=== PATIENT | male | born 1960 | race Caucasian/White ===

== ENCOUNTER 2021-08-06 15:50 | Emergency (ER) | payer OTHER, SELFPAY ==
[2021-08-06 16:00] VITALS: BP 192/90; PULSE 62; RESP 18; TEMP 36.6; O2SAT 98; BMI 32.4
[2021-08-06 16:11] LABS: MANUAL DIFF FLAG NO
[2021-08-06 16:13] LABS: Basophils Absolute Auto 0.1 X10*3/uL (0.0-0.2); Basophils Percent Auto 0.7 % (0-2); Eosinophils Absolute Auto 0.6 X10*3/uL (0.0-0.4); Eosinophils Percent Auto 5.5 % (0-4); Hematocrit 38.7 % (42.0-52.0); Hemoglobin 12.7 g/dl (14.0-18.0); Imm Gran Abs Auto 0.03 X10*3/uL (0.00-0.03); Imm Gran Pct Auto 0.3 % (0.0-0.4); Lymphocytes Absolute Auto 2.1 X10*3/uL (1.2-4.9); Lymphocytes Percent Auto 20.9 % (20-40); Mean Corpuscular HGB Conc 32.8 g/dl (31.0-36.0); Mean Corpuscular Hemoglobin 27.4 pg (27.0-33.0); Mean Corpuscular Volume 83.4 fL (80.0-98.0); Mean Platelet Volume 10.5 fL (9.4-12.4); Monocytes Absolute Auto 1.1 X10*3/uL (0.1-1.2); Monocytes Percent Auto 10.8 % (2-11); Neutrophils Absolute Auto 6.4 x10*3/uL (2.0-8.3); Neutrophils Percent Auto 61.8 % (45-73); Platelet Count 236 X10*3/uL (160-400); Red Blood Count 4.64 X10*6/uL (4.60-5.80); Red Cell Distribution Width 14.9 % (11.0-16.0); White Blood Count 10.3 X10*3/uL (4.8-10.8)
[2021-08-06 16:29] LABS: Anion Gap 16 (12-20); Blood Urea Nitrogen 22 mg/dL (9-16); Calcium 9.4 mg/dL (8.4-10.2); Carbon Dioxide 26 mmol/L (22-29); Chloride 99 mmol/L (96-108); Creatinine Clr Calc Pharmacy 50.5; Estimated Glomerular Filt Rate 48; Glucose Random 206 mg/dL (60-115); Potassium 3.9 mmol/L (3.3-5.1); Sodium 137 mmol/L (135-145)
== END 2021-08-06 21:18 | disposition left against medical advice (07) ==
PROVIDERS: Emergency Provider Emergency Medicine
DX: R51.9 Headache, unspecified (principal); R42 Dizziness and giddiness
CPT/HCPCS: 36415; 80048; 85025; 99281; 99283

== ENCOUNTER 2023-08-17 11:05 | Outpatient (AMB) | payer OTHER, SELFPAY ==
--- NOTE | 2023-08-17 11:14 | MHC.PC.OV ---
Vital Signs 08/17/23 11:22 08/17/23 11:26 Height 5 ft 2.99 in Weight 175 lb BMI 31.0 BP 144/82 H 134/56 L Blood Pressure Location Lt brachial Lt brachial Position Sitting Sitting Respiration 16 Pulse 59 Pulse Source Pulse Oximeter Temp 98.4 F Temp Source Oral Pulse Oximetry (%) 95 Oxygen Delivery Method Room Air Intake Visit Reasons: Establish Care Intake Note: New patient visit. Feeling dizzy, hasnt checked sugars in 2 weeks. Has had a cough for a month and a half since coming home from [place]. 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: Yes Precinct Police Sergeant Name: Daughter Aristides Accompanied by: Daughter Allergies clindamycin [CLINDAMYCIN] Allergy (Unknown, Verified 08/17/23 11:14) SWELLING, RASH Clindamycin HCl Allergy (Unknown, Verified 08/17/23 11:14) vomiting pravastatin Allergy (Unknown, Verified 08/17/23 11:14) increase liver enzymes Medication List - Last Reconciled 08/17/23 by Catalina Hamilton PA-C amlodipine 10 mg PO DAILY carvedilol 25 mg PO BID gabapentin 800 mg PO BEDTIME glipizide 10 mg PO BID hydralazine 25 mg PO QID hydrochlorothiazide 25 mg PO DAILY levothyroxine (Synthroid) 112 mcg PO DAILY losartan 100 mg PO DAILY metformin 1,000 mg PO BID simvastatin 10 mg PO DAILY spironolactone 25 mg PO DAILY Tobacco use date assessed: 08/17/23 Dental Screening Dental Screen Date: 08/17/23 Did you have a dental visit in the last 12 months?: No Did you have a dental problem in the last 6 months where you did not have access to dental care?: Yes Was dental information given to patient?: Yes HPI Establish Care HPI Details Pt is a 62 y/o male who presents today to [facility]. He recently moved here from [place] 2 weeks ago and is out of some medications and is running out of most of them. He states that at most he has a few days left of some pills. His daughter is here today with him and helps with translation although he does speak and understand some Georgian. He has a significant past medical history of CAD, previous MS, hypertension, hyperlipidemia, type 2 diabetes, uncontrolled, CKD, microalbuminuria, depression. The move to [place] was rather quick/not completely planned because he started to have worsening depression, ongoing chest pain, some abnormal stress test, persistent dizziness and just falling a lot at home. He was in [place] being taken care of by his [id number] who his daughter who is here today with him states did not do a good job. She says that he was following with a horse racing analyst and a coordinate measuring machine operator as of recently. CV: He had MS 8 years ago. Does not know if he had a stent or cabg. he states that it was a big one . He states he was stopped on aspirin about 6 months ago due to an acute kidney change. He saw a coordinate measuring machine operator who told him to stop the aspirin and avoid NSAIDs. He states that he was following routinely with his horse racing analyst because over the last year so he started to have chest pains again. -He does get chest pain on and off that started about a year ago. About a month ago the chest pain became more persistent and he went to his doctor in [place] he had an ekg and a stress test. He states the stress test came out not good . He left before this was followed up with. He does get chest pain with sob, dizziness and nausea. It seems to be triggered by stress. Sometimes it can be triggered by nothing. He does also have GERD and states that he gets some similar symptoms with this as well. He states that the dizziness is sometimes feeling like he is going to faint but then other times it feels like a spinning sensation. Neuro: He does not always have dizziness associated with chest pain but states that sometimes he will wake up and turn his head from [id number] and feel like he is spinning and off-balance. This has been going on for years and he states that this is 1 of his biggest concerns. It happens while doing nothing. It has gotten worse over the last couple years. He is falling because at times he is off balance with this. He does not believe that this has ever been worked up or that he has ever had a stroke. He denies any ear pain or decreased hearing. He is concerned because over the last year so he is also become increasingly forgetful. States that people will have to repeat things to him. No headaches or vision changes but also is overdue for an eye exam. Can not recall the last time he has had an eye exam. Nephro: reports his kidney function over the last year has rapidly declined. He states he also has a lot of protein in his urine. Endo: His blood sugar today in the office today 245. His A1c is 8.4 today in the office. He does not check his blood sugars. He does not have any testing supplies and states that he was never actually good about taking this. He was diagnosed with diabetes about 30 years ago. He never went to any diabetic Education. He does not fully understand diabetes and states that he is usually compliant with his medications. He is currently on glipizide 10 mg twice a day, metformin 1000 mg twice a day and insulin. He has not been on insulin in the last 2 weeks because he did not take it with him from [place]. He does not know the name of it but he states that he took it once a day and he thinks he took somewhere around 30 units. He does not know any previous A1cs. The coordinate measuring machine operator told him that the worsened kidney function was possibly related to his and his medications. GI: Was following with Gastroenterology in [place] as well for his acid reflux and because he was overdue for a colonoscopy. He states that he has never had 1. No family history of colon cancer but has experienced constipation on and off over the last few months. He states that they wanted to do a double endoscopy. No blood in the stool or weight loss. Psych: He does have a longstanding history of depression that seems to wax and wane in intensity and states that he is never seen anyone for this before and would be open to this. At times he does have suicidal ideation but no plan. Patient's daughter states that that is why she moved him so quickly to [place] so he could live with her and her . He has never been on medication or hospitalized for this. Denies any auditory or visual hallucinations. He has a family type 2 diabetes with his mother and sister. [facility] Medical History (Updated 08/17/23 @ 14:25 by Catalina Hamilton PA-C) Hypothyroid Forgetfulness Major depression, recurrent, chronic Dizziness Hypertension Hyperlipidemia Previous myocardial infarction older than 8 weeks Chest pain Microalbuminuria Chronic kidney disease Diabetic nephropathy Uncontrolled type 2 diabetes mellitus with hyperglycemia, with long-term current use of insulin Social History Housing: House (Lives with daughter) Patient Tobacco Use Status: Never used Tobacco e-Cigarette/Vaping Use: Never Used Second Hand Smoke Exposure: No service: No Current occupational status: unemployed Cognitive needs: No Hearing needs: No Vision needs: No Questionnaire PHQ-9 Over the last 2 weeks, how often have you been bothered by any of the following problems? 1. Little interest or pleasure in doing things: nearly every day 2. Feeling down, depressed, or hopeless: nearly every day 3. Trouble falling or staying asleep, or sleeping too much: nearly every day 4. Feeling tired or having little energy: nearly every day 5. Poor appetite or overeating: nearly every day 6. Feeling bad about yourself - or that you are a failure or have let yourself or your family down: several days 7. Trouble concentrating on things, such as reading the newspaper or watching television: nearly every day 8. Moving or speaking so slowly that other people could have noticed. Or the opposite - being so fidgety or restless that you have been moving around a lot more than usual: more than half the days 9. Thoughts that you would be better off or of hurting yourself in some way: several days Total score: 22 Depression Screening Interpretation: Positive Depression Screening Done: Yes [id number] - PHQ-9 Billing: Yes Source: Developed by Drs. Dick Burgess, Anna Hoang, Tal Celis and colleagues, with an educational quin from [employer]. Thrive Questionnaire Date Thrive assessed: 08/17/23 I am a: Patient What is your living situation today?: I have a steady place to live Within the past 12 months, did the food you bought not last and you didn't have the money to get more?: Never true Within the past 12 months, did you worry whether your food would run out before you got money to buy more?: Never true Do you have trouble paying for medicines?: No Do you have trouble getting transportation to medical appointments?: No Do you have trouble paying your heating and electricity bill?: No Do you have trouble taking care of your child, family member or friend?: No Do you have trouble with day-to-day activities such as bathing, preparing meals, shopping, managing finances, etc.?: No Are you currently unemployed and looking for a job?: No Are you interested in more education?: No Please select the resources that you would like help with: None THRIVE Score: 0 AUDIT C Alcohol Use Questionnaire (AUDIT-C) 1. How often do you have a drink containing alcohol?: Monthly or less 2. How many drinks containing alcohol do you have on a typical day when you are drinking?: 1 or 2 3. How often do you have six or more drinks on one occasion?: Never Total Score: 1 JOEY-7 AMB Questionnaire JOEY-7 Date JOEY - 7 assessed: 08/17/23 Feeling nervous, anxious, or on edge: 3 = Nearly every day Not being able to stop or control worryin = Nearly every day Worrying too much about different things: 3 = Nearly every day Trouble relaxin = Nearly every day Being so restless that it is hard to sit still: 2 = More than half the days Becoming easily annoyed or irritable: 3 = Nearly every day Feeling afraid as if something awful might happen: 0 = Not at all Total JOEY-7 score (0-4 normal; 5-9 mild; 10-14 moderate; 15-21 severe): 17 Source: Developed by Drs. Dick Burgess, nAna Hoang, Tal Celis and colleagues, with an educational quin from [employer]. JOEY-7 Assessment Billing JOEY-7 Assessment Tool: JOEY-7 Assessment [id number] Physical exam (Primary Care) Vital Signs: Last Vital Signs Temp 98.4 F 08/17/23 11:22 Pulse 59 08/17/23 11:22 Resp 16 08/17/23 11:22 BP 134/56 L 08/17/23 11:26 Pulse Ox 95 08/17/23 11:22 Oxygen Delivery Method Room Air 08/17/23 11:22 BMI result Body Mass Index 31.0 Tobacco/Smoking Status: Tobacco use Status Tobacco use date assessed 08/17/23 08/17/23 11:25 Patient Tobacco Use Status Never used Tobacco 08/17/23 11:25 e-Cigarette/Vaping Use Never Used 08/17/23 11:25 Depression Screening Interpretation: Positive Const Orientation/consciousness: patient oriented x3 HENMT Ears: hearing grossly normal bilaterally and TM's normal bilaterally General nose exam: Normal nasal mucous membranes and turbinates present Face and sinus: Yes sinuses nontender Mouth: Normal oral and palatal mucosa present Throat: Yes posterior oropharynx normal Eyes Pupils: Equal, round and reactive pupils present Neck Thyroid: Thyroid normal Lymphatic: no lymphadenopathy noted Resp Auscultation: clear to auscultation bilaterally Cardio Rate: regular rate Rhythm: regular rhythm Heart sounds: S1 normal heart sound present and S2 normal heart sound present GI Inspection: Yes normal to inspection Palpation (GI): Soft to palpation and Other GI palpation findings present (nontender, no cva tenderness) Auscultation: normoactive bowel sounds Skin General skin exam: no rashes or lesions noted Neuro General: patient oriented x3, gait normal, moves all extremities, no focal motor deficits, CN's II-XI intact bilaterally and deep tendon reflexes 2+ bilaterally Cranial nerves: Yes Equal, round and reactive pupils present Coordination: xdgcej-pa-[id number] test normal, osvu-wv-qlua test normal, Romberg test negative and rapid alternating movements of the distal upper extremity normal Office Procedures EKG Details: EKG today in office is sinus bradycardia at a rate of 57 beats per minute with first-degree AV block and nonspecific STT wave abnormalities noted. No prior study to compare. EKG interpreted by myself. 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 We will start Lantus 10 units. A1c today in the office is 8.4. We did discuss that his goal would be at least less than 7. Diabetic labs ordered. Referral to Ophthalmology. CGM ordered. testing supplies ordered. signs and sx of hyper and hypoglycemia were discussed. (2) Diabetic nephropathy: Code(s): E11.21 - Type 2 diabetes mellitus with diabetic nephropathy Qualifiers: Diabetes mellitus type: type 2 Qualified Code(s): E11.21 - Type 2 diabetes mellitus with diabetic nephropathy Plan: We will check kidney function and urine. (3) Chronic kidney disease: Code(s): N18.9 - Chronic kidney disease, unspecified Qualifiers: Chronic kidney disease stage: unspecified stage Qualified Code(s): N18.9 - Chronic kidney disease, unspecified Plan: Referral to Nephrology. (4) Microalbuminuria: Code(s): R80.9 - Proteinuria, unspecified Plan: As above (5) Chest pain: Code(s): R07.9 - Chest pain, unspecified Qualifiers: Chest pain type: unspecified Qualified Code(s): R07.9 - Chest pain, unspecified Plan: EKG listed above. Reports recent abnormal stress test. Does not believe he would be able to participate in his stress test due to his dizziness. I have referred him to Cardiology for consultation. I have advised them to get his records from [place] regarding his previous MS and his recent cardiac testing. Chest x-ray also ordered today. (6) Hyperlipidemia: Code(s): E78.5 - Hyperlipidemia, unspecified Qualifiers: Hyperlipidemia type: mixed hyperlipidemia Qualified Code(s): E78.2 - Mixed hyperlipidemia (7) Hypertension: Code(s): I10 - Essential (primary) hypertension Qualifiers: Hypertension type: primary hypertension Qualified Code(s): I10 - Essential (primary) hypertension Plan: Believes he took all of his blood pressure medications today. I will continue his current regimen and make adjustment if needed for next appointment. He will bring in his pill bottles as well as he has not sure what he was out of. (8) Dizziness: Code(s): R42 - Dizziness and giddiness Plan: He does appear grossly neurologically intact today. He states that his current dizziness feels more of a spinning sensation. We will treat with meclizine. We discussed risks and benefits and adverse effects of this medication. MRI ordered. Labs ordered. Carotid ultrasound ordered. (9) Major depression, recurrent, chronic: Code(s): F33.9 - Major depressive disorder, recurrent, unspecified Plan: Referral to [facility]. Does not want medication right now. Does not have any SI/HI. Feels safe. Has a good support system. (10) Forgetfulness: Code(s): R68.89 - Other general symptoms and signs Plan: As above. (11) Hypothyroid: Code(s): E03.9 - Hypothyroidism, unspecified Plan: tsh ordered.refilled levothyroxine. Plan More than an hour and a half was spent today with patient and daughter. Orders: Orders AMB Hemoglobin A1c Today E11.9 - Type 2 diabetes mellitus without complications AMB Glucose monitoring Today E11.21 - Type 2 diabetes mellitus with diabetic nephropathy, E11.65 - Type 2 diabetes mellitus with hyperglycemia, E11.9 - Type 2 diabetes mellitus without complications, E78.5 - Hyperlipidemia, unspecified, F33.9 - Major depressive disorder, recurrent, unspecified, I10 - Essential (primary) hypertension, I25.2 - Old myocardial infarction, N18.9 - Chronic kidney disease, unspecified, R07.9 - Chest pain, unspecified, R42 - Dizziness and giddiness, R80.9 - Proteinuria, unspecified, Z79.4 - 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 of insulin Complete Blood Count Auto Diff Today E11.21 - Type 2 diabetes mellitus with diabetic nephropathy, E11.65 - Type 2 diabetes mellitus with hyperglycemia, E78.5 - Hyperlipidemia, unspecified, F33.9 - Major depressive disorder, recurrent, unspecified, I10 - Essential (primary) hypertension, I25.2 - Old myocardial infarction, N18.9 - Chronic kidney disease, unspecified, R07.9 - Chest pain, unspecified, R42 - Dizziness and giddiness, R80.9 - Proteinuria, unspecified, Z79.4 - 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 of insulin PSA, Ultra Sensitive Today E11.21 - Type 2 diabetes mellitus with diabetic nephropathy, E11.65 - Type 2 diabetes mellitus with hyperglycemia, E78.5 - Hyperlipidemia, unspecified, F33.9 - Major depressive disorder, recurrent, unspecified, I10 - Essential (primary) hypertension, I25.2 - Old myocardial infarction, N18.9 - Chronic kidney disease, unspecified, R06.09 - Other forms of dyspnea, R07.9 - Chest pain, unspecified, R42 - Dizziness and giddiness, R80.9 - Proteinuria, unspecified, Z79.4 - halfway (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 of insulin Ferritin Today E11.21 - Type 2 diabetes mellitus with diabetic nephropathy, E11.65 - Type 2 diabetes mellitus with hyperglycemia, E78.5 - Hyperlipidemia, unspecified, F33.9 - Major depressive disorder, recurrent, unspecified, I10 - Essential (primary) hypertension, I25.2 - Old myocardial infarction, N18.9 - Chronic kidney disease, unspecified, R07.9 - Chest pain, unspecified, R42 - Dizziness and giddiness, R80.9 - Proteinuria, unspecified, Z79.4 - halfway (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 of insulin Vitamin B12 and Folate Today E11.21 - Type 2 diabetes mellitus with diabetic nephropathy, .65 - Type 2 diabetes mellitus with hyperglycemia, E78.5 - Hyperlipidemia, unspecified, F33.9 - Major depressive disorder, recurrent, unspecified, I10 - Essential (primary) hypertension, I25.2 - Old myocardial infarction, N18.9 - Chronic kidney disease, unspecified, R07.9 - Chest pain, unspecified, R42 - Dizziness and giddiness, R80.9 - Proteinuria, unspecified, Z79.4 - halfway (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 of insulin Urine Culture Today E78.5 - Hyperlipidemia, unspecified, F33.9 - Major depressive disorder, recurrent, unspecified, I10 - Essential (primary) hypertension, I25.2 - Old myocardial infarction, N18.9 - Chronic kidney disease, unspecified, R07.9 - Chest pain, unspecified, R42 - Dizziness and giddiness, R80.9 - Proteinuria, unspecified IRON PROFILE Today E11.21 - Type 2 diabetes mellitus with diabetic nephropathy, E11.65 - Type 2 diabetes mellitus with hyperglycemia, E78.5 - Hyperlipidemia, unspecified, F33.9 - Major depressive disorder, recurrent, unspecified, I10 - Essential (primary) hypertension, I25.2 - Old myocardial infarction, N18.9 - Chronic kidney disease, unspecified, R07.9 - Chest pain, unspecified, R42 - Dizziness and giddiness, R80.9 - Proteinuria, unspecified, Z79.4 - halfway (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 of insulin Lipid Panel Today E11.21 - Type 2 diabetes mellitus with diabetic nephropathy, E11.65 - Type 2 diabetes mellitus with hyperglycemia, E78.5 - Hyperlipidemia, unspecified, F33.9 - Major depressive disorder, recurrent, unspecified, I10 - Essential (primary) hypertension, I25.2 - Old myocardial infarction, N18.9 - Chronic kidney disease, unspecified, R07.9 - Chest pain, unspecified, R42 - Dizziness and giddiness, R80.9 - Proteinuria, unspecified, Z79.4 - halfway (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 of insulin AMB EKG-In Office Today E11.21 - Type 2 diabetes mellitus with diabetic nephropathy, E11.65 - Type 2 diabetes mellitus with hyperglycemia, E78.5 - Hyperlipidemia, unspecified, F33.9 - Major depressive disorder, recurrent, unspecified, I10 - Essential (primary) hypertension, I25.2 - Old myocardial infarction, N18.9 - Chronic kidney disease, unspecified, R07.9 - Chest pain, unspecified, R42 - Dizziness and giddiness, R80.9 - Proteinuria, unspecified, Z79.4 - halfway (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 of insulin XR chest 2V Today E11.21 - Type 2 diabetes mellitus with diabetic nephropathy, E11.65 - Type 2 diabetes mellitus with hyperglycemia, E78.5 - Hyperlipidemia, unspecified, F33.9 - Major depressive disorder, recurrent, unspecified, I10 - Essential (primary) hypertension, I25.2 - Old myocardial infarction, N18.9 - Chronic kidney disease, unspecified, R07.9 - Chest pain, unspecified, R42 - Dizziness and giddiness, R80.9 - Proteinuria, unspecified, 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 - 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 of insulin Hepatitis C Antibody Today R68.89 - Other general symptoms and signs, Z11.3 - Encounter for screening for infections with a predominantly sexual mode of transmission HIV Ab/Ag Today R68.89 - Other general symptoms and signs, Z11.3 - Encounter for screening for infections with a predominantly sexual mode of transmission Syphilis Screen Today R68.89 - Other general symptoms and signs, Z11.3 - Encounter for screening for infections with a predominantly sexual mode of transmission AMB Random Glucose (hemocue) Today E11.21 - Type 2 diabetes mellitus with diabetic nephropathy, E11.65 - Type 2 diabetes mellitus with hyperglycemia, E78.5 - Hyperlipidemia, unspecified, F33.9 - Major depressive disorder, recurrent, unspecified, I10 - Essential (primary) hypertension, I25.2 - Old myocardial infarction, N18.9 - Chronic kidney disease, unspecified, R07.9 - Chest pain, unspecified, R42 - Dizziness and giddiness, R80.9 - Proteinuria, unspecified, Z13.9 - Encounter for screening, unspecified, Z79.4 - 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 of insulin TSH reflex Free T4 Today E11.21 - Type 2 diabetes mellitus with diabetic nephropathy, E11.65 - Type 2 diabetes mellitus with hyperglycemia, E78.5 - Hyperlipidemia, unspecified, F33.9 - Major depressive disorder, recurrent, unspecified, I10 - Essential (primary) hypertension, I25.2 - Old myocardial infarction, N18.9 - Chronic kidney disease, unspecified, R07.9 - Chest pain, unspecified, R42 - Dizziness and giddiness, R80.9 - Proteinuria, unspecified, Z79.4 - halfway (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 of insulin AMB Urinalysis Dipstick Today E11.21 - Type 2 diabetes mellitus with diabetic nephropathy, E11.65 - Type 2 diabetes mellitus with hyperglycemia, E78.5 - Hyperlipidemia, unspecified, F33.9 - Major depressive disorder, recurrent, unspecified, I10 - Essential (primary) hypertension, I25.2 - Old myocardial infarction, N18.9 - Chronic kidney disease, unspecified, R07.9 - Chest pain, unspecified, R42 - Dizziness and giddiness, R80.9 - Proteinuria, unspecified, Z79.4 - halfway (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 of insulin Lyme IgG/IgM w/reflex to WB Today E11.21 - Type 2 diabetes mellitus with diabetic nephropathy, E11.65 - Type 2 diabetes mellitus with hyperglycemia, E78.5 - Hyperlipidemia, unspecified, F33.9 - Major depressive disorder, recurrent, unspecified, I10 - Essential (primary) hypertension, I25.2 - Old myocardial infarction, N18.9 - Chronic kidney disease, unspecified, R07.9 - Chest pain, unspecified, R42 - Dizziness and giddiness, R80.9 - Proteinuria, unspecified, Z79.4 - 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 of insulin MR head/brain wo con Today R42 - Dizziness and giddiness, R68.89 - Other general symptoms and signs Referrals Diabetes Education Referral E11.65 - Type 2 diabetes mellitus with hyperglycemia, Z79.4 - halfway (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 of insulin Nephrology Referral E11.21 - Type 2 diabetes mellitus with diabetic nephropathy, N18.9 - Chronic kidney disease, unspecified, R80.9 - Proteinuria, unspecified Gastroenterology Referral Z12.11 - Encounter for screening for malignant neoplasm of colon Cardiology Referral I10 - Essential (primary) hypertension, R07.9 - Chest pain, unspecified Behavioral Health Referral F33.9 - Major depressive disorder, recurrent, unspecified Medications: New blood sugar diagnostic (FreeStyle Lite Strips) use daily As directed to check blood sugars for diabetes 100 ea 3RF E11.65 - Type 2 diabetes mellitus with hyperglycemia 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 meter (FreeStyle Lite Meter kit) Use daily As directed to check blood glucose 1 ea 0RF E11.65 - Type 2 diabetes mellitus with hyperglycemia 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 meter,continuous (FreeStyle Matt 3 [place]) Use daily As directed to monitor type 2 diabetes 1 ea 0RF E11.21 - Type 2 diabetes mellitus with diabetic nephropathy, E11.65 - Type 2 diabetes mellitus with hyperglycemia, R80.9 - Proteinuria, unspecified, Z79.4 - halfway (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 of insulin insulin glargine (Lantus Solostar U-100 Insulin) 10 units (0.1 mL) subcut QPM 15 mL 3RF amlodipine 10 mg PO DAILY 90 tabs 0RF carvedilol must administer with a meal/food 25 mg PO BID 90 days 180 tabs 0RF glipizide 10 mg PO BID 180 tabs 0RF metformin 1,000 mg PO BID 90 days 180 tabs 0RF lancets (FreeStyle Lancets) Use daily As directed to check blood sugar 100 ea 3RF E11.65 - Type 2 diabetes mellitus with hyperglycemia, Z79.4 - halfway (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 of insulin 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 sensor (FreeStyle Matt 3 Sensor device) use daily As directed to monitor type 2 diabetes. changed q 14 days 2 ea 11RF E11.21 - Type 2 diabetes mellitus with diabetic nephropathy, E11.65 - Type 2 diabetes mellitus with hyperglycemia, Z79.4 - halfway (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 of insulin gabapentin 800 mg PO BEDTIME 90 tabs 0RF losartan 100 mg PO DAILY 90 tabs 0RF simvastatin 10 mg PO DAILY 90 tabs 0RF levothyroxine (Synthroid) 112 mcg PO DAILY 90 tabs 0RF Coding Level of Care Code New Pt Level 5 (22492) Complex EM visit Add On G2211 Diagnoses Uncontrolled type 2 diabetes mellitus with hyperglycemia, with long-term current use of insulin E11.65; Z79.4 Diabetic nephropathy associated with type 2 diabetes mellitus E11.21 Diabetes mellitus type: type 2 Chronic kidney disease, unspecified CKD stage N18.9 Chronic kidney disease stage: unspecified stage Microalbuminuria R80.9 Chest pain, unspecified type R07.9 Chest pain type: unspecified Mixed hyperlipidemia E78.2 Hyperlipidemia type: mixed hyperlipidemia Primary hypertension I10 Hypertension type: primary hypertension Dizziness R42 Major depression, recurrent, chronic F33.9 Forgetfulness R68.89 Hypothyroid E03.9 CPT Codes EKG - CPT: 01256-[id number], Complete ([id number]) Additional Codes JOEY-7 Assessment Billing - JOEY-7 Assessment Tool: JOEY-7 Assessment [id number] ([id number])
[2023-08-17 11:22] VITALS: BP 144/82; PULSE 59; RESP 16; TEMP 36.9; O2SAT 95; BMI 31.0
[2023-08-17 11:26] VITALS: BP 134/56
== END 2023-08-17 13:20 | disposition home or self-care (01) ==
PROVIDERS: Visit Provider Physician Assistant
DX: I12.9 Hypertensive chronic kidney disease with stage 1 through stage 4 chronic kidney disease, or unspecified chronic kidney disease (principal); N18.9 Chronic kidney disease, unspecified; E11.65 Type 2 diabetes mellitus with hyperglycemia; Z79.4 Long term (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 of insulin; E11.21 Type 2 diabetes mellitus with diabetic nephropathy; F33.9 Major depressive disorder, recurrent, unspecified; R07.9 Chest pain, unspecified; R80.9 Proteinuria, unspecified; E78.2 Mixed hyperlipidemia; R42 Dizziness and giddiness; E03.9 Hypothyroidism, unspecified
CPT/HCPCS: 83036; 93000; 99205; G2211

== ENCOUNTER 2023-08-17 13:58 | Outpatient (REF) | payer OTHER, SELFPAY | END 2023-08-17 13:59 | disposition home or self-care (01) | LOC: HO.LNP 13:58 | PROVIDERS: Visit Provider Physician Assistant | DX: Z13.89 Encounter for screening for other disorder (principal) ==

== ENCOUNTER 2023-08-18 09:10 | Outpatient (REF) | payer OTHER, SELFPAY ==
--- NOTE | ~2023-08-18 | XR_ITS ---
EXAMINATION: XR CHEST CLINICAL INFORMATION: Type 2 diabetes mellitus with hyperglycemia. COMPARISON: None available. TECHNIQUE: 2 views of the chest were obtained. FINDINGS: Lung volumes are low. Heart size within normal limits. Dextroscoliosis of the thoracolumbar spine with multilevel degenerative changes. There is no gross pneumothorax. No pleural effusion. Mild loss of height of adjacent mid to lower thoracic vertebral bodies of indeterminate age. Mild left basilar opacities likely represent subsegmental atelectasis/scar, though infectious/inflammatory processes could also be considered in the appropriate clinical setting. XR/XR chest 2V IMPRESSION: 1. Mild left basilar opacities likely represent subsegmental atelectasis/scar, though infectious/inflammatory processes could also be considered in the appropriate clinical setting. 2. Mild loss of height of the adjacent mid to lower thoracic vertebral bodies of indeterminate age.
[2023-08-18 09:33] LABS: MANUAL DIFF FLAG NO
[2023-08-18 09:54] LABS: Basophils Absolute Auto 0.1 X10*3/uL (0.0-0.2); Basophils Percent Auto 0.4 % (0-2); Eosinophils Absolute Auto 0.8 X10*3/uL (0.0-0.4); Eosinophils Percent Auto 6.7 % (0-4); Hematocrit 37.5 % (42.0-52.0); Hemoglobin 12.3 g/dl (14.0-18.0); Imm Gran Abs Auto 0.04 X10*3/uL (0.00-0.03); Imm Gran Pct Auto 0.4 % (0.0-0.4); Lymphocytes Absolute Auto 1.2 X10*3/uL (1.2-4.9); Lymphocytes Percent Auto 10.5 % (20-40); Mean Corpuscular HGB Conc 32.8 g/dl (31.0-36.0); Mean Corpuscular Volume 85.2 fL (80.0-98.0); Mean Platelet Volume 10.7 fL (9.4-12.4); Monocytes Percent Auto 8.4 % (2-11); Neutrophils Absolute Auto 8.4 x10*3/uL (2.0-8.3); Neutrophils Percent Auto 73.6 % (45-73); Platelet Count 215 X10*3/uL (160-400); Red Cell Distribution Width 14.7 % (11.0-16.0); White Blood Count 11.4 X10*3/uL (4.8-10.8)
[2023-08-18 10:32] LABS: Alanine Aminotransferase 24 U/L (0-40); Albumin Level 3.6 g/dL (3.5-5.0); Alkaline Phosphatase 81 U/L (39-117); Anion Gap 13 (12-20); Aspartate Amino Transferase 22 U/L (5-37); Bilirubin Total 0.2 mg/dL (0.0-1.0); Blood Urea Nitrogen 28 mg/dL (9-16); Calcium 8.8 mg/dL (8.4-10.2); Carbon Dioxide 25 mmol/L (22-29); Chloride 107 mmol/L (96-108); Cholesterol 85 mg/dL (<200); Estimated Glomerular Filt Rate 43; Glucose Random 90 mg/dL (60-115); HDL Cholesterol 23 mg/dL (>40); Iron 34 mcg/dL (45-160); LDL Cholesterol Calculated 29 mg/dL (<100); Percent Iron Saturation 16 % (15-50); Potassium 4.6 mmol/L (3.3-5.1); Sodium 140 mmol/L (135-145); Total Iron Binding Capacity 219 mcg/dL (228-428); Total Protein 6.6 g/dL (6.5-8.0); Triglycerides 167 mg/dL (<150); Unsaturated Iron Binding 185 ug/dL
[2023-08-18 10:37] LABS: HIV AB/AG Nonreactive (Nonreactive); HIV Num 1 0.07 S/CO (0.00-0.99); ~HepC Num1 0.08 S/CO (0.00-0.79); ~Hepatitis C Antibody Nonreactive (Nonreactive)
[2023-08-18 10:38] LABS: Syphilis Screen Nonreactive (Nonreactive)
[2023-08-18 10:49] LABS: Ferritin 165 ng/mL (20-250)
[2023-08-18 11:49] LABS: Free T4 (Free Thyroxine) 0.72 ng/dL (0.71-1.85)
[2023-08-18 12:13] LABS: Folate 8.3 ng/mL (> or = 4.0); Vitamin B12 250 pg/mL (200-900)
[2023-08-19 13:09] LABS: Lyme Abs Screen <0.90 index
[2023-08-23 21:23] LABS: PSA, Ultra Sensitive 1.12 ng/mL
== END 2023-08-18 09:11 | disposition home or self-care (01) ==
LOC: HO.LAB 09:10
PROVIDERS: PCP Physician Assistant; Visit Provider Physician Assistant
DX: E11.65 Type 2 diabetes mellitus with hyperglycemia (principal); E11.21 Type 2 diabetes mellitus with diabetic nephropathy; E11.22 Type 2 diabetes mellitus with diabetic chronic kidney disease; I12.9 Hypertensive chronic kidney disease with stage 1 through stage 4 chronic kidney disease, or unspecified chronic kidney disease; N18.9 Chronic kidney disease, unspecified; R80.9 Proteinuria, unspecified; R07.9 Chest pain, unspecified; I25.2 Old myocardial infarction; E78.5 Hyperlipidemia, unspecified; R42 Dizziness and giddiness; F33.9 Major depressive disorder, recurrent, unspecified; R68.89 Other general symptoms and signs; Z11.3 Encounter for screening for infections with a predominantly sexual mode of transmission; Z79.4 Long term (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 of insulin
CPT/HCPCS: 36415; 71046; 80053; 80061; 82607; 82728; 82746; 83540; 84153; 84439; 84443; 85025; 86617; 86618; 86780; 86803; 87086; 87389

== ENCOUNTER 2023-08-22 09:49 | Outpatient (AMB) | payer OTHER, SELFPAY ==
--- NOTE | 2023-08-22 11:23 | A.OFFVIS_ITS ---
Intake Intake Visit Reasons: Type 2 diabetes Industrial Electrical Technician Required: Yes Industrial Electrical Technician Language: Foot Orthopedist Services: Industrial Electrical Technician Present Industrial Electrical Technician Name: [facility] Industrial Electrical Technician Information Interpreted: non-clinical & clinical Accompanied by: Self / Same As Patient Allergies clindamycin [CLINDAMYCIN] Allergy (Unknown, Verified 08/17/23 11:14) SWELLING, RASH Clindamycin HCl Allergy (Unknown, Verified 08/17/23 11:14) vomiting pravastatin Allergy (Unknown, Verified 08/17/23 11:14) increase liver enzymes HPI Comprehensive Diabetes Asmnt Most Recent Diabetes Results: Cholesterol 85 mg/dL (<200) 08/18/23 HDL Cholesterol 23 mg/dL (>40) L 08/18/23 Triglycerides 167 mg/dL (<150) H 08/18/23 Creatinine 1.63 mg/dL (0.5-1.4) H 08/18/23 Blood Urea Nitrogen 28 mg/dL (9-16) H 08/18/23 Sodium 140 mmol/L (135-145) 08/18/23 Potassium 4.6 mmol/L (3.3-5.1) 08/18/23 Chloride 107 mmol/L (96-108) 08/18/23 Carbon Dioxide 25 mmol/L (22-29) 08/18/23 Calcium 8.8 mg/dL (8.4-10.2) 08/18/23 AST 22 U/L (5-37) 08/18/23 ALT 24 U/L (0-40) 08/18/23 Total Protein 6.6 g/dL (6.5-8.0) 08/18/23 Albumin 3.6 g/dL (3.5-5.0) 08/18/23 [facility] Medical History (Updated 08/17/23 @ 14:25 by Catalina Hamilton PA-C) Hypothyroid Forgetfulness Major depression, recurrent, chronic Dizziness Hypertension Hyperlipidemia Previous myocardial infarction older than 8 weeks Chest pain Microalbuminuria Chronic kidney disease Diabetic nephropathy Uncontrolled type 2 diabetes mellitus with hyperglycemia, with long-term current use of insulin Social History Housing: House Patient Tobacco Use Status: Never used Tobacco e-Cigarette/Vaping Use: Never Used Second Hand Smoke Exposure: No service: No Current occupational status: unemployed Cognitive needs: No Hearing needs: No Vision needs: No Assessment & Plan Assessment & Plan (1) Uncontrolled type 2 diabetes mellitus with hyperglycemia, with long-term current use of insulin: Code(s): E11.65 - Type 2 diabetes mellitus with hyperglycemia; Z79.4 - intermediate (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 of insulin Plan: Insulin/Incretin?Mimetic Education visit Patient Education: Patient was instructed and provided with demonstration of the following: Insulin action and Incretin Mimetics medication storage how to set up medication pen/or syringe and vial Handwashing insulin injection site rotation Site rotation recognizing hypertrophy Testing blood glucose Removing and disposing needle from insulin pen Safe disposal of sharps Target blood sugar Signs/ symptoms/treatment of hypoglycemia/hyperglycemia expiration of open insulin pen Patient verbalized understanding of education provided and was able to demonstrate proper use of inject into injection pillow Reviewed rule of 15s to treat glucose under 70 mg/dL Patient will start Lantus 10 units 1 time a day Learning objectives: The patient was provided with verbal and written education on the following topics as outlined below. The patient met all learning objectives and was able to verbalize understanding and provide teach back of education topics discussed . The patient was provided with the opportunity to ask questions and all questions were answered. Patient Assessment Assess patient education level/literacy/barriers patient able to identify foods on carbohydrate list that he is currently eating Patient questions/concerns patient has recently moved from [place], last A1c on 08/17/2023 8.4%. Patient has not picked up Lantus 10 units. Called pharmacy, pharmacy will have prescription ready on 08/23/2023 Patient has not had Diabetes Education before, reports he has had diabetes for approximately 30 years What is Diabetes? Pathophysiology How the body produces and uses insulin Identify type of DM Risk factors Signs of Diabetes Brief overview of Diabetes Management Monitoring blood sugar Following a meal plan Regular exercise Maintaining a healthy weight Taking medication as needed Members of the care team (PCP, RN, MA, RD, CDE, steam fitter supervisor maintenance) Blood glucose monitoring When/how often to test Target blood sugar ranges Patient is not currently testing his his glucose Prescriptions for Matt 3 and glucometer sent to patient's pharmacy on 08/17/2023 Patient reports he is going to waste picker Matt 3, after Diabetes Education visit today at pharmacy Introduction to Nutrition Importance of healthy diet in managing DM Diet is personalized to individual preference Review patient?s regular diet/food preferences Who prepares meals/does food shopping/ Dining out?/ Barriers? How diet effects glucose Eating 3 balanced meals a day with small, healthy snacks between meals Review food groups Carbohydrates: What is a carbohydrate/Which food/food groups are considered carbohydrates Effect of carbohydrates on blood glucose Portion sizes Reading food labels Basic carb counting (if applicable per nursing assessment) Plate method Meal planning Recommendations: Follow plate method, consistent carbs and read nutritional labels. Smart Goal: Patient will identify foods with carbohydrates that he is currently eating Educational Materials: The patient was provided with the following written educational materials: Planning Healthy Meals Handout Patient Response to instructions: Comprehension of Instructions: Fair Readiness to make changes: Contemplation How confident they feel about making changes: Positive Portions of this note were created using voice recognition software, please excuse any words or phrases that may have been misinterpreted. Medications: Discontinued levothyroxine (Synthroid) Discontinued Reason: Doctor's Order 112 mcg PO DAILY 90 tabs 0RF Patient Instructions: Incluir actividad diaria regular. ADA recomienda 30 minutos de ejercicio 5 d?as a la semana. P?rdida de peso, hable con el PCP o el cardi?logo antes de comenzar un nuevo plan. Mida el nivel de az?car en la jag seg?n las indicaciones; Ayuno y comida m?s lyndon de 2hpp. Observe las tendencias en los resultados. Utilice los resultados y eval?e c?mo los alimentos, la actividad f?merlin y los medicamentos afectan los resultados de az?car en la jag. Lleve el gluc?metro o CGM a la pr?xima visita. Conocer los medicamentos para la diabetes, sánchez acci?n, los efectos secundarios, la eficacia, la toxicidad, la dosis prescrita, el momento y la frecuencia de administraci?n apropiados, el efecto de las dosis olvidadas y retrasadas y las instrucciones de almacenamiento, viaje y seguridad. T?cnicas de resoluci?n de problemas para el seguimiento de episodios de hipo/hiperglucemia y tratamientos. Reducir los comportamientos de reducci?n de riesgos, dejar de fumar, ex?menes regulares de ojos, pies y dentales. Coding Level of Care Code Est Pt Level 1 (01529) Diagnoses Uncontrolled type 2 diabetes mellitus with hyperglycemia, with long-term current use of insulin E11.65; Z79.4
== END 2023-08-22 11:29 | disposition home or self-care (01) ==
LOC: HO.ENCR 09:50
PROVIDERS: PCP Physician Assistant; Visit Provider Registered Nurse Diabetes Educator
DX: E11.65 Type 2 diabetes mellitus with hyperglycemia (principal); Z79.4 Long term (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 of insulin

== ENCOUNTER → 2023-08-22 09:49 | Outpatient (BNVA) | payer OTHER, SELFPAY | PROVIDERS: PCP Physician Assistant; Visit Provider Registered Nurse Diabetes Educator | DX: E11.65 Type 2 diabetes mellitus with hyperglycemia (principal); Z79.4 Long term (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 of insulin | CPT/HCPCS: 99211 ==

== ENCOUNTER 2023-08-25 09:33 | Outpatient (AMB) | payer OTHER, SELFPAY ==
--- NOTE | 2023-08-25 09:38 | A.OFFPC_ITS ---
Vital Signs 08/25/23 09:53 08/25/23 09:58 Height 5 ft 2.99 in Weight 179 lb BMI 31.7 BP 178/70 H 168/68 H Blood Pressure Location Rt brachial Rt brachial Position Sitting Sitting Respiration 14 Pulse 78 Pulse Source Pulse Oximeter Pulse Oximetry (%) 94 Oxygen Delivery Method Room Air Intake Visit Reasons: follow up diabetes Intake Note: Follow up. Has two different strengths of levothyroxine. 112 mcg and 125 mcg. Did not get prescription for hydralizine 25 or hydrochlorothiazide, not in his bag of medications. Software Business Analyst Required: Yes Software Business Analyst Name: Susan (maurisio) Accompanied by: Child Allergies clindamycin [CLINDAMYCIN] Allergy (Unknown, Verified 08/25/23 09:42) SWELLING, RASH Clindamycin HCl Allergy (Unknown, Verified 08/25/23 09:42) vomiting pravastatin Allergy (Unknown, Verified 08/25/23 09:42) increase liver enzymes Medication List - Last Reconciled 08/25/23 by Catalina Hamilton PA-C amlodipine 10 mg PO DAILY blood sugar diagnostic (FreeStyle Lite Strips) use daily As directed to check blood sugars for diabetes 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 meter (FreeStyle Lite Meter kit) Use daily As directed to check blood glucose 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 meter,continuous (FreeStyle Matt 3 [place]) Use daily As directed to monitor type 2 diabetes 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 sensor (FreeStyle Matt 3 Sensor device) use daily As directed to monitor type 2 diabetes. changed q 14 days carvedilol 25 mg PO BID 90 days gabapentin 800 mg PO BEDTIME glipizide 10 mg PO BID hydralazine 25 mg PO QID hydrochlorothiazide 25 mg PO DAILY insulin glargine (Lantus Solostar U-100 Insulin) 10 units (0.1 mL) subcut QPM lancets (FreeStyle Lancets) Use daily As directed to check blood sugar levothyroxine 125 mcg PO DAILY losartan 100 mg PO DAILY meclizine 25 mg PO TID PRN metformin 1,000 mg PO BID 90 days pen needle, diabetic Use once daily As directed to inject insulin simvastatin 10 mg PO DAILY spironolactone 25 mg PO DAILY Tobacco use date assessed: 08/17/23 Dental Screening Dental Screen Date: 08/17/23 HPI follow up diabetes HPI Details Pt is a 62 y/o male who presents today for a follow up. Please see previous note for further detail. He recently moved here from [place] 3-4 weeks ago. His granddaughter is here today with him and helps with translation although he does speak and understand some [place]. Paperwork signed. He has a significant past medical history of CAD, previous [place], hypertension, hyperlipidemia, type 2 diabetes, uncontrolled, CKD, microalbuminuria, depression. Unchanged from last week: The move to [place] was rather quick/not completely planned because he started to have worsening depression, ongoing chest pain, some abnormal stress test, persistent dizziness and just falling a lot at home. He was in [place] being taken care of by his ecxxvesm-ga-nbs who his daughter who is here today with him states did not do a good job. She says that he was following with a international student counselor and a career development coordinator as of recently. CV: He had [place] 8 years ago. Does not know if he had a stent or cabg. he states that it was a big one . He states he was stopped on aspirin about 6 months ago due to an acute kidney change. He saw a career development coordinator who told him to stop the aspirin and avoid NSAIDs. He states that he was following routinely with his international student counselor because over the last year so he started to have chest pains again. Nephro: reports his kidney function over the last year has rapidly declined. He states he also has a lot of protein in his urine. -He has an appointment today with alan gong at 11:15. -BP today in office is elevated. He did bring in his medication today and he has not been taking hydralazine, hydrochlorothiazide or spironolactone. He is noticed that his ankles are swollen by the end of the day. -He does get chest pain on and off that started about a year ago. He has been referred to Cardiology and has an appointment in a couple of months. Endo: DM- At our last visit I did refill his metformin and glipizide. I also started him on 10 units of Lantus. He had a CGM ordered and has not yet picked it up. He states that it is at the pharmacy. He is not great about checking his blood sugars every morning. He states that they range between 120 and 200 in the mornings. Denies any hypoglycemic events. Hypothyroid-last TSH elevated. I increased levothyroxine. He has not yet been taking the increased dosage as he was confused. Today I paul an X on the old bottle and wrote it down for him on a paper. We circled the right dosage. GI: Was following with Gastroenterology in [place] as well for his acid reflux and because he was overdue for a colonoscopy. He states that he has never had 1. No family history of colon cancer but has experienced constipation on and off over the last few months. He states that they wanted to do a double endoscopy. No blood in the stool or weight loss. His last labs did show an iron deficiency anemia. He does have an appointment with GI but not until October. No abdominal pain but we did discuss possibly doing a CT. Musculoskeletal: Complains today of ongoing low back pain with radiation down the right leg. Sciatica has been an issue for him for years. It has been getting worse. No bowel or bladder dysfunction. He is on gabapentin for this. He has a family type 2 diabetes with his mother and sister. [facility] Medical History (Updated 08/25/23 @ 10:44 by Catalina Hamilton PA-C) Hypothyroid Forgetfulness Major depression, recurrent, chronic Dizziness Hypertension Hyperlipidemia Previous myocardial infarction older than 8 weeks Chest pain Microalbuminuria Chronic kidney disease Diabetic nephropathy Uncontrolled type 2 diabetes mellitus with hyperglycemia, with long-term current use of insulin Social History Housing: House Patient Tobacco Use Status: Never used Tobacco e-Cigarette/Vaping Use: Never Used Second Hand Smoke Exposure: No service: No Current occupational status: unemployed Cognitive needs: No Hearing needs: No Vision needs: No Questionnaire Thrive Questionnaire Date Thrive assessed: 08/17/23 JOEY-7 AMB Questionnaire JOEY-7 Date JOEY - 7 assessed: 08/17/23 Source: Developed by Drs. Dick Burgess, Anna Hoang, Tal Celis and colleagues, with an educational quin from [employer]. Physical exam (Primary Care) Vital Signs: Last Vital Signs Pulse 78 08/25/23 09:53 Resp 14 08/25/23 09:53 BP 168/68 H 08/25/23 09:58 Pulse Ox 94 08/25/23 09:53 Oxygen Delivery Method Room Air 08/25/23 09:53 BMI result Body Mass Index 31.7 Tobacco/Smoking Status: Tobacco use Status Tobacco use date assessed 08/17/23 08/25/23 09:39 Patient Tobacco Use Status Never used Tobacco 08/25/23 09:39 e-Cigarette/Vaping Use Never Used 08/25/23 09:39 Thrive Assessment: Date of Thrive Assessment Date Thrive assessed 08/17/23 08/25/23 09:39 Const Orientation/consciousness: patient oriented x3 HENMT Ears: hearing grossly normal bilaterally Neck Thyroid: Thyroid normal Lymphatic: no lymphadenopathy noted Resp Auscultation: clear to auscultation bilaterally Cardio Rate: regular rate Rhythm: regular rhythm Heart sounds: S1 normal heart sound present and S2 normal heart sound present GI Inspection: Yes normal to inspection Palpation (GI): Soft to palpation and Other GI palpation findings present (nontender, no cva tenderness) Auscultation: normoactive bowel sounds Rectal Exam - Male: Yes deferred Skin General skin exam: no rashes or lesions noted Neuro General: patient oriented x3, gait normal and no focal motor deficits Results Reviewed Results Reviewed: Laboratory Tests 08/18/23 09:30 WBC 11.4 H RBC 4.40 L Hgb 12.3 L Hct 37.5 L Plt Count 215 BUN 28 H Creatinine 1.63 H Calcium 8.8 D Iron 34 L Ferritin 165 AST 22 ALT 24 Triglycerides 167 H Cholesterol 85 LDL Cholesterol, Calc 29 HDL Cholesterol 23 L PSA Ultra-Sensitive 1.12 Vitamin B12 250 TSH 5.50 H Assessment and Plan Assessment & Plan (1) Uncontrolled type 2 diabetes mellitus with hyperglycemia, with long-term current use of insulin: Code(s): E11.65 - Type 2 diabetes mellitus with hyperglycemia; Z79.4 - manager intermediate (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 of insulin Plan: Increase Lantus to 15 units. Continue regimen otherwise. Advised to use the CGM. He does have an upcoming appointment with diabetic Education and states that she is going to help him with the CGM. (2) Diabetic nephropathy: Code(s): E11.21 - Type 2 diabetes mellitus with diabetic nephropathy Qualifiers: Diabetes mellitus type: type 2 Qualified Code(s): E11.21 - Type 2 diabetes mellitus with diabetic nephropathy Plan: Has an appointment today with Nephrology (3) Hypertension: Code(s): I10 - Essential (primary) hypertension Qualifiers: Hypertension type: primary hypertension Qualified Code(s): I10 - Essential (primary) hypertension Plan: Advised to start his hydrochlorothiazide and spironolactone. Return in 4 weeks for blood pressure rechecked. (4) Hypothyroid: Code(s): E03.9 - Hypothyroidism, unspecified Plan: I have increased the levothyroxine. We will recheck labs. (5) BOUBACAR (iron deficiency anemia): Code(s): D50.9 - Iron deficiency anemia, unspecified Plan: We will saw iron supplement. Stool test ordered. We will recheck labs in 1 month. (6) B12 deficiency: Code(s): E53.8 - Deficiency of other specified B group vitamins Plan: Borderline low. We will start on vitamin B12. (7) Lumbar pain with radiation down right leg: Code(s): M54.50 - Low back pain, unspecified; M79.604 - Pain in right leg Plan: X-ray ordered. We will follow up pending test results. Orders: Orders Complete Blood Count Auto Diff Today D50.9 - Iron deficiency anemia, unspe cified, E03.9 - Hypothyroidism, unspecified, E11.21 - Type 2 diabetes mellitus with diabetic nephropathy, E11.65 - Type 2 diabetes mellitus with hyperglycemia, E53.8 - Deficiency of other specified B group vitamins, I10 - Essential (primary) hypertension, Z79.4 - manager intermediate (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 of insulin Comprehensive [place]. Panel Fast Today D50.9 - Iron deficiency anemia, unspe cified, E03.9 - Hypothyroidism, unspecified, E11.21 - Type 2 diabetes mellitus with diabetic nephropathy, E11.65 - Type 2 diabetes mellitus with hyperglycemia, E53.8 - Deficiency of other specified B group vitamins, I10 - Essential (primary) hypertension, Z79.4 - manager intermediate (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 of insulin AMB Stool Occult Bld Single Today D50.9 - Iron deficiency anemia, unspecified TSH reflex Free T4 Today E03.9 - Hypothyroidism, unspecified XR lumbar spine 2-3V Today M54.50 - Low back pain, unspecified, M79.604 - Pain in right leg Medications: New hydrochlorothiazide 25 mg PO DAILY 90 tabs 3RF spironolactone 25 mg PO DAILY 90 tabs 3RF ferrous fumarate 325 mg PO DAILY 90 tabs 0RF Changed From insulin glargine (Lantus Solostar U-100 Insulin) 10 units (0.1 mL) subcut QPM 15 mL 3RF To insulin glargine (Lantus Solostar U-100 Insulin) 15 units (0.15 mL) subcut QPM 15 mL 3RF Coding Level of Care Code Est Pt Level 4 (83455) Complex EM visit Add On G2211 Diagnoses Uncontrolled type 2 diabetes mellitus with hyperglycemia, with long-term current use of insulin E11.65; Z79.4 Diabetic nephropathy associated with type 2 diabetes mellitus E11.21 Diabetes mellitus type: type 2 Primary hypertension I10 Hypertension type: primary hypertension Hypothyroid E03.9 BOUBACAR (iron deficiency anemia) D50.9 B12 deficiency E53.8 Lumbar pain with radiation down right leg M54.50; M79.604
[2023-08-25 09:53] VITALS: BP 178/70; PULSE 78; RESP 14; O2SAT 94; BMI 31.7
[2023-08-25 09:58] VITALS: BP 168/68
== END 2023-08-25 10:32 | disposition home or self-care (01) ==
PROVIDERS: Visit Provider Physician Assistant
DX: E11.65 Type 2 diabetes mellitus with hyperglycemia (principal); Z79.4 Long term (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 of insulin; E11.21 Type 2 diabetes mellitus with diabetic nephropathy; I10 Essential (primary) hypertension; E03.9 Hypothyroidism, unspecified; D50.9 Iron deficiency anemia, unspecified; E53.8 Deficiency of other specified B group vitamins; M54.50 Low back pain, unspecified; M79.604 Pain in right leg
CPT/HCPCS: 99214; G2211

== ENCOUNTER 2023-08-25 10:59 | Outpatient (AMB) | payer OTHER, SELFPAY ==
[2023-08-25 11:00] VITALS: BP 158/62; PULSE 78; O2SAT 98; BMI 31.5
--- NOTE | 2023-08-25 11:00 | HO.NEPHOV ---
Vital Signs 08/25/23 11:00 08/25/23 11:40 Height 5 ft 2.99 in Weight 178 lb BMI 31.5 BP 158/62 H 138/70 Blood Pressure Location Rt brachial Rt brachial Position Sitting Sitting Pulse 78 Pulse Source Pulse Oximeter Pulse Oximetry (%) 98 Oxygen Delivery Method Room Air Intake Visit Reasons: CKD/Proteinuria/ Conf Obstetrician Required: Yes Obstetrician Name: Reji [id number] Accompanied by: Self / Same As Patient Allergies clindamycin [CLINDAMYCIN] Allergy (Unknown, Verified 08/25/23 11:09) SWELLING, RASH Clindamycin HCl Allergy (Unknown, Verified 08/25/23 11:09) vomiting pravastatin Allergy (Unknown, Verified 08/25/23 11:09) increase liver enzymes Medication List - Last Reconciled 08/25/23 by Jaime Gomez MD amlodipine 10 mg PO DAILY blood sugar diagnostic (FreeStyle Lite Strips) use daily As directed to check blood sugars for diabetes 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 meter (FreeStyle Lite Meter kit) Use daily As directed to check blood glucose 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 meter,continuous (FreeStyle Matt 3 [place]) Use daily As directed to monitor type 2 diabetes 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 sensor (FreeStyle Matt 3 Sensor device) use daily As directed to monitor type 2 diabetes. changed q 14 days carvedilol 25 mg PO BID 90 days ferrous fumarate 325 mg PO DAILY gabapentin 800 mg PO BEDTIME glipizide 10 mg PO BID hydralazine 25 mg PO QID hydrochlorothiazide 25 mg PO DAILY insulin glargine (Lantus Solostar U-100 Insulin) 15 units (0.15 mL) subcut QPM lancets (FreeStyle Lancets) Use daily As directed to check blood sugar levothyroxine 125 mcg PO DAILY losartan 100 mg PO DAILY meclizine 25 mg PO TID PRN metformin 1,000 mg PO BID 90 days pen needle, diabetic Use once daily As directed to inject insulin simvastatin 10 mg PO DAILY spironolactone 25 mg PO DAILY HPI Comments Details: . Cirilo is a pleasant 62-year-old man with history of longstanding diabetes mellitus and hypertension who has recently moved from [place]. He has been referred for evaluation of renal insufficiency. Apparently he saw a test lead application testing in [place]. He was told that he has CKD and he has proteinuria. Baseline creatinine is unknown at this time. However on August 07 2023, creatinine was 1.5 and on August 17 creatinine was 1.63 No urine studies are available. History of significant hypertension requiring multiple medications. Upon talking to him it appears that he is compliant with his medications. He admits to eating high salt in his diet. History of coronary artery disease. He had NC about 8 years ago. He is not aware of the details. He complains of pain in his lower back. He has not take any NSAIDs. No urinary symptoms like dysuria urgency or increased frequency no hematuria. No history of kidney stones. He has had leg edema. No shortness of breath. No chest pain. No nausea or vomiting. No diarrhea constipation. No rash no swelling or pain of small joints. No significant weight loss. [facility] Medical History (Updated 08/25/23 @ 11:38 by Jaime Gomez MD) Hypothyroid Forgetfulness Major depression, recurrent, chronic Dizziness Hypertension Hyperlipidemia Previous myocardial infarction older than 8 weeks Chest pain Microalbuminuria Chronic kidney disease Diabetic nephropathy Uncontrolled type 2 diabetes mellitus with hyperglycemia, with long-term current use of insulin Social History Housing: House Patient Tobacco Use Status: Never used Tobacco e-Cigarette/Vaping Use: Never Used Second Hand Smoke Exposure: No service: No Current occupational status: unemployed Cognitive needs: No Hearing needs: No Vision needs: No Review of Systems Const Denies fever(s) and Denies weight loss Card Denies chest pain Resp Denies cough and Denies hemoptysis GI Denies abdominal pain, Denies diarrhea and Denies nausea Musc Denies back pain Neuro Denies focal weakness Physical Exam Vital Signs: Last Vital Signs Pulse 78 08/25/23 11:00 BP 158/62 H 08/25/23 11:00 Pulse Ox 98 08/25/23 11:00 Oxygen Delivery Method Room Air 08/25/23 11:00 BMI result Body Mass Index 31.5 Const General: comfortable; No acute distress Orientation/consciousness: patient oriented x3 Eyes General: appearance normal, both eyes and all related structures Visual Sierra: normal visual sierra by confrontation Neck Neck: Yes supple and Yes no JVD Resp Effort & Inspection: normal respiratory effort and respiratory effort not decreased Auscultation: rhonchi Cardio Palpation: no palpable S3 and no palpable S4 Heart sounds: no rubs GI Inspection: Yes normal to inspection Palpation (GI): Soft to palpation Percussion: Yes normal to percussion Auscultation: normal bowel sounds General: Yes no CVA tenderness Back/Spine/Pelvis Back: no CVA tenderness Skin General skin exam: no petechiae and no purpura Neuro General: patient oriented x3 and no focal motor deficits Extrem General: No clubbing and Yes edema (1+) Results Reviewed Nephrology Results: Hgb 12.3 g/dl (14.0-18.0) L 08/18/23 WBC 11.4 X10*3/uL (4.8-10.8) H 08/18/23 Plt Count 215 X10*3/uL (160-400) 08/18/23 Sodium 140 mmol/L (135-145) 08/18/23 Potassium 4.6 mmol/L (3.3-5.1) 08/18/23 Chloride 107 mmol/L (96-108) 08/18/23 Carbon Dioxide 25 mmol/L (22-29) 08/18/23 BUN 28 mg/dL (9-16) H 08/18/23 Creatinine 1.63 mg/dL (0.5-1.4) H 08/18/23 Calcium 8.8 mg/dL (8.4-10.2) 08/18/23 Assessment & Plan Assessment & Plan (1) Chronic kidney disease: Code(s): N18.9 - Chronic kidney disease, unspecified Category: Medical Qualifiers: Chronic kidney disease stage: stage 3 (moderate) Chronic kidney disease stage 3 subtype: stage 3b (GFR 30-44) Qualified Code(s): N18.32 - Chronic kidney disease, stage 3b Plan: . CKD 3 B. EGFR is about 43 mL/minute based on serum creatinine of 1.63. Baseline creatinine is unknown at this time. Differential diagnosis includes hypertensive diabetic kidney disease. Other nondiabetic causes should be ruled out. Obstructive uropathy is less likely based on the clinical story. Workup initiated for CKD. We will screen for comorbid conditions including secondary hyperparathyroidism. Check urine protein creatinine ratio. Renal ultrasonogram. Concur with current medications and KOLTON inhibition. Maintain blood pressure less than 130/80. Maintain A1c less than 7%. He would benefit from SGLT2 inhibitors.. (2) Hypertension: Code(s): I10 - Essential (primary) hypertension Category: Medical Qualifiers: Hypertension type: primary hypertension Qualified Code(s): I10 - Essential (primary) hypertension Plan: . Resistant hypertension in the setting of longstanding diabetes mellitus CKD and elevated BMI. Initial blood pressure was elevated subsequently repeat blood pressure was better. This is his 1st visit and therefore I have not made any changes in his medications. We discussed importance of low-sodium diet. Weight loss we will also help with controlling the blood pressure. He needs to increase physical activities. (3) Uncontrolled type 2 diabetes mellitus with hyperglycemia, with long-term current use of insulin: Code(s): E11.65 - Type 2 diabetes mellitus with hyperglycemia; Z79.4 - long-term (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 of insulin Category: Medical Plan: Defer to primary care. Goal is to maintain A1c less than 7% (4) Anemia: Code(s): D64.9 - Anemia, unspecified Category: Medical Plan: . Anemia is multifactorial. He has mild iron deficiency. He might have erythropoietin deficiency due to underlying CKD. Agree with current workup including repeat iron TIBC ferritin B12 and folate. No absolute indication for erythropoietin replacement therapy at this time. . Orders: Orders Creatinine Urine Today N18.9 - Chronic kidney disease, unspecified Parathyroid Hormone Intact Today N18.9 - Chronic kidney disease, unspecified Phosphorus Today N18.9 - Chronic kidney disease, unspecified Total Protein Urine Random Today N18.9 - Chronic kidney disease, unspecified UA and rflx microscopic Today N18.9 - Chronic kidney disease, unspecified Vitamin D 25-OH (D2 and D3) Today N18.9 - Chronic kidney disease, unspecified US renal BI Today N18.9 - Chronic kidney disease, unspecified Coding Level of Care Code New Pt Level 5 (31465) Diagnoses Stage 3b chronic kidney disease N18.32 Chronic kidney disease stage: stage 3 (moderate) Chronic kidney disease stage 3 subtype: stage 3b (GFR 30-44) Primary hypertension I10 Hypertension type: primary hypertension Uncontrolled type 2 diabetes mellitus with hyperglycemia, with long-term current use of insulin E11.65; Z79.4 Anemia D64.9
[2023-08-25 11:40] VITALS: BP 138/70
== END 2023-08-25 11:27 | disposition home or self-care (01) ==
LOC: HO.HKA 10:59
PROVIDERS: PCP Physician Assistant; Referring Provider Physician Assistant; Visit Provider Internal Medicine Hypertension Specialist
DX: N18.32 Chronic kidney disease, stage 3b (principal); I10 Essential (primary) hypertension; E11.65 Type 2 diabetes mellitus with hyperglycemia; Z79.4 Long term (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 of insulin; D64.9 Anemia, unspecified
CPT/HCPCS: 99204

== ENCOUNTER → 2023-08-25 10:59 | Outpatient (BNVA) | payer OTHER, SELFPAY | PROVIDERS: PCP Physician Assistant; Referring Provider Physician Assistant; Visit Provider Internal Medicine Hypertension Specialist | DX: E11.65 Type 2 diabetes mellitus with hyperglycemia (principal); E11.21 Type 2 diabetes mellitus with diabetic nephropathy; E11.22 Type 2 diabetes mellitus with diabetic chronic kidney disease; I15.2 Hypertension secondary to endocrine disorders; I1A.0 Resistant hypertension; N18.32 Chronic kidney disease, stage 3b; R80.9 Proteinuria, unspecified; D64.9 Anemia, unspecified; Z79.4 Long term (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 of insulin | CPT/HCPCS: 99202 ==

== ENCOUNTER 2023-08-25 11:34 | Outpatient (REF) | payer OTHER, SELFPAY ==
[2023-08-25 13:12] LABS: MANUAL DIFF FLAG NO
[2023-08-25 13:13] LABS: Basophils Absolute Auto 0.1 X10*3/uL (0.0-0.2); Basophils Percent Auto 0.6 % (0-2); Eosinophils Absolute Auto 0.8 X10*3/uL (0.0-0.4); Eosinophils Percent Auto 7.3 % (0-4); Hematocrit 34.5 % (42.0-52.0); Hemoglobin 11.4 g/dl (14.0-18.0); Imm Gran Abs Auto 0.06 X10*3/uL (0.00-0.03); Imm Gran Pct Auto 0.6 % (0.0-0.4); Lymphocytes Absolute Auto 1.5 X10*3/uL (1.2-4.9); Lymphocytes Percent Auto 13.5 % (20-40); Mean Corpuscular Hemoglobin 28.1 pg (27.0-33.0); Mean Platelet Volume 10.8 fL (9.4-12.4); Monocytes Absolute Auto 0.8 X10*3/uL (0.1-1.2); Monocytes Percent Auto 7.4 % (2-11); Neutrophils Absolute Auto 7.7 x10*3/uL (2.0-8.3); Neutrophils Percent Auto 70.6 % (45-73); Platelet Count 228 X10*3/uL (160-400); Red Blood Count 4.06 X10*6/uL (4.60-5.80); Red Cell Distribution Width 14.5 % (11.0-16.0); White Blood Count 10.8 X10*3/uL (4.8-10.8)
[2023-08-25 13:17] LABS: Appearance Urine Clear; Color Urine Yellow; Glucose Urine UA 250 mg/dL (Negative); Leukocyte Esterase Urine Negative (Negative); Nitrite Urine Negative (Negative); Specific Gravity - Urine 1.015 (1.005-1.025); Urine Blood Negative (Negative); Urine Ketones Negative (Negative); Urine Protein >=1000 (4+) mg/dL (Neg-Trace)
[2023-08-25 13:30] LABS: Alanine Aminotransferase 21 U/L (0-40); Albumin Level 3.5 g/dL (3.5-5.0); Alkaline Phosphatase 83 U/L (39-117); Anion Gap 12 (12-20); Aspartate Amino Transferase 17 U/L (5-37); Bilirubin Total 0.2 mg/dL (0.0-1.0); Blood Urea Nitrogen 24 mg/dL (9-16); Calcium 9.5 mg/dL (8.4-10.2); Carbon Dioxide 25 mmol/L (22-29); Chloride 105 mmol/L (96-108); Estimated Glomerular Filt Rate 40; Glucose Fasting 269 mg/dL (60-99); Phosphorus 3.9 mg/dL (2.7-4.5); Potassium 4.9 mmol/L (3.3-5.1); Sodium 137 mmol/L (135-145); Total Protein 6.5 g/dL (6.5-8.0)
[2023-08-25 13:32] LABS: Parathyroid Hormone Intact 50.5 pg/mL (8.7-77.1)
[2023-08-25 14:51] LABS: Creatinine Urine 99.84 mg/dL
[2023-08-25 15:00] LABS: Free T4 (Free Thyroxine) 1.07 ng/dL (0.71-1.85)
[2023-08-25 15:01] LABS: Total Protein Urine Random 463 mg/dL (<12)
[2023-08-29 14:54] LABS: Vitamin D 25-OH, D2 <4 ng/mL; Vitamin D 25-OH, D3 14 ng/mL; Vitamin D 25-OH, Total 14 ng/mL (30-100)
== END 2023-08-25 11:35 | disposition home or self-care (01) ==
LOC: HO.10HDL 11:34
PROVIDERS: Physician Assistant; Visit Provider Internal Medicine Hypertension Specialist
DX: M79.604 Pain in right leg (principal); M54.50 Low back pain, unspecified; D50.9 Iron deficiency anemia, unspecified; E03.9 Hypothyroidism, unspecified; E11.22 Type 2 diabetes mellitus with diabetic chronic kidney disease; E11.21 Type 2 diabetes mellitus with diabetic nephropathy; E11.65 Type 2 diabetes mellitus with hyperglycemia; I12.9 Hypertensive chronic kidney disease with stage 1 through stage 4 chronic kidney disease, or unspecified chronic kidney disease; N18.9 Chronic kidney disease, unspecified; E53.8 Deficiency of other specified B group vitamins; Z79.4 Long term (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 of insulin
CPT/HCPCS: 36415; 80053; 81003; 82306; 82570; 83970; 84100; 84156; 84439; 84443; 85025

== ENCOUNTER 2023-09-22 11:01 | Outpatient (REF) | payer OTHER, SELFPAY ==
--- NOTE | ~2023-09-22 | US_ITS ---
EXAMINATION: US RETROPERITONEAL LIMITED (RENAL ONLY) CLINICAL INFORMATION: Chronic kidney disease, unspecified. COMPARISON: ([facility] 03/02/2017. TECHNIQUE: Real-time imaging of the kidneys. FINDINGS: RIGHT KIDNEY: 13.6 x 5.7 x 6.2 cm (SAG x AP x TRV). The kidney is normal in size, contour, and echogenicity. Renal cortical thickness is normal. No renal calculi or hydronephrosis. Septated cyst 1.6 x 1.2 x 1.6 cm lower pole and simple cyst middle pole measures 1.1 x 0.9 x 0.8 cm. LEFT KIDNEY: 12.1 x 7.4 x 5.5 cm (SAG x AP x TRV). The kidney is normal in size, contour, and echogenicity. Renal cortical thickness is normal. No renal calculi or hydronephrosis. Simple cyst upper pole 1.2 x 1.1 x 1.1 cm, simple cyst middle pole 5 x 5 x 6 mm. US/US renal BI IMPRESSION: 1. No ultrasound evidence of renal obstruction or hydronephrosis. 2. Bilateral renal cysts including a septated cyst in the right kidney 1.6 cm. These are commonly benign, no follow-up imaging is recommended.
--- NOTE | ~2023-09-22 | US_ITS ---
EXAMINATION: US EXTRACRANIAL CAROTID DUPLEX, BILATERAL CLINICAL INFORMATION: Dizziness and giddiness COMPARISON: None available. TECHNIQUE: Real-time ultrasound and Doppler techniques (integrating B-mode 2-D vascular images, Doppler spectral analysis and color-flow Doppler imaging) were utilized to interrogate the extracranial carotid arteries, the vertebral arteries and proximal subclavian arteries bilaterally. The degree of stenosis is determined by criteria similar to NASCET. FINDINGS: Right Side: 1. There is mild atherosclerotic plaque seen in the bifurcation/proximal ICA region. 2. The common carotid artery PSV proximally is 107 cm/s and distally 73.2 cm/s. 3. The proximal internal carotid artery velocities are 75.7 cm/s systolic and 17.7 cm/s diastolic. 4. The proximal external carotid artery PSV is 105 cm/s. 5. The vertebral artery shows antegrade flow. 6. The subclavian artery waveforms are normal. Left Side: 1. There is mild atherosclerotic plaque seen in the bifurcation/proximal ICA region. 2. The common carotid artery PSV proximally is 112 cm/s and distally 71.9 cm/s. 3. The proximal internal carotid artery velocities are 69.7 cm/s systolic and 20.3 cm/s diastolic. 4. The proximal external carotid artery PSV is 82.3 cm/s. 5. The vertebral artery shows antegrade flow. 6. The subclavian artery waveforms are normal. Left anterior cervical lymph node measuring 2.2 x 0.4 x 1.3 cm. US/US carotid duplex BI IMPRESSION: 1. RIGHT: Minimal, non-hemodynamically significant stenosis of the proximal right internal carotid artery corresponding to a 0-49% stenosis by velocity criteria. 2. LEFT: Minimal, non-hemodynamically significant stenosis of the proximal left internal carotid artery corresponding to a 0-49% stenosis by velocity criteria.
== END 2023-09-22 11:02 | disposition home or self-care (01) ==
LOC: HO.US 11:01
PROVIDERS: PCP Physician Assistant; Visit Provider Physician Assistant
DX: R42 Dizziness and giddiness (principal); Z18.32 Retained tooth
CPT/HCPCS: 76775; 93880; 99212

== ENCOUNTER 2023-09-22 13:26 | Outpatient (AMB) | payer OTHER, SELFPAY ==
--- NOTE | 2023-09-22 13:26 | HO.NEPHOV_ITS ---
Vital Signs 09/22/23 13:27 Height 5 ft 2 in Weight 175 lb BMI 32.0 BP 128/64 Blood Pressure Location Lt brachial Position Sitting Pulse 67 Pulse Source Pulse Oximeter Pulse Oximetry (%) 97 Oxygen Delivery Method Room Air Intake Visit Reasons: CKD/ Needs late appt/ Conf Song Lyricist Required: Yes Song Lyricist Name: Steven [id number] Accompanied by: Self / Same As Patient Allergies clindamycin [CLINDAMYCIN] Allergy (Unknown, Verified 09/22/23 13:29) SWELLING, RASH Clindamycin HCl Allergy (Unknown, Verified 09/22/23 13:29) vomiting pravastatin Allergy (Unknown, Verified 09/22/23 13:29) increase liver enzymes Medication List - Last Reconciled 09/22/23 by Jaime Gomez MD amlodipine 10 mg PO DAILY blood sugar diagnostic (FreeStyle Lite Strips) use daily As directed to check blood sugars for diabetes 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 meter (FreeStyle Lite Meter kit) Use daily As directed to check blood glucose 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 meter,continuous (FreeStyle Matt 3 [place]) Use daily As directed to monitor type 2 diabetes 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 sensor (FreeStyle Matt 3 Sensor device) use daily As directed to monitor type 2 diabetes. changed q 14 days carvedilol 25 mg PO BID 90 days doxycycline hyclate 100 mg PO BID ferrous fumarate 325 mg PO DAILY gabapentin 800 mg PO BEDTIME glipizide 10 mg PO BID hydralazine 25 mg PO QID hydrochlorothiazide 25 mg PO DAILY insulin glargine (Lantus Solostar U-100 Insulin) 15 units (0.15 mL) subcut QPM lancets (FreeStyle Lancets) Use daily As directed to check blood sugar levothyroxine 125 mcg PO DAILY losartan 100 mg PO DAILY meclizine 25 mg PO TID PRN metformin 1,000 mg PO BID 90 days pen needle, diabetic Use once daily As directed to inject insulin prednisone take 3 tab po x 3 days, take 2 tab po x 3 days, take 1 tab po x 3 days; simvastatin 10 mg PO DAILY spironolactone 25 mg PO DAILY HPI Comments Details: . Cirilo is a pleasant 62-year-old man with history of longstanding diabetes mellitus and hypertension who has recently moved from [place]. He has been referred for evaluation of renal insufficiency. Apparently he saw a victim advocate in [place]. He was told that he has CKD and he has proteinuria. Baseline creatinine is unknown at this time. However on August 07 2023, creatinine was 1.5 and on August 17 creatinine was 1.63 No urine studies are available. History of significant hypertension requiring multiple medications. Upon talking to him it appears that he is compliant with his medications. He admits to eating high salt in his diet. History of coronary artery disease. He had ME about 8 years ago. He is not aware of the details. He complains of pain in his lower back. He has not take any NSAIDs. No urinary symptoms like dysuria urgency or increased frequency no hematuria. No history of kidney stones. He has had leg edema. No shortness of breath. No chest pain. No nausea or vomiting. No diarrhea constipation. No rash no swelling or pain of small joints. No significant weight loss. 09/22/23 Events noted No new issues since last visit Complaint with [facility] Medical History (Updated 08/25/23 @ 11:38 by Jaime Gomez MD) Hypothyroid Forgetfulness Major depression, recurrent, chronic Dizziness Hypertension Hyperlipidemia Previous myocardial infarction older than 8 weeks Chest pain Microalbuminuria Chronic kidney disease Diabetic nephropathy Uncontrolled type 2 diabetes mellitus with hyperglycemia, with long-term current use of insulin Social History Housing: House Patient Tobacco Use Status: Never used Tobacco e-Cigarette/Vaping Use: Never Used Second Hand Smoke Exposure: No service: No Current occupational status: unemployed Cognitive needs: No Hearing needs: No Vision needs: No Physical Exam Vital Signs: Last Vital Signs Pulse 67 09/22/23 13:27 BP 128/64 09/22/23 13:27 Pulse Ox 97 09/22/23 13:27 Oxygen Delivery Method Room Air 09/22/23 13:27 BMI result Body Mass Index 32.0 Const General: comfortable; No acute distress Orientation/consciousness: patient oriented x3 Eyes General: appearance normal, both eyes and all related structures Visual Sierra: normal visual sierra by confrontation Neck Neck: Yes supple and Yes no JVD Resp Effort & Inspection: normal respiratory effort and respiratory effort not decreased Auscultation: rhonchi Cardio Palpation: no palpable S3 and no palpable S4 Heart sounds: no rubs GI Inspection: Yes normal to inspection Palpation (GI): Soft to palpation Percussion: Yes normal to percussion Auscultation: normal bowel sounds General: Yes no CVA tenderness Back/Spine/Pelvis Back: no CVA tenderness Skin General skin exam: no petechiae and no purpura Neuro General: patient oriented x3 and no focal motor deficits Extrem General: No clubbing and No edema Results Reviewed Nephrology Results: Hgb 11.4 g/dl (14.0-18.0) L 08/25/23 WBC 10.8 X10*3/uL (4.8-10.8) 08/25/23 Plt Count 228 X10*3/uL (160-400) 08/25/23 Sodium 137 mmol/L (135-145) 08/25/23 Potassium 4.9 mmol/L (3.3-5.1) 08/25/23 Chloride 105 mmol/L (96-108) 08/25/23 Carbon Dioxide 25 mmol/L (22-29) 08/25/23 BUN 24 mg/dL (9-16) H 08/25/23 Creatinine 1.74 mg/dL (0.5-1.4) H 08/25/23 Calcium 9.5 mg/dL (8.4-10.2) 08/25/23 Phosphorus 3.9 mg/dL (2.7-4.5) 08/25/23 PTH Intact 50.5 pg/mL (8.7-77.1) 08/25/23 Urine Protein >=1000 (4+) mg/dL (Neg-Trace) H 4 Urine Creatinine 99.84 mg/dL 08/25/23 Renal US 09/22/23 Assessment & Plan Assessment & Plan (1) Chronic kidney disease: Code(s): N18.9 - Chronic kidney disease, unspecified Category: Medical Qualifiers: Chronic kidney disease stage: stage 3 (moderate) Chronic kidney disease stage 3 subtype: stage 3b (GFR 30-44) Qualified Code(s): N18.32 - Chronic kidney disease, stage 3b Plan: . CKD 3 B. EGFR is about 43 mL/minute based on serum creatinine of 1.63. Repeat was 1.7 Baseline creatinine is unknown at this time. Differential diagnosis includes hypertensive diabetic kidney disease. Other nondiabetic causes seem less likely No Obstructive uropathy based on Ultrasound Workup initiated for CKD. urine protein creatinine ratio elevated. About 4 gm proteinuria Renal ultrasonogram.- Results pending. But images we reviewed- Looked normal except for renal cyst Concur with current medications and KOLTON inhibition. Maintain blood pressure less than 130/80. Maintain A1c less than 7%. He would benefit from SGLT2 inhibitors.. Vit D Def: Added Vit D 1000 U daily (2) Hypertension: Code(s): I10 - Essential (primary) hypertension Category: Medical Qualifiers: Hypertension type: primary hypertension Qualified Code(s): I10 - Essential (primary) hypertension Plan: . Resistant hypertension in the setting of longstanding diabetes mellitus CKD and elevated BMI. BP is well controlled today We discussed importance of low-sodium diet. Weight loss we will also help with controlling the blood pressure. He needs to increase physical activities. (3) Uncontrolled type 2 diabetes mellitus with hyperglycemia, with long-term current use of insulin: Code(s): E11.65 - Type 2 diabetes mellitus with hyperglycemia; Z79.4 - custodial (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 of insulin Category: Medical Plan: Defer to primary care. Goal is to maintain A1c less than 7% (4) Anemia: Code(s): D64.9 - Anemia, unspecified Category: Medical Plan: . Anemia is multifactorial. He has mild iron deficiency. He might have erythropoietin deficiency due to underlying CKD. Start IRon supplementation No absolute indication for erythropoietin replacement therapy at this time. . Orders: Orders Basic Metabolic Panel Today I10 - Essential (primary) hypertension Complete Blood Count Auto Diff Today I10 - Essential (primary) hypertension Medications: New cholecalciferol (vitamin D3) 25 mcg PO DAILY 90 caps 0RF Coding Level of Care Code Est Pt Level 4 (24394) Diagnoses Stage 3b chronic kidney disease N18.32 Chronic kidney disease stage: stage 3 (moderate) Chronic kidney disease stage 3 subtype: stage 3b (GFR 30-44) Primary hypertension I10 Hypertension type: primary hypertension Uncontrolled type 2 diabetes mellitus with hyperglycemia, with long-term current use of insulin E11.65; Z79.4 Anemia D64.9
[2023-09-22 13:27] VITALS: BP 128/64; PULSE 67; O2SAT 97; BMI 32.0
== END 2023-09-22 13:49 | disposition home or self-care (01) ==
PROVIDERS: PCP Physician Assistant; Visit Provider Internal Medicine Hypertension Specialist
DX: N18.32 Chronic kidney disease, stage 3b (principal); I10 Essential (primary) hypertension; E11.65 Type 2 diabetes mellitus with hyperglycemia; Z79.4 Long term (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 of insulin; D64.9 Anemia, unspecified
CPT/HCPCS: 99214

== ENCOUNTER 2023-09-28 14:53 | Outpatient (AMB) | payer OTHER, SELFPAY ==
--- NOTE | 2023-09-28 15:03 | A.OFFPC_ITS ---
Vital Signs 09/28/23 15:08 Height 5 ft 2 in Weight 174 lb 8 oz BMI 31.9 BP 136/62 Blood Pressure Location Rt brachial Position Sitting Pulse 59 Pulse Source Pulse Oximeter Pulse Oximetry (%) 97 Oxygen Delivery Method Room Air Intake Visit Reasons: dm follow up Intake Note: Follow up Allergies clindamycin [CLINDAMYCIN] Allergy (Unknown, Verified 09/28/23 15:03) SWELLING, RASH Clindamycin HCl Allergy (Unknown, Verified 09/28/23 15:03) vomiting pravastatin Allergy (Unknown, Verified 09/28/23 15:03) increase liver enzymes Medication List - Last Reconciled 09/28/23 by Catalina Hamilton PA-C amlodipine 10 mg PO DAILY blood sugar diagnostic (FreeStyle Lite Strips) use daily As directed to check blood sugars for diabetes 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 meter (FreeStyle Lite Meter kit) Use daily As directed to check blood glucose 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 meter,continuous (FreeStyle Matt 3 [place]) Use daily As directed to monitor type 2 diabetes 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 sensor (FreeStyle Matt 3 Sensor device) use daily As directed to monitor type 2 diabetes. changed q 14 days carvedilol 25 mg PO BID 90 days cholecalciferol (vitamin D3) 25 mcg PO DAILY ferrous fumarate 325 mg PO DAILY gabapentin 800 mg PO BEDTIME glipizide 10 mg PO BID hydralazine 25 mg PO QID hydrochlorothiazide 25 mg PO DAILY insulin glargine (Lantus Solostar U-100 Insulin) 15 units (0.15 mL) subcut QPM lancets (FreeStyle Lancets) Use daily As directed to check blood sugar levothyroxine 125 mcg PO DAILY losartan 100 mg PO DAILY meclizine 25 mg PO TID PRN metformin 1,000 mg PO BID 90 days pen needle, diabetic Use once daily As directed to inject insulin prednisone take 3 tab po x 3 days, take 2 tab po x 3 days, take 1 tab po x 3 days; simvastatin 10 mg PO DAILY spironolactone 25 mg PO DAILY Tobacco use date assessed: 09/28/23 Dental Screening Dental Screen Date: 08/17/23 HPI dm follow up HPI Details Pt is a 62 y/o male who presents today for a follow up. Please see previous note for further detail. He recently moved here from [place]. His granddaughter is here today with him and helps with translation although he does speak and understand some Cam[place]onian. Paperwork signed. He has a significant past medical history of CAD, previous [place], hypertension, hyperlipidemia, type 2 diabetes, uncontrolled, CKD, microalbuminuria, depression. PULM: He was seen for a cough when he 1st came here and did have a chest x-ray. He was placed on doxycycline and prednisone and states that he felt a lot better. No longer coughing as much. He states at times he has a dry cough but it feels normal. Denies any wheezing, shortness a breath, fevers or chills. CV: BP today in office is 136/62. He had TN 8 years ago. Does not know if he had a stent or cabg. he states that it was a big one . He states he was stopped on aspirin about 6 months ago due to an acute kidney change. He saw a security site supervisor who told him to stop the aspirin and avoid NSAIDs. He states that he was following routinely with his pharmacy technologist because over the last year so he started to have chest pains again. Nephro: reports his kidney function over the last year has rapidly declined. He states he also has a lot of protein in his urine. He recently saw Nephrology last week. Endo: DM- At our last visit I did refill his metformin and glipizide. I also started him on 10 units of Lantus. He had a CGM ordered and has not yet picked it up. He states that it is at the pharmacy. He is not great about checking his blood sugars every morning. He states that they range between 120 and 200 in the mornings. Denies any hypoglycemic events. Hypothyroid-last TSH elevated. I increased levothyroxine. He has not yet been taking the increased dosage as he was confused. Today I pual an X on the old bottle and wrote it down for him on a paper. We circled the right dosage. GI: Was following with Gastroenterology in [place] as well for his acid re flux and because he was overdue for a colonoscopy. He states that he has never had 1. No family history of colon cancer but has experienced constipation on and off over the last few months. He states that they wanted to do a double endoscopy. No blood in the stool or weight loss. His last labs did show an iron deficiency anemia. He does have an appointment with GI but not until October. Musculoskeletal: Complains today of ongoing low back pain with radiation down the right leg. Sciatica has been an issue for him for years. It has been getting worse. No bowel or bladder dysfunction. He is on gabapentin for this. I did order an x-ray but he did not get this done last time. He states he has tried physical therapy for this in the past and would like to try something else because this bothers him the most. He used to take NSAIDs for his back pain but can no longer do this because of his kidney function. He has a family type 2 diabetes with his mother and sister. [facility] Medical History (Updated 08/25/23 @ 11:38 by Jaime Gomez MD) Hypothyroid Forgetfulness Major depression, recurrent, chronic Dizziness Hypertension Hyperlipidemia Previous myocardial infarction older than 8 weeks Chest pain Microalbuminuria Chronic kidney disease Diabetic nephropathy Uncontrolled type 2 diabetes mellitus with hyperglycemia, with long-term current use of insulin Social History Housing: House Patient Tobacco Use Status: Never used Tobacco e-Cigarette/Vaping Use: Never Used Second Hand Smoke Exposure: No service: No Current occupational status: unemployed Cognitive needs: No Hearing needs: No Vision needs: No Questionnaire Thrive Questionnaire Date Thrive assessed: 08/17/23 JOEY-7 AMB Questionnaire JOEY-7 Date JOEY - 7 assessed: 08/17/23 Source: Developed by Drs. Dick Burgess, Anna Hoang, Tal Celis and colleagues, with an educational quin from [employer]. Physical exam (Primary Care) Vital Signs: Last Vital Signs Pulse 59 09/28/23 15:08 BP 136/62 09/28/23 15:08 Pulse Ox 97 09/28/23 15:08 Oxygen Delivery Method Room Air 09/28/23 15:08 BMI result Body Mass Index 31.9 Tobacco/Smoking Status: Tobacco use Status Tobacco use date assessed 09/28/23 09/28/23 15:13 Patient Tobacco Use Status Never used Tobacco 09/28/23 15:05 e-Cigarette/Vaping Use Never Used 09/28/23 15:05 Thrive Assessment: Date of Thrive Assessment Date Thrive assessed 08/17/23 09/28/23 15:05 Const Orientation/consciousness: patient oriented x3 HENMT Ears: hearing grossly normal bilaterally Neck Thyroid: Thyroid normal Lymphatic: no lymphadenopathy noted Resp Auscultation: clear to auscultation bilaterally Cardio Rate: regular rate Rhythm: regular rhythm Heart sounds: S1 normal heart sound present and S2 normal heart sound present GI Inspection: Yes normal to inspection Palpation (GI): Soft to palpation and Other GI palpation findings present (nontender, no cva tenderness) Auscultation: normoactive bowel sounds Rectal Exam - Male: Yes deferred Skin General skin exam: no rashes or lesions noted Neuro General: patient oriented x3, gait normal and no focal motor deficits Results Reviewed Results Reviewed: Laboratory Tests 08/17/23 08/18/23 08/25/23 11:43 09:30 11:40 WBC 10.8 RBC 4.06 L Hgb 11.4 L Hct 34.5 L Plt Count 228 Sodium 137 Potassium 4.9 Chloride 105 Carbon Dioxide 25 Anion Gap 12 BUN 24 H Creatinine 1.74 H Estimated GFR 40 Fasting Glucose 269 H Hgb A1c (Clinic) 8.4 H AST 17 ALT 21 Alkaline Phosphatase 83 Triglycerides 167 H Cholesterol 85 LDL Cholesterol, Calc 29 HDL Cholesterol 23 L Vitamin B12 250 25-OH Vitamin D Total 14 L TSH 4.30 H Free T4 1.07 US/US carotid duplex BI IMPRESSION: 1. RIGHT: Minimal, non-hemodynamically significant stenosis of the proximal right internal carotid artery corresponding to a 0-49% stenosis by velocity criteria. 2. LEFT: Minimal, non-hemodynamically significant stenosis of the proximal left internal carotid artery corresponding to a 0-49% stenosis by velocity criteria. XR/XR chest 2V IMPRESSION: 1. Mild left basilar opacities likely represent subsegmental atelectasis/scar, though infectious/inflammatory processes could also be considered in the appropriate clinical setting. 2. Mild loss of height of the adjacent mid to lower thoracic vertebral bodies of indeterminate age. Assessment and Plan Assessment & Plan (1) Lumbar pain with radiation down right leg: Code(s): M54.50 - Low back pain, unspecified; M79.604 - Pain in right leg Plan: We will start gabapentin during the day as well. Referral to physiatry. Advised to complete x-ray. 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 Discussed risks and benefits and adverse effects such as nausea, vomiting, increased risk of pancreatitis. I will decrease his glipizide. Advised to get the CGM. Follow up in 1-2 months. Sooner if needed. (3) Hypertension: Code(s): I10 - Essential (primary) hypertension Qualifiers: Hypertension type: primary hypertension Qualified Code(s): I10 - Essential (primary) hypertension Plan: Continue current regimen. Orders: Orders XR chest 2V Today J18.9 - Pneumonia, unspecified organism Referrals Physiatry Referral M54.50 - Low back pain, unspecified, M79.604 - Pain in right leg Medications: New gabapentin take 1 cap in the morning, 1 cap po at in the afternoon and then the 800 mg at bedtime. this is in addition to 800 mg rx. 300 mg PO BID 90 days 180 caps 0RF semaglutide (Ozempic) for 4 weeks; then increase to 0.5 mg every week 0.25 mg (0.368 mL) subcut QWEEK 3 mL 2RF glipizide ER 5 mg PO DAILY 90 tabs 0RF Discontinued glipizide Discontinued Reason: Doctor's Order 10 mg PO BID 180 tabs 0RF Patient Instructions: we will reduce the glipizide dosage start ozempic start using the freestyle matt 3 start gabapentin 300 mg in the morning and afternoon continue gabapentin 800 mg in the evening do back xray i have referred you to back doctor repeat chest xray to make sure infection cleared. 1-2 month follow up or sooner if needed Coding Level of Care Code Est Pt Level 4 (89057) Complex EM visit Add On G2211 Diagnoses Lumbar pain with radiation down right leg M54.50; M79.604 Uncontrolled type 2 diabetes mellitus with hyperglycemia, with long-term current use of insulin E11.65; Z79.4 Primary hypertension I10 Hypertension type: primary hypertension
[2023-09-28 15:08] VITALS: BP 136/62; PULSE 59; O2SAT 97; BMI 31.9
== END 2023-09-28 15:47 | disposition home or self-care (01) ==
PROVIDERS: PCP Physician Assistant; Visit Provider Physician Assistant
DX: M54.50 Low back pain, unspecified (principal); M79.604 Pain in right leg; E11.65 Type 2 diabetes mellitus with hyperglycemia; Z79.4 Long term (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 of insulin; I10 Essential (primary) hypertension
CPT/HCPCS: 99214; G2211

== ENCOUNTER 2023-11-10 15:48 | Outpatient (AMB) | payer OTHER, SELFPAY ==
--- NOTE | 2023-11-10 16:28 | A.OFFPC_ITS ---
Intake Visit Reasons: foot swelling Allergies clindamycin [CLINDAMYCIN] Allergy (Unknown, Verified 11/10/23 17:58) SWELLING, RASH Clindamycin HCl Allergy (Unknown, Verified 11/10/23 17:58) vomiting pravastatin Allergy (Unknown, Verified 11/10/23 17:58) increase liver enzymes Tobacco use date assessed: 09/28/23 Dental Screening Dental Screen Date: 08/17/23 HPI foot swelling HPI Details Patient is a 63-year-old male with a significant past medical history of hypertension, hyperlipidemia, chronic kidney disease, type 2 diabetes, B12 deficiency, iron deficiency and hypothyroidism presenting today with complaints of foot pain, swelling and loss of balance. He is accompanied today by his daughter who helps with translation. Translation sheet filled out. Patient states that over the past week he has had increased pain in his lower legs and feet. He states that the calves look swollen along with the tops of the feet. He has a hard time feeling his feet which is new for him. Over the last 2 days he has had a hard time walking because he can not feel his feet. He states that his legs have given out on him and he feels like they are weak. He has not fallen and he has been able to catch himself. He has aides at home. He does report that over the last 24 hours he has had urinary incontinence and bowel incontinence. He states overnight he had an episode where he had a bowel movement but did not know it. He does currently have rectal sensation. He denies any dysuria or abdominal pain. He does have back pain which is increased from his baseline. No fevers or chills. There was no trauma. He does not feel sick. States that his blood sugars have been overall well- controlled. His last A1c in July was 8.4. He is currently out of his insulin. He states that the pain is in his low back/buttocks area and does radiate down. He can not tell if it is related to the feet. Denies any changes in his regimen. States that this started somewhat abruptly and then gradually worsened but significantly worsened in 48-24 hours. [facility] Medical History (Updated 11/11/23 @ 09:52 by Catalina Hamilton PA-C) Hypothyroid Forgetfulness Major depression, recurrent, chronic Dizziness Hypertension Hyperlipidemia Previous myocardial infarction older than 8 weeks Chest pain Microalbuminuria Chronic kidney disease Diabetic nephropathy Uncontrolled type 2 diabetes mellitus with hyperglycemia, with long-term current use of insulin Social History Housing: House Patient Tobacco Use Status: Never used Tobacco Smoked in Last 30 Days: No e-Cigarette/Vaping Use: Never Used Second Hand Smoke Exposure: No Use of substances other than those prescribed or required for medical reasons: No Advance Directives: No Advance Directives Information Provided: No Do you have a plan to hurt others: No Plan service: No Current occupational status: unemployed Cognitive needs: No Hearing needs: No Vision needs: No Questionnaire PHQ-9 Over the last 2 weeks, how often have you been bothered by any of the following problems? 1. Little interest or pleasure in doing things: nearly every day 2. Feeling down, depressed, or hopeless: nearly every day 3. Trouble falling or staying asleep, or sleeping too much: more than half the days 4. Feeling tired or having little energy: nearly every day 5. Poor appetite or overeating: more than half the days 6. Feeling bad about yourself - or that you are a failure or have let yourself or your family down: more than half the days 7. Trouble concentrating on things, such as reading the newspaper or watching television: nearly every day 8. Moving or speaking so slowly that other people could have noticed. Or the opposite - being so fidgety or restless that you have been moving around a lot more than usual: several days 9. Thoughts that you would be better off or of hurting yourself in some way: several days Total score: 20 Source: Developed by Drs. Dick Burgess, Anna Hoang, Tal Celis and colleagues, with an educational quin from [facility]. Thrive Questionnaire Date Thrive assessed: 08/17/23 I am a: Patient What is your living situation today?: I choose not to answer this question Within the past 12 months, did the food you bought not last and you didn't have the money to get more?: Sometimes True Within the past 12 months, did you worry whether your food would run out before you got money to buy more?: Sometimes True Do you have trouble paying for medicines?: No Do you have trouble getting transportation to medical appointments?: Yes Do you have trouble paying your heating and electricity bill?: No Do you have trouble taking care of your child, family member or friend?: No Do you have trouble with day-to-day activities such as bathing, preparing meals, shopping, managing finances, etc.?: Yes Are you currently unemployed and looking for a job?: Yes Are you interested in more education?: No Please select the resources that you would like help with: Housing/Prison, Transportation, Utilities, Care for elder or disabled and Daily support Currently or been in a relationship where the following occur: I choose not to answer THRIVE Score: 3 AUDIT C Alcohol Use Questionnaire (AUDIT-C) 1. How often do you have a drink containing alcohol?: Never Total Score: 0 JOEY-7 AMB Questionnaire JOEY-7 Date JOEY - 7 assessed: 08/17/23 Feeling nervous, anxious, or on edge: 3 = Nearly every day Not being able to stop or control worryin = Nearly every day Worrying too much about different things: 3 = Nearly every day Trouble relaxin = Nearly every day Being so restless that it is hard to sit still: 3 = Nearly every day Becoming easily annoyed or irritable: 3 = Nearly every day Feeling afraid as if something awful might happen: 1 = Several days Total JOEY-7 score (0-4 normal; 5-9 mild; 10-14 moderate; 15-21 severe): 19 Source: Developed by Drs. Dick Burgess, Anna Hoang, Tal Celis and colleagues, with an educational quin from [facility]. Physical exam (Primary Care) Tobacco/Smoking Status: Tobacco use Status Tobacco use date assessed 09/28/23 11/10/23 16:30 Patient Tobacco Use Status Never used Tobacco 11/10/23 16:30 e-Cigarette/Vaping Use Never Used 11/10/23 16:30 PHQ-9: PHQ-9 Score PHQ-9: Total score 20 11/10/23 16:30 Thrive Assessment: Date of Thrive Assessment Date Thrive assessed 08/17/23 11/10/23 16:30 Currently or been in a relationship where the following occur: I choose not to answer Const Orientation/consciousness: patient oriented x3 HENMT Ears: hearing grossly normal bilaterally Resp Auscultation: clear to auscultation bilaterally Cardio Rate: regular rate Rhythm: regular rhythm GI Inspection: Yes normal to inspection Palpation (GI): Soft to palpation and Other GI palpation findings present (nontender, no cva tenderness) Auscultation: normoactive bowel sounds Rectal Exam - Male: Yes deferred (Declined) Back/Spine/Pelvis Thoracic/Lumbar Spine: thoracic and lumbar spine normal to inspection and pain with thoraco-lumbar ROM Skin General skin exam: no rashes or lesions noted Neuro Other: There is decreased sensation to monofilament test on the bilateral lower legs. He states that it is still present but diminished on the right foot. unable to feel the left foot. Absent vibratory sensation bilaterally on the feet. Decreased strength with dorsiflexion and plantar flexion of the feet. Range of motion is also limited due to weakness. 3/5 strength of the bilateral lower extremities. Patient is unable to ambulate without assistance today as he loses his balance. General: patient oriented x3, no focal motor deficits and CN's II-XI intact bilaterally Extrem Other: Tenderness to palpation of the bilateral lower legs. Trace pitting edema noted over the bilateral anterior lower legs. DP pulses 1+ bilaterally. Normal capillary refill Assessment and Plan Assessment & Plan (1) Lumbar pain with radiation down both legs: Code(s): M54.50 - Low back pain, unspecified; M79.604 - Pain in right leg; M79.605 - Pain in left leg Plan: We had an extensive discussion today regarding his leg swelling, the weakness, bowel and bladder incontinence and that I do think he should be evaluated in the ER for more emergent imaging and lab evaluation. Advised him that I would contact him tomorrow to follow up regarding his ER visit. Patient and daughter understand and agree with this plan. (2) Bowel and bladder incontinence: Code(s): R32 - Unspecified urinary incontinence; R15.9 - Full incontinence of feces Plan: As above (3) Complaints of weakness of lower extremity: Code(s): R29.898 - Other symptoms and signs involving the musculoskeletal system Plan: As above Medications: Refilled insulin glargine (Lantus Solostar U-100 Insulin) 15 units (0.15 mL) subcut QPM 15 mL 3RF Coding Level of Care Code Est Pt Level 4 (38334) Diagnoses Lumbar pain with radiation down both legs M54.50; M79.604; M79.605 Bowel and bladder incontinence R32; R15.9 Complaints of weakness of lower extremity R29.898
== END 2023-11-10 16:40 | disposition home or self-care (01) ==
PROVIDERS: PCP Physician Assistant; Visit Provider Physician Assistant
DX: M54.50 Low back pain, unspecified (principal); M79.604 Pain in right leg; M79.605 Pain in left leg; R32 Unspecified urinary incontinence; R15.9 Full incontinence of feces; R29.898 Other symptoms and signs involving the musculoskeletal system
CPT/HCPCS: 99214

== ENCOUNTER 2023-11-10 17:06 | Emergency (ER) | payer OTHER, SELFPAY ==
--- NOTE | ~2023-11-10 | MR_ITS ---
EXAMINATION: MR LUMBAR SPINE WITHOUT AND WITH CONTRAST CLINICAL INFORMATION: Lumbar pain, weakness, incontinence, gait instability COMPARISON: None. TECHNIQUE: MRI of the lumbar spine was obtained using routine sequences before and after intravenous administration of 6 mL Gadavist. FINDINGS: Lumbar levocurvature. Normal lumbar lordosis is preserved. Slight grade 1 retrolisthesis at L3-L4 and grade 1 anterolisthesis at L5-S1 greater than L4-L5. Vertebral body heights are maintained.Diffuse disc desiccation with disc height loss most pronounced and severe along the concavity of the levocurvature on the right at L3-L4 and otherwise mild to moderate disc height loss. Enhancing type I Modic endplate changes at L1-L2. L2 inferior endplate Schmorl's node demonstrating marginal enhancing edema compatible with acute inflammation. Additional enhancing type I Modic endplate changes at L2-L3 and to a lesser extent T12-L1, and L4-L5. Multilevel type II Modic endplate change. Multilevel ventral disc osteophytes.There are multilevel degenerative changes with level by level detail as follows: T12-L1: Annular disc bulge with left eccentric disc osteophyte complex and multifocal enhancing annular fissuring. No spinal canal stenosis. Mild to moderate left and mild right neural foraminal stenosis. L1-L2: Disc osteophyte complex with broad-based left central/subarticular disc protrusion and enhancing annular fissure and left lateral disc osteophyte. Mild to moderate facet arthrosis and ligamentum flavum thickening. Asymmetric left subarticular zone narrowing encroaching upon the traversing left L2 nerve root without overt spinal canal stenosis. Mild left without right neural foraminal stenosis. Suspected impingement upon the extraforaminal left L1 nerve. L2-L3: Annular disc bulge/disc osteophyte complex with broad-based right central/subarticular disc protrusion/extrusion with enhancing annular fissure. Mild to moderate facet arthrosis with enhancing synovitis more pronounced on the right. Mild spinal canal and right greater than left subarticular zone narrowing likely impressing upon the traversing L3 nerve roots. Moderate right and mild left neural foraminal stenosis with mass effect along the exiting transaxial foraminal right L2 nerve root and suspected impingement upon the extraforaminal left L2 nerve root. L3-L4: Disc osteophyte complex with enhancing left foraminal/extraforaminal and ventral annular fissuring. Mild to moderate facet arthrosis. No spinal canal stenosis. Mild to moderate left and moderate right neural foraminal stenosis with mass effect along the exiting right greater than left L3 nerve roots and impingement upon the extraforaminal right L3 nerve root. L4-L5: Annular disc bulge with right lateral disc osteophyte and right central/subarticular disc protrusion with associated enhancing annular fissure. Moderate facet arthrosis. Mild right eccentric spinal canal and subarticular zone narrowing. Moderate to severe left and moderate right neural foraminal stenosis with mass effect along the exiting left greater than right L4 nerve roots. L5-S1: Bilateral facet arthrosis with small extracanalicular synovial cyst in the left lateral paraspinal soft tissues. Disc osteophyte complex eccentric to the left with enhancing paracentral and ventral annular fissure. The conus medullaris terminates at the level of T12-L1. The distal spinal cord and cauda equina nerve roots appear normal. No pathologic intrathecal enhancement. No epidural fluid collection, hematoma, or mass. No significant abnormalities of the paraspinal musculature. Significant sigmoid colonic diverticulosis. Simple-appearing right renal cyst and not requiring further imaging follow-up. The abdominal aorta is normal in caliber. Generative changes of the sacroiliac joints. MR/MR lumbar spine wo/w con IMPRESSION: Lumbar levocurvature with multilevel lumbar spondylosis as described above. Acutely edematous L2 inferior endplate Schmorl's node with associated inflammatory enhancement in addition to multilevel enhancing type I Modic endplate changes related to discogenic disease. No high-grade spinal canal stenosis. Multilevel subarticular zone narrowing with mass effect upon the traversing nerve roots. Multilevel neural foraminal stenosis, most pronounced and moderate to severe on the left at L4-L5. Mass effect along multiple exiting nerve roots as above. Electronically signed by: Alvina Lindquist MD 11/10/2023 08:42 PM EDT
--- NOTE | ~2023-11-10 | US_ITS ---
EXAMINATION: US TRIPLEX LOWER EXTREMITY, BILATERAL CLINICAL INFORMATION: Pain, swelling COMPARISON: None available. TECHNIQUE: Color-flow triplex imaging with spectral analysis and compression Doppler were performed on the bilateral lower extremities. FINDINGS: Respiratory variation, normal compression and augmented flow are noted throughout the bilateral lower extremities. The visualized common femoral vein, superficial femoral vein, profunda femoral vein, popliteal vein and midcalf peroneal and posterior tibial venous segments show no evidence of deep venous thrombosis bilaterally. Coburn's cyst in the left popliteal fossa measuring 2.0 x 0.6 x 1.4 cm. There is no stigmata of recent rupture. US/US venous duplex LE BI IMPRESSION: 1. No evidence of deep venous thrombosis involving the bilateral lower extremities. 2. Left-sided Coburn's cyst. Electronically signed by: Joseph Aldana DO 11/10/2023 10:37 PM EDT
[2023-11-10 17:56] VITALS: BP 155/75; PULSE 55; RESP 16; TEMP 36.9; O2SAT 98
--- NOTE | 2023-11-10 18:02 | ED_ITS ---
HPI - General Adult General Chief complaint: General Medical Stated complaint: bilat leg weakness Time Seen by Provider: 11/10/23 18:09 Source: patient, family (son and daughter) and RN notes reviewed Mode of arrival: ambulatory Limitations: language barrier (Family elected to interpreted himself) History of Present Illness ED Provider: Taylor HPI narrative: 63-year-old male with past medical history significant for anemia, chronic kidney disease, hypertension, hyperlipidemia, diabetes, chronic back pain presents for evaluation of back pain. Patient was brought back to room 17 immediately from triage due to back pain over the last 48 hours. It was initially reported by the daughter the patient had developed acute back pain over last 48 hours with inability to walk, urinary and bowel incontinence, and weakness to the legs bilaterally. An MRI was ordered from triage to rule out cauda equina syndrome. Per the patient's daughter, the patient also tried to call the patient's doctor to schedule an appointment but was referred to the ED to rule out cauda equina syndrome When the patient's son arrived to the ER a couple hours later, he admits the patient has had 3-4 months of progressively worsening back pain. He does have some issues with incontinence that are not new and have been progressively worsening over last few months The patient can feel we need to urinate but is unable to get to the bathroom in time He does reports the patient's symptoms are worsening over last 2 days. There have not been any recent falls or any kind of trauma Related Data Previous Rx's ?Medication ?Instructions ?Recorded blood sugar diagnostic (FreeStyle #100 ea 08/17/23 Lite Strips) 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 meter (FreeStyle #1 ea 08/17/23 Lite Meter kit) 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 meter,continuous #1 ea 08/17/23 (FreeStyle Matt 3 [place]) 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 sensor (FreeStyle #2 ea 08/17/23 Matt 3 Sensor device) ferrous fumarate 325 mg (106 mg 325 mg PO DAILY #90 tabs 08/25/23 iron) tablet prednisone 20 mg tablet See Rx Instructions .Route 09/07/23 .COMPLEX #18 tabs cholecalciferol (vitamin D3) 25 25 mcg PO DAILY #90 caps 09/22/23 mcg (1,000 unit) capsule gabapentin 300 mg capsule 300 mg PO BID 90 days #180 caps 09/28/23 glipizide 5 mg tablet, extended 5 mg PO DAILY #90 tabs 09/28/23 release 24 hr semaglutide 0.25 mg or 0.5 mg (2 0.25 mg (0.368 mL) subcut QWEEK #3 09/28/23 mg/3 mL) subcutaneous pen injector mL (Ozempic) amlodipine 10 mg tablet 10 mg PO DAILY #90 tabs 09/30/23 carvedilol 25 mg tablet 25 mg PO BID 90 days #180 tabs 09/30/23 gabapentin 800 mg tablet 800 mg PO BEDTIME #90 tabs 09/30/23 hydralazine 25 mg tablet 25 mg PO TID 30 days #90 tabs 09/30/23 hydrochlorothiazide 25 mg tablet 25 mg PO DAILY #90 tabs 09/30/23 lancets 28 gauge (FreeStyle #100 ea 09/30/23 Lancets) levothyroxine 125 mcg tablet 125 mcg PO DAILY #90 tabs 09/30/23 losartan 100 mg tablet 100 mg PO DAILY #90 tabs 09/30/23 metformin 1,000 mg tablet 1,000 mg PO BID 90 days #180 tabs 09/30/23 pen needle, diabetic 31 gauge x #100 ea 09/30/23/ simvastatin 10 mg tablet 10 mg PO DAILY #90 tabs 09/30/23 spironolactone 25 mg tablet 25 mg PO DAILY #90 tabs 09/30/23 meclizine 25 mg tablet 25 mg PO TID PRN for dizziness #30 10/05/23 tabs dexamethasone 4 mg tablet 4 mg PO BID #6 tabs 11/10/23 insulin glargine 100 unit/mL (3 15 unit (0.15 mL) subcut QPM #15 mL 11/10/23 mL) subcutaneous pen (Lantus Solostar U-100 Insulin) Allergies Allergy/AdvReac Type Severity Reaction Status Date / Time clindamycin [CLINDAMYCIN] Allergy Unknown SWELLING, Verified 11/10/23 17:58 RASH Clindamycin HCl Allergy Unknown vomiting Verified 11/10/23 17:58 pravastatin Allergy Unknown increase Verified 11/10/23 17:58 liver enzymes Review of Systems 2 Constitutional: Constitutional: Denies body ache(s), Denies chills, Denies fever(s) and Reports weakness Cardiovascular: Cardiovascular: Reports chest pain and Denies dyspnea Respiratory: Respiratory: Denies cough and Denies dyspnea Gastrointestinal: Gastrointestinal: Denies abdominal pain, Denies nausea and Denies vomiting Musculoskeletal: Musculoskeletal: Reports abnormal gait and Reports back pain Neurologic: Reports abnormal gait and Reports weakness Comments: Reports bladder and bowel incontinence Psychiatric: Psychiatric: Denies anxiety [facility] Past Medical History Medical History (Updated 11/11/23 @ 00:00 by Background Daoctavio) Hypothyroid Forgetfulness Major depression, recurrent, chronic Dizziness Hypertension Hyperlipidemia Previous myocardial infarction older than 8 weeks Chest pain Microalbuminuria Chronic kidney disease Diabetic nephropathy Uncontrolled type 2 diabetes mellitus with hyperglycemia, with long-term current use of insulin Social History Social History Housing: House Patient Tobacco Use Status: Never used Tobacco Smoked in Last 30 Days: No e-Cigarette/Vaping Use: Never Used Second Hand Smoke Exposure: No Use of substances other than those prescribed or required for medical reasons: No Advance Directives: No Advance Directives Information Provided: No Do you have a plan to hurt others: No Plan service: No Current occupational status: unemployed Cognitive needs: No Hearing needs: No Vision needs: No Physical Exam ED Vital Signs: Vital Signs - 24 hr 11/10/23 17:56 11/10/23 18:14 11/10/23 18:14 Temperature 98.4 F 98.7 F 99.2 F Pulse Rate 55 57 58 Respiratory Rate 16 16 16 Blood Pressure 155/75 H 182/78 H 182/78 H Pulse Oximetry 98 98 98 Oxygen Delivery Method Room Air Room Air Room Air 11/10/23 20:03 11/10/23 22:53 11/10/23 23:48 Temperature 98.9 F 98.1 F 98.1 F Pulse Rate 60 58 58 Respiratory Rate 16 16 16 Blood Pressure 142/68 H 148/65 H 148/65 H Pulse Oximetry 98 98 Oxygen Delivery Method Room Air Room Air Room Air BMI result Body Mass Index 30.0 Const General: healthy appearing, comfortable, no acute distress, alert and awake Nutritional Appearance: well nourished Orientation/consciousness: patient oriented x3 HENMT Head: Yes normocephalic and Yes atraumatic Eyes Eyelids: Yes eyelids normal Conjunctivae: conjunctivae normal Sclerae: sclerae normal Corneas: corneas normal Pupils: Equal, round and reactive pupils present EOM: EOMs intact bilaterally Neck Neck: Yes full ROM Resp Effort & Inspection: normal respiratory effort, able to speak in complete sentences and not labored Cardio Rate: regular rate Rhythm: regular rhythm GI Inspection: No distended Palpation (GI): Soft to palpation, not firm, nontender, no guarding and not rigid Rectal Exam - Male: Yes normal sphincter tone Skin General skin exam: elasticity normal Neuro Other: On initial evaluation, the patient had 2/5 strength with major muscle groups of the lower extremities including dorsiflexion and plantar flexion. He also has 2/5 strength while attempting to lift the lower extremities off the bed bilaterally. General: patient oriented x3 Cranial nerves: Yes Equal, round and reactive pupils present and Yes Bilaterally intact EOM present Cognition (Neuro): normal cognition Motor exam (neuro): strength not 5/5 throughout, No no tremor noted, fasciculations noted and Normal motor muscle tone present throughout Deep tendon reflexes (DTR's): Right patellar reflex intensity grade: 1+ and Left patellar reflex intensity grade: 1+ Course Course Course Narrative: RME: 63-year-old male presents to ED for chronic back pain exacerbation that worsened in the past 48 hours now having urinary incontinence and bilateral lower extremity weakness. On exam patient has significant lower extremity weakness not able to ambulate. Positive for lumbar spine tenderness on palpation. Patient is sent from primary care to rule out cauda equinus. MRI ordered. Patient going to room 17. MRI will take patient. Reevaluation(s) Reevaluation #1: I evaluated the patient he was complaining of chest pain, I had the master sonar technician perform an EKG prior to patient going to MRI. Apparently the delayed caused MRI to have to do another patient in between. I did discuss with MRI that this was a surgical emergency and needed to be done CINTIA. MRI staff will attempt to get the patient as soon as possible Time: 18:51 Reevaluation #2: Patient re-evaluated, he has not received any analgesia of any kind. He is now comfortable after his MRI. His strength has greatly improved to the bilateral lower extremities. He has no difficulty moving his legs and he has 5/5 strength to major muscle groups. The patient was evaluated by my attending, Dr Vann, given the MRI findings and reassuring exam, the patient can be discharged to follow-up with outpatient neurosurgery. We will treat him with dexamethasone. I discussed possible case management with the patient and he would like to be discharged home. He has family available despite his difficulty walking Time: 22:09 Reevaluation #3: Ultrasounds negative for DVT, the patient will be discharged with outpatient follow-up for acute on chronic back pain Time: 23:32 Medications Administered Discontinued Medications Generic Name Dose Route Start Last Admin Trade Name Amari PRN Reason Stop Dose Admin Dexamethasone Sodium Phosphate 10 mg 11/10/23 21:05 11/10/23 21:45 Dexamethasone Sod Phosphate 10 Mg/Ml Vial IVPUSH 11/10/23 21:06 10 mg ONCE ONE Administration Gadobutrol 7.5 ml 11/10/23 19:44 11/10/23 19:47 Gadobutrol 7.5 Ml Vial IVPUSH 11/10/23 19:45 6 ml ONCE ONE Administration Medical Decision Making Medical Decision Making [facility] Narrative: 63-year-old male presents for evaluation of lower back pain with neurologic findings concerning for cauda equina syndrome. The patient was rapidly brought to MRI. The MRI shows significant neural foraminal stenosis but there is no evidence of high-grade spinal canal stenosis, therefore cauda equina has been ruled out. There were no other concerning lesions. The patient appears to be experiencing acute on chronic back pain. He was treated with dexamethasone. His workup shows a mild hyponatremia of 133, a CO2 that is low at 21 which may be related to hyperventilation due to his pain. He has chronic kidney disease and his BUN and creatinine are both slightly elevated just above his baseline. The patient is a diabetic with a random glucose of 229, he does not have an elevated anion gap, this is not likely to be DKA. LFTs within normal limits, troponin normal. The patient also has lower extremity edema bilaterally, he has no shortness of breath, his BNP is within normal limits, he has good capillary refill and DP pulses bilaterally. Plan for venous ultrasound to rule out DVT Differential Diagnosis Differential Diagnoses: The differential diagnosis associated with the presentation includes Cauda equina syndrome, acute on chronic back pain, epidural abscess, Guillain- [place] syndrome less likely, Admission/Observation Consideration of admission/observation: Escalation of care including admission/observation considered Lab Data [facility] Lab Attestation statement: I reviewed the patient's lab results. 11/10/23 18:29 11/10/23 18:29 Labs: Lab Results 11/10/23 11/10/23 Range/Units 18:29 20:30 WBC 10.6 (4.8-10.8) X10*3/uL RBC 3.91 L (4.60-5.80) X10*6/uL Hgb 11.2 L (14.0-18.0) g/dl Hct 33.4 L (42.0-52.0) % MCV 85.4 (80.0-98.0) fL MCH 28.6 (27.0-33.0) pg MCHC 33.5 (31.0-36.0) g/dl RDW 15.0 (11.0-16.0) % Plt Count 224 (160-400) X10*3/uL MPV 10.7 (9.4-12.4) fL Immature Gran % (Auto) 0.5 H (0.0-0.4) % Neut % (Auto) 68.9 (45-73) % Lymph % (Auto) 15.7 L (20-40) % Clare % (Auto) 10.3 (2-11) % Eos % (Auto) 3.8 (0-4) % Baso % (Auto) 0.8 (0-2) % Lymph # (Auto) 1.7 (1.2-4.9) X10*3/uL Clare # (Auto) 1.1 (0.1-1.2) X10*3/uL Eos # (Auto) 0.4 (0.0-0.4) X10*3/uL Baso # (Auto) 0.1 (0.0-0.2) X10*3/uL Abs Immat Gran (auto) 0.05 H (0.00-0.03) X10*3/uL Absolute Neuts (auto) 7.3 (2.0-8.3) x10*3/uL Absolute Nucleated RBC 0.000 (0.0-0.012) X10*3/uL Nucleated RBC % (auto) 0.0 (0.0-0.2) /100WBC ESR 34 H (0-15) MM/HR Sodium 133 L (135-145) mmol/L Potassium 4.7 (3.3-5.1) mmol/L Chloride 104 (96-108) mmol/L Carbon Dioxide 21 L (22-29) mmol/L Anion Gap 13 (12-20) BUN 28 H (9-16) mg/dL Creatinine 2.15 H (0.5-1.4) mg/dL Estim Creat Clear Calc 35.0 Estimated GFR 31 Random Glucose 229 H (60-115) mg/dL Calcium 9.9 (8.4-10.2) mg/dL Total Bilirubin 0.4 (0.0-1.0) mg/dL AST 14 (5-37) U/L ALT 14 (0-40) U/L Alkaline Phosphatase 78 (39-117) U/L Troponin I High Sens 6.3 (<3.5-35.0) ng/L C-Reactive Protein 0.11 (< or = 0.50) mg/dL B-Natriuretic Peptide 83 (<100) pg/mL Total Protein 7.4 (6.5-8.0) g/dL Albumin 4.1 (3.5-5.0) g/dL Lipase 75 (8-78) U/L Urine Color Yellow Urine Appearance Clear Urine pH 5.5 (5.0-9.0) Ur Specific Mobile 1.015 (1.005-1.025) Urine Protein 300 (3+) H (Neg-Trace) mg/dL Urine Glucose (UA) 250 H (Negative) mg/dL Urine Ketones Negative (Negative) mg/dL Urine Blood Negative (Negative) Urine Nitrite Negative (Negative) Ur Leukocyte Esterase Negative (Negative) Urine RBC 0-2 (0-2) /HPF Urine WBC 0-5 (0-5) /HPF Ur Squamous Epith Cells 0-2 (0-2) /HPF Urine Bacteria None Seen (None Seen) Hyaline Casts 0-2 (0-2) /LPF Independent Interpretation I performed an independent interpretation of an: EKG Interpretation: Sinus bradycardia with a first-degree AV block, no ST segment elevation VT Radiology Impression Discussion of test interpretation with radiology: I have reviewed the radiologist's reading. Radiologist Impression: MR/MR lumbar spine wo/w con IMPRESSION: Lumbar levocurvature with multilevel lumbar spondylosis as described above. Acutely edematous L2 inferior endplate Schmorl's node with associated inflammatory enhancement in addition to multilevel enhancing type I Modic endplate changes related to discogenic disease. No high-grade spinal canal stenosis. Multilevel subarticular zone narrowing with mass effect upon the traversing nerve roots. Multilevel neural foraminal stenosis, most pronounced and moderate to severe on the left at L4-L5. Mass effect along multiple exiting nerve roots as above. Electronically signed by: Alvina Lindquist MD 11/10/2023 08:42 PM EDT RP Discharge Plan Discharge Clinical Impression: Acute exacerbation of chronic low back pain, Leg swelling Patient Disposition: Home, Self-Care Instructions: Acute Low Back Pain (ED), Leg Edema (ED) Additional Instructions: Your workup in the ER today was reassuring. You have a lot of chronic changes in your back contributing to back pain, but there is no evidence of spinal canal injury You may follow-up with neurosurgery as an outpatient regarding this. Your ultrasound showed no evidence of DVT/blood clots. You should avoid excessive salt intake as well as fluid intake Follow-up with your primary doctor, return for new or worsening symptoms Take dexamethasone twice daily for the next 3 days Prescriptions: New dexamethasone 4 mg tablet 4 mg PO BID Qty: 6 0RF No Action prednisone 20 mg tablet See Rx Instructions .Route .COMPLEX Qty: 18 0RF Rx Instructions: take 3 tab po x 3 days, take 2 tab po x 3 days, take 1 tab po x 3 days; amlodipine 10 mg tablet 10 mg PO DAILY Qty: 90 3RF carvedilol 25 mg tablet 25 mg PO BID 90 Days Qty: 180 3RF Rx Instructions: must administer with a meal/food hydralazine 25 mg tablet 25 mg PO TID 30 Days Qty: 90 6RF losartan 100 mg tablet 100 mg PO DAILY Qty: 90 3RF hydrochlorothiazide 25 mg tablet 25 mg PO DAILY Qty: 90 3RF levothyroxine 125 mcg tablet 125 mcg PO DAILY Qty: 90 3RF simvastatin 10 mg tablet 10 mg PO DAILY Qty: 90 3RF spironolactone 25 mg tablet 25 mg PO DAILY Qty: 90 3RF metformin 1,000 mg tablet 1,000 mg PO BID 90 Days Qty: 180 3RF (DME) pen needle, diabetic 31 gauge x 1/4 needle See Rx Instructions .Route Qty: 100 3RF Rx Instructions: Use once daily As directed to inject insulin (DME) lancets [FreeStyle Lancets] 28 gauge misc See Rx Instructions .Route Qty: 100 3RF Rx Instructions: Use daily As directed to check blood sugar gabapentin 800 mg tablet 800 mg PO BEDTIME Qty: 90 3RF meclizine 25 mg tablet 25 mg PO TID PRN (Reason: for dizziness) Qty: 30 0RF (DME) FreeStyle Lite Strips Strip See Rx Instructions .ROUTE .MEDSUPPLY Qty: 100 3RF Rx Instructions: use daily As directed to check blood sugars for diabetes (DME) 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 meter [FreeStyle Lite Meter] Kit See Rx Instructions .ROUTE .MEDSUPPLY Qty: 1 0RF Rx Instructions: Use daily As directed to check blood glucose (DME) FreeStyle Matt 3 Sensor Device See Rx Instructions .Route Qty: 2 11RF Rx Instructions: use daily As directed to monitor type 2 diabetes. changed q 14 days (DME) FreeStyle Matt 3 [place] Misc See Rx Instructions .Route Qty: 1 0RF Rx Instructions: Use daily As directed to monitor type 2 diabetes glipizide 5 mg tablet extended release 24hr 5 mg PO DAILY Qty: 90 0RF Ozempic 0.25 mg or 0.5 mg (2 mg/3 mL) pen injector 0.25 mg subcut QWEEK Qty: 3 2RF Rx Instructions: for 4 weeks; then increase to 0.5 mg every week gabapentin 300 mg capsule 300 mg PO BID 90 Days Qty: 180 0RF Rx Instructions: take 1 cap in the morning, 1 cap po at in the afternoon and then the 800 mg at bedtime. this is in addition to 800 mg rx. ferrous fumarate 325 mg (106 mg iron) tablet 325 mg PO DAILY Qty: 90 0RF insulin glargine [Lantus Solostar U-100 Insulin] 100 unit/mL (3 mL) insulin pen 15 unit subcut QPM Qty: 15 3RF cholecalciferol (vitamin D3) 25 mcg (1,000 unit) capsule 25 mcg PO DAILY Qty: 90 0RF Referrals: Nikolai Bloom MD, PhD [Physician] - (Acute on chronic back pain) Interventions: ED Discharge Assessment Last Done: 11/10/23 23:48 Discharge Date/Time: 11/10/23 23:49 Print Language: Italian
--- NOTE | 2023-11-10 18:10 | ECG_ITS ---
Test Reason : chest pain Blood Pressure : / mmHG Vent. Rate : 057 BPM Atrial Rate : 057 BPM P-R Int : 330 ms QRS Dur : 092 ms QT Int : 430 ms P-R-T Axes : 041 000 050 degrees QTc Int : 418 ms Sinus bradycardia with 1st degree A-V block Minimal voltage criteria for LVH, may be normal variant ( [place] product ) Borderline ECG When compared with ECG of 22-SEP-2022 09:37, Nonspecific T wave abnormality is no longer Present MA interval has increased Referred By: Avinash Vazquez Electronically Signed By:NAVJOT FLOR
[2023-11-10 18:14] VITALS: BP 182/78; PULSE 57; PULSE 58; RESP 16; TEMP 37.1; TEMP 37.3; O2SAT 98
[2023-11-10 18:34] LABS: MANUAL DIFF FLAG NO
[2023-11-10 18:36] LABS: Basophils Absolute Auto 0.1 X10*3/uL (0.0-0.2); Basophils Percent Auto 0.8 % (0-2); Eosinophils Absolute Auto 0.4 X10*3/uL (0.0-0.4); Eosinophils Percent Auto 3.8 % (0-4); Hematocrit 33.4 % (42.0-52.0); Hemoglobin 11.2 g/dl (14.0-18.0); Imm Gran Abs Auto 0.05 X10*3/uL (0.00-0.03); Imm Gran Pct Auto 0.5 % (0.0-0.4); Lymphocytes Absolute Auto 1.7 X10*3/uL (1.2-4.9); Lymphocytes Percent Auto 15.7 % (20-40); Mean Corpuscular HGB Conc 33.5 g/dl (31.0-36.0); Mean Corpuscular Hemoglobin 28.6 pg (27.0-33.0); Mean Corpuscular Volume 85.4 fL (80.0-98.0); Mean Platelet Volume 10.7 fL (9.4-12.4); Monocytes Absolute Auto 1.1 X10*3/uL (0.1-1.2); Monocytes Percent Auto 10.3 % (2-11); Neutrophils Absolute Auto 7.3 x10*3/uL (2.0-8.3); Neutrophils Percent Auto 68.9 % (45-73); Platelet Count 224 X10*3/uL (160-400); Red Blood Count 3.91 X10*6/uL (4.60-5.80); White Blood Count 10.6 X10*3/uL (4.8-10.8)
[2023-11-10 18:49] LABS: Alanine Aminotransferase 14 U/L (0-40); Albumin Level 4.1 g/dL (3.5-5.0); Alkaline Phosphatase 78 U/L (39-117); Anion Gap 13 (12-20); Aspartate Amino Transferase 14 U/L (5-37); Bilirubin Total 0.4 mg/dL (0.0-1.0); Blood Urea Nitrogen 28 mg/dL (9-16); C Reactive Protein 0.11 mg/dL (< or = 0.50); Calcium 9.9 mg/dL (8.4-10.2); Carbon Dioxide 21 mmol/L (22-29); Chloride 104 mmol/L (96-108); Estimated Glomerular Filt Rate 31; Glucose Random 229 mg/dL (60-115); Lipase 75 U/L (8-78); Potassium 4.7 mmol/L (3.3-5.1); Sodium 133 mmol/L (135-145); Total Protein 7.4 g/dL (6.5-8.0)
[2023-11-10 18:56] LABS: Troponin-I High Sensitivity 6.3 ng/L (<3.5-35.0)
[2023-11-10 19:09] LABS: B Type Natriuretic Peptide 83 pg/mL (<100)
[2023-11-10 19:22] LABS: Erythrocyte Sedimentation Rate 34 MM/HR (0-15)
--- NOTE | 2023-11-10 19:34 | PC.NURSE ---
Pt to MRI.
[2023-11-10] MEDS: gadobutroL 7.5 ML VIAL IVPUSH (19:47)
[2023-11-10 20:03] VITALS: BP 142/68; PULSE 60; RESP 16; TEMP 37.2
[2023-11-10 20:43] LABS: Appearance Urine Clear; Color Urine Yellow; Glucose Urine UA 250 mg/dL (Negative); Leukocyte Esterase Urine Negative (Negative); Nitrite Urine Negative (Negative); PH 5.5 (5.0-9.0); Specific Gravity - Urine 1.015 (1.005-1.025); UMIC TRIGGER UACC YES; Urine Blood Negative (Negative); Urine Ketones Negative (Negative); Urine Protein 300 (3+) mg/dL (Neg-Trace)
[2023-11-10 20:48] LABS: Bacteria Urine None Seen (None Seen); Hyaline Casts Urine 0-2 /LPF (0-2); RBC Urine 0-2 /HPF (0-2); Squamous Epithelial Cell Urine 0-2 /HPF (0-2); WBC Urine 0-5 /HPF (0-5)
[2023-11-10] MEDS: dexAMETHasone sod phosphate 10 MG/ML VIAL IVPUSH (21:45)
[2023-11-10 22:53] VITALS: BP 148/65; PULSE 58; RESP 16; TEMP 36.7; O2SAT 98
[2023-11-10 23:48] VITALS: BP 148/65; PULSE 58; RESP 16; TEMP 36.7; O2SAT 98
== END 2023-11-10 23:49 | disposition home or self-care (01) ==
PROVIDERS: Physician Assistant; Emergency Provider Internal Medicine; PCP Physician Assistant
DX: M54.50 Low back pain, unspecified (principal); R60.0 Localized edema; R07.89 Other chest pain; R00.1 Bradycardia, unspecified; I12.9 Hypertensive chronic kidney disease with stage 1 through stage 4 chronic kidney disease, or unspecified chronic kidney disease; R53.1 Weakness; E11.22 Type 2 diabetes mellitus with diabetic chronic kidney disease; R06.02 Shortness of breath; N18.2 Chronic kidney disease, stage 2 (mild); Z79.4 Long term (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 of insulin; Z79.899 Other long term (current) drug therapy
CPT/HCPCS: 36415; 72158; 80053; 81001; 83690; 83880; 84484; 85025; 85652; 86140; 93005; 93970; 96374; 96375; 99285; A9585; J1100

== ENCOUNTER 2023-11-21 09:59 | Outpatient (AMB) | payer OTHER, SELFPAY ==
--- NOTE | 2023-11-21 11:36 | A.OFFVIS_ITS ---
Intake Visit Reasons: ED follow up Allergies clindamycin [CLINDAMYCIN] Allergy (Unknown, Verified 11/10/23 17:58) SWELLING, RASH Clindamycin HCl Allergy (Unknown, Verified 11/10/23 17:58) vomiting pravastatin Allergy (Unknown, Verified 11/10/23 17:58) increase liver enzymes [facility] Medical History (Updated 11/21/23 @ 11:38 by DARNELL Mcnamara) Hypothyroid Forgetfulness Major depression, recurrent, chronic Dizziness Hypertension Hyperlipidemia Previous myocardial infarction older than 8 weeks Chest pain Microalbuminuria Chronic kidney disease Diabetic nephropathy Uncontrolled type 2 diabetes mellitus with hyperglycemia, with long-term current use of insulin Social History Housing: House Patient Tobacco Use Status: Never used Tobacco e-Cigarette/Vaping Use: Never Used Second Hand Smoke Exposure: No service: No Current occupational status: unemployed Cognitive needs: No Hearing needs: No Vision needs: No Assessment & Plan Assessment & Plan (1) Numbness of upper extremity: Code(s): R20.0 - Anesthesia of skin Category: Medical (2) Lumbar pain with radiation down both legs: Code(s): M54.50 - Low back pain, unspecified; M79.604 - Pain in right leg; M79.605 - Pain in left leg Category: Medical Plan Dear Catalina, Mr Madsen came into the office today after an emergency room visit follow-up. He is a 63-year-old gentleman from [place], [place], diabetic, some history of heart disease, who has been having for the last 4 months a back pain which goes down both of his legs gives him cramping when he walks. The symptoms have been getting steadily worse. At 1 point he did have some urinary and fecal incontinence and his daughter brought him to the emergency room. His MRI did not reveal any compression of the cauda equina and he was discharged to follow up with us. His daughter tells me that he does have pain pretty much all throughout the day and a lot of trouble walking just getting around the house. The right leg is affected more than the left. He also reports neck pain, some feelings of weakness and numbness in his arms. He did do physical therapy for his back in [place] a number of years ago. No cortisone injections. He would take a leave or ibuprofen when the symptoms were acting up but he had some concern about his kidneys. This was discontinued. He rubbed Kyler-Ferraro in his back. Other than that he just trying to deal with it. PMH: He is a diabetic, his daughter tells me that his care was not great in [place], they are not sure if he has ever had an A1c done. Blood sugars are rarely below 200, often times can be as high as 400. Recently when he was put on some steroids for his leg pains, his blood sugars was extremely high. He had some history of coronary artery disease with a catheterization done in [place] a number of years ago. It is unclear if he had any kind of intervention. The daughters pretty sure he did not have a stent. He has hypothyroidism, anemia, hypertension, knee surgery 10 years ago, appendectomy. He has some degree of renal disease, his creatinine in the [facility] lab system was 2, up from 1.6. Social hx: He does not smoke, drink use any recreational drugs Medications: Synthroid, carvedilol, metformin, hydralazine, gabapentin, simvastatin, amlodipine, losartan, hydrochlorothiazide, spironolactone, insulin Allergies: Clindamycin and pravastatin Physical exam: He is awake alert oriented, he is able to stand up out of a chair on his own but he is in discomfort when standing. Midline tenderness low back pain. He has 4-5 hand weakness, 4-5 iliopsoas weakness but otherwise his strength is normal. Slightly brisk reflexes in the left upper extremities. No Terri sign. Diminished if not absent reflexes in the patella and the A chilles. Imaging review: There is a lumbar MRI done [facility] showing scoliotic curvature of the spine with collapse of the disc on the right at L3-4, he has multilevel degenerative changes throughout the lumbar spine with varying degrees of foraminal stenosis. Impression: 63-year-old male presents for evaluation of 4 months of progressive back pain bilateral claudicating leg pain in the setting of degenerative disc disease. He does have some foraminal stenosis at multiple levels, but what is not present on his imaging is focal central canal stenosis. It is a little unusual that he is having these symptoms without central stenosis. Certainly his back pain could be explained by the multiple degenerative discs. Right now however, he does not have good control of his diabetes, his blood sugars have been routinely higher than 200 and even in the 400s. 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 It is well-known that when diabetes is not well controlled it can exacerbate inflammation in the body and this may be part of what he is feeling. The other possibilities he may have some degree of arterial insufficiency given the diabetes and hypertension. This can mimic lumbar stenosis. That might be worth looking into. As I understand he is due to have an office visit with you sometime this week. Another issue is that he has been complaining of neck pain and bilateral arm numbness. He has slightly brisk reflexes in the left upper extremity. Because of his diabetes he will not have a traditional myelopathic presentation so I am going to get a cervical MRI just as a precaution. I do not think right now he would be a good surgical candidate for his low back given all the medical issues going on with the diabetes the kidneys and a potential history of heart disease that is unclear. I will see him back after the cervical MRI however just to reassess him and see how things are going. Thank you for allowing us to care for your patient. The total time spent with this visit with this patient was 45 minutes reviewing history, physical exam, lumbar imaging review, and implementation of treatment plan or further diagnostic testing John Bloom MD,PhD [facility] Orders: Orders MR cervical spine wo con Today R20.0 - Anesthesia of skin Coding Level of Care Code New Pt Level 4 (80377) Diagnoses Numbness of upper extremity R20.0 Lumbar pain with radiation down both legs M54.50; M79.604; M79.605
== END 2023-11-21 10:57 | disposition home or self-care (01) ==
PROVIDERS: PCP Physician Assistant; Visit Provider Physician Assistant
DX: R20.0 Anesthesia of skin (principal); M54.50 Low back pain, unspecified; M79.604 Pain in right leg; M79.605 Pain in left leg
CPT/HCPCS: 99204

== ENCOUNTER → 2023-11-21 09:59 | Outpatient (BNVA) | payer OTHER, SELFPAY | PROVIDERS: PCP Physician Assistant; Visit Provider Physician Assistant | DX: R20.0 Anesthesia of skin (principal); M54.50 Low back pain, unspecified; M79.604 Pain in right leg; M79.605 Pain in left leg | CPT/HCPCS: 99202 ==

== ENCOUNTER 2023-11-23 13:22 | Outpatient (AMB) | payer OTHER, SELFPAY ==
--- NOTE | 2023-11-23 13:29 | A.OFFPC_ITS ---
Vital Signs 11/23/23 13:43 Height 5 ft 4 in Weight 178 lb BMI 30.6 BP 128/76 Blood Pressure Location Rt brachial Position Sitting Respiration 12 Pulse 56 Pulse Source Pulse Oximeter Pulse Oximetry (%) 94 Intake Visit Reasons: follow up Intake Note: Follow up. Needs refill on test strips 90 day supply. The pharmacy is only giving him one 50 box supply at a time. I added that he tests three times a day on the prescription to make sure its not an insurance issue. Allergies clindamycin [CLINDAMYCIN] Allergy (Unknown, Verified 11/23/23 13:34) SWELLING, RASH Clindamycin HCl Allergy (Unknown, Verified 11/23/23 13:34) vomiting pravastatin Allergy (Unknown, Verified 11/23/23 13:34) increase liver enzymes Medication List - Last Reconciled 11/23/23 by Catalina Hamilton PA-C amlodipine 10 mg PO DAILY blood sugar diagnostic (FreeStyle Lite Strips) use to test blood glucose three times daily. 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 meter (FreeStyle Lite Meter kit) Use daily As directed to check blood glucose 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 meter,continuous (FreeStyle Matt 3 [place]) Use daily As directed to monitor type 2 diabetes 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 sensor (FreeStyle Matt 3 Sensor device) use daily As directed to monitor type 2 diabetes. changed q 14 days carvedilol 25 mg PO BID 90 days cholecalciferol (vitamin D3) 25 mcg PO DAILY dexamethasone 4 mg PO BID ferrous fumarate 325 mg PO DAILY gabapentin 300 mg PO BID 90 days gabapentin 800 mg PO BEDTIME glipizide ER 5 mg PO DAILY hydralazine 25 mg PO TID 30 days hydrochlorothiazide 25 mg PO DAILY insulin glargine (Lantus Solostar U-100 Insulin) 15 units (0.15 mL) subcut QPM lancets (FreeStyle Lancets) Use daily As directed to check blood sugar levothyroxine 125 mcg PO DAILY losartan 100 mg PO DAILY meclizine 25 mg PO TID PRN metformin 1,000 mg PO BID 90 days pen needle, diabetic Use once daily As directed to inject insulin prednisone take 3 tab po x 3 days, take 2 tab po x 3 days, take 1 tab po x 3 days; semaglutide (Ozempic) 0.25 mg (0.368 mL) subcut QWEEK simvastatin 10 mg PO DAILY spironolactone 25 mg PO DAILY Tobacco use date assessed: 09/28/23 Dental Screening Dental Screen Date: 08/17/23 HPI follow up HPI Details Patient is a 63-year-old male who presents today for a follow up. Daughter is here today to help with translation. Musculoskeletal: He was recently seen and sent to the ER for increased weakness in his lower extremities, back pain and bowel and bladder incontinence. He did have an MRI and was evaluated by Neurosurgery 2 days ago. Not felt to be an ideal candidate at this time for procedures given his uncontrolled diabetes and unknown cardiac risk factors. He was put on dexamethasone which elevated his blood sugars substantially. He states since coming off of this his blood sugars have been better. The dexamethasone however was very helpful for his back pain. He does have some improvement of his symptoms with the gabapentin. He is currently on 300 mg in the morning, afternoon and 800 mg at night. Endo: Dx 30 years ago. Last A1c was 8.4. His A1c increased today to 9.3. He is currently on Lantus 25 units, Ozempic 0.25 mg weekly, metformin 1000 mg twice a day, glipizide 5 mg daily. -never got ozempic or the matt. Most people in his family have t2dm. He did have dm education when first diagnosed. He saw ophthamology. No retinopathy per daughter CV: Blood pressure today in the office is 128/76. He is currently on spironolactone 25 mg, losartan 100 mg, hydrochlorothiazide 25 mg, hydralazine 25 mg 3 times a day, carvedilol 25 mg twice a day and amlodipine 10 mg daily. He is on simvastatin for cholesterol control. Reports a prior PR about 8 years ago. Has an appointment with Cardiology 11/30. He still does get regular chest pain and shortness on breath. Currently asymptomatic. Did follow in [place] and had an abnormal stress test. He states that he has copies at home. Nephro: following with nephrology. last kidney function worsened. Neuro: When was 1st seen here he complained of feeling forgetful and sometimes dizzy like he is spinning. He uses meclizine as needed. Never got the MRI of his head. He did get the carotid ultrasound which was negative. He is going for an MRI of his neck and is hoping to do both of these around the same time. He states that the MRI of his head needs to get reordered because the order . [facility] Medical History (Updated 11/21/23 @ 11:38 by DARNELL Mcnamara) Hypothyroid Forgetfulness Major depression, recurrent, chronic Dizziness Hypertension Hyperlipidemia Previous myocardial infarction older than 8 weeks Chest pain Microalbuminuria Chronic kidney disease Diabetic nephropathy Uncontrolled type 2 diabetes mellitus with hyperglycemia, with long-term current use of insulin Social History Housing: House Patient Tobacco Use Status: Never used Tobacco e-Cigarette/Vaping Use: Never Used Second Hand Smoke Exposure: No service: No Current occupational status: unemployed Cognitive needs: No Hearing needs: No Vision needs: No Questionnaire Thrive Questionnaire Date Thrive assessed: 11/10/23 I am a: Patient What is your living situation today?: I choose not to answer this question Within the past 12 months, did the food you bought not last and you didn't have the money to get more?: Sometimes True Within the past 12 months, did you worry whether your food would run out before you got money to buy more?: Sometimes True Do you have trouble paying for medicines?: No Do you have trouble getting transportation to medical appointments?: Yes Do you have trouble paying your heating and electricity bill?: No Do you have trouble taking care of your child, family member or friend?: No Do you have trouble with day-to-day activities such as bathing, preparing meals, shopping, managing finances, etc.?: Yes Are you currently unemployed and looking for a job?: Yes Are you interested in more education?: No Currently or been in a relationship where the following occur: I choose not to answer THRIVE Score: 3 AUDIT C Alcohol Use Questionnaire (AUDIT-C) 3. How often do you have six or more drinks on one occasion?: Never Total Score: 0 JOEY-7 AMB Questionnaire JOEY-7 Date JOEY - 7 assessed: 08/17/23 Source: Developed by Drs. Dick Burgess, Anna Hoang, Tal Celis and colleagues, with an educational quin from [employer]. Physical exam (Primary Care) Vital Signs: Last Vital Signs Pulse 56 11/23/23 13:43 Resp 12 11/23/23 13:43 BP 128/76 11/23/23 13:43 Pulse Ox 94 11/23/23 13:43 BMI result Body Mass Index 30.6 Tobacco/Smoking Status: Tobacco use Status Tobacco use date assessed 09/28/23 11/23/23 13:31 Patient Tobacco Use Status Never used Tobacco 11/23/23 13:31 e-Cigarette/Vaping Use Never Used 11/23/23 13:31 Thrive Assessment: Date of Thrive Assessment Date Thrive assessed 11/10/23 11/23/23 13:31 Currently or been in a relationship where the following occur: I choose not to answer Const Orientation/consciousness: patient oriented x3 HENMT Ears: hearing grossly normal bilaterally Neck Thyroid: Thyroid normal Lymphatic: no lymphadenopathy noted Resp Auscultation: clear to auscultation bilaterally Cardio Rate: regular rate Rhythm: regular rhythm Heart sounds: S1 normal heart sound present and S2 normal heart sound present GI Inspection: Yes normal to inspection Palpation (GI): Soft to palpation and Other GI palpation findings present (nontender, no cva tenderness) Auscultation: normoactive bowel sounds Rectal Exam - Male: Yes deferred Skin General skin exam: no rashes or lesions noted Neuro General: patient oriented x3, gait normal and no focal motor deficits Results AMB Hemoglobin A1c AMB Hemoglobin A1c 9.3 % Last Edit by Elvira Covington CMA on 11/23/23 13:53 Results Reviewed Results Reviewed: Laboratory Last Values Hgb A1c (Clinic) 9.3 % (4.0-6.0) H 11/23/23 13:47 Laboratory Tests 08/25/23 11/10/23 11:40 18:29 Sodium 133 L Potassium 4.7 Chloride 104 Carbon Dioxide 21 L Anion Gap 13 BUN 24 H Creatinine 1.74 H 2.15 H Estimated GFR 31 MR/MR lumbar spine wo/w con IMPRESSION: Lumbar levocurvature with multilevel lumbar spondylosis as described above. Acutely edematous L2 inferior endplate Schmorl's node with associated inflammatory enhancement in addition to multilevel enhancing type I Modic endplate changes related to discogenic disease. No high-grade spinal canal stenosis. Multilevel subarticular zone narrowing with mass effect upon the traversing nerve roots. Multilevel neural foraminal stenosis, most pronounced and moderate to severe on the left at L4-L5. Mass effect along multiple exiting nerve roots as above. Electronically signed by: Alvina Lindquist MD 11/10/2023 08:42 PM EDT RP Assessment and Plan Assessment & Plan (1) Dizziness: Code(s): R42 - Dizziness and giddiness Plan: MRI ordered. Labs ordered today. Currently not symptomatic. (2) Forgetfulness: Code(s): R68.89 - Other general symptoms and signs Plan: Stable. As above. (3) Lumbar pain with radiation down both legs: Code(s): M54.50 - Low back pain, unspecified; M79.604 - Pain in right leg; M79.605 - Pain in left leg Plan: Increase gabapentin dosage. (4) Numbness of upper extremity: Code(s): R20.0 - Anesthesia of skin Plan: Scheduled for MRI of his neck. MRIs do make him nervous. A prescription for lorazepam was provided. Advised to avoid drinking or driving while taking this medication. We did discuss that this can be sedating. His daughter will be taking him to and from the appointment. 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 Continue metformin and glipizide. I will also start him on Trulicity. His insurance did not cover the Ozempic. We discussed risks, benefits and adverse effects of this medication including nausea, vomiting and increased risk of pancreatitis. I have referred him to endocrinology. I will also start him on a CGM. He will call me if he is unable to get this. I will bring him in in 2 weeks to have his blood sugars rechecked. We did discuss adding mealtime insulin. More than 50 minutes was spent today in [id number] time today discussing diabetes, the pathophysiology of diabetes, the difference between type 1 and type 2 diabetes, complications associated with uncontrolled diabetes and signs and symptoms of hyper and hypoglycemia. We reviewed the rules of 15s. Patient and family understand agree with this. Orders: Orders MR head/brain wo con Today M54.50 - Low back pain, unspecified, M79.604 - Pain in right leg, M79.605 - Pain in left leg, R20.0 - Anesthesia of skin, R42 - Dizziness and giddiness, R68.89 - Other general symptoms and signs TSH reflex Free T4 Today E11.65 - Type 2 diabetes mellitus with hyperglycemia, R42 - Dizziness and giddiness, Z79.4 - care home (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 of insulin AMB Hemoglobin A1c Today E11.65 - Type 2 diabetes mellitus with hyperglycemia, Z79.4 - care home (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 of insulin Basic Metabolic Panel Today E11.65 - Type 2 diabetes mellitus with hyperglycemia, R42 - Dizziness and giddiness, 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 Liver Panel Today E11.65 - Type 2 diabetes mellitus with hyperglycemia, R42 - Dizziness and giddiness, 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 IRON PROFILE Today E11.65 - Type 2 diabetes mellitus with hyperglycemia, R42 - Dizziness and giddiness, 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 Complete Blood Count Auto Diff Today E11.65 - Type 2 diabetes mellitus with hyperglycemia, R42 - Dizziness and giddiness, 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 May repeat dose. 0.5 mg PO Q8H PRN 5 tabs 0RF anxiety Changed From blood sugar diagnostic (FreeStyle Lite Strips) use to test blood glucose three times daily. E11.65 - Type 2 diabetes mellitus with hyperglycemia To blood sugar diagnostic (FreeStyle Lite Strips) use daily As directed to check blood sugars for diabetes 100 ea 3RF E11.65 - Type 2 diabetes mellitus with hyperglycemia From insulin glargine (Lantus Solostar U-100 Insulin) 15 units (0.15 mL) subcut QPM 15 mL 3RF To insulin glargine (Lantus Solostar U-100 Insulin) 30 units (0.3 mL) subcut QPM 15 mL 3RF From gabapentin take 1 cap in the morning, 1 cap po at in the afternoon and then the 800 mg at bedtime. this is in addition to 800 mg rx. 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 Discontinued dexamethasone Discontinued Reason: Duplicate 4 mg PO BID 6 tabs 0RF prednisone Discontinued Reason: Duplicate take 3 tab po x 3 days, take 2 tab po x 3 days, take 1 tab po x 3 days; 18 tabs 0RF semaglutide (Ozempic) for 4 weeks; then increase to 0.5 mg every week Discontinued Reason: Doctor's Order 0.25 mg (0.368 mL) subcut QWEEK 3 mL 2RF gabapentin Discontinued Reason: Doctor's Order 800 mg PO BEDTIME 90 tabs 3RF Coding Level of Care Code Est Pt Level 5 (14905) Complex EM visit Add On G2211 Diagnoses Dizziness R42 Forgetfulness R68.89 Lumbar pain with radiation down both legs M54.50; M79.604; M79.605 Numbness of upper extremity R20.0 Uncontrolled type 2 diabetes mellitus with hyperglycemia, with long-term current use of insulin E11.65; Z79.4
[2023-11-23 13:43] VITALS: BP 128/76; PULSE 56; RESP 12; O2SAT 94; BMI 30.6
== END 2023-11-23 14:26 | disposition home or self-care (01) ==
PROVIDERS: PCP Physician Assistant; Visit Provider Physician Assistant
DX: E11.65 Type 2 diabetes mellitus with hyperglycemia (principal); Z79.4 Long term (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 of insulin; R42 Dizziness and giddiness; R68.89 Other general symptoms and signs; M54.50 Low back pain, unspecified; M79.604 Pain in right leg; M79.605 Pain in left leg; R20.0 Anesthesia of skin

== ENCOUNTER → 2023-11-23 13:22 | Outpatient (BNVA) | payer OTHER, SELFPAY | PROVIDERS: PCP Physician Assistant; Visit Provider Physician Assistant | DX: R42 Dizziness and giddiness (principal); R68.89 Other general symptoms and signs; E11.65 Type 2 diabetes mellitus with hyperglycemia; R20.0 Anesthesia of skin; M54.50 Low back pain, unspecified; M79.604 Pain in right leg; M79.605 Pain in left leg; Z79.4 Long term (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 of insulin; Z71.3 Dietary counseling and surveillance | CPT/HCPCS: 83036; 99212 ==

== ENCOUNTER 2023-11-23 14:43 | Outpatient (REF) | payer OTHER, SELFPAY ==
[2023-11-23 17:41] LABS: MANUAL DIFF FLAG NO
[2023-11-23 17:43] LABS: Basophils Absolute Auto 0.1 X10*3/uL (0.0-0.2); Basophils Percent Auto 0.6 % (0-2); Eosinophils Absolute Auto 0.3 X10*3/uL (0.0-0.4); Eosinophils Percent Auto 2.8 % (0-4); Hematocrit 34.2 % (42.0-52.0); Hemoglobin 11.2 g/dl (14.0-18.0); Imm Gran Abs Auto 0.07 X10*3/uL (0.00-0.03); Imm Gran Pct Auto 0.6 % (0.0-0.4); Lymphocytes Absolute Auto 1.5 X10*3/uL (1.2-4.9); Lymphocytes Percent Auto 11.8 % (20-40); Mean Corpuscular HGB Conc 32.7 g/dl (31.0-36.0); Mean Corpuscular Hemoglobin 28.5 pg (27.0-33.0); Mean Platelet Volume 11.5 fL (9.4-12.4); Monocytes Absolute Auto 0.9 X10*3/uL (0.1-1.2); Neutrophils Absolute Auto 9.5 x10*3/uL (2.0-8.3); Neutrophils Percent Auto 77.2 % (45-73); Platelet Count 188 X10*3/uL (160-400); Red Blood Count 3.93 X10*6/uL (4.60-5.80); Red Cell Distribution Width 14.8 % (11.0-16.0); White Blood Count 12.4 X10*3/uL (4.8-10.8)
[2023-11-23 18:07] LABS: Alanine Aminotransferase 20 U/L (0-40); Alkaline Phosphatase 75 U/L (39-117); Anion Gap 12 (12-20); Aspartate Amino Transferase 13 U/L (5-37); Bilirubin Direct 0.1 mg/dL (0.0-0.5); Bilirubin Total 0.3 mg/dL (0.0-1.0); Blood Urea Nitrogen 30 mg/dL (9-16); Carbon Dioxide 25 mmol/L (22-29); Chloride 102 mmol/L (96-108); Estimated Glomerular Filt Rate 30; Glucose Random 280 mg/dL (60-115); Iron 69 mcg/dL (45-160); Percent Iron Saturation 26 % (15-50); Potassium 4.9 mmol/L (3.3-5.1); Sodium 134 mmol/L (135-145); Total Iron Binding Capacity 264 mcg/dL (228-428); Unsaturated Iron Binding 195 ug/dL
[2023-11-23 18:15] LABS: Creatinine Urine 68.58 mg/dL
[2023-11-23 18:23] LABS: TSH reflex Free T4 1.68 uIU/mL (0.32-4.0)
[2023-11-23 18:27] LABS: Microalbum/Creatinine Ratio Ur 1570.4 ug/mg cr (<30)
== END 2023-11-23 14:44 | disposition home or self-care (01) ==
LOC: HO.WFDLDS 14:43
PROVIDERS: Visit Provider Physician Assistant
DX: E11.65 Type 2 diabetes mellitus with hyperglycemia (principal); R42 Dizziness and giddiness; Z79.4 Long term (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 of insulin; E11.21 Type 2 diabetes mellitus with diabetic nephropathy
CPT/HCPCS: 36415; 80048; 80076; 82043; 82570; 83540; 84443; 85025

== ENCOUNTER 2023-11-25 12:59 | Outpatient (AMB) | payer OTHER, SELFPAY ==
[2023-11-25 13:02] VITALS: BP 142/72; PULSE 64; O2SAT 97; BMI 30.5
--- NOTE | 2023-11-25 13:02 | MHC.OFFVIS ---
Vital Signs 11/25/23 13:02 Height 5 ft 4 in Weight 177 lb 11.081 oz BMI 30.5 BP 142/72 H Blood Pressure Location Lt brachial Position Sitting Pulse 64 Pulse Source Pulse Oximeter Pulse Oximetry (%) 97 Oxygen Delivery Method Room Air Intake Visit Reasons: Colonoscopy Screening Intake Note: Manolo presents in office today for a scheduled colo consult. CC; Pt reports previous hx of colo a few months ago. However, this was performed in [place]. Pt is having repeat colo for a second opinion. Pt is able to provide paperwork from the procedure. He had a double performed as of 08/2023. Pt had different insurance at that time. Pt does report having severe reflux that has not been improved with any attempted therapies in the past. Employee Development Manager Required: Yes Employee Development Manager Services: Employee Development Manager Present Employee Development Manager Name: DECORATING SUPERVISOR/Other Information Interpreted: non-clinical & clinical Accompanied by: Other Relationship Allergies clindamycin [CLINDAMYCIN] Allergy (Unknown, Verified 11/25/23 13:12) SWELLING, RASH pravastatin Allergy (Unknown, Verified 11/25/23 13:12) increase liver enzymes HPI HPI Colonoscopy Screening: Details: 63 year old? male with past medical history of hypothyroidism, anemia, depression, hypertension, hyperlipidemia CKD, diabetes, diabetic neuropathy is here today for pre colonoscopy screening.? Patient was referred to us by his PCP. Referral was sent in July, however patient reports that he was in [place] in August and had colonoscopy and upper endoscopy done there. Patient brought all his paperwork with him which we will scan into his record. Upper endoscopy patient was diagnosed with mild gastritis as well as with H pylori. Patient was given treatment with antibiotics and PPI, however patient states that he has not taking it at all. He continues to have epigastric pain postprandially. Symptoms no matter what he eats. Patient also reports reflux. Patient had colonoscopy that showed polyps. Reports to be constipated. Reports postprandial abdominal bloating [facility] Medical History (Updated 11/25/23 @ 14:25 by HAYLEY Pablo-) History of Helicobacter pylori infection Hypothyroid Forgetfulness Major depression, recurrent, chronic Dizziness Hypertension Hyperlipidemia Previous myocardial infarction older than 8 weeks Chest pain Microalbuminuria Chronic kidney disease Diabetic nephropathy Uncontrolled type 2 diabetes mellitus with hyperglycemia, with long-term current use of insulin Social History Housing: House Patient Tobacco Use Status: Never used Tobacco e-Cigarette/Vaping Use: Never Used Second Hand Smoke Exposure: No service: No Current occupational status: unemployed Cognitive needs: No Hearing needs: No Vision needs: No Review of Systems Const Denies weight gain and Denies weight loss ENT Reports no additional complaints, Denies dysphagia and Denies odynophagia Card Reports no additional complaints Resp Reports no additional complaints GI Reports abdominal pain (Epigastric), Denies belching, Denies melena, Reports bloating, Denies change in bowel habits, Reports constipation, Denies dysphagia, Denies excessive flatus, Denies dyspepsia, Reports heartburn, Denies diarrhea, Denies loose stools, Denies nausea, Denies odynophagia and Denies vomiting Reports no additional complaints Musc Reports no additional complaints Neuro Reports no additional complaints Psych Reports no additional complaints Endo Reports no additional complaints Physical Exam Const General: healthy appearing and no acute distress Nutritional Appearance: obese Orientation/consciousness: patient oriented x3 Resp Effort & Inspection: normal respiratory effort, able to speak in complete sentences, no tracheal deviation and symmetric chest movement Auscultation: clear to auscultation bilaterally Cardio Rate: regular rate GI Inspection: Yes normal to inspection, No distended and Yes obesity Palpation (GI): Soft to palpation, not firm, nontender and No hepatosplenomegaly present Auscultation: normal bowel sounds General: Yes no CVA tenderness Back/Spine/Pelvis Back: no CVA tenderness Skin General skin exam: elasticity normal, turgor normal and dry skin Neuro General: patient oriented x3 Psych Appearance: grossly normal Mental Status: mental status grossly normal Assessment & Plan Assessment & Plan (1) History of Helicobacter pylori infection: Code(s): Z86.19 - Personal history of other infectious and parasitic diseases Category: Medical (2) Postprandial epigastric pain: Code(s): R10.13 - Epigastric pain (3) GERD (gastroesophageal reflux disease): Code(s): K21.9 - Gastro-esophageal reflux disease without esophagitis Qualifiers: Esophagitis presence: esophagitis presence not specified Qualified Code(s): K21.9 - Gastro-esophageal reflux disease without esophagitis (4) Constipation: Code(s): K59.00 - Constipation, unspecified Qualifiers: Constipation type: slow transit constipation Qualified Code(s): K59.01 - Slow transit constipation (5) Postprandial abdominal bloating: Code(s): R14.0 - Abdominal distension (gaseous) Plan Will repeat H pylori breath test in the office today. Will treat patient empirically if positive. Patient will start taking pantoprazole 40 mg in the morning. Avoid dietary triggers and late night snacking. Staying upright for minimum 3 hours after meals discussed with patient. Good control of his diabetes discussed with patient. Patient will start taking Senokot daily. Follow-up in the office in 2-3 months, sooner on as needed basis. He is agreeable to this plan and verbalizes understanding of instructions. He was given the opportunity to ask questions and all questions answered. Thank you for allowing me to participate in his care. Increase fluid intake and activity to promote better bowel motility Orders: Orders H Pylori Breath Test Today K21.9 - Gastro-esophageal reflux disease without esophagitis Medications: New pantoprazole take one tablet half an hour before breakfast 40 mg PO DAILY 30 tabs 2RF K21.9 - Gastro-esophageal reflux disease without esophagitis sennosides (Natural Senna Laxative) 17.2 mg (2 x 8.6 mg) PO BEDTIME 60 tabs 3RF constipation K59.00 - Constipation, unspecified Coding Level of Care Code New Pt Level 4 (98488) Diagnoses History of Helicobacter pylori infection Z86.19 Postprandial epigastric pain R10.13 Gastroesophageal reflux disease, unspecified whether esophagitis present K21.9 Esophagitis presence: esophagitis presence not specified Slow transit constipation K59.01 Constipation type: slow transit constipation Postprandial abdominal bloating R14.0 Time Spent (min) 45 Comment 30 minutes spent with patient and additional 15 minutes spent reviewing his records
== END 2023-11-25 14:25 | disposition home or self-care (01) ==
PROVIDERS: Visit Provider Nurse Practitioner Family
DX: Z86.19 Personal history of other infectious and parasitic diseases (principal); R10.13 Epigastric pain; K21.9 Gastro-esophageal reflux disease without esophagitis; K59.01 Slow transit constipation; R14.0 Abdominal distension (gaseous)
CPT/HCPCS: 99204

== ENCOUNTER 2023-11-25 12:59 | Outpatient (REF) | payer OTHER, SELFPAY ==
[2023-11-26 14:44] LABS: H Pylori Breath Test Positive (Negative)
== END 2023-11-25 13:00 | disposition home or self-care (01) ==
LOC: HO.LNP 12:59
PROVIDERS: Visit Provider Nurse Practitioner Family
DX: N18.32 Chronic kidney disease, stage 3b (principal); I10 Essential (primary) hypertension; E11.65 Type 2 diabetes mellitus with hyperglycemia; D64.9 Anemia, unspecified; Z79.4 Long term (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 of insulin; K21.9 Gastro-esophageal reflux disease without esophagitis; R10.13 Epigastric pain; Z86.19 Personal history of other infectious and parasitic diseases
CPT/HCPCS: 83013; 99202; 99212

== ENCOUNTER 2023-11-25 14:20 | Outpatient (AMB) | payer OTHER, SELFPAY ==
[2023-11-25 14:31] VITALS: BP 126/66; PULSE 66; O2SAT 97; BMI 30.6
--- NOTE | 2023-11-25 14:31 | HO.NEPHOV ---
Vital Signs 11/25/23 14:31 11/25/23 14:48 Height 5 ft 4 in Weight 178 lb BMI 30.6 BP 126/66 120/60 Blood Pressure Location Rt brachial Rt brachial Position Sitting Pulse 66 Pulse Source Pulse Oximeter Pulse Oximetry (%) 97 Oxygen Delivery Method Room Air Intake Visit Reasons: CKD/ Conf Data Modeling Specialist Required: Yes Data Modeling Specialist Services: Data Modeling Specialist Present ([facility] [place] scanned into patient chart.) Accompanied by: Daughter Allergies clindamycin [CLINDAMYCIN] Allergy (Unknown, Verified 11/25/23 14:35) SWELLING, RASH pravastatin Allergy (Unknown, Verified 11/25/23 14:35) increase liver enzymes Medication List - Last Reconciled 11/25/23 by Jaime Gomez MD amlodipine 10 mg PO DAILY blood sugar diagnostic (FreeStyle Lite Strips) use daily As directed to check blood sugars for diabetes 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 meter (FreeStyle Lite Meter kit) Use daily As directed to check blood glucose 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 meter,continuous (FreeStyle Matt 3 [place]) Use daily As directed to monitor type 2 diabetes 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 sensor (FreeStyle Matt 3 Sensor device) use daily As directed to monitor type 2 diabetes. changed q 14 days carvedilol 25 mg PO BID 90 days cholecalciferol (vitamin D3) 25 mcg PO DAILY dulaglutide (Trulicity) 0.75 mg (0.5 mL) subcut QWEEK ferrous fumarate 325 mg PO DAILY gabapentin 900 mg (3 x 300 mg) PO Q8H 30 days glipizide ER 5 mg PO DAILY hydralazine 25 mg PO TID 30 days hydrochlorothiazide 25 mg PO DAILY insulin glargine (Lantus Solostar U-100 Insulin) 30 units (0.3 mL) subcut QPM lancets (FreeStyle Lancets) Use daily As directed to check blood sugar levothyroxine 125 mcg PO DAILY lorazepam 0.5 mg PO Q8H PRN losartan 100 mg PO DAILY meclizine 25 mg PO TID PRN metformin 1,000 mg PO BID 90 days pantoprazole 40 mg PO DAILY pen needle, diabetic (BD Ultra-Fine Micro Pen Needle) As directed sennosides (Natural Senna Laxative) 17.2 mg (2 x 8.6 mg) PO BEDTIME simvastatin 10 mg PO DAILY spironolactone 25 mg PO DAILY HPI Comments Details: . Cirilo is a pleasant 62-year-old man with history of longstanding diabetes mellitus and hypertension who has recently moved from [place]. He has been referred for evaluation of renal insufficiency. Apparently he saw a benzol still operator in [place]. He was told that he has CKD and he has proteinuria. Baseline creatinine is unknown at this time. However on August 07 2023, creatinine was 1.5 and on August 17 creatinine was 1.63 No urine studies are available. History of significant hypertension requiring multiple medications. Upon talking to him it appears that he is compliant with his medications. He admits to eating high salt in his diet. History of coronary artery disease. He had [place] about 8 years ago. He is not aware of the details. He complains of pain in his lower back. He has not take any NSAIDs. No urinary symptoms like dysuria urgency or increased frequency no hematuria. No history of kidney stones. He has had leg edema. No shortness of breath. No chest pain. No nausea or vomiting. No diarrhea constipation. No rash no swelling or pain of small joints. No significant weight loss. 09/22/23 Events noted No new issues since last visit Complaint with [facility] Medical History (Updated 11/25/23 @ 14:25 by Joann Smith [facility]) History of Helicobacter pylori infection Hypothyroid Forgetfulness Major depression, recurrent, chronic Dizziness Hypertension Hyperlipidemia Previous myocardial infarction older than 8 weeks Chest pain Microalbuminuria Chronic kidney disease Diabetic nephropathy Uncontrolled type 2 diabetes mellitus with hyperglycemia, with long-term current use of insulin Social History Housing: House Patient Tobacco Use Status: Never used Tobacco e-Cigarette/Vaping Use: Never Used Second Hand Smoke Exposure: No service: No Current occupational status: unemployed Cognitive needs: No Hearing needs: No Vision needs: No Physical Exam Vital Signs: Last Vital Signs Pulse 66 11/25/23 14:31 BP 126/66 11/25/23 14:31 Pulse Ox 97 11/25/23 14:31 Oxygen Delivery Method Room Air 11/25/23 14:31 BMI result Body Mass Index 30.6 Results Reviewed Nephrology Results: Hgb 11.2 g/dl (14.0-18.0) L 11/23/23 WBC 12.4 X10*3/uL (4.8-10.8) H 11/23/23 Plt Count 188 X10*3/uL (160-400) 11/23/23 Sodium 134 mmol/L (135-145) L 11/23/23 Potassium 4.9 mmol/L (3.3-5.1) 11/23/23 Chloride 102 mmol/L (96-108) 11/23/23 Carbon Dioxide 25 mmol/L (22-29) 11/23/23 BUN 30 mg/dL (9-16) H 11/23/23 Creatinine 2.23 mg/dL (0.5-1.4) H 11/23/23 Calcium 10.0 mg/dL (8.4-10.2) 11/23/23 Urine Protein 300 (3+) mg/dL (Neg-Trace) H 11/10/23 Urine Creatinine 68.58 mg/dL 11/23/23 Renal US 09/22/23 Assessment & Plan Assessment & Plan (1) Chronic kidney disease: Code(s): N18.9 - Chronic kidney disease, unspecified Category: Medical Qualifiers: Chronic kidney disease stage: stage 3 (moderate) Chronic kidney disease stage 3 subtype: stage 3b (GFR 30-44) Qualified Code(s): N18.32 - Chronic kidney disease, stage 3b Plan: . CKD 3 B. EGFR is about 43 mL/minute based on serum creatinine of 1.63. creatinine is gradually increasing to 2.23 Blood sugar sub optimal Differential diagnosis includes hypertensive diabetic kidney disease. Other nondiabetic causes seem less likely No Obstructive uropathy based on Ultrasound Workup initiated for CKD. urine protein creatinine ratio elevated. About 4 gm proteinuria Renal ultrasonogram.- Unremarkable Since Creatinine is increasing, Will STOP HCTZ Edema may be due to Amlodipine_ will decrease to 5 mg QD Increase Hydralazine to 50 mg TID to optimze BP Repeat BMP in 3 weeks Concur with current medications and KOLTON inhibition. Maintain blood pressure less than 130/80. Maintain A1c less than 7%. He would benefit from SGLT2 inhibitors.. (2) Hypertension: Code(s): I10 - Essential (primary) hypertension Category: Medical Qualifiers: Hypertension type: primary hypertension Qualified Code(s): I10 - Essential (primary) hypertension Plan: . Resistant hypertension in the setting of longstanding diabetes mellitus CKD and elevated BMI. BP is well controlled today We discussed importance of low-sodium diet. Weight loss we will also help with controlling the blood pressure. He needs to increase physical activities. (3) Uncontrolled type 2 diabetes mellitus with hyperglycemia, with long-term current use of insulin: Code(s): E11.65 - Type 2 diabetes mellitus with hyperglycemia; Z79.4 - manager terminal (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 of insulin Category: Medical Plan: Defer to primary care. Goal is to maintain A1c less than 7% (4) Anemia: Code(s): D64.9 - Anemia, unspecified Category: Medical Plan: . Anemia is multifactorial. He has mild iron deficiency. He might have erythropoietin deficiency due to underlying CKD. IRon supplementation No absolute indication for erythropoietin replacement therapy at this time. . Orders: Orders Basic Metabolic Panel 3 Weeks N18.32 - Chronic kidney disease, stage 3b Medications: Changed From hydralazine 25 mg PO TID 30 days 90 tabs 6RF To hydralazine 50 mg (2 x 25 mg) PO TID 30 days 180 tabs 6RF From amlodipine 10 mg PO DAILY 90 tabs 3RF To amlodipine 5 mg (1/2 x 10 mg) PO DAILY 90 tabs 3RF Discontinued hydrochlorothiazide Discontinued Reason: Doctor's Order 25 mg PO DAILY 90 tabs 3RF Coding Level of Care Code Est Pt Level 4 (72747) Complex EM visit Add On G2211 Diagnoses Stage 3b chronic kidney disease N18.32 Chronic kidney disease stage: stage 3 (moderate) Chronic kidney disease stage 3 subtype: stage 3b (GFR 30-44) Primary hypertension I10 Hypertension type: primary hypertension Uncontrolled type 2 diabetes mellitus with hyperglycemia, with long-term current use of insulin E11.65; Z79.4 Anemia D64.9
[2023-11-25 14:48] VITALS: BP 120/60
== END 2023-11-25 14:54 | disposition home or self-care (01) ==
PROVIDERS: PCP Physician Assistant; Visit Provider Internal Medicine Hypertension Specialist
DX: I12.9 Hypertensive chronic kidney disease with stage 1 through stage 4 chronic kidney disease, or unspecified chronic kidney disease (principal); E11.22 Type 2 diabetes mellitus with diabetic chronic kidney disease; N18.32 Chronic kidney disease, stage 3b; D63.1 Anemia in chronic kidney disease; Z79.4 Long term (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 of insulin
CPT/HCPCS: 99214; G2211

== ENCOUNTER 2023-12-12 08:31 | Emergency (ER) | payer OTHER, SELFPAY ==
--- NOTE | ~2023-12-12 | XR_ITS ---
EXAMINATION: XR ANKLE, LEFT CLINICAL INFORMATION: Left ankle pain. COMPARISON: 12/26/2012 TECHNIQUE: AP, lateral, and mortise views of the left ankle. FINDINGS: Extensive vascular calcifications. Large dorsal and plantar calcaneal spurs. Redemonstration of large soft tissue calcifications along the Achilles tendon with swelling. Hypertrophic spurring along the medial aspect of the talus. Focal subcortical lucency along the medial aspect of the talar dome with surrounding sclerosis. XR/XR ankle LT min 3V IMPRESSION: 1. Focal subcortical lucency along the medial aspect of the talar dome with surrounding sclerosis, possibly related to avascular necrosis, prior trauma. 2. Redemonstration of large soft tissue calcifications along the Achilles tendon with swelling. Hypertrophic spurring along the medial aspect of the talus. This study was presented today December 12, 2023 for interpretation. Stat results provided at this time as requested by referring provider. Electronically signed by: Amelia Veliz MD 12/12/2023 01:02 PM EDT
[2023-12-12 08:34] VITALS: BP 152/71; PULSE 72; RESP 18; TEMP 36.3; O2SAT 96; BMI 29.9
--- NOTE | 2023-12-12 08:51 | PC.NURSE ---
patient a&ox3, c/o lt ankle pain 12/07- increases with ambulation. pt states he has no trauma to area that he can remember, ankle swollen, labs previously drawn by tech, xr of ankle ordered, call [facility] [place], will continue plan of care
[2023-12-12 08:54] LABS: Basophils Absolute Auto 0.1 X10*3/uL (0.0-0.2); Basophils Percent Auto 0.5 % (0-2); Eosinophils Absolute Auto 0.3 X10*3/uL (0.0-0.4); Eosinophils Percent Auto 2.9 % (0-4); Hematocrit 32.2 % (42.0-52.0); Hemoglobin 10.5 g/dl (14.0-18.0); Imm Gran Abs Auto 0.02 X10*3/uL (0.00-0.03); Imm Gran Pct Auto 0.2 % (0.0-0.4); Lymphocytes Absolute Auto 1.2 X10*3/uL (1.2-4.9); Lymphocytes Percent Auto 10.5 % (20-40); MANUAL DIFF FLAG NO; Mean Corpuscular HGB Conc 32.6 g/dl (31.0-36.0); Mean Corpuscular Hemoglobin 28.8 pg (27.0-33.0); Mean Corpuscular Volume 88.2 fL (80.0-98.0); Mean Platelet Volume 10.9 fL (9.4-12.4); Monocytes Absolute Auto 1.2 X10*3/uL (0.1-1.2); Monocytes Percent Auto 10.2 % (2-11); Neutrophils Absolute Auto 8.9 x10*3/uL (2.0-8.3); Neutrophils Percent Auto 75.7 % (45-73); Platelet Count 219 X10*3/uL (160-400); Red Blood Count 3.65 X10*6/uL (4.60-5.80); Red Cell Distribution Width 14.8 % (11.0-16.0); White Blood Count 11.8 X10*3/uL (4.8-10.8)
--- NOTE | 2023-12-12 09:04 | ED.LOWEXIN ---
HPI - Extremity Injury (Lower) General Chief Complaint: Extremity Injury, Lower Stated Complaint: Bilateral foot swelling Time Seen by Provider: 12/12/23 08:56 Source: patient Mode of arrival: ambulatory Limitations: no limitations History of Present Illness ED Provider: Billy Matthew PA-C HPI Narrative: 63 yo Indian speaking male with history of DM2 on insulin, CKD, iron deficiency anemia, H. Pylori, who presents to the ER for evaluation of 2 days of left medial ankle pain and swelling. He reports chronic ankle swelling bilaterally for the last 1 year. He states he woke up 2 days ago with worsening swelling and pain to the left medial ankle without any known injury. He reports pain with movement and ambulation. he did not sleep well last night due to the pain. the pain is radiating from the inner ankle to the lower leg. no leg swelling. no ankle or leg redness. no numbness or tingling. MD complaint: ankle injury Onset (ago): day(s) Injury: Left: ankle Type of Injury: unknown Place: home Severity: severe Severity scale (1-10): 9 Relieving factors: NSAID Exacerbating factors: weight bearing, movement and palpation Associated symptoms: unable to bear weight Other symptoms: none Treatments prior to arrival: NSAIDS Related Data Home Medications ?Medication ?Instructions ?Recorded ?Confirmed pen needle, diabetic 32 gauge x #100 ea 11/25/23 11/25/2303/03 (BD Ultra-Fine Micro Pen Needle) Previous Rx's ?Medication ?Instructions ?Recorded cholecalciferol (vitamin D3) 25 25 mcg PO DAILY #90 caps 09/22/23 mcg (1,000 unit) capsule glipizide 5 mg tablet, extended 5 mg PO DAILY #90 tabs 09/28/23 release 24 hr carvedilol 25 mg tablet 25 mg PO BID 90 days #180 tabs 09/30/23 lancets 28 gauge (FreeStyle #100 ea 09/30/23 Lancets) levothyroxine 125 mcg tablet 125 mcg PO DAILY #90 tabs 09/30/23 losartan 100 mg tablet 100 mg PO DAILY #90 tabs 09/30/23 metformin 1,000 mg tablet 1,000 mg PO BID 90 days #180 tabs 09/30/23 simvastatin 10 mg tablet 10 mg PO DAILY #90 tabs 09/30/23 spironolactone 25 mg tablet 25 mg PO DAILY #90 tabs 09/30/23 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 meter (FreeStyle #1 ea 11/18/23 Lite Meter kit) blood sugar diagnostic (FreeStyle #100 ea 11/23/23 Lite Strips) 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 meter,continuous #1 ea 11/23/23 (FreeStyle Matt 3 [place]) 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 sensor (FreeStyle #2 ea 11/23/23 Matt 3 Sensor device) dulaglutide 0.75 mg/0.5 mL 0.75 mg (0.5 mL) subcut QWEEK #2 mL 11/23/23 subcutaneous pen injector (Trulicity) ferrous fumarate 325 mg (106 mg 325 mg PO DAILY #90 tabs 11/23/23 iron) tablet gabapentin 300 mg capsule 900 mg (3 x 300 mg) PO Q8H 30 days 11/23/23 #270 caps insulin glargine 100 unit/mL (3 30 unit (0.3 mL) subcut QPM #15 mL 11/23/23 mL) subcutaneous pen (Lantus Solostar U-100 Insulin) lorazepam 0.5 mg tablet 0.5 mg PO Q8H PRN anxiety #5 tabs 11/23/23 meclizine 25 mg tablet 25 mg PO TID PRN for dizziness #30 11/23/23 tabs amlodipine 10 mg tablet 5 mg (1/2 x 10 mg) PO DAILY #90 11/25/23 tabs hydralazine 25 mg tablet 50 mg (2 x 25 mg) PO TID 30 days 11/25/23 #180 tabs pantoprazole 40 mg tablet,delayed 40 mg PO DAILY #30 tabs 11/25/23 release sennosides 8.6 mg tablet (Natural 17.2 mg (2 x 8.6 mg) PO BEDTIME 11/25/23 Senna Laxative) constipation #60 tabs bismuth subcit K 140 3 cap PO QID 14 days #168 caps 11/26/23 mg-metronidazole 125 mg-tetracycline 125 mg cap (Pylera) acetaminophen 500 mg tablet 1,000 mg (2 x 500 mg) PO Q6H PRN 12/12/23 (Tylenol Extra Strength) pain #30 tabs diclofenac sodium 1 % topical gel 4 g topical QID PRN pain #100 grams 12/12/23 (Voltaren Arthritis Pain) Allergies Allergy/AdvReac Type Severity Reaction Status Date / Time clindamycin [CLINDAMYCIN] Allergy Unknown SWELLING, Verified 12/12/23 08:40 RASH pravastatin Allergy Unknown increase Verified 12/12/23 08:40 liver enzymes Review of Systems Review of Systems: Yes all other systems are reviewed and are negative [facility] Past Medical History Medical History (Updated 12/12/23 @ 14:11 by DARNELL Rosa) History of Helicobacter pylori infection Hypothyroid Forgetfulness Major depression, recurrent, chronic Dizziness Hypertension Hyperlipidemia Previous myocardial infarction older than 8 weeks Chest pain Microalbuminuria Chronic kidney disease Diabetic nephropathy Uncontrolled type 2 diabetes mellitus with hyperglycemia, with long-term current use of insulin Social History Social History Housing: House Patient Tobacco Use Status: Never used Tobacco e-Cigarette/Vaping Use: Never Used Second Hand Smoke Exposure: No Advance Directives: No Advance Directives Information Provided: No Do you have a plan to hurt others: No Plan service: No Current occupational status: unemployed Cognitive needs: No Hearing needs: No Vision needs: No Physical Exam Vital Signs: Vital Signs: Last Vital Signs Temp 97.3 F 12/12/23 08:34 Pulse 72 12/12/23 08:34 Resp 18 12/12/23 08:34 BP 152/71 H 12/12/23 08:34 Pulse Ox 96 12/12/23 08:34 O2 Del Method Room Air 12/12/23 08:34 BMI result Body Mass Index 29.9 Appearance: Alert. Oriented X3. No acute distress. HEENT: normal inspection CVS: Normal heart rate and rhythm. Pulses normal. Respiratory: No respiratory distress. Skin: Skin warm and dry. Normal skin color. Normal skin turgor. No rashes. Extremities: bilateral ankle swelling, left slightly worse than right with diffuse tenderness of the left medial ankle. limited ROM due to pain. no erythema or warmth. foot is warm and well perfused w/ 1+ DP/PD pulses. no open wounds. negative homans sign Neuro: Oriented X 3. No motor deficit. No sensory deficit. Medications Administered Discontinued Medications Generic Name Dose Route Start Last Admin Trade Name Freq PRN Reason Stop Dose Admin Acetaminophen 975 mg 12/12/23 09:46 12/12/23 10:00 Acetaminophen 325 Mg Tablet PO 12/12/23 09:47 975 mg ONCE ONE Administration Oxycodone HCl 5 mg 12/12/23 09:46 12/12/23 10:00 Oxycodone Hcl Immed Release 5 Mg Tablet PO 12/12/23 09:47 5 mg ONCE ONE Administration Medical Decision Making Medical Decision Making [facility] Narrative: 63 yo Indian speaking male with history of DM2 on insulin, CKD, iron deficiency anemia, H. Pylori, who presents to the ER for evaluation of 2 days of left medial ankle pain and swelling. no redness or warmth to suggest infection or gout. denies injury. denies calf pain, chest pain or sob. doubt DVT as swelling and tenderness are localized to the ankle itself. no open wounds. labs showing stable CKD. stable anemia. mild leukocytosis xray showing focal subcortical irregularity along with medial aspect of the talar dome w/ surround sclerosis, possible related to AVN or prior trauma there are large calcifications of the achilles tendon, present on prior film. results d/w family and patient using medical staff physician. will need outpatient follow up local pain relief w/ topical nsaid only, no systemic nsaid due to ckd. placed in a walking boot and provided crutches stable for d/c home with outpatient follow up Differential Diagnosis Differential Diagnoses: The differential diagnosis associated with the presentation includes ankle sprain, PVD, PAD, diabetic neuropathy, CHF, tendonitis, gout, septic arthritis, RA, OA Lab Data [facility] Lab Attestation statement: I reviewed the patient's lab results. stable anemia and stable ckd 12/12/23 08:46 12/12/23 08:46 Labs: Lab Results 12/12/23 12/12/23 Range/Units 08:46 10:47 WBC 11.8 H (4.8-10.8) X10*3/uL RBC 3.65 L (4.60-5.80) X10*6/uL Hgb 10.5 L (14.0-18.0) g/dl Hct 32.2 L (42.0-52.0) % MCV 88.2 (80.0-98.0) fL MCH 28.8 (27.0-33.0) pg MCHC 32.6 (31.0-36.0) g/dl RDW 14.8 (11.0-16.0) % Plt Count 219 (160-400) X10*3/uL MPV 10.9 (9.4-12.4) fL Immature Gran % (Auto) 0.2 (0.0-0.4) % Neut % (Auto) 75.7 H (45-73) % Lymph % (Auto) 10.5 L (20-40) % [place] % (Auto) 10.2 (2-11) % Eos % (Auto) 2.9 (0-4) % Baso % (Auto) 0.5 (0-2) % Lymph # (Auto) 1.2 (1.2-4.9) X10*3/uL [place] # (Auto) 1.2 (0.1-1.2) X10*3/uL Eos # (Auto) 0.3 (0.0-0.4) X10*3/uL Baso # (Auto) 0.1 (0.0-0.2) X10*3/uL Abs Immat Gran (auto) 0.02 (0.00-0.03) X10*3/uL Absolute Neuts (auto) 8.9 H (2.0-8.3) x10*3/uL Absolute Nucleated RBC 0.000 (0.0-0.012) X10*3/uL Nucleated RBC % (auto) 0.0 (0.0-0.2) /100WBC Sodium 137 (135-145) mmol/L Potassium 4.8 (3.3-5.1) mmol/L Chloride 106 (96-108) mmol/L Carbon Dioxide 21 L (22-29) mmol/L Anion Gap 15 (12-20) BUN 27 H (9-16) mg/dL Creatinine 1.85 H (0.5-1.4) mg/dL Estim Creat Clear Calc 42.0 Estimated GFR 37 POC Glucose 126 H (60-115) mg/dL Random Glucose 172 H (60-115) mg/dL Calcium 9.4 (8.4-10.2) mg/dL B-Natriuretic Peptide 137 H (<100) pg/mL Independent Interpretation I performed an independent interpretation of an: Plain X-Ray Interpretation: xr without acute fracture or dislocation Radiology Impression Discussion of test interpretation with radiology: I have reviewed the radiologist's reading. Radiologist Impression: XR/XR ankle LT min 3V IMPRESSION: 1. Focal subcortical lucency along the medial aspect of the talar dome with surrounding sclerosis, possibly related to avascular necrosis, prior trauma. 2. Redemonstration of large soft tissue calcifications along the Achilles tendon with swelling. Hypertrophic spurring along the medial aspect of the talus. Independent Historian Clinical information obtained from an independent historian. History obtained from or confirmed by: Other (adult daughter at the bedside) External Record Review External record reviewed: Outpatient record, Prior outpatient labs and Prior outpatient radiology Prescription Management I considered prescription management with: Pain Medication Chronic Conditions Patient?s care impacted by: Diabetes and Hypertension Social Determinants Patient?s care significantly limited by Social Determinants of Health including: Other Social Determinant of Health Critical Care Time Critical Care Time Critical Care Time: No Discharge Plan Discharge Clinical Impression: Ankle pain, left Qualifiers: Chronicity: unspecified Qualified Code(s): M25.572 - Pain in left ankle and joints of left foot Patient Disposition: Home, Self-Care Instructions: Arthralgia (ED), Swollen Joint (ED) Additional Instructions: your lab workup showed stable blood counts, stable kidney function x-ray of the ankle results below recommend ice, elevate when possible. [place]OL[place] wrap for compression and support recommend wearing the walking boot provided use the provided crutches or walker until pain improved follow up with orthopedics and your PCP for further evaluation and treatment take tylenol as prescribed use the prescribed anti-inflammatory cream If you develop new or worsening symptoms call 911 or come back to the ER for further evaluation. XR/XR ankle LT min 3V IMPRESSION: 1. Focal subcortical lucency along the medial aspect of the talar dome with surrounding sclerosis, possibly related to avascular necrosis, prior trauma. 2. Redemonstration of large soft tissue calcifications along the Achilles tendon with swelling. Hypertrophic spurring along the medial aspect of the talus. Prescriptions: New diclofenac sodium [Voltaren Arthritis Pain] 1 % gel 4 g topical QID PRN (Reason: pain) Qty: 100 0RF Rx Instructions: apply to single knee, ankle, foot; for foot includes sole/toes/top of foot acetaminophen [Tylenol Extra Strength] 500 mg tablet 1,000 mg PO Q6H PRN (Reason: pain) Qty: 30 0RF No Action carvedilol 25 mg tablet 25 mg PO BID 90 Days Qty: 180 3RF Rx Instructions: must administer with a meal/food losartan 100 mg tablet 100 mg PO DAILY Qty: 90 3RF levothyroxine 125 mcg tablet 125 mcg PO DAILY Qty: 90 3RF simvastatin 10 mg tablet 10 mg PO DAILY Qty: 90 3RF spironolactone 25 mg tablet 25 mg PO DAILY Qty: 90 3RF metformin 1,000 mg tablet 1,000 mg PO BID 90 Days Qty: 180 3RF (DME) lancets [FreeStyle Lancets] 28 gauge misc See Rx Instructions .Route Qty: 100 3RF Rx Instructions: Use daily As directed to check blood sugar (DME) 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 meter [FreeStyle Lite Meter] Kit See Rx Instructions .ROUTE .MEDSUPPLY Qty: 1 0RF Rx Instructions: Use daily As directed to check blood glucose meclizine 25 mg tablet 25 mg PO TID PRN (Reason: for dizziness) Qty: 30 0RF ferrous fumarate 325 mg (106 mg iron) tablet 325 mg PO DAILY Qty: 90 0RF bismuth subcit [id number] [Pylera] 140-125-125 mg capsule 3 cap PO QID 14 Days Qty: 168 0RF glipizide 5 mg tablet extended release 24hr 5 mg PO DAILY Qty: 90 0RF (DME) FreeStyle Lite Strips Strip See Rx Instructions .ROUTE .MEDSUPPLY Qty: 100 3RF Rx Instructions: use daily As directed to check blood sugars for diabetes Trulicity 0.75 mg/0.5 mL pen injector 0.75 mg subcut QWEEK Qty: 2 3RF insulin glargine [Lantus Solostar U-100 Insulin] 100 unit/mL (3 mL) insulin pen 30 unit subcut QPM Qty: 15 3RF (DME) FreeStyle Matt 3 [place] Misc See Rx Instructions .Route Qty: 1 0RF Rx Instructions: Use daily As directed to monitor type 2 diabetes (DME) FreeStyle Matt 3 Sensor Device See Rx Instructions .Route Qty: 2 11RF Rx Instructions: use daily As directed to monitor type 2 diabetes. changed q 14 days gabapentin 300 mg capsule 900 mg PO Q8H 30 Days Qty: 270 3RF lorazepam 0.5 mg tablet 0.5 mg PO Q8H PRN (Reason: anxiety) Qty: 5 0RF Rx Instructions: Take 30 minutes prior to procedure. May repeat dose. hydralazine 25 mg tablet 50 mg PO TID 30 Days Qty: 180 6RF amlodipine 10 mg tablet 5 mg PO DAILY Qty: 90 3RF (DME) pen needle, diabetic [BD Ultra-Fine Micro Pen Needle] 32 gauge x 1/4 needle See Rx Instructions .ROUTE .MEDSUPPLY Qty: 100 Rx Instructions: As directed sennosides [Natural Senna Laxative] 8.6 mg tablet 17.2 mg PO BEDTIME Qty: 60 3RF pantoprazole 40 mg tablet,delayed release (DR/EC) 40 mg PO DAILY Qty: 30 2RF Rx Instructions: take one tablet half an hour before breakfast cholecalciferol (vitamin D3) 25 mcg (1,000 unit) capsule 25 mcg PO DAILY Qty: 90 0RF Referrals: [facility] [place] Orthopedic Surgeons [Provider Group] Print Language: Indian
[2023-12-12 09:11] LABS: Anion Gap 15 (12-20); Blood Urea Nitrogen 27 mg/dL (9-16); Calcium 9.4 mg/dL (8.4-10.2); Carbon Dioxide 21 mmol/L (22-29); Chloride 106 mmol/L (96-108); Estimated Glomerular Filt Rate 37; Glucose Random 172 mg/dL (60-115); Potassium 4.8 mmol/L (3.3-5.1); Sodium 137 mmol/L (135-145)
[2023-12-12 09:18] LABS: B Type Natriuretic Peptide 137 pg/mL (<100)
[2023-12-12] MEDS: oxyCODONE HCl Immed Release 5 MG TABLET PO (10:00)
[2023-12-12] MEDS: Acetaminophen 325 MG TABLET 975 MG PO (10:00)
--- NOTE | 2023-12-12 10:01 | PC.NURSE ---
pt medicated for pain per order
--- NOTE | 2023-12-12 10:50 | PC.NURSE ---
pt c/o nausea and dizziness, pt is narcotic naive- obtained poc which was wnl, pt is going to eat some breakfast his daughter brought as he took the narcotics on an empty stomach.
[2023-12-12 10:51] LABS: Glucose, Whole Blood 126 mg/dL (60-115)
[2023-12-12 14:25] VITALS: BP 184/65; PULSE 63; RESP 18; TEMP 36.7; O2SAT 94
--- NOTE | 2023-12-12 14:26 | PC.NURSE ---
pt a&ox3, c/o 11/07 lle pain with movement, pt states when at rest he doesnt have pain at this time. vss, walking boot and crutch training performed, family at bedside, pt to be discharged
[2023-12-12 14:37] VITALS: BP 184/65; PULSE 63; RESP 18; TEMP 36.7; O2SAT 94
== END 2023-12-12 14:39 | disposition home or self-care (01) ==
PROVIDERS: Emergency Provider Emergency Medicine
DX: M25.572 Pain in left ankle and joints of left foot (principal); R60.0 Localized edema; E11.9 Type 2 diabetes mellitus without complications; Z79.899 Other long term (current) drug therapy; Z79.4 Long term (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 of insulin
CPT/HCPCS: 36415; 73610; 80048; 82947; 83880; 85025; 99283; 99284

== ENCOUNTER 2023-12-15 13:39 | Outpatient (AMB) | payer OTHER, SELFPAY ==
--- NOTE | 2023-12-15 13:46 | A.OFFPC_ITS ---
Vital Signs 12/15/23 13:50 Height 5 ft 6 in Weight 179 lb 4 oz BMI 28.9 BP 138/70 Blood Pressure Location Lt brachial Position Sitting Pulse 63 Pulse Source Pulse Oximeter Pulse Oximetry (%) 95 Oxygen Delivery Method Room Air Intake Visit Reasons: FollowUpGlucose and swollen leg Intake Note: follow up on swelling leg and glucose Allergies clindamycin [CLINDAMYCIN] Allergy (Unknown, Verified 12/15/23 14:23) SWELLING, RASH pravastatin Allergy (Unknown, Verified 12/15/23 14:23) increase liver enzymes Medication List - Last Reconciled 12/15/23 by Ayah Nunez, RESPIRATORY CARE TECHNICIAN-BC acetaminophen (Tylenol Extra Strength) 1,000 mg (2 x 500 mg) PO Q6H PRN amlodipine 5 mg (1/2 x 10 mg) PO DAILY bismuth subcit Q-feabxwuru-xya 140-125-125 mg (Pylera) 3 caps PO QID 14 days blood sugar diagnostic (FreeStyle Lite Strips) use daily As directed to check blood sugars for diabetes 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 meter (FreeStyle Lite Meter kit) Use daily As directed to check blood glucose 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 meter,continuous (FreeStyle Matt 3 [place]) Use daily As directed to monitor type 2 diabetes 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 sensor (FreeStyle Matt 3 Sensor device) use daily As directed to monitor type 2 diabetes. changed q 14 days carvedilol 25 mg PO BID 90 days cholecalciferol (vitamin D3) 25 mcg PO DAILY diclofenac sodium 1% (Voltaren Arthritis Pain) 4 grams topical QID PRN dulaglutide (Trulicity) 0.75 mg (0.5 mL) subcut QWEEK ferrous fumarate 325 mg PO DAILY gabapentin 900 mg (3 x 300 mg) PO Q8H 30 days glipizide ER 5 mg PO DAILY hydralazine 50 mg (2 x 25 mg) PO TID 30 days hydrochlorothiazide 25 mg PO DAILY insulin glargine (Lantus Solostar U-100 Insulin) 30 units (0.3 mL) subcut QPM lancets (FreeStyle Lancets) Use daily As directed to check blood sugar levothyroxine 125 mcg PO DAILY lorazepam 0.5 mg PO Q8H PRN losartan 100 mg PO DAILY meclizine 25 mg PO TID PRN metformin 1,000 mg PO BID 90 days pantoprazole 40 mg PO DAILY pen needle, diabetic (BD Ultra-Fine Micro Pen Needle) As directed sennosides (Natural Senna Laxative) 17.2 mg (2 x 8.6 mg) PO BEDTIME simvastatin 10 mg PO DAILY spironolactone 25 mg PO DAILY Tobacco use date assessed: 09/28/23 Dental Screening Dental Screen Date: 08/17/23 HPI HPI Comments History of Present Illness Details Patient is a 63-year-old male with hypertension, hyperlipidemia, chronic kidney disease, type 2 diabetes, B12 deficiency, iron deficiency and hypothyroidism Accompanied by daughter who helps with language barrier Here today for hospital discharge follow up. Was seen a [facility] room on 12/12/2023 for left ankle pain. Note and workup reviewed XR/XR ankle LT min 3V IMPRESSION: 1. Focal subcortical lucency along the m edial aspect of the talar dome with surrounding sclerosis, possibly related to avascular necrosis, prior trauma. 2. Redemonstration of large soft tissue calcifications along the Achilles tendon with swelling. Hypertrophic spurring along the medial aspect of the talus He was given a prescription for topical diclofenac and recommended to see an orthopedic as well as a sports leadership instructor. He reports that the pain is better than it was along with the swelling however he continues to have pain with weight-bearing. He was using the topical diclofenac and taking Tylenol. He was encouraged to wear walking boot however he does not prefer to wear this. He is also being seen for close interim follow up of his diabetes after medication changes made by his primary care provider. Reports tolerance and compliance with all therapies. Was able to get his diabetic testing supplies however was not able to get his continuous glucose monitor. Has an appointment with endocrinology tomorrow. He denies any hypoglycemia. Reports testing blood sugars and readings average around 100mg/dl. Labs from 12/12/2023 show improved renal function and normalized sodium BUN 27, creatinine 1.85, EGFR 47, sodium 137 Improved random glucose 126 Missed his cardiology appt d/t the ED visit, when called to r/s, next visit of holafrank was 03/2024. Wonders about sooner appt. Final he complains of dry eyes bilat. Reports that he is active with an eye doctor and had a recent eye exam. Reports that he mentioned this at that isaura ointment in the recommendation was to use artificial tears. Reports that he does use the drops and this does not seem to help. Exam Awake alert NAD PERRLA EOMI RRR LS CTAB LLE decreased PP, + 1 edema, antalgic gait favoring L side Plan Flu shot today Orthopedic and podiatry referral placed today Encouraged to continue to wear walking boot and use topical diclofenac as prescribed Continue all medications as currently prescribed Follow up with endocrinology as scheduled Renal function is improving will have VERONICA rodrigues on request for sooner Cards appt In regards to his dry eyes I have told him to try the artificial eye ointment instead of the drops to see if he has improved symptoms otherwise he should follow up with his inseam trimmer for additional recommendations Recommend follow up with the primary care in 2-3 weeks for close interim follow up of chronic conditions, sooner as needed This note is constructed using voice recognition software. While every effort has been made to ensure accuracy in manufacturing chief engineer, still errors may have been included Sometimes, these errors may affect the content or meaning of the given sentence . Total time spent caring for the patient today was 45 minutes. This includes time spent before the visit reviewing the chart, time spent during the visit, and time spent after the visit on documentation [facility] Medical History (Updated 12/15/23 @ 14:53 by HAYLEY Fitzpatrick-) History of Helicobacter pylori infection Hypothyroid Forgetfulness Major depression, recurrent, chronic Dizziness Hypertension Hyperlipidemia Previous myocardial infarction older than 8 weeks Chest pain Microalbuminuria Chronic kidney disease Diabetic nephropathy Uncontrolled type 2 diabetes mellitus with hyperglycemia, with long-term current use of insulin Social History Housing: House Patient Tobacco Use Status: Never used Tobacco e-Cigarette/Vaping Use: Never Used Second Hand Smoke Exposure: No service: No Current occupational status: unemployed Cognitive needs: No Hearing needs: No Vision needs: No Questionnaire Thrive Questionnaire Date Thrive assessed: 11/10/23 I am a: Patient What is your living situation today?: I choose not to answer this question Within the past 12 months, did the food you bought not last and you didn't have the money to get more?: Sometimes True Within the past 12 months, did you worry whether your food would run out before you got money to buy more?: Sometimes True Do you have trouble paying for medicines?: No Do you have trouble getting transportation to medical appointments?: Yes Do you have trouble paying your heating and electricity bill?: No Do you have trouble taking care of your child, family member or friend?: No Do you have trouble with day-to-day activities such as bathing, preparing meals, shopping, managing finances, etc.?: Yes Are you currently unemployed and looking for a job?: Yes Are you interested in more education?: No Currently or been in a relationship where the following occur: I choose not to answer THRIVE Score: 3 JOEY-7 AMB Questionnaire JOEY-7 Date JOEY - 7 assessed: 08/17/23 Source: Developed by Drs. Dick Burgess, Anna Hoang, Tal Celis and colleagues, with an educational quin from [employer]. Physical exam (Primary Care) Vital Signs: Last Vital Signs Pulse 63 12/15/23 13:50 BP 138/70 12/15/23 13:50 Pulse Ox 95 12/15/23 13:50 Oxygen Delivery Method Room Air 12/15/23 13:50 BMI result Body Mass Index 28.9 Tobacco/Smoking Status: Tobacco use Status Tobacco use date assessed 09/28/23 12/15/23 13:48 Patient Tobacco Use Status Never used Tobacco 12/15/23 13:48 e-Cigarette/Vaping Use Never Used 12/15/23 13:48 Thrive Assessment: Date of Thrive Assessment Date Thrive assessed 11/10/23 12/15/23 13:48 Currently or been in a relationship where the following occur: I choose not to answer Office Procedures Flu Questionnaire Does the patient have a severe egg allergy?: No Does the patient have severe life threatening allergies?: No Does the patient have a fever or illness today?: No Has the patient ever had Guillain-Malott Syndrome?: No Has the patient ever had any past reaction to a flu shot?: No Immunizations Fluarix Triv [id number] (PF) 45 mcg (15 mcg x 3)/0.5 mL IM syringe Performing Provider: LANE Fitzpatrick Performing Location: [facility] [place] Administered by: Constanza Mcgee RN on 12/15/23 15:19 Dose Route Admin Location Dispensed Lot Number Expiration Date [facility] [employer] Consult[employer] 0.5 mL IM Right Deltoid 0.5 mL [id number] 08/27/24 [id number] [employer] VIS Given Date VIS Provided VIS Publication Date 12/15/23 Single Vaccine 20 Eligibility Eligibility Date Funding Source Not [facility] Eligible 12/15/23 Private Coding Level of Care Code Est Pt Level 5 (88041) Complex EM visit Add On G2211 Diagnoses Calcaneal spur of left foot M77.32 Laterality: left Uncontrolled type 2 diabetes mellitus with hyperglycemia, with long-term current use of insulin E11.65; Z79.4 Stage 3b chronic kidney disease N18.32 Chronic kidney disease stage: stage 3 (moderate) Chronic kidney disease stage 3 subtype: stage 3b (GFR 30-44) Assessment & Plan Assessment & Plan (1) Heel spur: Comment: XR/XR ankle LT min 3V IMPRESSION: 1. Focal subcortical lucency along the medial aspect of the talar dome with surrounding sclerosis, possibly related to avascular necrosis, prior trauma. 2. Redemonstration of large soft tissue calcifications along the Achilles tendon with swelling. Hypertrophic spurring along the medial aspect of the talus Code(s): M77.30 - Calcaneal spur, unspecified foot Category: Medical Qualifiers: Laterality: left Qualified Code(s): M77.32 - Calcaneal spur, left foot Plan: . (2) Uncontrolled type 2 diabetes mellitus with hyperglycemia, with long-term current use of insulin: Code(s): E11.65 - Type 2 diabetes mellitus with hyperglycemia; Z79.4 - exterminator helper (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 of insulin Category: Medical Plan: . (3) Chronic kidney disease: Code(s): N18.9 - Chronic kidney disease, unspecified Category: Medical Qualifiers: Chronic kidney disease stage: stage 3 (moderate) Chronic kidney disease stage 3 subtype: stage 3b (GFR 30-44) Qualified Code(s): N18.32 - Chronic kidney disease, stage 3b Plan: . Plan . Orders: Orders Influenza [id number] Immunization Today Z23 - Encounter for immunization Referrals Orthopedics Referral M25.572 - Pain in left ankle and joints of left foot Podiatry Referral M77.30 - Calcaneal spur, unspecified foot Medications: New Fluarix Triv [id number] (PF) (flu vacc [id number] 6mos up(PF)) 0.5 mL IM ONCE 0.5 mL 0RF NS Z23 - Encounter for immunization
[2023-12-15 13:50] VITALS: BP 138/70; PULSE 63; O2SAT 95; BMI 28.9
== END 2023-12-15 15:21 | disposition home or self-care (01) ==
PROVIDERS: Visit Provider Nurse Practitioner Family
DX: M77.32 Calcaneal spur, left foot (principal); E11.65 Type 2 diabetes mellitus with hyperglycemia; Z79.4 Long term (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 of insulin; N18.32 Chronic kidney disease, stage 3b; Z23 Encounter for immunization

== ENCOUNTER → 2023-12-15 13:39 | Outpatient (BNVA) | payer OTHER, SELFPAY | PROVIDERS: Visit Provider Nurse Practitioner Family | DX: M77.32 Calcaneal spur, left foot (principal); E11.65 Type 2 diabetes mellitus with hyperglycemia; E11.22 Type 2 diabetes mellitus with diabetic chronic kidney disease; N18.32 Chronic kidney disease, stage 3b; Z23 Encounter for immunization | CPT/HCPCS: 90471; 90656; 99212 ==

== ENCOUNTER 2023-12-16 15:21 | Outpatient (AMB) | payer OTHER, SELFPAY ==
--- NOTE | 2023-12-16 15:22 | A.OFFVIS_ITS ---
Vital Signs 12/16/23 15:29 Height 5 ft 6 in Weight 178 lb 9.191 oz BMI 28.8 BP 136/78 Blood Pressure Location Rt brachial Position Sitting Pulse 86 Intake Visit Reasons: T2DM/CONFIRMED Intake Note: NEW Patient presents today to establish treatment for Type 2 Diabetes Mellitus: Last Diabetic eye exam was on: DUE Last Podiatry exam was on: Does not see a Drafter Refrigeration Most recent HbA1c: 9.3%, 11/23/2023 Random Glucose- 146 mg/dL, Today Custom Ski Maker Required: Yes Custom Ski Maker Language: Set Up Person Services: Custom Ski Maker Offered & Declined Accompanied by: FRESH FOODS CLERK Allergies clindamycin [CLINDAMYCIN] Allergy (Unknown, Verified 12/16/23 15:23) SWELLING, RASH pravastatin Allergy (Unknown, Verified 12/16/23 15:23) increase liver enzymes HPI Comments Details: [age] YO male who is seen in consultation for T2DM at the request of PCP. Most recent A1c was 9.3% 11/23/2023 up from 8.4% 08/17/2023. Initially diagnosed with T2DM approximately 1993 Was initially started on treatment with metformin Current regimen: Lantus 30 units Glipizide ER 5 mg once daily Trulicity 0.75 mg weekly Checks sugars 1-2 times per day. Average sugar: Running 90s to 160s No recent lows, his sugar source with him Family history of T2DM Has eyes checked yearly, [denies] retinopathy. [Denies ] neuropathy, last foot exam today in office, does not see podiatry. Has nephropathy, on ARB. Micro albumin 1077 as measured on eGFR>37 last seen 10/2023 by [facility] [facility] Has HLD, on statin. Last LDL 29 as measured on 07/2023. [Denies] CAD. Diet: Balanced Weight: Stable [facility] Medical History History of Helicobacter pylori infection Hypothyroid Forgetfulness Major depression, recurrent, chronic Dizziness Hypertension Hyperlipidemia Previous myocardial infarction older than 8 weeks Chest pain Microalbuminuria Chronic kidney disease Diabetic nephropathy Uncontrolled type 2 diabetes mellitus with hyperglycemia, with long-term current use of insulin Social History Housing: House Patient Tobacco Use Status: Never used Tobacco e-Cigarette/Vaping Use: Never Used Second Hand Smoke Exposure: No service: No Current occupational status: unemployed Cognitive needs: No Hearing needs: No Vision needs: No Physical Exam Vital Signs: Last Vital Signs Pulse 86 12/16/23 15:29 BP 136/78 12/16/23 15:29 BMI result Body Mass Index 28.8 Absence of Cushingoid features. Absence of acromegalic features. Neck exam reveals nl size thyroid about 15 gms. No thyroid nodules palpable. No carotid bruits present. Lungs CTA. Heart S1 S2, Reg R/R. No M/R/ G. Skin exam reveals absence of vitiligo or acanthosis nigricans. Abdominal exam reveals Soft NT/ND with NA BS. No organomegaly present. Const Other: Absence of Cushingoid features. Absence of acromegalic features. Neck exam reveals nl size thyroid about 15 gms. No thyroid nodules palpable. No carotid bruits present. Lungs CTA. Heart S1 S2, Reg R/R. No M/R G. Skin exam reveals absence of vitiligo or acanthosis nigricans. No edema Neck Other: . Extrem Other: Visual exam of foot performed. No ulcerations or open lesions. No onchomycosis, no callouses.Pulses 2 + distally Sensation intact to monofilament exam. Vibratory sensation sensed is intact with 128 Hz tuning fork Results Reviewed Results Reviewed: Laboratory Last Values Glucose (Clinic) 146 mg/dL (60-115) H 12/16/23 15:33 Assessment & Plan Assessment & Plan (1) Uncontrolled type 2 diabetes mellitus with hyperglycemia, with long-term current use of insulin: Code(s): E11.65 - Type 2 diabetes mellitus with hyperglycemia; Z79.4 - lithopress operator (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 of insulin Category: Medical Plan: Type 2 diabetic with nephropathy I and neuropathy with improving numbers. We will increase Trulicity to 1.5 mg weekly and discontinue glipizide as able. Continue Lantus 30 units. We will try for freestyle Matt 2 as patient is on insulin along with glipizide which can cause hypoglycemia. The patient had an opportunity to ask questions regarding treatment plan. The patient expressed understanding and agreement with the above treatment plan. The patient is aware they should contact our office by phone for worsening glucose readings or for any low blood sugars which may warrant a change in diabetes medication. Compliance is encouraged with medications and any followup testing/consults which may have been ordered. Medications: New flash glucose sensor (FreeStyle Matt 14 Day Sensor kit) As directed every 14 day 2 ea 11RF flash glucose scanning reader (FreeStyle Matt 2 [place]) As directed 1 ea 1RF flash glucose scanning reader (FreeStyle Matt 2 [place]) As directed 1 ea 1RF flash glucose sensor (FreeStyle Matt 14 Day Sensor kit) As directed every 14 day 2 ea 11RF Changed From dulaglutide (Trulicity) 0.75 mg (0.5 mL) subcut QWEEK 2 mL 3RF To dulaglutide (Trulicity) 1.5 mg subcut QWEEK 28 days 4 mL 3RF Discontinued 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 meter,continuous (FreeStyle Matt 3 [place]) Discontinued Reason: Doctor's Order Use daily As directed to monitor type 2 diabetes 1 ea 0RF E11.21 - Type 2 diabetes mellitus with diabetic nephropathy, E11.65 - Type 2 diabetes mellitus with hyperglycemia, R80.9 - Proteinuria, unspecified, Z79.4 - lithopress operator (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 of insulin 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 sensor (FreeStyle Matt 3 Sensor device) Discontinued Reason: Doctor's Order use daily As directed to monitor type 2 diabetes. changed q 14 days 2 ea 11RF E11.21 - Type 2 diabetes mellitus with diabetic nephropathy, E11.65 - Type 2 diabetes mellitus with hyperglycemia, Z79.4 - lithopress operator (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 of insulin Patient Instructions: The patient was counseled to always carry a source of sugar and on the rule of 15's: Take 3 glucose tablets and repeat again in 15 minutes if blood sugar is not in normal range. Continue to repeat every 15 minutes until blood sugar is normal. The patient was counseled to achieve a target A1C of 7% (154 avg). Fasting blood sugars should be 90-130 in the morning and less than 180 two hours after meals. Reviewed the relationship between poor diabetic control and the development of complications. Coding Level of Care Code New Pt Level 4 (93941) Diagnoses Uncontrolled type 2 diabetes mellitus with hyperglycemia, with long-term current use of insulin E11.65; Z79.4 Time Spent (min) 40 Comment Time spent reviewing labs/provider notes, face to face, chart doc
[2023-12-16 15:29] VITALS: BP 136/78; PULSE 86; BMI 28.8
[2023-12-16 15:48] LABS: Glucose, Whole Blood 146 mg/dL (60-115)
== END 2023-12-16 16:10 | disposition home or self-care (01) ==
PROVIDERS: Visit Provider Nurse Practitioner Adult Health
DX: E11.65 Type 2 diabetes mellitus with hyperglycemia (principal); Z79.4 Long term (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 of insulin
CPT/HCPCS: 99204

== ENCOUNTER → 2023-12-16 15:21 | Outpatient (BNVA) | payer OTHER, SELFPAY | PROVIDERS: Visit Provider Nurse Practitioner Adult Health | DX: E11.65 Type 2 diabetes mellitus with hyperglycemia (principal); E11.21 Type 2 diabetes mellitus with diabetic nephropathy; E78.5 Hyperlipidemia, unspecified; Z79.4 Long term (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 of insulin | CPT/HCPCS: 82947; 99202 ==

== ENCOUNTER 2023-12-21 12:07 | Outpatient (REF) | payer OTHER, SELFPAY ==
[2023-12-21 13:22] LABS: Anion Gap 12 (12-20); Blood Urea Nitrogen 17 mg/dL (9-16); Calcium 9.7 mg/dL (8.4-10.2); Carbon Dioxide 24 mmol/L (22-29); Chloride 107 mmol/L (96-108); Estimated Glomerular Filt Rate 42; Glucose Random 200 mg/dL (60-115); Sodium 138 mmol/L (135-145)
== END 2023-12-21 12:08 | disposition home or self-care (01) ==
LOC: HO.LAB 12:07
PROVIDERS: Visit Provider Internal Medicine Hypertension Specialist
DX: N18.32 Chronic kidney disease, stage 3b (principal)
CPT/HCPCS: 36415; 80048

== ENCOUNTER 2023-12-23 12:59 | Outpatient (AMB) | payer OTHER, SELFPAY ==
[2023-12-23 13:13] VITALS: BP 160/78; PULSE 68; O2SAT 95; BMI 29.0
--- NOTE | 2023-12-23 13:13 | HO.NEPHOV ---
Vital Signs 12/23/23 13:13 12/23/23 13:27 Height 5 ft 6 in Weight 180 lb BMI 29.0 BP 160/78 H 140/70 H Blood Pressure Location Rt brachial Rt brachial Position Sitting Sitting Pulse 68 Pulse Source Pulse Oximeter Pulse Oximetry (%) 95 Oxygen Delivery Method Room Air Intake Visit Reasons: 4 wks follow up Special Education Curriculum Specialist Required: Yes Special Education Curriculum Specialist Services: Special Education Curriculum Specialist Present (Patients daughter will translate. ) Accompanied by: Daughter Allergies clindamycin [CLINDAMYCIN] Allergy (Unknown, Verified 12/16/23 15:23) SWELLING, RASH pravastatin Allergy (Unknown, Verified 12/16/23 15:23) increase liver enzymes HPI Comments Details: . Cirilo is a pleasant 62-year-old man with history of longstanding diabetes mellitus and hypertension who has recently moved from [place]. He has been referred for evaluation of renal insufficiency. Apparently he saw a brands editor in [place]. He was told that he has CKD and he has proteinuria. Baseline creatinine is unknown at this time. However on August 07 2023, creatinine was 1.5 and on August 17 creatinine was 1.63 No urine studies are available. History of significant hypertension requiring multiple medications. Upon talking to him it appears that he is compliant with his medications. He admits to eating high salt in his diet. History of coronary artery disease. He had PR about 8 years ago. He is not aware of the details. He complains of pain in his lower back. He has not take any NSAIDs. No urinary symptoms like dysuria urgency or increased frequency no hematuria. No history of kidney stones. He has had leg edema. No shortness of breath. No chest pain. No nausea or vomiting. No diarrhea constipation. No rash no swelling or pain of small joints. No significant weight loss. 09/22/23 Events noted No new issues since last visit Complaint with meds 12/23/23 Recently has leg swelling Waiting to see Podiatry [facility] Medical History History of Helicobacter pylori infection Hypothyroid Forgetfulness Major depression, recurrent, chronic Dizziness Hypertension Hyperlipidemia Previous myocardial infarction older than 8 weeks Chest pain Microalbuminuria Chronic kidney disease Diabetic nephropathy Uncontrolled type 2 diabetes mellitus with hyperglycemia, with long-term current use of insulin Social History (Reviewed 12/23/23 @ 13:13 by CHAITANYA Baird Housing: House Patient Tobacco Use Status: Never used Tobacco e-Cigarette/Vaping Use: Never Used Second Hand Smoke Exposure: No service: No Current occupational status: unemployed Cognitive needs: No Hearing needs: No Vision needs: No Physical Exam Vital Signs: Last Vital Signs Pulse 68 12/23/23 13:13 BP 140/70 H 12/23/23 13:27 Pulse Ox 95 12/23/23 13:13 Oxygen Delivery Method Room Air 12/23/23 13:13 BMI result Body Mass Index 29.0 Const General: comfortable; No acute distress Orientation/consciousness: patient oriented x3 Eyes General: appearance normal, both eyes and all related structures Visual Auguste: normal visual auguste by confrontation Neck Neck: Yes supple and Yes no JVD Resp Effort & Inspection: normal respiratory effort and respiratory effort not decreased Auscultation: rhonchi Cardio Palpation: no palpable S3 and no palpable S4 Heart sounds: no rubs GI Inspection: Yes normal to inspection Palpation (GI): Soft to palpation Percussion: Yes normal to percussion Auscultation: normal bowel sounds General: Yes no CVA tenderness Back/Spine/Pelvis Back: no CVA tenderness Skin General skin exam: no petechiae and no purpura Neuro General: patient oriented x3 and no focal motor deficits Extrem General: No clubbing and Yes edema (1+) Results Reviewed Nephrology Results: Hgb 10.5 g/dl (14.0-18.0) L 12/12/23 WBC 11.8 X10*3/uL (4.8-10.8) H 12/12/23 Plt Count 219 X10*3/uL (160-400) 12/12/23 Sodium 138 mmol/L (135-145) 12/21/23 Potassium 5.0 mmol/L (3.3-5.1) 12/21/23 Chloride 107 mmol/L (96-108) 12/21/23 Carbon Dioxide 24 mmol/L (22-29) 12/21/23 BUN 17 mg/dL (9-16) H 12/21/23 Creatinine 1.66 mg/dL (0.5-1.4) H 12/21/23 Calcium 9.7 mg/dL (8.4-10.2) 12/21/23 Assessment & Plan Assessment & Plan (1) Chronic kidney disease: Code(s): N18.9 - Chronic kidney disease, unspecified Category: Medical Qualifiers: Chronic kidney disease stage: stage 3 (moderate) Chronic kidney disease stage 3 subtype: stage 3b (GFR 30-44) Qualified Code(s): N18.32 - Chronic kidney disease, stage 3b Plan: . CKD 3 B. EGFR is about 43 mL/minute based on serum creatinine of 1.63. creatinine is gradually increasing to 2.23 Blood sugar sub optimal Differential diagnosis includes hypertensive diabetic kidney disease. Other nondiabetic causes seem less likely No Obstructive uropathy based on Ultrasound Workup initiated for CKD. urine protein creatinine ratio elevated. About 4 gm proteinuria Renal ultrasonogram.- Unremarkable Creatinine is decreasing, after stopping HCTZ Edema may be due to Amlodipine_ improved after decreasing to 5 mg QD Keep Hydralazine 50 mg TID to optimze BP Repeat BMP in 6 weeks Concur with current medications and KOLTON inhibition. Maintain blood pressure less than 130/80. Maintain A1c less than 7%. He would benefit from SGLT2 inhibitors.. (2) Hypertension: Code(s): I10 - Essential (primary) hypertension Category: Medical Qualifiers: Hypertension type: primary hypertension Qualified Code(s): I10 - Essential (primary) hypertension Plan: . Resistant hypertension in the setting of longstanding diabetes mellitus CKD and elevated BMI. BP is better controlled today We discussed importance of low-sodium diet. Weight loss we will also help with controlling the blood pressure. He needs to increase physical activities. (3) Uncontrolled type 2 diabetes mellitus with hyperglycemia, with long-term current use of insulin: Code(s): E11.65 - Type 2 diabetes mellitus with hyperglycemia; Z79.4 - longterm (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 of insulin Category: Medical Plan: Defer to primary care. Goal is to maintain A1c less than 7% (4) Anemia: Code(s): D64.9 - Anemia, unspecified Category: Medical Plan: . Anemia is multifactorial. He has mild iron deficiency. He might have erythropoietin deficiency due to underlying CKD. IRon supplementation No absolute indication for erythropoietin replacement therapy at this time. . Orders: Orders Basic Metabolic Panel 6 Weeks N18.32 - Chronic kidney disease, stage 3b Coding Level of Care Code Est Pt Level 4 (05722) Diagnoses Stage 3b chronic kidney disease N18.32 Chronic kidney disease stage: stage 3 (moderate) Chronic kidney disease stage 3 subtype: stage 3b (GFR 30-44) Primary hypertension I10 Hypertension type: primary hypertension Uncontrolled type 2 diabetes mellitus with hyperglycemia, with long-term current use of insulin E11.65; Z79.4 Anemia D64.9
[2023-12-23 13:27] VITALS: BP 140/70
== END 2023-12-23 13:31 | disposition home or self-care (01) ==
PROVIDERS: Visit Provider Internal Medicine Hypertension Specialist
DX: N18.32 Chronic kidney disease, stage 3b (principal); I10 Essential (primary) hypertension; E11.65 Type 2 diabetes mellitus with hyperglycemia; Z79.4 Long term (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 of insulin; D64.9 Anemia, unspecified
CPT/HCPCS: 99214

== ENCOUNTER → 2023-12-23 12:59 | Outpatient (BNVA) | payer OTHER, SELFPAY | PROVIDERS: Visit Provider Internal Medicine Hypertension Specialist | DX: I12.9 Hypertensive chronic kidney disease with stage 1 through stage 4 chronic kidney disease, or unspecified chronic kidney disease (principal); E11.22 Type 2 diabetes mellitus with diabetic chronic kidney disease; N18.32 Chronic kidney disease, stage 3b; D63.1 Anemia in chronic kidney disease; E11.65 Type 2 diabetes mellitus with hyperglycemia; Z79.4 Long term (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 of insulin | CPT/HCPCS: 99212 ==

== ENCOUNTER 2023-12-24 08:23 | Outpatient (REF) | payer OTHER, SELFPAY ==
--- NOTE | ~2023-12-24 | MR_ITS ---
EXAMINATION: MR BRAIN WITHOUT CONTRAST MR CERVICAL SPINE WITHOUT CONTRAST CLINICAL INFORMATION: Anesthesia of skin. COMPARISON: None available. TECHNIQUE: MRI of the brain and cervical spine was obtained using routine sequences without contrast. FINDINGS: Brain: No focal restricted diffusion is demonstrated to suggest acute or subacute cerebral ischemia. No evidence of acute hemorrhagic products on heme-sensitive imaging. A focus of susceptibility artifact in the right central jessica consistent with petechial neck or hemorrhage. Scattered and partially confluent periventricular, deep white matter, and brainstem T2 FLAIR hyperintensities consistent with mild to moderate underlying microangiopathy. Proportional prominence of the ventricles and sulcal spaces without evidence of obstructive hydrocephalus. No abnormal mass effect. No midline shift. Normal appearance of the pituitary gland. Normal positioning of the cerebellar tonsils. Normal arterial and venous vascular flow voids are present. Normal, homogeneous marrow signal. Mild mucosal thickening of the paranasal sinuses. No signal abnormalities within the mastoids. Cervical Spine: Mild reversal the normal cervical lordosis centered on C4-C5. Moderate degenerative stepwise anterolistheses of C3-C5. Advanced degenerative disc disease from C3-C7. Moderate degenerative disc disease at all additional levels. Associated mixed Modic type discogenic endplate changes including Modic type I discogenic edema from C3-C7. Mild marrow edema within the posterior elements of C4-C6 consistent with degenerative stress reaction. No additional suspicious marrow edema. The vertebral body heights are largely maintained. No demonstrated spinal cord signal abnormalities. Limited evaluation of the soft tissues of the neck without demonstrated abnormalities. The flow voids of the major cervical vessels are maintained. Normal appearance of the cervicomedullary junction and visualized posterior fossa. SPINAL LEVELS: C2-C3: Minimal disc-osteophyte complex. There is mild left and no right uncovertebral joint arthropathy. There is moderate left and mild right facet joint arthropathy. There is mild bilateral neural foraminal stenosis. There is no spinal canal stenosis. C3-C4: Moderate disc-osteophyte complex. There is moderate bilateral uncovertebral joint arthropathy. There is severe left and moderate right facet joint arthropathy. There is moderate to severe left and moderate right neural foraminal stenosis. There is mild spinal canal stenosis. C4-C5: Mild disc-osteophyte complex. There is mild bilateral uncovertebral joint arthropathy. There is moderate bilateral facet joint arthropathy. There is mild bilateral neural foraminal stenosis. There is no spinal canal stenosis. C5-C6: Moderate disc-osteophyte complex. There is moderate right and mild left uncovertebral joint arthropathy. There is moderate bilateral facet joint arthropathy. There is moderate right worse than left neural foraminal stenosis. There is no spinal canal stenosis. C6-C7: Moderate disc-osteophyte complex. There is severe left worse than right uncovertebral joint arthropathy. There is moderate bilateral facet joint arthropathy. There is severe bilateral neural foraminal stenosis. There is mild spinal canal stenosis. C7-T1: Minimal disc-osteophyte complex. There is no uncovertebral joint arthropathy. There is mild bilateral facet joint arthropathy. There is no neural foraminal stenosis. There is no spinal canal stenosis. MR/MR head/brain wo con IMPRESSION: 1. No acute intracranial abnormalities. 2. Mild to moderate underlying microangiopathy and generalized cerebral volume loss. 3. Moderate multilevel degenerative spondyloarthropathy of the cervical spine as described in detail above. Most notably, there are mild spinal canal stenoses at C3-C4 and C6-C7. Moderate to severe neural foraminal stenoses at C3-C4, C5-C6, and C6-C7. Electronically signed by: Roverto Echevarria DO 02/08/2024 01:58 PM [facility]
== END 2023-12-24 08:24 | disposition home or self-care (01) ==
LOC: HO.MRI 08:23
PROVIDERS: PCP Physician Assistant; Visit Provider Physician Assistant
DX: R20.0 Anesthesia of skin (principal); R68.89 Other general symptoms and signs; R42 Dizziness and giddiness; M54.50 Low back pain, unspecified; M79.604 Pain in right leg; M79.605 Pain in left leg
CPT/HCPCS: 70551; 72141

== ENCOUNTER 2024-03-19 11:25 | Outpatient (AMB) | payer OTHER, SELFPAY ==
--- NOTE | 2024-03-19 11:26 | HO.SPINEOV ---
Intake Visit Reasons: MRI f/u Intake Note: Mr. Mercer is here today to F/u on the results to his MRI. Die Caster Required: No Allergies clindamycin [CLINDAMYCIN] Allergy (Unknown, Verified 12/16/23 15:23) SWELLING, RASH pravastatin Allergy (Unknown, Verified 12/16/23 15:23) increase liver enzymes Assessment & Plan Assessment & Plan (1) Lumbar pain with radiation down right leg: Code(s): M54.50 - Low back pain, unspecified; M79.604 - Pain in right leg Category: Medical Plan Mr Joe Gallego is back in the office today with his daughter. The main thing he wanted to talk about today is that he is continuing to have severe pain shooting down the right buttock into the posterolateral thigh in his lateral calf with standing and walking. The last time I saw him, his metabolic situation was not good but his daughter tells me that since he has been started on Trulicity injections his blood sugars have come down consistently and have been in good the good range. He does not have a formal A1c in the chart yet but he is supposed to follow up with his PCP this week to get that checked. I went back and looked at his MRI, the only thing I see that would be consistent with his dermatomal distribution down his leg would be some crowding at the lateral recess at L4-5 on the right. I will look at it with Dr. Bloom and see if he thinks it is enough that we could consider doing a simple decompression for him. I would normally send him to get injections to verify this but his blood sugars just got under good control and any time he has had an injection they generally sent his blood sugar cierra rocking for awhile. Once I have a chance to talk with Dr. Bloom I will call the patient and his daughter back to formalize the plan. I would also like to see what his A1c number is as well. With regard to his cervical spine, there was no compression of the spinal cord so his balance issues are probably related to peripheral neuropathy secondary to diabetes. Total amount of time spent in this visit was 20 minutes in discussion of symptoms, lumbar imaging results and subsequent plan of care John Bloom MD,PhD [facility] Coding Level of Care Code Est Pt Level 3 (26311) Diagnoses Lumbar pain with radiation down right leg M54.50; M79.604
== END 2024-03-19 11:43 | disposition home or self-care (01) ==
PROVIDERS: PCP Physician Assistant; Visit Provider Physician Assistant
DX: M54.50 Low back pain, unspecified (principal); M79.604 Pain in right leg
CPT/HCPCS: 99213

== ENCOUNTER 2024-03-19 11:25 | Outpatient (REF) | payer OTHER, SELFPAY ==
[2024-03-19 12:13] LABS: MANUAL DIFF FLAG NO
[2024-03-19 12:26] LABS: Basophils Absolute Auto 0.1 X10*3/uL (0.0-0.2); Basophils Percent Auto 0.7 % (0-2); Eosinophils Absolute Auto 1.2 X10*3/uL (0.0-0.4); Hematocrit 37.9 % (42.0-52.0); Hemoglobin 12.2 g/dl (14.0-18.0); Imm Gran Abs Auto 0.03 X10*3/uL (0.00-0.03); Imm Gran Pct Auto 0.3 % (0.0-0.4); Lymphocytes Absolute Auto 1.4 X10*3/uL (1.2-4.9); Lymphocytes Percent Auto 12.6 % (20-40); Mean Corpuscular HGB Conc 32.2 g/dl (31.0-36.0); Mean Corpuscular Hemoglobin 28.6 pg (27.0-33.0); Mean Corpuscular Volume 88.8 fL (80.0-98.0); Mean Platelet Volume 11.2 fL (9.4-12.4); Monocytes Absolute Auto 0.9 X10*3/uL (0.1-1.2); Neutrophils Absolute Auto 7.6 x10*3/uL (2.0-8.3); Neutrophils Percent Auto 67.4 % (45-73); Platelet Count 236 X10*3/uL (160-400); Red Blood Count 4.27 X10*6/uL (4.60-5.80); Red Cell Distribution Width 13.8 % (11.0-16.0); White Blood Count 11.3 X10*3/uL (4.8-10.8)
[2024-03-19 12:45] LABS: Anion Gap 11 (12-20); Blood Urea Nitrogen 18 mg/dL (9-16); Calcium 9.8 mg/dL (8.4-10.2); Carbon Dioxide 28 mmol/L (22-29); Chloride 104 mmol/L (96-108); Estimated Glomerular Filt Rate 40; Glucose Random 152 mg/dL (60-115); Potassium 4.5 mmol/L (3.3-5.1); Sodium 138 mmol/L (135-145)
== END 2024-03-19 11:26 | disposition home or self-care (01) ==
LOC: HO.LAB 11:25
PROVIDERS: Internal Medicine Hypertension Specialist; PCP Physician Assistant; Visit Provider Physician Assistant
DX: I10 Essential (primary) hypertension (principal); N18.32 Chronic kidney disease, stage 3b; E11.65 Type 2 diabetes mellitus with hyperglycemia; Z79.4 Long term (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 of insulin; D64.9 Anemia, unspecified; M54.50 Low back pain, unspecified; M79.604 Pain in right leg
CPT/HCPCS: 36415; 80048; 85025; 99212

== ENCOUNTER 2024-03-19 14:18 | Outpatient (AMB) | payer OTHER, SELFPAY ==
[2024-03-19 14:19] VITALS: BP 146/80; PULSE 53; O2SAT 99; BMI 27.9
--- NOTE | 2024-03-19 14:19 | HO.NEPHOV ---
Vital Signs 03/19/24 14:19 03/19/24 14:32 Height 5 ft 6 in Weight 173 lb BMI 27.9 BP 146/80 H 136/70 Blood Pressure Location Rt brachial Rt brachial Position Sitting Sitting Pulse 53 Pulse Source Pulse Oximeter Pulse Oximetry (%) 99 Oxygen Delivery Method Room Air Intake Visit Reasons: Anemia-Conf Drafter Tool Design Required: No Drafter Tool Design Services: Drafter Tool Design Offered & Declined (Son will translate ) Accompanied by: Son Allergies clindamycin [CLINDAMYCIN] Allergy (Unknown, Verified 03/19/24 14:21) SWELLING, RASH pravastatin Allergy (Unknown, Verified 03/19/24 14:21) increase liver enzymes Medication List - Last Reconciled 03/19/24 by Jaime Gomez MD acetaminophen (Tylenol Extra Strength) 1,000 mg (2 x 500 mg) PO Q6H PRN amlodipine 5 mg (1/2 x 10 mg) PO DAILY bismuth subcit D-mssfizcso-ree 140-125-125 mg (Pylera) 3 caps PO QID 14 days blood sugar diagnostic (FreeStyle Lite Strips) use daily As directed to check blood sugars for diabetes 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 meter (FreeStyle Lite Meter kit) Use daily As directed to check blood glucose carvedilol 25 mg PO BID 90 days cholecalciferol (vitamin D3) (Vitamin D3) 25 mcg PO DAILY diclofenac sodium 1% (Voltaren Arthritis Pain) 4 grams topical QID PRN dulaglutide (Trulicity) 1.5 mg subcut QWEEK 28 days ferrous fumarate 325 mg PO DAILY flash glucose scanning reader (FreeStyle Matt 2 [place]) As directed flash glucose sensor (FreeStyle Matt 14 Day Sensor kit) As directed every 14 day gabapentin 900 mg (3 x 300 mg) PO Q8H 30 days glipizide ER 5 mg PO DAILY hydralazine 50 mg (2 x 25 mg) PO TID 30 days hydrochlorothiazide 25 mg PO DAILY insulin glargine (Lantus Solostar U-100 Insulin) 30 units (0.3 mL) subcut QPM lancets (FreeStyle Lancets) Use daily As directed to check blood sugar levothyroxine 125 mcg PO DAILY lorazepam 0.5 mg PO Q8H PRN losartan 100 mg PO DAILY meclizine 25 mg PO TID PRN metformin 1,000 mg PO BID 90 days pantoprazole 40 mg PO QAM pen needle, diabetic (BD Ultra-Fine Micro Pen Needle) As directed sennosides (Natural Senna Laxative) 17.2 mg (2 x 8.6 mg) PO BEDTIME simvastatin 10 mg PO DAILY spironolactone 25 mg PO DAILY HPI Comments Details: . Cirilo is a pleasant 62-year-old man with history of longstanding diabetes mellitus and hypertension who has recently moved from [place]. He has been referred for evaluation of renal insufficiency. Apparently he saw a explosive technician in [place]. He was told that he has CKD and he has proteinuria. Baseline creatinine is unknown at this time. However on August 07 2023, creatinine was 1.5 and on August 17 creatinine was 1.63 No urine studies are available. History of significant hypertension requiring multiple medications. Upon talking to him it appears that he is compliant with his medications. He admits to eating high salt in his diet. History of coronary artery disease. He had [place] about 8 years ago. He is not aware of the details. He complains of pain in his lower back. He has not take any NSAIDs. No urinary symptoms like dysuria urgency or increased frequency no hematuria. No history of kidney stones. He has had leg edema. No shortness of breath. No chest pain. No nausea or vomiting. No diarrhea constipation. No rash no swelling or pain of small joints. No significant weight loss. 09/22/23 Events noted;No new issues since last visit;Complaint with meds 12/23/23 Recently has leg swelling;Waiting to see Podiatry 03/19/24 Leg swelling improved. No new issues [facility] Medical History History of Helicobacter pylori infection Hypothyroid Forgetfulness Major depression, recurrent, chronic Dizziness Hypertension Hyperlipidemia Previous myocardial infarction older than 8 weeks Chest pain Microalbuminuria Chronic kidney disease Diabetic nephropathy Uncontrolled type 2 diabetes mellitus with hyperglycemia, with long-term current use of insulin Social History Housing: House Patient Tobacco Use Status: Never used Tobacco e-Cigarette/Vaping Use: Never Used Second Hand Smoke Exposure: No service: No Current occupational status: unemployed Cognitive needs: No Hearing needs: No Vision needs: No Physical Exam Vital Signs: Last Vital Signs Pulse 53 03/19/24 14:19 BP 136/70 03/19/24 14:32 Pulse Ox 99 03/19/24 14:19 Oxygen Delivery Method Room Air 03/19/24 14:19 BMI result Body Mass Index 27.9 Comfortable Neck supple no JVD. Lungs entry equal no rales. Heart S1-S2 heard no gallop or rub. Abdomen soft nontender. Neuro alert awake oriented. No asterixis. Extremities no edema. Results Reviewed Nephrology Results: Hgb 12.2 g/dl (14.0-18.0) L 03/19/24 WBC 11.3 X10*3/uL (4.8-10.8) H 03/19/24 Plt Count 236 X10*3/uL (160-400) 03/19/24 Sodium 138 mmol/L (135-145) 03/19/24 Potassium 4.5 mmol/L (3.3-5.1) 03/19/24 Chloride 104 mmol/L (96-108) 03/19/24 Carbon Dioxide 28 mmol/L (22-29) 03/19/24 BUN 18 mg/dL (9-16) H 03/19/24 Creatinine 1.72 mg/dL (0.5-1.4) H 03/19/24 Calcium 9.8 mg/dL (8.4-10.2) 03/19/24 Assessment & Plan Assessment & Plan (1) Hypertension: Code(s): I10 - Essential (primary) hypertension Category: Medical Qualifiers: Hypertension type: primary hypertension Qualified Code(s): I10 - Essential (primary) hypertension Plan: . Resistant hypertension in the setting of longstanding diabetes mellitus CKD and elevated BMI. BP is better controlled today We discussed importance of low-sodium diet. Weight loss we will also help with controlling the blood pressure. He needs to increase physical activities. (2) Chronic kidney disease: Code(s): N18.9 - Chronic kidney disease, unspecified Category: Medical Qualifiers: Chronic kidney disease stage: stage 3 (moderate) Chronic kidney disease stage 3 subtype: stage 3b (GFR 30-44) Qualified Code(s): N18.32 - Chronic kidney disease, stage 3b Plan: . CKD 3 B. EGFR is about 43 mL/minute based on serum creatinine of 1.63. creatinine is gradually increasing to 2.23 Blood sugar sub optimal Differential diagnosis includes hypertensive diabetic kidney disease. Other nondiabetic causes seem less likely No Obstructive uropathy based on Ultrasound Workup initiated for CKD. urine protein creatinine ratio elevated. About 4 gm proteinuria Renal ultrasonogram.- Unremarkable Creatinine is decreasing, after stopping HCTZ Edema may be due to Amlodipine_ improved after decreasing to 5 mg QD Keep Hydralazine 50 mg TID to optimze BP Concur with current medications and KOLTON inhibition. Maintain blood pressure less than 130/80. Maintain A1c less than 7%. He would benefit from SGLT2 inhibitors.. (3) Uncontrolled type 2 diabetes mellitus with hyperglycemia, with long-term current use of insulin: Code(s): E11.65 - Type 2 diabetes mellitus with hyperglycemia; Z79.4 - FPC (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 of insulin Category: Medical Plan: Defer to primary care. Goal is to maintain A1c less than 7% (4) Anemia: Code(s): D64.9 - Anemia, unspecified Category: Medical Plan: . Anemia is multifactorial. He has mild iron deficiency. He might have erythropoietin deficiency due to underlying CKD. IRon supplementation No absolute indication for erythropoietin replacement therapy at this time. . Orders: Orders Basic Metabolic Panel 4 Months I10 - Essential (primary) hypertension UA and rflx microscopic Today I10 - Essential (primary) hypertension Creatinine Urine Today I10 - Essential (primary) hypertension Total Protein Urine Random Today I10 - Essential (primary) hypertension Coding Level of Care Code Est Pt Level 4 (30217) Diagnoses Primary hypertension I10 Hypertension type: primary hypertension Stage 3b chronic kidney disease N18.32 Chronic kidney disease stage: stage 3 (moderate) Chronic kidney disease stage 3 subtype: stage 3b (GFR 30-44) Uncontrolled type 2 diabetes mellitus with hyperglycemia, with long-term current use of insulin E11.65; Z79.4 Anemia D64.9
[2024-03-19 14:32] VITALS: BP 136/70
== END 2024-03-19 14:35 | disposition home or self-care (01) ==
PROVIDERS: Visit Provider Internal Medicine Hypertension Specialist
DX: I10 Essential (primary) hypertension (principal); N18.32 Chronic kidney disease, stage 3b; E11.65 Type 2 diabetes mellitus with hyperglycemia; Z79.4 Long term (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 of insulin; D64.9 Anemia, unspecified
CPT/HCPCS: 99214

== ENCOUNTER 2024-03-21 12:16 | Outpatient (AMB) | payer OTHER, SELFPAY ==
--- NOTE | 2024-03-21 11:42 | A.OFFVIS_ITS ---
Vital Signs 03/21/24 12:32 Height 5 ft 6 in Weight 174 lb 2.643 oz BMI 28.1 BP 140/80 H Blood Pressure Location Rt brachial Position Sitting Pulse 69 Pulse Source Pulse Oximeter Intake Visit Reasons: T2DM Intake Note: Patient presents today for a follow-u on Type 2 Diabetes Mellitus: Last Diabetic eye exam was on: DUE Last Podiatry exam was on: Does not see a Arc Welder Most recent HbA1c: 8.1%, 11/23/2023 Random Glucose- 218 mg/dL, Today Allergies clindamycin [CLINDAMYCIN] Allergy (Unknown, Verified 03/19/24 14:21) SWELLING, RASH pravastatin Allergy (Unknown, Verified 03/19/24 14:21) increase liver enzymes Medication List - Last Reconciled 03/21/24 by Ana Conley NP acetaminophen (Tylenol Extra Strength) 1,000 mg (2 x 500 mg) PO Q6H PRN amlodipine 5 mg (1/2 x 10 mg) PO DAILY bismuth subcit X-dkffwejyw-vdk 140-125-125 mg (Pylera) 3 caps PO QID 14 days blood sugar diagnostic (FreeStyle Lite Strips) use daily As directed to check blood sugars for diabetes 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 meter (FreeStyle Lite Meter kit) Use daily As directed to check blood glucose 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 sensor (FreeStyle Matt 3 Sensor device) For continuous use apply new sensor every 14 days carvedilol 25 mg PO BID 90 days cholecalciferol (vitamin D3) (Vitamin D3) 25 mcg PO DAILY diclofenac sodium 1% (Voltaren Arthritis Pain) 4 grams topical QID PRN dulaglutide (Trulicity) 1.5 mg subcut QWEEK 28 days ferrous fumarate 325 mg PO DAILY gabapentin 900 mg (3 x 300 mg) PO Q8H 30 days glipizide ER 5 mg PO DAILY hydralazine 50 mg (2 x 25 mg) PO TID 30 days hydrochlorothiazide 25 mg PO DAILY insulin glargine (Lantus Solostar U-100 Insulin) 30 units (0.3 mL) subcut QPM lancets (FreeStyle Lancets) Use daily As directed to check blood sugar levothyroxine 125 mcg PO DAILY lorazepam 0.5 mg PO Q8H PRN losartan 100 mg PO DAILY meclizine 25 mg PO TID PRN metformin 1,000 mg PO BID 90 days pantoprazole 40 mg PO QAM pen needle, diabetic (BD Ultra-Fine Micro Pen Needle) As directed sennosides (Natural Senna Laxative) 17.2 mg (2 x 8.6 mg) PO BEDTIME simvastatin 10 mg PO DAILY spironolactone 25 mg PO DAILY HPI Comments Details: [age] YO male who is seen in consultation for T2DM at the request of PCP. Most recent A1c was 9.3% 11/23/2023 up from 8.4% 08/17/2023. Initially diagnosed with T2DM approximately 1993 Was initially started on treatment with metformin, glipizide 5mg ER was discontinued 2023 Current regimen: Lantus 30 units Trulicity 1.5mg weekly Checks sugars 1-2 times per day. Average sugar: Running 112-120 in the morning 160-200 later in the day No recent lows, his sugar source with him Family history of T2DM Has eyes checked yearly, [denies] retinopathy. He complains of some irritation in the left eye. He is planning on calling his eye doctor today and has follow up with his PCP Kathy Hamilton. [Denies ] neuropathy, last foot exam today in office, does not see podiatry. Has nephropathy, on ARB. Micro albumin 1077 as measured on eGFR>37 last seen 10/2023 by [facility] Has HLD, on statin. Last LDL 29 as measured on 07/2023. Prior h/o [place] He had a fall 1 week ago which caused his legs to be numb for 3-4 minutes from the waist down and has been evaluated by neurosurgeon and was told he had a pinched nerve. Diet: Balanced Weight: Stable [facility] Medical History History of Helicobacter pylori infection Hypothyroid Forgetfulness Major depression, recurrent, chronic Dizziness Hypertension Hyperlipidemia Previous myocardial infarction older than 8 weeks Chest pain Microalbuminuria Chronic kidney disease Diabetic nephropathy Uncontrolled type 2 diabetes mellitus with hyperglycemia, with long-term current use of insulin Social History Housing: House Patient Tobacco Use Status: Never used Tobacco e-Cigarette/Vaping Use: Never Used Second Hand Smoke Exposure: No service: No Current occupational status: unemployed Cognitive needs: No Hearing needs: No Vision needs: No Physical Exam Vital Signs: Last Vital Signs Pulse 69 03/21/24 12:32 BP 140/80 H 03/21/24 12:32 BMI result Body Mass Index 28.1 Const Other: Absence of Cushingoid features. Absence of acromegalic features. Neck exam reveals nl size thyroid about 15 gms. No thyroid nodules palpable. Heart S1 S2, Reg R/R. No M/R G. Skin exam reveals absence of vitiligo or acanthosis nigricans. left eyelid slight swollen Visual exam of foot performed. No ulcerations or open lesions. No inter digit maceration or fissuring. + onychomycosis nailbeds, nails elongated, no callouses. Sensation slight diminished to monofilament exam. Vibratory sensation is normal with 128 Hz tuning fork. Results AMB Hemoglobin A1c AMB Hemoglobin A1c 8.1 % Last Edit by SILVA Nix on 03/21/24 13:04 Assessment & Plan Assessment & Plan (1) Uncontrolled type 2 diabetes mellitus with hyperglycemia, with long-term current use of insulin: Code(s): E11.65 - Type 2 diabetes mellitus with hyperglycemia; Z79.4 - prison (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 of insulin Category: Medical Plan: Type 2 diabetic with nephropathy and neuropathy. He is doing much better on higher dose of Trulicity and off glipizide. We will recheck A1c in 3 months at his return visit. Continue current medication Trulicity 1.5 weekly Lantus 30 units. He has been approved for a [employer] Matt 3 and we will return for Rosemary BARRIGA appointment for training. His recent fall was not related to low glucose and he denies any low sugars. He has a appointment with PCP and we will make an appointment with Ophthalmology or irritation left eye. The patient had an opportunity to ask questions regarding treatment plan. The patient expressed understanding and agreement with the above treatment plan. The patient is aware they should contact our office by phone for worsening glucose readings or for any low blood sugars which may warrant a change in diabetes medication. Compliance is encouraged with medications and any followup testing/consults which may have been ordered. (2) Peripheral Vascular Disease: Code(s): I73.9 - Peripheral vascular disease, unspecified Plan Per [place] Diabetes Association standards will check JOE Orders: Orders US JOE complete Today I73.9 - Peripheral vascular disease, unspecified AMB Hemoglobin A1c Today E11.65 - Type 2 diabetes mellitus with hyperglycemia, I73.9 - Peripheral vascular disease, unspecified, Z79.4 - prison (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 of insulin Medications: New 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 sensor (FreeStyle Matt 3 Sensor device) For continuous use apply new sensor every 14 days 2 11RF Patient Instructions: The patient was counseled to always carry a source of sugar and on the rule of 15's: Take 3 glucose tablets and repeat again in 15 minutes if blood sugar is not in normal range. Continue to repeat every 15 minutes until blood sugar is normal. The patient was counseled to achieve a target A1C of 7% (154 avg). Fasting blood sugars should be 90-130 in the morning and less than 180 two hours after meals. Reviewed the relationship between poor diabetic control and the development of complications. Check your feet daily looking for any signs of infection, ulceration and seek medical attention if this occurs. Break in shoes gradually and do not wear open-toed shoes or walk barefooted. Coding Level of Care Code Est Pt Level 4 (09330) Complex EM visit Add On G2211 Diagnoses Uncontrolled type 2 diabetes mellitus with hyperglycemia, with long-term current use of insulin E11.65; Z79.4 Peripheral Vascular Disease I73.9 Time Spent (min) 30 Comment Time spent reviewing labs/provider notes, face to face, chart doc
[2024-03-21 12:32] VITALS: BP 140/80; PULSE 69; BMI 28.1
[2024-03-21 12:41] LABS: Glucose, Whole Blood 218 mg/dL (60-115)
== END 2024-03-21 13:18 | disposition home or self-care (01) ==
PROVIDERS: PCP Physician Assistant; Visit Provider Nurse Practitioner Adult Health
DX: E11.65 Type 2 diabetes mellitus with hyperglycemia (principal); Z79.4 Long term (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 of insulin; I73.9 Peripheral vascular disease, unspecified
CPT/HCPCS: 99214; G2211

== ENCOUNTER → 2024-03-21 12:16 | Outpatient (BNVA) | payer OTHER, SELFPAY | PROVIDERS: PCP Physician Assistant; Visit Provider Nurse Practitioner Adult Health | DX: E11.65 Type 2 diabetes mellitus with hyperglycemia (principal); E11.21 Type 2 diabetes mellitus with diabetic nephropathy; E11.51 Type 2 diabetes mellitus with diabetic peripheral angiopathy without gangrene; F33.9 Major depressive disorder, recurrent, unspecified; M54.6 Pain in thoracic spine; M54.50 Low back pain, unspecified; M79.604 Pain in right leg; M79.605 Pain in left leg; E03.9 Hypothyroidism, unspecified; Z79.4 Long term (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 of insulin; Z79.899 Other long term (current) drug therapy | CPT/HCPCS: 82947; 83036; 99212 ==

== ENCOUNTER 2024-03-21 15:43 | Outpatient (AMB) | payer OTHER, SELFPAY ==
--- NOTE | 2024-03-21 15:55 | MHC.PC.OV ---
Vital Signs 03/21/24 16:04 Height 5 ft 6 in Weight 175 lb BMI 28.2 BP 128/76 Blood Pressure Location Rt brachial Position Sitting Pulse 76 Pulse Source Pulse Oximeter Pulse Oximetry (%) 98 Oxygen Delivery Method Room Air Intake Visit Reasons: Follow Up A1C Intake Note: Follow up A1C. Seeing photo specialist for pinched nerve, with plan for surgery. Neurologist took pt off glipizide about a month ago. Vice President Of News Required: Yes Vice President Of News Language: Cryptologic Technician Operator/Analyst Name: [id number] Allergies clindamycin [CLINDAMYCIN] Allergy (Unknown, Verified 03/21/24 15:57) SWELLING, RASH pravastatin Allergy (Unknown, Verified 03/21/24 15:57) increase liver enzymes Medication List - Last Reconciled 03/21/24 by Catalina Hamilton PA-C acetaminophen (Tylenol Extra Strength) 1,000 mg (2 x 500 mg) PO Q6H PRN amlodipine 5 mg (1/2 x 10 mg) PO DAILY bismuth subcit L-tpyyvjjca-mwc 140-125-125 mg (Pylera) 3 caps PO QID 14 days blood sugar diagnostic (FreeStyle Lite Strips) use daily As directed to check blood sugars for diabetes 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 meter (FreeStyle Lite Meter kit) Use daily As directed to check blood glucose 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 sensor (FreeStyle Matt 3 Sensor device) For continuous use apply new sensor every 14 days carvedilol 25 mg PO BID 90 days cholecalciferol (vitamin D3) (Vitamin D3) 25 mcg PO DAILY diclofenac sodium 1% (Voltaren Arthritis Pain) 4 grams topical QID PRN dulaglutide (Trulicity) 1.5 mg subcut QWEEK 28 days ferrous fumarate 325 mg PO DAILY gabapentin 900 mg (3 x 300 mg) PO Q8H 30 days hydralazine 50 mg (2 x 25 mg) PO TID 30 days hydrochlorothiazide 25 mg PO DAILY insulin glargine (Lantus Solostar U-100 Insulin) 30 units (0.3 mL) subcut QPM lancets (FreeStyle Lancets) Use daily As directed to check blood sugar levothyroxine 125 mcg PO DAILY lorazepam 0.5 mg PO Q8H PRN losartan 100 mg PO DAILY meclizine 25 mg PO TID PRN metformin 1,000 mg PO BID 90 days pantoprazole 40 mg PO QAM pen needle, diabetic (BD Ultra-Fine Micro Pen Needle) As directed sennosides (Natural Senna Laxative) 17.2 mg (2 x 8.6 mg) PO BEDTIME simvastatin 10 mg PO DAILY spironolactone 25 mg PO DAILY Tobacco use date assessed: 09/28/23 Dental Screening Dental Screen Date: 08/17/23 HPI Follow Up A1C HPI Details Patient is a 63-year-old male who presents today for a follow up. 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 He is currently on spironolactone 25 mg, hydrochlorothiazide 25 mg, hydralazine 50 mg 3 times a day, losartan 100 mg daily, carvedilol 25 mg twice a day, amlodipine 5 mg daily. Cholesterol is managed with simvastatin 10 mg. Has a previous CA about 8 years ago with out any real details. Has an appointment with Cardiology in May. Nephro: Follows closely with Nephrology. Was last seen a couple days ago. Has multifactorial anemia. Heme-Onc: Currently on iron supplement. He has not yet booked this. UTD on colonoscopy/endoscopy GI: Had to reschedule his appointment. Intermittently on pantoprazole. Endo: Saw endocrinology today. Currently on Trulicity 1.5 mg weekly, Lantus 30 units and just got a CGM approved. He is on levothyroxine 125 mcg. Has peripheral neuropathy. On gabapentin. Musculoskeletal: He is following with Neurosurgery for his low back pain and was told he can't do anything until his A1c is better. He says that he never saw physiatry. He did have to move quite a few appointments because of his trip to [place] this winter. [facility], [facility] Medical History History of Helicobacter pylori infection Hypothyroid Forgetfulness Major depression, recurrent, chronic Dizziness Hypertension Hyperlipidemia Previous myocardial infarction older than 8 weeks Chest pain Microalbuminuria Chronic kidney disease Diabetic nephropathy Uncontrolled type 2 diabetes mellitus with hyperglycemia, with long-term current use of insulin Social History (Updated 03/21/24 @ 16:13 by Elvira Covington CMA) Housing: House Alcohol intake: current Patient Tobacco Use Status: Never used Tobacco e-Cigarette/Vaping Use: Never Used Second Hand Smoke Exposure: No Use of substances other than those prescribed or required for medical reasons: No service: No Current occupational status: unemployed Cognitive needs: No Hearing needs: No Vision needs: No Questionnaire Thrive Questionnaire Date Thrive assessed: 03/21/24 JOEY-7 AMB Questionnaire JOEY-7 Date JOEY - 7 assessed: 08/17/23 Source: Developed by Drs. Dick Burgess, Anna Hoang, Tal Celis and colleagues, with an educational quin from [employer]. Physical exam (Primary Care) Vital Signs: Last Vital Signs Pulse 76 03/21/24 16:04 BP 128/76 03/21/24 16:04 Pulse Ox 98 03/21/24 16:04 Oxygen Delivery Method Room Air 03/21/24 16:04 BMI result Body Mass Index 28.2 Tobacco/Smoking Status: Tobacco use Status Tobacco use date assessed 09/28/23 03/21/24 16:05 Patient Tobacco Use Status Never used Tobacco 03/21/24 16:13 e-Cigarette/Vaping Use Never Used 03/21/24 16:13 Thrive Assessment: Date of Thrive Assessment Date Thrive assessed 03/21/24 03/21/24 16:05 Const Orientation/consciousness: patient oriented x3 HENMT Ears: hearing grossly normal bilaterally Neck Thyroid: Thyroid normal Lymphatic: no lymphadenopathy noted Resp Auscultation: clear to auscultation bilaterally Cardio Rate: regular rate Rhythm: regular rhythm Heart sounds: S1 normal heart sound present and S2 normal heart sound present GI Inspection: Yes normal to inspection Palpation (GI): Soft to palpation and Other GI palpation findings present (nontender, no cva tenderness) Auscultation: normoactive bowel sounds Rectal Exam - Male: Yes deferred General: Yes no CVA tenderness Back/Spine/Pelvis Back: no CVA tenderness Thoracic/Lumbar Spine: thoracic and lumbar spine normal to inspection, thoraco-lumbar ROM normal and paraspinal muscle tenderness on the left Skin General skin exam: no rashes or lesions noted Neuro General: patient oriented x3, gait normal and no focal motor deficits Results AMB Hemoglobin A1c AMB Hemoglobin A1c 8.1 % Last Edit by SILVA Nix on 03/21/24 13:04 Results Reviewed Results Reviewed: Laboratory Tests 08/18/23 03/19/24 03/21/24 09:30 12:11 12:38 Sodium 138 Potassium 4.5 Chloride 104 Carbon Dioxide 28 Anion Gap 11 L BUN 18 H Creatinine 1.72 H Estimated GFR 40 Hgb A1c (Clinic) 8.1 H Triglycerides 167 H Cholesterol 85 LDL Cholesterol, Calc 29 HDL Cholesterol 23 L Coding Level of Care Code Est Pt Level 4 (31022) Complex EM visit Add On G2211 Diagnoses Diabetic nephropathy associated with type 2 diabetes mellitus E11.21 Diabetes mellitus type: type 2 Major depression, recurrent, chronic F33.9 Thoracic back pain M54.6 Lumbar pain with radiation down both legs M54.50; M79.604; M79.605 Hypothyroid E03.9 Assessment & Plan Assessment & Plan (1) Diabetic nephropathy: Code(s): E11.21 - Type 2 diabetes mellitus with diabetic nephropathy Category: Medical Qualifiers: Diabetes mellitus type: type 2 Qualified Code(s): E11.21 - Type 2 diabetes mellitus with diabetic nephropathy Plan: Saw endocrinology today. Made adjustment to medications (2) Major depression, recurrent, chronic: Code(s): F33.9 - Major depressive disorder, recurrent, unspecified Category: Medical Plan: Does not want to see behavioral health. Was referred in the past. Phone number provided again today. Stable. (3) Thoracic back pain: Code(s): M54.6 - Pain in thoracic spine Category: Medical Plan: X-ray ordered. We will trial Flexeril to use as needed. Discussed risks and benefits and adverse effects such as sedation. (4) Lumbar pain with radiation down both legs: Code(s): M54.50 - Low back pain, unspecified; M79.604 - Pain in right leg; M79.605 - Pain in left leg Category: Medical Plan: Has referral to physiatry. Phone number and address provided today. (5) Hypothyroid: Code(s): E03.9 - Hypothyroidism, unspecified Category: Medical Plan: We will monitor. Orders: Orders XR thoracic spine 3V Today M54.6 - Pain in thoracic spine Medications: New cyclobenzaprine 10 mg PO TID 10 days PRN 30 tabs 2RF muscle spasm
[2024-03-21 16:04] VITALS: BP 128/76; PULSE 76; O2SAT 98; BMI 28.2
== END 2024-03-21 17:05 ==
PROVIDERS: PCP Physician Assistant; Visit Provider Physician Assistant
DX: E11.21 Type 2 diabetes mellitus with diabetic nephropathy (principal); F33.9 Major depressive disorder, recurrent, unspecified; M54.6 Pain in thoracic spine; M54.50 Low back pain, unspecified; M79.604 Pain in right leg; M79.605 Pain in left leg; E03.9 Hypothyroidism, unspecified

== ENCOUNTER 2024-05-15 10:06 | Outpatient (AMB) | payer OTHER, SELFPAY ==
--- NOTE | 2024-05-15 10:19 | MHC.AMDMED ---
Intake Intake Visit Reasons: Type 2 DM Family Protection Specialist Required: Yes Family Protection Specialist Language: Wet Process Miller Services: Family Protection Specialist Offered & Declined Family Protection Specialist Name: Pt's HOOP DRIVING MACHINE OPERATOR Accompanied by: Other Relationship Allergies clindamycin [CLINDAMYCIN] Allergy (Unknown, Verified 03/21/24 15:57) SWELLING, RASH pravastatin Allergy (Unknown, Verified 03/21/24 15:57) increase liver enzymes HPI Comprehensive Diabetes Asmnt General Diabetes type type 2 Age of onset 31 Do any advent or cultural beliefs play a role in diabetes care No Comorbidities reports hypertension and hyperlipidemia History of nephropathy Yes Microalbuminuria Yes Proteinuria Yes History of neuropathy Yes Toenails trimmed by self Medications Current medications reviewed, see updated home meds list Uses insulin pump No Past diabetes medications reports Metformin, non-insulin injectables and long acting insulin Lifestyle Physical activity/Exercise details Does not participate in regular physical activity Psychosocial Psychiatric symptoms reports depression Education How do you learn best? One-on-One Instruction Nutrition yes States the effect of food on BG levels Healthy coping yes Recognizes that managing chronic disease requires ongoing adaptation and States the benefits of treatment and care Reducing risks yes Identifies potential barriers that may affect ability to reduce diabetic risk Most Recent Diabetes Results: Microalb/Creat Ratio 1570.4 ug/mg cr (<30) H 11/23/23 Cholesterol 85 mg/dL (<200) 08/18/23 HDL Cholesterol 23 mg/dL (>40) L 08/18/23 Triglycerides 167 mg/dL (<150) H 08/18/23 Creatinine 1.72 mg/dL (0.5-1.4) H 03/19/24 Blood Urea Nitrogen 18 mg/dL (9-16) H 03/19/24 Sodium 138 mmol/L (135-145) 03/19/24 Potassium 4.5 mmol/L (3.3-5.1) 03/19/24 Chloride 104 mmol/L (96-108) 03/19/24 Carbon Dioxide 28 mmol/L (22-29) 03/19/24 Calcium 9.8 mg/dL (8.4-10.2) 03/19/24 AST 13 U/L (5-37) 11/23/23 ALT 20 U/L (0-40) 11/23/23 Total Protein 7.0 g/dL (6.5-8.0) 11/23/23 Albumin 4.0 g/dL (3.5-5.0) 11/23/23 COUNTS INCLUDE 234 BEDS AT THE [facility] Medical History Myocardial infarction Back pain Arthritis Thyroid disease Depression Numbness Habitual snoring Wheezing History of Helicobacter pylori infection Hypothyroid Forgetfulness Major depression, recurrent, chronic Dizziness Hypertension Hyperlipidemia Previous myocardial infarction older than 8 weeks Chest pain Microalbuminuria Chronic kidney disease Diabetic nephropathy Uncontrolled type 2 diabetes mellitus with hyperglycemia, with long-term current use of insulin Surgical History History of esophagogastroduodenoscopy (EGD) H/O colonoscopy Hx of appendectomy Hx of knee surgery Social History Housing: House Are you a primary inpatient care manager rn to a significant other at home: No Do you presently have visiting nurse or other home services: No Alcohol intake: current Alcohol intake frequency: does not drink Patient Tobacco Use Status: Never used Tobacco e-Cigarette/Vaping Use: Never Used Second Hand Smoke Exposure: No service: No Current occupational status: unemployed Cognitive needs: No Hearing needs: No Vision needs: No Review of Systems Psych Reports depression Assessment & Plan Assessment & Plan (1) Uncontrolled type 2 diabetes mellitus with hyperglycemia, with long-term current use of insulin: Code(s): E11.65 - Type 2 diabetes mellitus with hyperglycemia; Z79.4 - intermediate card tender (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 of insulin Plan: Diabetes self-management education and support participation record Assessment/scale: 1= needs instructed? 2= needs review? 3= comprehend keep point? 4= demonstrates understanding/ competent? NC= Not Covered Topics Learning Objective: Initial visit Initial or post srvc Initial or post srvc Initial or post srvc Initial or post srvc Initial or post srvc Post srvc Comments Pre Edu-assessment/plan Outcome or reassess Outcome or reassess Outcome or reassess Outcome or reassess Outcome or reassess Outcome or reassess Diabetes pathophysiology 1 Healthy eating 1 Being active 1 Taking medication 1 Monitoring glucose 1 Acute complication 1 Chronic complicated Lifestyle and healthy coping Diabetes distress in support ?Diabetes pathophysiology: ?Defined diabetes med identify own type of diabetes; list 3 options for treating diabetes Healthy eating: ?Described effect of type, amount and ?timing of food on blood glucose; list 3 methods for planning meal Being active: ?State effect of exercise on blood glucose level Taking medication: ?State effect of diabetes medications on diabetes; name diabetes medications taking, action and side effects Monitoring glucose: ?Identify recommended blood glucose targets and personal target Acute complication: ?List symptoms and treatment of hyper and hypoglycemia, DKA, sick day guidelines and guidelines for severe weather or situations of crisis and diabetes supply manage Chronic complication: ?To find the relationship of blood glucose levels to long-term complications of diabetes in screening and preventative measures Lifestyle and healthy coping: ?Described lifestyle and healthy coping strategies to rule out diabetes self-management Diabetes to stress and support: ?Recognize Diabetes to stress and be able to identified support options Learning objectives: The patient was provided with verbal and written education on the following topics as outlined below. The patient met all learning objectives and was able to verbalize understanding and provide teach back of education topics discussed . The patient was provided with the opportunity to ask questions and all questions were answered. Patient Assessment Assess patient education level/literacy/barriers, patient is currently unemployed, reports he is looking for a job opportunity. Is not interested in participating in further Education Last A1c on 03/21/2024 8.1% Patient questions/concerns patient reports since starting Trulicity approximately 6 weeks ago he has been experiencing diarrhea and GI upset, message sent to endocrine HYPERBARIC NURSE at patient's request regarding symptoms What is Diabetes? Pathophysiology How the body produces and uses insulin Identify type of DM Risk factors Signs of Diabetes Brief overview of Diabetes Management Monitoring blood sugar Following a meal plan Regular exercise Maintaining a healthy weight Taking medication as needed Members of the care team (PCP, RN, MA, RD, CDE, anime designer) Blood glucose monitoring When/how often to test Target blood sugar ranges Patient prescribed Matt 3+ sensors, did not see prescription for reader in patient's med list. Requested script for freestyle Matt 3 reader be sent to patient's pharmacy Patient will schedule appointment with certified adaptive physical educator to set up CGM when he receives reader Introduction to Nutrition Importance of healthy diet in managing DM Diet is personalized to individual preference Review patient?s regular diet/food preferences Who prepares meals/does food shopping/ Dining out?/ Barriers? How diet effects glucose Eating 3 balanced meals a day with small, healthy snacks between meals Review food groups Carbohydrates: What is a carbohydrate/Which food/food groups are considered carbohydrates Effect of carbohydrates on blood glucose Portion sizes Reading food labels Basic carb counting (if applicable per nursing assessment) Plate method Meal planning Recommendations: Follow plate method, consistent carbs and read nutritional labels. Smart Goal: Identify foods that contain carbohydrates in meal plan by next Education visit Educational Materials: The patient was provided with the following written educational materials: Planning Healthy Meals Handout Patient Response to instructions: Comprehension of Instructions: Fair Readiness to make changes: Contemplation How confident they feel about making changes: Positive Portions of this note were created using voice recognition software, please excuse any words or phrases that may have been misinterpreted. Patient Instructions: Incluir actividad diaria regular. ADA recomienda 30 minutos de ejercicio 5 d?as a la semana. P?rdida de peso, hable con el PCP o el cardi?logo antes de comenzar un nuevo plan. Mida el nivel de az?car en la jag seg?n las indicaciones; Ayuno y comida m?s lyndon de 2hpp. Observe las tendencias en los resultados. Utilice los resultados y eval?e c?mo los alimentos, la actividad f?merlin y los medicamentos afectan los resultados de az?car en la jag. Lleve el gluc?metro o CGM a la pr?xima visita. Conocer los medicamentos para la diabetes, sánchez acci?n, los efectos secundarios, la eficacia, la toxicidad, la dosis prescrita, el momento y la frecuencia de administraci?n apropiados, el efecto de las dosis olvidadas y retrasadas y las instrucciones de almacenamiento, viaje y seguridad. T?cnicas de resoluci?n de problemas para el seguimiento de episodios de hipo/hiperglucemia y tratamientos. Reducir los comportamientos de reducci?n de riesgos, dejar de fumar, ex?menes regulares de ojos, pies y dentales. Coding Level of Care Code Est Pt Level 1 (38780) Diagnoses Uncontrolled type 2 diabetes mellitus with hyperglycemia, with long-term current use of insulin E11.65; Z79.4
== END 2024-05-15 10:45 | disposition home or self-care (01) ==
LOC: HO.ENCR 10:07
PROVIDERS: PCP Physician Assistant; Visit Provider Registered Nurse Diabetes Educator
DX: E11.65 Type 2 diabetes mellitus with hyperglycemia (principal); Z79.4 Long term (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 of insulin

== ENCOUNTER → 2024-05-15 10:06 | Outpatient (BNVA) | payer OTHER, SELFPAY | PROVIDERS: PCP Physician Assistant; Visit Provider Registered Nurse Diabetes Educator | DX: E11.65 Type 2 diabetes mellitus with hyperglycemia (principal); Z79.4 Long term (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 of insulin; Z71.89 Other specified counseling | CPT/HCPCS: 99211 ==

== ENCOUNTER → 2024-05-15 13:26 | Outpatient (BNV) | payer OTHER, SELFPAY | PROVIDERS: PCP Physician Assistant; Visit Provider Internal Medicine Cardiovascular Disease | DX: R00.1 Bradycardia, unspecified (principal); I44.0 Atrioventricular block, first degree; R94.31 Abnormal electrocardiogram [ECG] [EKG] | CPT/HCPCS: 93010 ==

== ENCOUNTER 2024-05-22 08:49 | Outpatient (AMB) | payer OTHER, SELFPAY ==
--- NOTE | 2024-05-22 09:16 | MHC.AMDMED ---
Intake Intake Visit Reasons: 60 min, Matt 3+ training Allergies clindamycin [CLINDAMYCIN] Allergy (Unknown, Verified 03/21/24 15:57) SWELLING, RASH pravastatin Allergy (Unknown, Verified 03/21/24 15:57) increase liver enzymes HPI Comprehensive Diabetes Asmnt Most Recent Diabetes Results: Creatinine 1.52 mg/dL (0.5-1.4) H 05/15/24 Blood Urea Nitrogen 18 mg/dL (9-16) H 05/15/24 Sodium 138 mmol/L (135-145) 05/15/24 Potassium 4.6 mmol/L (3.3-5.1) 05/15/24 Chloride 107 mmol/L (96-108) 05/15/24 Carbon Dioxide 26 mmol/L (22-29) 05/15/24 Calcium 9.1 mg/dL (8.4-10.2) 05/15/24 [facility] Medical History Myocardial infarction Back pain Arthritis Thyroid disease Depression Numbness Habitual snoring Wheezing History of Helicobacter pylori infection Hypothyroid Forgetfulness Major depression, recurrent, chronic Dizziness Hypertension Hyperlipidemia Previous myocardial infarction older than 8 weeks Chest pain Microalbuminuria Chronic kidney disease Diabetic nephropathy Uncontrolled type 2 diabetes mellitus with hyperglycemia, with long-term current use of insulin Surgical History History of esophagogastroduodenoscopy (EGD) H/O colonoscopy Hx of appendectomy Hx of knee surgery Social History Housing: House Are you a primary care professional to a significant other at home: No Do you presently have visiting nurse or other home services: No Alcohol intake: current Alcohol intake frequency: does not drink Patient Tobacco Use Status: Never used Tobacco e-Cigarette/Vaping Use: Never Used Second Hand Smoke Exposure: No service: No Current occupational status: unemployed Cognitive needs: No Hearing needs: No Vision needs: No Assessment & Plan Assessment & Plan (1) Uncontrolled type 2 diabetes mellitus with hyperglycemia, with long-term current use of insulin: Code(s): E11.65 - Type 2 diabetes mellitus with hyperglycemia; Z79.4 - certified rehabilitation counselor (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 of insulin Plan: Patient at visit to set up an insert Matt 3+ sensor with [place] Instructed patient sensors water proof you can shower, or swim do not submerge sensor in water for over 30 minutes Is sensor falls off cannot put back in you need to replace sensor, customer service number given to patient for sensor replacement Sensor placed on the back of right arm Patient left visit with sensor in warmup Reviewed how to interpret trend arrows Reminded patient that to check finger sticks if symptoms do not match sensor reading. Discussed lag time between finger stick and sensor data.? Instructed patient she should always keep blood glucometer for backup testing if needed Reviewed delay of CGM from fingersticks Reminded pt that if symptoms do not match sensor still needs to check fingersticks. Portions of this note were created using voice recognition software, please excuse any words or phrases that may have been misinterpreted. Patient Instructions: Instrucciones para el paciente: CGM proporciona informaci?n sobre el control de la glucosa en jag a lo sidney del d?a, incluidas la hiperglucemia y la hipoglucemia. Contin?e controlando la glucosa en jag seg?n las instrucciones. Siga las pautas de nutrici?n proporcionadas. Informe cualquier molestia de inmediato al proveedor de atenci?n m?dica. Mantente benjy hidratado. Puede ba?arse, ducharse, nadar y hacer ejercicio mientras usa el sensor de glucosa. No sumerja el sensor de glucosa en agua ghanshyam m?s de 30 minutos. Retire el sensor para theo resonancia magn?meg o theo tomograf?a computarizada. Evite la m?quina de ami X en los aeropuertos: retire el sensor o solicite la varita Coding Level of Care Code Est Pt Level 1 (27483) Diagnoses Uncontrolled type 2 diabetes mellitus with hyperglycemia, with long-term current use of insulin E11.65; Z79.4
== END 2024-05-22 09:18 | disposition home or self-care (01) ==
LOC: HO.ENCR 08:50
PROVIDERS: PCP Physician Assistant; Visit Provider Registered Nurse Diabetes Educator
DX: E11.65 Type 2 diabetes mellitus with hyperglycemia (principal); Z79.4 Long term (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 of insulin

== ENCOUNTER → 2024-05-22 08:49 | Outpatient (BNVA) | payer OTHER, SELFPAY | PROVIDERS: PCP Physician Assistant; Visit Provider Registered Nurse Diabetes Educator | DX: E11.65 Type 2 diabetes mellitus with hyperglycemia (principal); Z79.4 Long term (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 of insulin | CPT/HCPCS: 99211 ==

== ENCOUNTER 2024-05-24 07:00 | Day surgery (SDC) | payer OTHER, SELFPAY ==
[2024-05-14 12:42] VITALS: BP 134/67; PULSE 61; RESP 16; O2SAT 96; BMI 29.2
--- NOTE | 2024-05-14 16:57 | HO.ANESPROP2 ---
Documented by User: Keiry Yi MD 05/14/24 17:19 HPI - Anesthesia Eval Consult details Narrative: 63 yo male patient for Right L4-5 decompression Unclear cardiac history. Patient has appointment with Cardiology in May (after surgery). Patient downplaying cardiac history. History in chart reveals that patient had stated that he had bad cardiac test and was unable to finish ?treadmill test secondary to LE pain. Test was in [place]. Patient was suppose to go back for follow up but did not. Patient moved from [place] about 9 months ago due to declining health and is still in process of establishing care. Today states that he has not had chest pain recently and biggest problem is pain and weakness in Right LE leading to balance problems and sometimes falls. Patient asked to see if Cardiology appointment can be moved up. Would be useful to get results of cardiology evaluation prior to surgery but in the absence of cardiac symptoms or EKG changes and the nature of the surgery and patient's symptoms, think that may be reasonable to proceed with surgery if not able to see Cardiology before [facility] Active Problems Active Problems: All Active Problems Thoracic back pain (Acute) Cervical stenosis of spinal canal (Acute) Heel spur (Acute) Numbness of upper extremity (Acute) Lumbar pain with radiation down both legs (Acute) Anemia (Acute) Lumbar pain with radiation down right leg (Acute) B12 deficiency (Acute) BOUBACAR (iron deficiency anemia) (Acute) History of Helicobacter pylori infection (Acute) Hypothyroid (Acute) Forgetfulness (Acute) Major depression, recurrent, chronic (Acute) Dizziness (Acute) Hypertension (Acute) Hyperlipidemia (Acute) Chest pain (Acute) Microalbuminuria (Acute) Chronic kidney disease (Acute) Stage 3 Diabetic nephropathy (Acute) Uncontrolled type 2 diabetes mellitus with hyperglycemia, with long-term current use of insulin (Acute) Past Medical History Medical History Myocardial infarction Back pain Arthritis Thyroid disease Depression Numbness Habitual snoring Wheezing History of Helicobacter pylori infection Hypothyroid Forgetfulness Major depression, recurrent, chronic Dizziness Hypertension Hyperlipidemia Previous myocardial infarction older than 8 weeks Chest pain Microalbuminuria Chronic kidney disease Diabetic nephropathy Uncontrolled type 2 diabetes mellitus with hyperglycemia, with long-term current use of insulin Family History Family history of problems with anesthesia: No Surgical History Surgical History History of esophagogastroduodenoscopy (EGD) H/O colonoscopy Hx of appendectomy Hx of knee surgery History of Problems with Anesthesia: No Social History Social History Housing: House Are you a primary senior care manager to a significant other at home: No Do you presently have visiting nurse or other home services: No Alcohol intake: current Alcohol intake frequency: does not drink Patient Tobacco Use Status: Never used Tobacco e-Cigarette/Vaping Use: Never Used Second Hand Smoke Exposure: No Use of substances other than those prescribed or required for medical reasons: No Have you been hit, kicked, punched, or otherwise hurt by someone within the past year? If so, by whom?: No Are you DNR?: No Advance Directives: No Advance Directives Information Provided: Yes Advance Directives on File: No Recently lost weight without trying: No Eating poorly because of decreased appetite: No Nutrition Risks: No Nutritional Risk Poor oral hygiene: Yes (missing teeth) service: No Current occupational status: unemployed Cognitive needs: No Hearing needs: No Vision needs: No Meds Allergies Allergy/AdvReac Type Severity Reaction Status Date / Time clindamycin [CLINDAMYCIN] Allergy Unknown SWELLING, Verified 05/24/24 07:57 RASH pravastatin Allergy Unknown increase Verified 05/24/24 07:57 liver enzymes Home Medications ?Medication ?Instructions ?Recorded ?Confirmed ?Last Taken ?Type pen needle, diabetic 32 gauge x #100 ea 11/25/23 03/21/24 Unknown History 1/4 (BD Ultra-Fine Micro Pen Needle) hydrochlorothiazide 25 mg tablet 25 mg PO DAILY 12/15/23 05/14/24 Unknown History dulaglutide 0.75 mg/0.5 mL 0.75 mg subcut QWEEK 05/22/24 05/22/24 Unknown History [facility] pantoprazole 40 mg tablet,delayed 40 mg PO QAM PRN Acid Reflux 05/22/24 05/24/24 05/24/24 History release Exam Height,Weight and Vital Signs: Height 5 ft 4 in Weight 77.111 kg Last Vital Signs Pulse 61 05/14/24 12:42 Resp 16 05/14/24 12:42 BP 134/67 05/14/24 12:42 Pulse Ox 96 05/14/24 12:42 O2 Del Method Room Air 05/14/24 12:42 Airway Mallampati Class: III TM Dist: >3cm Neck ROM: Full Heart: RRR Lungs: CTAB Assessment and Plan Assessment Anesthesia Assessment: Anesthesia Plan Discussed and Chart Reviewed Final Anesthetic Review Family History of Problems with Anesthesia: No History of Problems with Anesthesia: No NPO: Yes ASA Class: III Final Preanesthetic Review: No Changes in Pt Med Stat, Meds/Allgs Chart Reviewed, Consent Obtained/Reviewed and Anes Risks/Benef Reviewed Patient Risk: Intermediate Procedure Risk: Low Assessment/Block/Sedation in SS: Assess/Block/Sedation-SS Anesthetic Plan Anesthetic Plan: GA Disposition: Standard PACU Documented by User: Shaniqua Mann MD 05/24/24 07:58 PMFSH Past Medical History Medical History Myocardial infarction Back pain Arthritis Thyroid disease Depression Numbness Habitual snoring Wheezing History of Helicobacter pylori infection Hypothyroid Forgetfulness Major depression, recurrent, chronic Dizziness Hypertension Hyperlipidemia Previous myocardial infarction older than 8 weeks Chest pain Microalbuminuria Chronic kidney disease Diabetic nephropathy Uncontrolled type 2 diabetes mellitus with hyperglycemia, with long-term current use of insulin Surgical History Surgical History History of esophagogastroduodenoscopy (EGD) H/O colonoscopy Hx of appendectomy Hx of knee surgery Social History Social History Housing: House Are you a primary senior care manager to a significant other at home: No Do you presently have visiting nurse or other home services: No Alcohol intake: current Alcohol intake frequency: does not drink Patient Tobacco Use Status: Never used Tobacco e-Cigarette/Vaping Use: Never Used Second Hand Smoke Exposure: No Use of substances other than those prescribed or required for medical reasons: No Have you been hit, kicked, punched, or otherwise hurt by someone within the past year? If so, by whom?: No Are you DNR?: No Advance Directives: No Advance Directives Information Provided: Yes Advance Directives on File: No Recently lost weight without trying: No Eating poorly because of decreased appetite: No Nutrition Risks: No Nutritional Risk Poor oral hygiene: Yes (missing teeth) service: No Current occupational status: unemployed Cognitive needs: No Hearing needs: No Vision needs: No Meds Allergies Allergy/AdvReac Type Severity Reaction Status Date / Time clindamycin [CLINDAMYCIN] Allergy Unknown SWELLING, Verified 05/24/24 07:57 RASH pravastatin Allergy Unknown increase Verified 05/24/24 07:57 liver enzymes Home Medications ?Medication ?Instructions ?Recorded ?Confirmed ?Last Taken ?Type pen needle, diabetic 32 gauge x #100 ea 11/25/23 03/21/24 Unknown History 1/4 (BD Ultra-Fine Micro Pen Needle) hydrochlorothiazide 25 mg tablet 25 mg PO DAILY 12/15/23 05/14/24 Unknown History dulaglutide 0.75 mg/0.5 mL 0.75 mg subcut QWEEK 05/22/24 05/22/24 Unknown History subcutaneous pen injector (Trulicity) pantoprazole 40 mg tablet,delayed 40 mg PO QAM PRN Acid Reflux 05/22/24 05/24/24 05/24/24 History release Exam Airway Loose/Missing/Broken Teeth: Yes (very poor hygeine, multiple broken teeth all over mouth top and bottom.), Upper and Lower
[2024-05-15 11:16] LABS: MANUAL DIFF FLAG NO
[2024-05-15 11:53] LABS: Basophils Absolute Auto 0.1 X10*3/uL (0.0-0.2); Basophils Percent Auto 0.7 % (0-2); Eosinophils Absolute Auto 1.2 X10*3/uL (0.0-0.4); Eosinophils Percent Auto 11.3 % (0-4); Hematocrit 34.2 % (42.0-52.0); Hemoglobin 11.3 g/dl (14.0-18.0); Imm Gran Abs Auto 0.03 X10*3/uL (0.00-0.03); Imm Gran Pct Auto 0.3 % (0.0-0.4); Lymphocytes Absolute Auto 1.3 X10*3/uL (1.2-4.9); Lymphocytes Percent Auto 12.1 % (20-40); Mean Corpuscular Hemoglobin 28.5 pg (27.0-33.0); Mean Corpuscular Volume 86.1 fL (80.0-98.0); Mean Platelet Volume 11.3 fL (9.4-12.4); Monocytes Absolute Auto 0.8 X10*3/uL (0.1-1.2); Monocytes Percent Auto 7.7 % (2-11); Neutrophils Absolute Auto 7.1 x10*3/uL (2.0-8.3); Neutrophils Percent Auto 67.9 % (45-73); Platelet Count 219 X10*3/uL (160-400); Red Blood Count 3.97 X10*6/uL (4.60-5.80); Red Cell Distribution Width 13.9 % (11.0-16.0); White Blood Count 10.5 X10*3/uL (4.8-10.8)
[2024-05-15 12:45] LABS: Anion Gap 10 (12-20); Blood Urea Nitrogen 18 mg/dL (9-16); Calcium 9.1 mg/dL (8.4-10.2); Carbon Dioxide 26 mmol/L (22-29); Chloride 107 mmol/L (96-108); Creatinine Clr Calc Pharmacy 47.2; Estimated Glomerular Filt Rate 47; Glucose Random 104 mg/dL (60-115); Potassium 4.6 mmol/L (3.3-5.1); Sodium 138 mmol/L (135-145)
--- NOTE | 2024-05-15 13:26 | ECG_ITS ---
Test Reason : PRE OP Blood Pressure : */* mmHG Vent. Rate : 54 BPM Atrial Rate : 54 BPM P-R Int : 322 ms QRS Dur : 104 ms QT Int : 450 ms P-R-T Axes : 38 6 31 degrees QTcB Int : 426 ms Sinus bradycardia with 1st degree A-V block Minimal voltage criteria for LVH, may be normal variant ( [place] product ) Borderline ECG When compared with ECG of 10-Nov-2023 18:28, No significant change was found Referred By: Shaniqua Mann Electronically Signed By: Oj Estrada
[2024-05-24] VITALS (17 sets, daily range): BP systolic 110–140; BP diastolic 61–96; PULSE 67–76; RESP 12–18; TEMP 36.1–36.4; O2SAT 93–98
--- NOTE | 2024-05-24 | ECG_ITS ---
Test Reason : post op Blood Pressure : */* mmHG Vent. Rate : 73 BPM Atrial Rate : * BPM P-R Int : * ms QRS Dur : 100 ms QT Int : 434 ms P-R-T Axes : * -12 20 degrees QTcB Int : 478 ms Normal sinus rhythm with 1st degree A-V block Moderate voltage criteria for LVH, may be normal variant ( R in aVL , [place] product ) Abnormal ECG When compared with ECG of 15-May-2024 10:49, OR interval has increased QT has lengthened Referred By: Shaniqua Mann Electronically Signed By: KRISTINE WALL MD
--- NOTE | ~2024-05-24 | FL_ITS ---
EXAMINATION: FL GUIDANCE ONLY HISTORY: L4-5 right decompression COMPARISON: None available. TECHNIQUE: Fluoroscopy time: 3.9 seconds. Cumulative Dose: 2.5839 mGy. DAP: 0.9710 mGym2 Images: 1. FINDINGS: A single fluoroscopic spot film of the lumbar spine in the lateral projection demonstrates a probe directed toward the L4 vertebral body from a posterior approach. FL/FL guidance in OR IMPRESSION: Fluoroscopy during procedure. Please see procedure report for additional information. Electronically signed by: Dick Mitchell MD 05/24/2024 09:47 AM EDT
--- NOTE | 2024-05-24 07:03 | MHC.SHP ---
Pre-Procedural Eval Section A - 24 Hr Update-Section A only Date of Service: 05/24/24 The patient is an INPATIENT: No Changes since office visit: No Cold of Flu in the past 2 weeks, No New Medical Problems, No Changes in Medication and No Patient answered all questions The patient has been examined within 24 hours of the surgical procedure. The History & Physical has been completed within 30 days and I have reviewed it.: No Section B - Complete if H&P > 30 days Chief Complaint: Pain in right leg,low back pain, Allergies: Allergies Allergy/AdvReac Type Severity Reaction Status Date / Time clindamycin [CLINDAMYCIN] Allergy Unknown SWELLING, Verified 03/21/24 15:57 RASH pravastatin Allergy Unknown increase Verified 03/21/24 15:57 liver enzymes Review of Systems Sugical H&P ROS: Negative: Constitution, Cardiovascular, Respiratory, Neurological, Psychiatric, Hem-Onc, Allergic/Immunologic, Gastrointestinal, Genitourinary, Musculoskeletal, Integumentary, Endocrine and Eyes/Ears/Nose/Throat Exam Surgical H&P Exam: Normal: HEENT, Normal: Heart, Normal: Lungs, Normal: Extremities, Normal: Abdomen, Normal: Skin and Normal: Neurological (Awake alert oriented) Plan Diagnosis/Plan: Unchanged Right L4-5 decompression Time Spent With Patient Time: Total time managing care of this patient today __7__ minutes.
--- NOTE | 2024-05-24 07:05 | PM.DS ---
DS: Providers Provider Date of Service: 05/24/24 Date of discharge: 05/24/24 Primary care physician: Catalina Hamilton PA-C Admitting clinician: Nikolai Bloom DS: Diagnosis Discharge Diagnosis (1) Lumbar pain with radiation down right leg: Status: Acute DS: Summary Time Attestation Discharge Coordination Time (in mins): 5 Quality: Safe Use of Opioids Does Pt have an Active Cancer Diagnosis on the Problem List?: No Quality: Stroke Does the patient have a stroke diagnosis?: No Physical Exam Vital Signs: Vital Signs: Last Vital Signs Pulse 61 05/14/24 12:42 Resp 16 05/14/24 12:42 BP 134/67 05/14/24 12:42 Pulse Ox 96 05/14/24 12:42 O2 Del Method Room Air 05/14/24 12:42 BMI result Body Mass Index 29.2 Discharge Plan Discharge Patient Disposition: Home, Self-Care Referrals: Catalina Hamilton PA-C [Primary Care Provider] - 1 Week Discharge Medications: New oxycodone 5 mg tablet 5 mg PO Q4H PRN (Reason: pain) Qty: 20 0RF Rx Instructions: Partial Fill upon patient request. docusate sodium [Colace] 100 mg capsule 100 mg PO BID Qty: 20 0RF Continued carvedilol 25 mg tablet 25 mg PO BID 90 Days Qty: 180 3RF Rx Instructions: must administer with a meal/food losartan 100 mg tablet 100 mg PO DAILY Qty: 90 3RF levothyroxine 125 mcg tablet 125 mcg PO DAILY Qty: 90 3RF simvastatin 10 mg tablet 10 mg PO DAILY Qty: 90 3RF spironolactone 25 mg tablet 25 mg PO DAILY Qty: 90 3RF metformin 1,000 mg tablet 1,000 mg PO BID 90 Days Qty: 180 3RF (DME) lancets [FreeStyle Lancets] 28 gauge misc See Rx Instructions .Route Qty: 100 3RF Rx Instructions: Use daily As directed to check blood sugar (DME) 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 meter [FreeStyle Lite Meter] Kit See Rx Instructions .ROUTE .MEDSUPPLY Qty: 1 0RF Rx Instructions: Use daily As directed to check blood glucose meclizine 25 mg tablet 25 mg PO TID PRN (Reason: for dizziness) Qty: 30 0RF ferrous fumarate 325 mg (106 mg iron) tablet 325 mg PO DAILY Qty: 90 0RF bismuth subcit N-swcwmtutz-gbt [Pylera] 140-125-125 mg capsule 3 cap PO QID 14 Days Qty: 168 0RF lorazepam 0.5 mg tablet 0.5 mg PO Q8H PRN (Reason: anxiety) Qty: 5 0RF Rx Instructions: Take 30 minutes prior to procedure. May repeat dose. cholecalciferol (vitamin D3) [Vitamin D3] 25 mcg (1,000 unit) capsule 25 mcg PO DAILY Qty: 90 0RF (DME) FreeStyle Matt 3 [place] Misc See Rx Instructions .ROUTE .MEDSUPPLY Qty: 1 0RF Rx Instructions: As directed for use with freestyle matt Mounjaro 2.5 mg/0.5 mL pen injector 2.5 mg subcut QWEEK 28 Days Qty: 2 2RF Rx Instructions: do not take mounjaro for one week before surgery date start back at least one day after surgery once you are able to tolerate food post operatively. diclofenac sodium [Voltaren Arthritis Pain] 1 % gel 4 g topical QID PRN (Reason: pain) Qty: 100 0RF Rx Instructions: apply to single knee, ankle, foot; for foot includes sole/toes/top of foot acetaminophen [Tylenol Extra Strength] 500 mg tablet 1,000 mg PO Q6H PRN (Reason: pain) Qty: 30 0RF Trulicity 0.75 mg/0.5 mL pen injector 0.75 mg subcut QWEEK Patient Comments: takes every pantoprazole 40 mg tablet,delayed release (DR/EC) 40 mg PO QAM PRN (Reason: Acid Reflux) (DME) FreeStyle Lite Strips Strip See Rx Instructions .ROUTE .MEDSUPPLY Qty: 100 3RF Rx Instructions: use daily As directed to check blood sugars for diabetes insulin glargine [Lantus Solostar U-100 Insulin] 100 unit/mL (3 mL) insulin pen 30 unit subcut QPM Qty: 15 3RF gabapentin 300 mg capsule 900 mg PO Q8H 30 Days Qty: 270 3RF hydralazine 25 mg tablet 50 mg PO TID 30 Days Qty: 180 6RF amlodipine 10 mg tablet 5 mg PO DAILY Qty: 90 3RF (DME) FreeStyle Matt 3 Sensor Device See Rx Instructions .ROUTE .MEDSUPPLY Qty: 2 11RF Rx Instructions: For continuous use apply new sensor every 14 days (DME) pen needle, diabetic [BD Ultra-Fine Micro Pen Needle] 32 gauge x 1/4 needle See Rx Instructions .ROUTE .MEDSUPPLY Qty: 100 Rx Instructions: As directed hydrochlorothiazide 25 mg tablet 25 mg PO DAILY cyclobenzaprine 10 mg tablet 10 mg PO TID PRN (Reason: muscle spasm) 10 Days Qty: 30 2RF Discharge Orders: Discharge Order (Routine); Ordered 05/24/24 Ordered By: John Hancock Diet: Advance to usual diet Activity on Discharge: As tolerated Activity Restrictions/Additional Instructions: After your spinal surgery we ask you to observe the following restrictions/guidelines: You did have an arrhythmia that was seen at the time of surgery while you were under anesthesia. Dr. Leach the scrap dealer came by to see you after surgery and determined this is something that can be worked up as an outpatient. His office will contact you for the appropriate workup. Activity: It is normal to feel some discomfort as you increase your activity, but that will improve with time. We ask you avoid heavy lifting or acitivities that cause pain. As a general rule, 8lbs is a safe limit for lifting right after surgery. Walk as much as you feel comfortable but not to exhaustion. You will feel extra tired the first few days after surgery. Stay well hydrated. It is OK to walk up and down stairs You may return to driving when you are off narcotics (such as vicodin, oxycodone, dilaudid, etc), and you are back to normal functional capacity. If you have any concerns please check with office before driving. Return to work is specific to each patient and each surgery, so please speak with your doctor/PA at first follow up. Please bring paperwork such as FMLA at that time if you need it filled out. Medications: For optimum pain control, it is best to start with a combination of 500 mg of Tylenol every 4 hours with 600 mg of Motrin every 8 hours, and use narcotics as needed in between for breakthrough pain. We will give you a short supply of narcotics after surgery (usually one weeks worth). If you need more please call the office but do not use more than prescribed. You will need to give our office 48 hours notice if you need narcotics refilled and we do not fill narcotics on weekends or evenings. If you are on a narcotic, it is a good idea to take a stool softener such as colace or senna to avoid constipation If you take blood thinner such as aspirin, Plavix, Coumadin, Effient, Eliquis etc for conditions such as Afib, DVT, Pulmonary embolus, coronary disease, stents etc please speak with your surgeon about specific details as to when you can resume these medications. You can resume NSAIDs on post op day 1 (eg: Motrin, Naproxen, etc). Follow up: Please call the office, , after surgery to arrange a 3 week follow up for wound check. Wound Care: You may remove your dressing on the first day after surgery. ?You may ?leave open to air. Please do not remove the steri strips underneath. they will fall off on their own in one week. IT IS NORMAL FOR THE WOUND TO OOZE OR BE BLOODY FOR A FEW DAYS AFTER SURGERY. ?IF THIS HAPPENS JUST PLACE NEW DRESSING OVER IT TO AVOID STAINING CLOTHES. You may shower on post op day # 1 We ask that you do not let the water soak the wound. If it does get wet, just towel dry lightly. Please do not scrub your incision or place any type of chemical/ointment on the wound. No tub baths, pools or jacuzzis for one month. If you have any leaking or redness from your wound, or fevers, please call office Print Language: Citizen Of [place]
[2024-05-24] MEDS: Lactated Ringers 1,000 ML 100 ML IVCONT (07:50)
[2024-05-24] MEDS: methocarbamoL 750 MG TABLET PO (07:51)
[2024-05-24] MEDS: Gabapentin 300 MG CAPSULE PO (07:51)
[2024-05-24 08:10] LABS: Glucose, Whole Blood 130 mg/dL (60-115)
[2024-05-24] MEDS: ceFAZolin Sodium/Dextrose,Iso 2 GM/50 ML PIGGYBACK IV (08:30)
--- NOTE | 2024-05-24 08:39 | PC.NURSE ---
Pt took Gabapentin 800mg PO this morning. Gabapentin ordered by MD, not given by RN.
[2024-05-24] MEDS: Acetaminophen 1,000 MG/100 ML PIGGYBACK 400 MG IV (08:53)
--- NOTE | 2024-05-24 09:40 | W.PM.OPN ---
Operative Note Operative Note Date of Service: 05/24/24 Narrative: Preoperative Diagnosis: L4-5 spinal stenosis/lateral recess stenosis/neural foraminal stenosis Operation: Right L4-5 Laminotomy, Partial facetectomy and foraminotomy with use of microscope Consent Informed Consent was obtained for this operation. I have explained the nature, purpose and benefits of the operation. I have discussed the risks and benefit of the operation including possible complications or adverse events with patient/family. Alternative(s) were discussed with the patient with their relative benefits and risks as well as the consequences of not accepting the operation were included in obtaining consent. Surgeon: LEVON OLIVER MD, PHD Procedure Assisted By: John Raygoza Description of Procedure This patient is suffering from a right lumbar radiculopathy. The patient was offered a decompression. The procedure complications were explained. The patient was consented. The patient was brought to the operating room and endotracheally intubated. Before the start of surgery the EKG showed worsening of a grade 1 block. It was thought to be safe to continue with surgery and to have him admitted postoperatively for cardiological evaluation. The patient was turned in prone position on the [place] frame. Prep and drape was done followed by timeout. The Physician public relations assistant provided access. A mid lumbar incision was made followed by release of the paravertebral muscle on the right side to expose the L4-5 lamina and facet joints. An intraoperative x-ray was obtained to confirm the correct level. The microscope was brought in. I took over the procedure. The high-speed drill was used to do a right L4-5 laminotomy until flavum ligament was reached. A #2 Kerrison was used to expand the laminotomy near flush to the pedicles and to include a partial facetectomy. The flavum ligament was opened and resected with a #3 Kerrison to decompress the underlying thecal sac. The flavum ligament was removed to decompress the lateral recess and the exiting L5 nerve root. A long nerve hook could be easily passed along the medial side of the pedicle as a sign of adequate decompression. The microscope was removed. Hemostasis was done. The physician public relations assistant close the Incision in 2 layers. Steri-Strips were used to approximate incision. An OpSite with Tegaderm was used to cover the incision. All sponge needle counts were correct. Patient was extubated and transported in stable is to recovery room. Anesthesia: General Estimated Blood Loss (ml): 20 Complications: None Duration of Surgery: Under 60 Minutes Postoperative Plan: Discharge to home
[2024-05-24] MEDS: ondansetron HCL 4 MG/2 ML VIAL IVPUSH (10:30)
[2024-05-24 11:04] LABS: Glucose, Whole Blood 216 mg/dL (60-115)
--- NOTE | 2024-05-24 11:27 | PM.CNCAR ---
History of Present Illness History of Present Illness Date of Service: 05/24/24 Requesting physician: Shaniqua Mann Consult reason: other (AV block) Chief complaint: Pain in right leg,low back pain, Narrative: I was consulted urgently bhaskar French in the perioperative due to first-degree AV block and Mobitz type 1 second-degree AV block which was diagnose after reviewing the EKG. Patient was 63-year-old male poor historian. History was obtained with help of diamond die driller at bedside. Patient was postanesthesia and was not have very clear unreliable historian. Although he said 4 years ago he had cardiac testing in [place], he is not sure as to what whether he should but he said this was a minor issue and has not lead to any complication. He has not had any syncopal episodes, history of congestive heart failure, lightheadedness or fatigue or tiredness with exertion. He came in his outpatient today for lumbar spine surgery by Dr. Bloom for ongoing lower extremity discomfort and neuropathy. Preoperatively was noted to have first-degree AV block. After induction with patient was done prone he was noted to have more advanced AV block and there was concerned about complete heart block. I reviewed the strip and these are most consistent with Mobitz type 1 second-degree AV block. Patient was no hypotension. Postoperatively he was having lot of nausea and retching an EKG performed which shows first-degree AV block with significantly prolonged NM interval. He was no symptoms of hypotension with this. No cardiovascular symptoms at this point time on a chronic basis as well as acutely. No ischemic changes. Review of Systems Constitutional: Constitutional: Reports no additional constitutional complaints Eyes: Eyes: Reports no additional eye complaints Cardiovascular: Cardiovascular: Reports no additional cardiovascular complaints Respiratory: Respiratory: Reports no additional respiratory complaints Gastrointestinal: Gastrointestinal: Reports nausea and Reports vomiting Genitourinary: Genitourinary: Reports no additional male genitourinary complaints Musculoskeletal: Musculoskeletal: Reports no additional musculoskeletal complaints Integumentary/Breasts: Skin/Breast: Reports system reviewed and no additional complaints, except as docu Neurologic: Reports system reviewed and no additional complaints, except as documented Psychiatric: Psychiatric: Reports no additional psychiatric complaints PMFSH Past Medical History Medical History Myocardial infarction Back pain Arthritis Thyroid disease Depression Numbness Habitual snoring Wheezing History of Helicobacter pylori infection Hypothyroid Forgetfulness Major depression, recurrent, chronic Dizziness Hypertension Hyperlipidemia Previous myocardial infarction older than 8 weeks Chest pain Microalbuminuria Chronic kidney disease Diabetic nephropathy Uncontrolled type 2 diabetes mellitus with hyperglycemia, with long-term current use of insulin Surgical History Surgical History History of esophagogastroduodenoscopy (EGD) H/O colonoscopy Hx of appendectomy Hx of knee surgery Social History Social History Housing: House Are you a primary social worker palliative care to a significant other at home: No Do you presently have visiting nurse or other home services: No Alcohol intake: current Alcohol intake frequency: does not drink Patient Tobacco Use Status: Never used Tobacco e-Cigarette/Vaping Use: Never Used Second Hand Smoke Exposure: No Use of substances other than those prescribed or required for medical reasons: No Have you been hit, kicked, punched, or otherwise hurt by someone within the past year? If so, by whom?: No Are you DNR?: No Advance Directives: No Advance Directives Information Provided: Yes Advance Directives on File: No Recently lost weight without trying: No Eating poorly because of decreased appetite: No Nutrition Risks: No Nutritional Risk Poor oral hygiene: Yes (missing teeth) service: No Current occupational status: unemployed Cognitive needs: No Hearing needs: No Vision needs: No Meds Allergies Allergy/AdvReac Type Severity Reaction Status Date / Time clindamycin [CLINDAMYCIN] Allergy Unknown SWELLING, Verified 05/24/24 07:57 RASH pravastatin Allergy Unknown increase Verified 05/24/24 07:57 liver enzymes Active Medications: Current Medications Fentanyl (Fentanyl Citrate/Pf 100 Mcg/2 Ml Vial) 50 mcg IVPUSH Q5M PRN PRN Reason: Pain, Moderate to Severe (Pain Scale 4-10) Stop: 05/24/24 13:58 Lactated Ringer's (Lr) 1,000 mls @ 100 mls/hr IVCONT .Q10H JENNIFER Last Admin: 05/24/24 07:50 Dose: 100 mls/hr Naloxone HCl (Naloxone Hcl 0.4 Mg/Ml Vial) 0.04 mg IVPUSH Q5M PRN PRN Reason: Excessive sedation or RR < 8 Naloxone HCl (Naloxone Hcl 0.4 Mg/Ml Vial) 0.04 mg IVPUSH Q5M PRN PRN Reason: Excessive sedation or RR < 8 Home Medications ?Medication ?Instructions ?Recorded ?Confirmed ?Last Taken ?Type pen needle, diabetic 32 gauge x #100 ea 11/25/23 03/21/24 Unknown History 1/4 (BD Ultra-Fine Micro Pen Needle) hydrochlorothiazide 25 mg tablet 25 mg PO DAILY 12/15/23 05/14/24 Unknown History dulaglutide 0.75 mg/0.5 mL 0.75 mg subcut QWEEK 05/22/24 05/24/24 05/12/24 History subcutaneous pen injector (Trulicity) pantoprazole 40 mg tablet,delayed 40 mg PO QAM PRN Acid Reflux 05/22/24 05/24/24 05/24/24 History release Physical Exam Vital Signs: Vital Signs: Last Vital Signs Temp 97 F 05/24/24 09:56 Pulse 68 05/24/24 11:25 Resp 16 05/24/24 11:25 BP 120/68 05/24/24 11:25 Pulse Ox 95 05/24/24 11:25 O2 Del Method Nasal Cannula 05/24/24 11:25 O2 Flow Rate 2 05/24/24 11:25 BMI result Body Mass Index 29.2 Const: General: cooperative, comfortable, no acute distress, alert and awake Nutritional Appearance: overweight Orientation/consciousness: patient oriented x3 HEENT: Head: Yes normocephalic and Yes atraumatic Neck: Neck: Yes trachea midline, Yes supple and Yes no JVD Resp: Effort & Inspection: normal respiratory effort Auscultation: clear to auscultation bilaterally Cardio: Jugular venous distension: no JVD Palpation: normal PMI Rate: regular rate Rhythm: regular rhythm Heart sounds: S1 normal heart sound present, S2 normal heart sound present, no click, no gallops, no murmurs and no rubs GI: Auscultation: normal bowel sounds Skin: General skin exam: no rashes or lesions noted Neuro: General: patient oriented x3 and no focal motor deficits Extrem: General: Yes no clubbing, cyanosis or edema Objective Labs and Meds 05/15/24 11:15 05/15/24 11:15 Lab results: Laboratory Results - last 24 hr 05/24/24 05/24/24 08:01 10:44 POC Glucose 130 H 216 H Preoperative EKGs consistent with normal sinus rhythm with first-degree AV block. Postoperative EKGs again consistent with sinus tachycardia with very prolonged NM interval with first-degree AV block. Imaging Radiologist's impression: Impressions Guidance Fluoroscopy 05/24/24 08:32 IMPRESSION: Fluoroscopy during procedure. Please see procedure report for additional information. Electronically signed by: Dick Mitchell MD 05/24/2024 09:47 AM EDT Assessment and Plan (1) AV block: Status: Acute Patient with prolonged first-degree AV block preoperatively, intraoperatively developed Mobitz type 1 second-degree AV block due to enhance vagal tone and postoperatively continues to have significant nausea and vomiting which probably enhance vagal tone and causes him to have more prolonged AV interval. At this point time there is no indication for acute hospitalization or admission as there was no evidence of hemodynamically significant conduction abnormality. He has had no chronic symptoms related to the first-degree AV block and again there was no indication for pacing therapy. Will need outpatient workup. There was no clear significant murmur for aortic stenosis or calcific aortic valve disease that could explain his AV block. He is currently not on rate lowering medication would avoid all rate lowering medications that can affect AV conduction in the future. Continue his current antihypertensive therapy including amlodipine and lisinopril and hydrochlorothiazide. I would set him up for outpatient follow-up and testing to assess for any significant conduction abnormality that might necessitate pacing therapy. This was discussed with him with help of a diamond die driller. Will set him up for outpatient follow-up. Thank you for allowing me to partake in his care Procedures Date of Service Date of Service: 05/24/24
== END 2024-05-24 13:47 | disposition home or self-care (01) ==
PROVIDERS: Anesthesiology; PCP Physician Assistant; Visit Provider Neurological Surgery
PROC: (CPT 63047; principal; 2024-05-24 09:00)
DX: M48.061 Spinal stenosis, lumbar region without neurogenic claudication (principal); M54.16 Radiculopathy, lumbar region; M79.604 Pain in right leg; I44.0 Atrioventricular block, first degree; I44.30 Unspecified atrioventricular block; I25.2 Old myocardial infarction; E11.65 Type 2 diabetes mellitus with hyperglycemia; E11.22 Type 2 diabetes mellitus with diabetic chronic kidney disease; I12.9 Hypertensive chronic kidney disease with stage 1 through stage 4 chronic kidney disease, or unspecified chronic kidney disease; N18.9 Chronic kidney disease, unspecified; E03.9 Hypothyroidism, unspecified; F33.8 Other recurrent depressive disorders; Z79.85 Long-term (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 of injectable non-insulin antidiabetic drugs; Z79.4 Long term (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 of insulin; Z79.899 Other long term (current) drug therapy; Z88.8 Allergy status to other drugs, medicaments and biological substances
CPT/HCPCS: 63047; 36415; 80048; 82947; 85025; 93005; J0131; J0690; J1100; J2003; J2250; J2405; J2704; J3010

== ENCOUNTER → 2024-05-24 07:00 | Outpatient (BNV) | payer OTHER, SELFPAY | PROVIDERS: PCP Physician Assistant; Visit Provider Internal Medicine Cardiovascular Disease | DX: I44.30 Unspecified atrioventricular block (principal) | CPT/HCPCS: 93010; 99222 ==

== ENCOUNTER → 2024-05-24 07:00 | Outpatient (BNV) | payer OTHER, SELFPAY | PROVIDERS: PCP Physician Assistant; Visit Provider Neurological Surgery | DX: M48.062 Spinal stenosis, lumbar region with neurogenic claudication (principal); M79.604 Pain in right leg | CPT/HCPCS: 63047; 99499 ==

== ENCOUNTER 2024-05-25 12:05 | Emergency (ER) | payer OTHER, SELFPAY ==
--- NOTE | ~2024-05-25 | XR_ITS ---
EXAMINATION: XR CHEST CLINICAL INFORMATION: chest pain COMPARISON: 08/18/2023. TECHNIQUE: Frontal view of the chest was obtained. FINDINGS: The cardiac, hilar, and mediastinal contours are normal. Lungs demonstrate minimal linear atelectasis or scarring in both bases. Lungs otherwise clear. No pneumothorax or effusion. No focal osseous or soft tissue abnormality. There are spinal degenerative changes and degenerative changes in both shoulder joints. There is calcific tendinopathy of the left rotator cuff. XR/XR chest 1V IMPRESSION: No active pulmonary disease. Electronically signed by: Benny Terry MD 05/25/2024 01:27 PM EDT
--- NOTE | ~2024-05-25 | CT_ITS ---
EXAMINATION: CT CHEST WITHOUT IV CONTRAST INDICATION: concern for aspiration, WBC count 24, RLL COMPARISON: Correlation is made with an AP portable view of the chest performed earlier in the day. TECHNIQUE: Helical CT scan of the chest was performed without intravenous contrast. Coronal and sagittal reformatted images were generated and reviewed. This CT exam was performed with one or more of the following dose reduction techniques: automated exposure control, adjustment of the mA and/or kV according to patient size, use of iterative reconstruction technique. DLP: 279 mGy-cm CHEST: THYROID: The thyroid is unremarkable. LUNGS: There is linear subsegmental atelectasis versus scarring in both lower lobes. No focal airspace opacities are seen to suggest pneumonia. MEDIASTINUM: There is no mediastinal lymphadenopathy. KAROLYN: Evaluation of the hilar regions is limited by lack of intravenous contrast material. CARDIOVASCULATURE: The heart is mildly enlarged with left atrial dilatation. There is marked calcification of the mitral annulus. There is no pericardial effusion. The thoracic aorta is normal in caliber. DEGREE OF CORONARY CALCIFICATION: severe PLEURA: There is no pleural effusion. No pneumothorax. MAIN AIRWAYS: The mainstem bronchi and proximal branches are patent. AXILLA: There is no axillary lymphadenopathy. BONES AND SOFT TISSUES: There is severe degenerative disc disease of the spine. UPPER ABDOMEN: The visualized portions of the liver, spleen, and adrenals have an unremarkable unenhanced appearance. CT/CT chest wo IV con IMPRESSION: 1. Bibasilar subsegmental atelectasis versus scarring. No focal airspace opacity is seen to suggest pneumonia. 2. Cardiomegaly with severe mitral annular and coronary arterial calcification. Electronically signed by: Dick Mitchell MD 05/25/2024 03:23 PM EDT
--- NOTE | 2024-05-25 12:14 | ECG_ITS ---
Test Reason : arrythmia Blood Pressure : */* mmHG Vent. Rate : 59 BPM Atrial Rate : 59 BPM P-R Int : 326 ms QRS Dur : 90 ms QT Int : 432 ms P-R-T Axes : 31 -9 103 degrees QTcB Int : 427 ms Sinus bradycardia with 1st degree A-V block Minimal voltage criteria for LVH, may be normal variant ( Shawn product ) Nonspecific T wave abnormality Abnormal ECG When compared with ECG of 24-May-2024 09:54, Sinus rhythm has replaced Junctional rhythm QT has shortened Referred By: Avinash Vazquez Electronically Signed By: KRISTINE WALL MD
[2024-05-25 12:21] VITALS: BP 162/58; PULSE 60; RESP 16; TEMP 36.6; O2SAT 97; BMI 29.2
[2024-05-25 13:00] LABS: Basophils Percent Auto 0.2 % (0-2); Hemoglobin 10.8 g/dl (14.0-18.0); Imm Gran Abs Auto 0.23 X10*3/uL (0.00-0.03); Imm Gran Pct Auto 0.9 % (0.0-0.4); Lymphocytes Absolute Auto 1.1 X10*3/uL (1.2-4.9); Lymphocytes Percent Auto 4.6 % (20-40); MANUAL DIFF FLAG SCAN; Mean Corpuscular HGB Conc 32.7 g/dl (31.0-36.0); Mean Corpuscular Hemoglobin 28.1 pg (27.0-33.0); Mean Corpuscular Volume 85.9 fL (80.0-98.0); Mean Platelet Volume 11.1 fL (9.4-12.4); Monocytes Absolute Auto 1.7 X10*3/uL (0.1-1.2); Monocytes Percent Auto 6.9 % (2-11); Neutrophils Absolute Auto 21.2 x10*3/uL (2.0-8.3); Neutrophils Percent Auto 87.4 % (45-73); Platelet Count 203 X10*3/uL (160-400); Red Blood Count 3.84 X10*6/uL (4.60-5.80); Red Cell Distribution Width 14.2 % (11.0-16.0); SCAN SMEAR FLAG 1; White Blood Count 24.3 X10*3/uL (4.8-10.8)
--- NOTE | 2024-05-25 13:02 | ED_ITS ---
HPI - Arrhythmia/Palpitations General Chief Complaint: Arrhythmia/Palpitations Stated Complaint: rapid heart beat surgery yesterday Time Seen by Provider: 05/25/24 12:59 Source: patient, family, old records reviewed and media relations director Mode of arrival: ambulatory Limitations: other (poor historian) History of Present Illness ED Provider: TATYANA HPI narrative: 63 yo male with PMH of AV block, HTN, HLD, CKD, s/p Right L4-5 Laminotomy, partial facetectomy and foraminotomy yesterday who had sig n/v post operative period and was seen by Dr. Leach for arrythmia who noted it was Mobitz type 1 2nd degree block - he had prolonged NC interval with vomiting. He admits that about a 1.5 years ago in [place] he had an abnormal stress test and they told him he needed a cath - he never followed up. Prior to his spine surgery he has had months and months of CASTAÑEDA, chest pressure with exertion. He states he knowingly lied to anesthesia and pre op about his symptoms so he could get spinal surgery as planned. Yesterday he did not vomit when he got home but before bed started to have dyspnea and chest pressure. He felt his HR go up. He isn't sure what arrhythmia he has - he did remember seeing cardiology post op yesterday. MD complaint: palpitations Onset (ago): day(s) (last night) Duration: constant Severity: moderate Context: occurred during rest Associated symptoms: chest pain and shortness of breath Related Data Home Medications ?Medication ?Instructions ?Recorded ?Confirmed pen needle, diabetic 32 gauge x #100 ea 11/25/23 03/21/2403/03 (BD Ultra-Fine Micro Pen Needle) hydrochlorothiazide 25 mg tablet 25 mg PO DAILY 12/15/23 05/14/24 dulaglutide 0.75 mg/0.5 mL 0.75 mg subcut QWEEK 05/22/24 05/24/24 subcutaneous [facility] pantoprazole 40 mg tablet,delayed 40 mg PO QAM PRN Acid Reflux 05/22/24 05/24/24 release Previous Rx's ?Medication ?Instructions ?Recorded carvedilol 25 mg tablet 25 mg PO BID 90 days #180 tabs 09/30/23 lancets 28 gauge (FreeStyle #100 ea 09/30/23 Lancets) levothyroxine 125 mcg tablet 125 mcg PO DAILY #90 tabs 09/30/23 losartan 100 mg tablet 100 mg PO DAILY #90 tabs 09/30/23 metformin 1,000 mg tablet 1,000 mg PO BID 90 days #180 tabs 09/30/23 simvastatin 10 mg tablet 10 mg PO DAILY #90 tabs 09/30/23 spironolactone 25 mg tablet 25 mg PO DAILY #90 tabs 09/30/23 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 meter (FreeStyle #1 ea 11/18/23 Lite Meter kit) blood sugar diagnostic (FreeStyle #100 ea 11/23/23 Lite Strips) ferrous fumarate 325 mg (106 mg 325 mg PO DAILY #90 tabs 11/23/23 iron) tablet gabapentin 300 mg capsule 900 mg (3 x 300 mg) PO Q8H 30 days 11/23/23 #270 caps insulin glargine 100 unit/mL (3 30 unit (0.3 mL) subcut QPM #15 mL 11/23/23 mL) subcutaneous pen (Lantus Solostar U-100 Insulin) meclizine 25 mg tablet 25 mg PO TID PRN for dizziness #30 11/23/23 tabs amlodipine 10 mg tablet 5 mg (1/2 x 10 mg) PO DAILY #90 11/25/23 tabs hydralazine 25 mg tablet 50 mg (2 x 25 mg) PO TID 30 days 11/25/23 #180 tabs bismuth subcit K 140 3 cap PO QID 14 days #168 caps 11/26/23 mg-metronidazole 125 mg-tetracycline 125 mg cap (Pylera) acetaminophen 500 mg tablet 1,000 mg (2 x 500 mg) PO Q6H PRN 12/12/23 (Tylenol Extra Strength) pain #30 tabs diclofenac sodium 1 % topical gel 4 g topical QID PRN pain #100 grams 12/12/23 (Voltaren Arthritis Pain) lorazepam 0.5 mg tablet 0.5 mg PO Q8H PRN anxiety #5 tabs 01/16/24 cholecalciferol (vitamin D3) 25 25 mcg PO DAILY #90 caps 03/15/24 mcg (1,000 unit) capsule (Vitamin D3) 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 sensor (FreeStyle #2 ea 03/21/24 Matt 3 Sensor device) cyclobenzaprine 10 mg tablet 10 mg PO TID PRN muscle spasm 10 03/21/24 days #30 tabs FreeStyle Matt 3 Dike #1 ea 05/15/24 (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 meter,continuous) tirzepatide 2.5 mg/0.5 mL 2.5 mg (0.5 mL) subcut QWEEK 4 05/22/24 subcutaneous pen injector weeks #2 mL (Mounjaro) docusate sodium 100 mg capsule 100 mg PO BID #20 caps 05/24/24 (Colace) oxycodone 5 mg tablet 5 mg PO Q4H PRN pain #20 tabs 05/24/24 Allergies Allergy/AdvReac Type Severity Reaction Status Date / Time clindamycin [CLINDAMYCIN] Allergy Unknown SWELLING, Verified 05/25/24 12:22 RASH pravastatin Allergy Unknown increase Verified 05/25/24 12:22 liver enzymes Review of Systems 2 Review of Systems: Constitutional : No Weight loss, No Fever, No Chills ENT/Mouth : No sore throat, No Rhinorrhea Eyes: No Eye Pain, No Swelling Cardiovascular : pos Chest Pain, pos SOB, pos Dyspnea on Exertion, No Orthopnea, No Edema, No Palpitations Respiratory : No Cough, No Sputum Gastrointestinal : pos Nausea, No Vomiting, No Diarrhea, No abdominal Pain, No Hematochezia, No Melena Genitourinary : No Dysuria, No Urinary Frequency Musculoskeletal : No joint pain, No Myalgias, No Joint Swelling Skin : No Skin Lesions, No rash Neuro : No Weakness, No Numbness, No Dizziness, No Headache Psych : No Anxiety/Panic, No Depression Heme/Lymph: No Bruising, No Lymphadenopathy Endocrine : No Polyuria, No Polydipsia All other systems reviewed and are negative FOR[facility]LY [facility], [facility] Past Medical History Attestation statement: The following information was validated with the patient. Source: old records reviewed Medical History Myocardial infarction Back pain Arthritis Thyroid disease Depression Numbness Habitual snoring Wheezing History of Helicobacter pylori infection Hypothyroid Forgetfulness Major depression, recurrent, chronic Dizziness Hypertension Hyperlipidemia Previous myocardial infarction older than 8 weeks Chest pain Microalbuminuria Chronic kidney disease Diabetic nephropathy Uncontrolled type 2 diabetes mellitus with hyperglycemia, with long-term current use of insulin Surgical History History of esophagogastroduodenoscopy (EGD) H/O colonoscopy Hx of appendectomy Hx of knee surgery Social History Social History Housing: House Are you a primary medicare nurse to a significant other at home: No Do you presently have visiting nurse or other home services: No Alcohol intake: current Alcohol intake frequency: does not drink Patient Tobacco Use Status: Never used Tobacco e-Cigarette/Vaping Use: Never Used Second Hand Smoke Exposure: No service: No Current occupational status: unemployed Cognitive needs: No Hearing needs: No Vision needs: No Physical Exam 2 Vital Signs: Vital Signs: Last Vital Signs Temp 97.9 F 05/25/24 15:40 Pulse 54 05/25/24 15:40 Resp 12 05/25/24 15:40 BP 150/75 H 05/25/24 15:40 Pulse Ox 94 05/25/24 15:40 O2 Del Method Room Air 05/25/24 15:40 BMI result Body Mass Index 29.2 Appearance: Alert. Oriented X3. No acute distress. Eyes: Pupils equal, round and reactive to light. ENT: Pharynx normal. Neck: Normal inspection. Neck supple. CVS: Normal heart rate and rhythm. Pulses normal. Respiratory: No respiratory distress. Breath sounds rales and coarse sounds RLL Abdomen: Soft and non-tender. Back: incision is c/d/i no signs of infection Skin: Skin warm and dry. Normal skin color. Normal skin turgor. Extremities: No lower extremity edema. No calf ttp Neuro: Oriented X 3. No motor deficit. No sensory deficit. CN2-12 intact Course Course Course Narrative: at this time infection suspected will start on zosyn 225pm Medications Administered Discontinued Medications Generic Name Dose Route Start Last Admin Trade Name Freq PRN Reason Stop Dose Admin Lactated Ringer's 1,000 mls @ 999 mls/hr 05/25/24 14:24 05/25/24 14:50 Lr IV 05/25/24 15:24 999 mls/hr .Q1H1M ONE Administration Piperacillin Sod/Tazobactam 50 mls @ 100 mls/hr 05/25/24 14:24 05/25/24 15:17 Sod 3.375 gm/ Sodium Chloride IV 05/25/24 14:53 Infused ONCE ONE Infusion Magnesium Sulfate/Dextrose 1 gm in 100 mls @ 100 mls/hr 05/25/24 14:43 05/25/24 15:33 Magnesium Sulfate/D5w IV 05/25/24 15:42 100 mls/hr ONCE ONE Administration Medical Decision Making Medical Decision Making [facility] Narrative: 63 yo male with PMH of AV block, HTN, HLD, CKD, s/p Right L4-5 Laminotomy, partial facetectomy and foraminotomy yesterday now here with self admitted ongoing CP and CASTAÑEDA prior to surgery with abnormal stress test and they recommended cardiac cath - he comes in today with c/o dyspnea and chest pressure/palps since last night. He has a WBC count and lung sounds concerning for aspiration. At this time will need labs, trop x 2, CXR, he has no sig EKG changes at this time. If work up negative may benefit from another Cardiology discussion Differential Diagnosis Differential Diagnoses: The differential diagnosis associated with the presentation includes aspiration, angina, CAD, this has been going on prior to surgery with CASTAÑEDA and pain so VTE unlikely Admission/Observation Consideration of admission/observation: Escalation of care including admission/observation considered negative for aspiration suspect lactic acidosis due to metformin and not infection or severe sepsis aspiration negative on CT scan WBC count likely acute phase post surgery and vomiting yesterday trop flat x 2, EKG no sig changes Dr. Leach already aware of patient and he has outpatient cardiology work up planned after message regarding admission and need for ECHO this weekend I did talk to family and they agree that he has close cardiology follow up Consult Healthcare Provider Management of the patient was discussed with: High Speed Warper Tender Lab Data [facility] Lab Attestation statement: I reviewed the patient's lab results. 05/25/24 12:54 05/25/24 12:54 Labs: Lab Results 05/25/24 05/25/24 05/25/24 Range/Units 12:54 13:53 16:00 WBC 24.3 H (4.8-10.8) X10*3/uL RBC 3.84 L (4.60-5.80) X10*6/uL Hgb 10.8 L (14.0-18.0) g/dl Hct 33.0 L (42.0-52.0) % MCV 85.9 (80.0-98.0) fL MCH 28.1 (27.0-33.0) pg MCHC 32.7 (31.0-36.0) g/dl RDW 14.2 (11.0-16.0) % Plt Count 203 (160-400) X10*3/uL MPV 11.1 (9.4-12.4) fL Immature Gran % (Auto) 0.9 H (0.0-0.4) % Neut % (Auto) 87.4 H (45-73) % Lymph % (Auto) 4.6 L (20-40) % [place] % (Auto) 6.9 (2-11) % Eos % (Auto) 0.0 (0-4) % Baso % (Auto) 0.2 (0-2) % Lymph # (Auto) 1.1 L (1.2-4.9) X10*3/uL [place] # (Auto) 1.7 H (0.1-1.2) X10*3/uL Eos # (Auto) 0.0 (0.0-0.4) X10*3/uL Baso # (Auto) 0.0 (0.0-0.2) X10*3/uL Abs Immat Gran (auto) 0.23 H (0.00-0.03) X10*3/uL Absolute Neuts (auto) 21.2 H (2.0-8.3) x10*3/uL Absolute Nucleated RBC 0.000 (0.0-0.012) X10*3/uL Nucleated RBC % (auto) 0.0 (0.0-0.2) /100WBC Smear Tech's Comments VERIFIED Sodium 137 (135-145) mmol/L Potassium 4.7 (3.3-5.1) mmol/L Chloride 106 (96-108) mmol/L Carbon Dioxide 22 (22-29) mmol/L Anion Gap 14 (12-20) BUN 27 H (9-16) mg/dL Creatinine 1.77 H (0.5-1.4) mg/dL Estim Creat Clear Calc 40.6 Estimated GFR 39 Random Glucose 257 H (60-115) mg/dL Lactic Acid 2.2 H* (0.5-2.0) mmol/L Calcium 8.8 (8.4-10.2) mg/dL Magnesium 1.5 L (1.6-2.6) mg/dL Total Bilirubin 0.2 (0.0-1.0) mg/dL AST 17 (5-37) U/L ALT 9 (0-40) U/L Alkaline Phosphatase 53 (39-117) U/L Troponin I High Sens 10.6 D 11.1 (<3.5-35.0) ng/L Total Protein 6.2 L (6.5-8.0) g/dL Albumin 3.5 (3.5-5.0) g/dL TSH 0.61 (0.32-4.0) uIU/mL Independent Interpretation I performed an independent interpretation of an: EKG, Plain X-Ray (normal ) and CT Scan (no aspiration) Interpretation: Rate: 59 Rhythm: sinus bradycardia 1st degree AVB [place]: left, LVH Normal P waves. Normal BRODIE. Normal QRS complex. ST T wave : flat t waves V5-V6 I and aVL suspect related to LVH, no LETICIA qTC: 427 prior studies: no sig change from priors The study has been interpreted contemporaneously by me. . Radiology Impression Discussion of test interpretation with radiology: I have reviewed the radiologist's reading. External Record Review External record reviewed: Inpatient record and Outpatient record Discharge Plan Discharge Clinical Impression: Atrioventricular block, first degree, CASTAÑEDA (dyspnea on exertion) Elevated WBC count Qualifiers: Leukocytosis type: unspecified Qualified Code(s): D72.829 - Elevated white blood cell count, unspecified Patient Disposition: Home, Self-Care Instructions: Heart Block (ED), Dyspnea (ED) Additional Instructions: slight elevation in wbc count likely post surgery and vomiting magnesium mildly low repleted EKG and heart tests x 2 normal in ED did discuss with Cardiology call if you have not heard from the by Tuesday rest and take it easy no strenuous activity return for any worsening symptoms or concerns. Prescriptions: No Action carvedilol 25 mg tablet 25 mg PO BID 90 Days Qty: 180 3RF Rx Instructions: must administer with a meal/food losartan 100 mg tablet 100 mg PO DAILY Qty: 90 3RF levothyroxine 125 mcg tablet 125 mcg PO DAILY Qty: 90 3RF simvastatin 10 mg tablet 10 mg PO DAILY Qty: 90 3RF spironolactone 25 mg tablet 25 mg PO DAILY Qty: 90 3RF metformin 1,000 mg tablet 1,000 mg PO BID 90 Days Qty: 180 3RF (DME) lancets [FreeStyle Lancets] 28 gauge misc See Rx Instructions .Route Qty: 100 3RF Rx Instructions: Use daily As directed to check blood sugar (DME) 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 meter [FreeStyle Lite Meter] Kit See Rx Instructions .ROUTE .MEDSUPPLY Qty: 1 0RF Rx Instructions: Use daily As directed to check blood glucose meclizine 25 mg tablet 25 mg PO TID PRN (Reason: for dizziness) Qty: 30 0RF ferrous fumarate 325 mg (106 mg iron) tablet 325 mg PO DAILY Qty: 90 0RF bismuth subcit R-[id number]-yib [Pylera] 140-125-125 mg capsule 3 cap PO QID 14 Days Qty: 168 0RF lorazepam 0.5 mg tablet 0.5 mg PO Q8H PRN (Reason: anxiety) Qty: 5 0RF Rx Instructions: Take 30 minutes prior to procedure. May repeat dose. cholecalciferol (vitamin D3) [Vitamin D3] 25 mcg (1,000 unit) capsule 25 mcg PO DAILY Qty: 90 0RF (DME) FreeStyle Matt 3 Dike Misc See Rx Instructions .ROUTE .MEDSUPPLY Qty: 1 0RF Rx Instructions: As directed for use with freestyle matt Mounjaro 2.5 mg/0.5 mL pen injector 2.5 mg subcut QWEEK 28 Days Qty: 2 2RF Rx Instructions: do not take mounjaro for one week before surgery date start back at least one day after surgery once you are able to tolerate food post operatively. diclofenac sodium [Voltaren Arthritis Pain] 1 % gel 4 g topical QID PRN (Reason: pain) Qty: 100 0RF Rx Instructions: apply to single knee, ankle, foot; for foot includes sole/toes/top of foot acetaminophen [Tylenol Extra Strength] 500 mg tablet 1,000 mg PO Q6H PRN (Reason: pain) Qty: 30 0RF Trulicity 0.75 mg/0.5 mL pen injector 0.75 mg subcut QWEEK Patient Comments: takes every pantoprazole 40 mg tablet,delayed release (DR/EC) 40 mg PO QAM PRN (Reason: Acid Reflux) oxycodone 5 mg tablet 5 mg PO Q4H PRN (Reason: pain) Qty: 20 0RF Rx Instructions: Partial Fill upon patient request. docusate sodium [Colace] 100 mg capsule 100 mg PO BID Qty: 20 0RF (DME) FreeStyle Lite Strips Strip See Rx Instructions .ROUTE .MEDSUPPLY Qty: 100 3RF Rx Instructions: use daily As directed to check blood sugars for diabetes insulin glargine [Lantus Solostar U-100 Insulin] 100 unit/mL (3 mL) insulin pen 30 unit subcut QPM Qty: 15 3RF gabapentin 300 mg capsule 900 mg PO Q8H 30 Days Qty: 270 3RF hydralazine 25 mg tablet 50 mg PO TID 30 Days Qty: 180 6RF amlodipine 10 mg tablet 5 mg PO DAILY Qty: 90 3RF (DME) FreeStyle Matt 3 Sensor Device See Rx Instructions .ROUTE .MEDSUPPLY Qty: 2 11RF Rx Instructions: For continuous use apply new sensor every 14 days (DME) pen needle, diabetic [BD Ultra-Fine Micro Pen Needle] 32 gauge x 1/4 needle See Rx Instructions .ROUTE .MEDSUPPLY Qty: 100 Rx Instructions: As directed hydrochlorothiazide 25 mg tablet 25 mg PO DAILY cyclobenzaprine 10 mg tablet 10 mg PO TID PRN (Reason: muscle spasm) 10 Days Qty: 30 2RF Referrals: [facility] [place]Provider Group] Print Language: Cypriot
[2024-05-25 13:22] LABS: Troponin-I High Sensitivity 10.6 ng/L (<3.5-35.0)
[2024-05-25 13:23] LABS: SLIDE REVIEW VERIFIED
[2024-05-25 13:40] VITALS: BP 153/65; PULSE 58; RESP 14; O2SAT 98
[2024-05-25 14:24] LABS: Lactic Acid 2.2 mmol/L (0.5-2.0)
[2024-05-25 14:41] LABS: Alanine Aminotransferase 9 U/L (0-40); Albumin Level 3.5 g/dL (3.5-5.0); Alkaline Phosphatase 53 U/L (39-117); Anion Gap 14 (12-20); Aspartate Amino Transferase 17 U/L (5-37); Bilirubin Total 0.2 mg/dL (0.0-1.0); Blood Urea Nitrogen 27 mg/dL (9-16); Calcium 8.8 mg/dL (8.4-10.2); Carbon Dioxide 22 mmol/L (22-29); Chloride 106 mmol/L (96-108); Creatinine Clr Calc Pharmacy 40.6; Estimated Glomerular Filt Rate 39; Glucose Random 257 mg/dL (60-115); Magnesium 1.5 mg/dL (1.6-2.6); Potassium 4.7 mmol/L (3.3-5.1); Sodium 137 mmol/L (135-145); Total Protein 6.2 g/dL (6.5-8.0)
[2024-05-25] MEDS: Piperacillin Sodium/Tazobactam 3.375 GM in 0.9 % Sodium Chloride 50 ML IV (14:47)
[2024-05-25] MEDS: Lactated Ringers 1,000 ML 999 ML IV (14:50)
[2024-05-25 14:54] LABS: TSH reflex Free T4 0.61 uIU/mL (0.32-4.0)
[2024-05-25] MEDS: Magnesium Sulfate/D5W 1 GM/100 ML PIGGYBACK IV (15:33)
[2024-05-25 15:40] VITALS: BP 150/75; PULSE 54; RESP 12; TEMP 36.6; O2SAT 94
--- NOTE | 2024-05-25 15:42 | PC.NURSE ---
patient a&ox3, vss, iv inserted, labs drawn,teletypesetter operator intact- sinus brittany 1 degree block/inverted twaves noted on monitor. rr equal/non labored, pt medicated per order, family at bedside, call parish within reach, plan of care ongoing
[2024-05-25 16:00] LABS: Reflex Lactate? Lactic Acid Added
[2024-05-25 16:22] LABS: Troponin-I High Sensitivity 11.1 ng/L (<3.5-35.0)
[2024-05-25 17:24] LABS: Cancel Lactic Acid Canceled
[2024-05-25 17:33] LABS: Appearance Urine Clear; Color Urine Yellow; Glucose Urine UA 100 mg/dL (Negative); Leukocyte Esterase Urine Negative (Negative); Nitrite Urine Negative (Negative); PH 5.5 (5.0-9.0); Specific Gravity - Urine 1.015 (1.005-1.025); UMIC TRIGGER UACC YES; Urine Blood Negative (Negative); Urine Ketones Negative (Negative); Urine Protein 300 (3+) mg/dL (Neg-Trace)
[2024-05-25 17:35] LABS: Bacteria Urine None Seen (None Seen); Hyaline Casts Urine 0-2 /LPF (0-2); RBC Urine 0-2 /HPF (0-2); Squamous Epithelial Cell Urine 0-2 /HPF (0-2); WBC Urine 0-5 /HPF (0-5)
[2024-05-25] MEDS: Magnesium Oxide 400 MG TABLET 800 MG PO (18:09)
--- NOTE | 2024-05-25 18:11 | PC.NURSE ---
pt medicated with po magnesium per orders
[2024-05-25 18:25] LABS: Reflex Lactate? 2 Y
[2024-05-25 19:17] VITALS: BP 161/72; PULSE 63; RESP 18; TEMP 36.4; O2SAT 96
[2024-05-25 19:21] LABS: ~Lactic Acid-LAB USE ONLY 2.4 mmol/L (0.5-2.0)
[2024-05-25 19:48] VITALS: BP 161/72; PULSE 63; RESP 18; TEMP 36.4; O2SAT 96
== END 2024-05-25 19:50 | disposition home or self-care (01) ==
PROVIDERS: Physician Assistant; Emergency Provider Emergency Medicine; PCP Physician Assistant
DX: I44.0 Atrioventricular block, first degree (principal); R00.2 Palpitations; R06.09 Other forms of dyspnea; D72.829 Elevated white blood cell count, unspecified; R06.02 Shortness of breath; E11.9 Type 2 diabetes mellitus without complications; I10 Essential (primary) hypertension; E78.5 Hyperlipidemia, unspecified; E03.9 Hypothyroidism, unspecified; Z79.4 Long term (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 of insulin; Z79.84 Long term (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 of oral hypoglycemic drugs; Z79.85 Long-term (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 of injectable non-insulin antidiabetic drugs; Z79.899 Other long term (current) drug therapy
CPT/HCPCS: 36415; 71045; 71250; 80053; 81001; 83605; 83735; 84443; 84484; 85025; 87040; 93005; 96365; 96367; 99284; 99285; J2543; J3475; J7120

== ENCOUNTER → 2024-05-25 12:14 | Outpatient (BNV) | payer OTHER, SELFPAY | PROVIDERS: Emergency Provider Emergency Medicine; PCP Physician Assistant; Visit Provider Internal Medicine Cardiovascular Disease | DX: I44.0 Atrioventricular block, first degree (principal); R00.1 Bradycardia, unspecified | CPT/HCPCS: 93010 ==

== ENCOUNTER → 2024-05-25 13:05 | Outpatient (BNV) | payer OTHER, SELFPAY | PROVIDERS: Emergency Provider Emergency Medicine; PCP Physician Assistant; Visit Provider Radiology Diagnostic Radiology | DX: I51.7 Cardiomegaly (principal); R07.9 Chest pain, unspecified | CPT/HCPCS: 71045; 71250 ==

== ENCOUNTER 2024-05-27 11:05 | Inpatient (IN) | payer OTHER, SELFPAY ==
[2024-05-27] VITALS (10 sets, daily range): BP systolic 97–130; BP diastolic 58–90; PULSE 60–77; RESP 16–94; TEMP 36.7–36.9; O2SAT 89–98; BMI 29.3
--- NOTE | ~2024-05-27 | MR_ITS ---
CLINICAL HISTORY: intractable pain, weakness s p L4-L5 laminectomy Pt breathing motion throughout im aging. Rpt images attempted. Best images possible. MR lumbar spine with and without gadolinium Comparison: MR/SR - MR LUMBAR SPINE WO/W CON - 11/10/23 19:26 EDT Findings: Motion degraded images. Normal alignment. No acute fracture or pathologic bone lesion. Conus is terminating at T12-L1 abnormal level. No evidence of conus or cauda equina compression. Moderate multilevel spondylosis with disc space narrowing, osteophytosis, posterior disc bulges, and facet arthropathy. At L1-L2, mild spinal canal narrowing and mild left neural foraminal narrowing. L2-L3, mild spinal canal narrowing and moderate bilateral neural foraminal narrowing. L3-L4 mild spinal canal narrowing and moderate to severe bilateral neural foraminal narrowing causing abutment of the exiting bilateral nerve roots. At L4-L5 mild spinal canal narrowing. Moderate bilateral neural foraminal narrowing causing abutment of the exiting bilateral roots. L5-S1 mild spinal canal narrowing and moderate to severe left neural foraminal narrowing. . Paraspinous musculature intact. Small dorsal subcutaneous fluid collection measuring 1.5 cm, most likely represent postsurgical seroma. Postsurgical changes related to L4-L5 partial laminotomy with soft tissue edema. IMPRESSION: Motion degraded images. Postsurgical changes related to L4-L5 partial laminectomy with soft tissue edema and small subcutaneous fluid collection, most likely represent postsurgical seroma. Moderate multilevel spondylosis with mild spinal canal and multilevel moderate to severe neural foraminal narrowings as detailed in the findings. No evidence of conus or cauda equina compression. No epidural fluid collection. This document has been electronically signed by: Leah Downing MD on 05/27/2024 22:06:18
--- NOTE | 2024-05-27 11:32 | ED_ITS ---
HPI - Extremity Problem General Chief complaint: Extremity Problem Stated complaint: R LEG PAIN x 3-4 DAYS PER EMS Time Seen by Provider: 05/27/24 11:30 Source: patient, EMS and drag out worker Mode of arrival: EMS Limitations: language barrier History of Present Illness ED Provider: Claire Mccoy APRN HPI Narrative: 63 yo male with PMH of AV block, HTN, HLD, CKD, s/p Right L4-5 Laminotomy, partial facetectomy and foraminotomy on 05/[address] Bloom presents to the ER with complaints of progressive bilateral lower extremity weakness and pain post- operatively. He reports initially he was able to ambulate several steps post surgery and had no pain. Did not need to take any post-operative oxycodone or OTC medications. Yesterday morning with waking he was unable to ambulate and had significant pain radiating down both legs. He did take one dose of oxycodone in the last 24 hrs but it made him feel dizzy and did not improve his pain. He denies associated numbness/tingling in the legs, numbness in the groin, fevers, chills, bowel or bladder incontinence. Related Data Home Medications ?Medication ?Instructions ?Recorded ?Confirmed pen needle, diabetic 32 gauge x #100 ea 11/25/23 03/21/2403/03 (BD Ultra-Fine Micro Pen Needle) hydrochlorothiazide 25 mg tablet 25 mg PO DAILY 12/15/23 05/14/24 dulaglutide 0.75 mg/0.5 mL 0.75 mg subcut QWEEK 05/22/24 05/24/24 subcutaneous pen injector ([facility]) pantoprazole 40 mg tablet,delayed 40 mg PO QAM PRN Acid Reflux 05/22/24 05/24/24 release Previous Rx's ?Medication ?Instructions ?Recorded carvedilol 25 mg tablet 25 mg PO BID 90 days #180 tabs 09/30/23 lancets 28 gauge (FreeStyle #100 ea 09/30/23 Lancets) levothyroxine 125 mcg tablet 125 mcg PO DAILY #90 tabs 09/30/23 losartan 100 mg tablet 100 mg PO DAILY #90 tabs 09/30/23 metformin 1,000 mg tablet 1,000 mg PO BID 90 days #180 tabs 09/30/23 simvastatin 10 mg tablet 10 mg PO DAILY #90 tabs 09/30/23 spironolactone 25 mg tablet 25 mg PO DAILY #90 tabs 09/30/23 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 meter (FreeStyle #1 ea 11/18/23 Lite Meter kit) blood sugar diagnostic (FreeStyle #100 ea 11/23/23 Lite Strips) ferrous fumarate 325 mg (106 mg 325 mg PO DAILY #90 tabs 11/23/23 iron) tablet gabapentin 300 mg capsule 900 mg (3 x 300 mg) PO Q8H 30 days 11/23/23 #270 caps insulin glargine 100 unit/mL (3 30 unit (0.3 mL) subcut QPM #15 mL 11/23/23 mL) subcutaneous pen (Lantus Solostar U-100 Insulin) meclizine 25 mg tablet 25 mg PO TID PRN for dizziness #30 11/23/23 tabs amlodipine 10 mg tablet 5 mg (1/2 x 10 mg) PO DAILY #90 11/25/23 tabs hydralazine 25 mg tablet 50 mg (2 x 25 mg) PO TID 30 days 11/25/23 #180 tabs bismuth subcit K 140 3 cap PO QID 14 days #168 caps 11/26/23 mg-metronidazole 125 mg-tetracycline 125 mg cap (Pylera) acetaminophen 500 mg tablet 1,000 mg (2 x 500 mg) PO Q6H PRN 12/12/23 (Tylenol Extra Strength) pain #30 tabs diclofenac sodium 1 % topical gel 4 g topical QID PRN pain #100 grams 12/12/23 (Voltaren Arthritis Pain) lorazepam 0.5 mg tablet 0.5 mg PO Q8H PRN anxiety #5 tabs 01/16/24 cholecalciferol (vitamin D3) 25 25 mcg PO DAILY #90 caps 03/15/24 mcg (1,000 unit) capsule (Vitamin D3) 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 sensor (FreeStyle #2 ea 03/21/24 Matt 3 Sensor device) cyclobenzaprine 10 mg tablet 10 mg PO TID PRN muscle spasm 10 03/21/24 days #30 tabs FreeStyle Matt 3 [place] #1 ea 05/15/24 (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 meter,continuous) tirzepatide 2.5 mg/0.5 mL 2.5 mg (0.5 mL) subcut QWEEK 4 05/22/24 subcutaneous pen injector weeks #2 mL (Mounjaro) docusate sodium 100 mg capsule 100 mg PO BID #20 caps 05/24/24 (Colace) oxycodone 5 mg tablet 5 mg PO Q4H PRN pain #20 tabs 05/24/24 Allergies Allergy/AdvReac Type Severity Reaction Status Date / Time clindamycin [CLINDAMYCIN] Allergy Unknown SWELLING, Verified 05/27/24 11:19 RASH pravastatin Allergy Unknown increase Verified 05/27/24 11:19 liver enzymes Review of Systems 2 Review of Systems: Yes all other systems are reviewed and are negative Constitutional: Constitutional: Reports no additional constitutional complaints, Denies body ache(s), Denies chills, Denies fever(s), Denies headache(s) and Denies weakness Eyes: Eyes: Reports no additional eye complaints and Denies change in vision ENT: Reports system reviewed and no additional complaints, except as documented, Denies dizziness, Denies headache(s), Denies nasal congestion, Denies nasal discharge and Denies neck pain Cardiovascular: Cardiovascular: Reports no additional cardiovascular complaints, Denies chest pain, Denies leg edema and Denies dyspnea Respiratory: Respiratory: Reports no additional respiratory complaints, Denies cough and Denies dyspnea Gastrointestinal: Gastrointestinal: Reports no additional gastrointestinal complaints, Denies abdominal pain, Denies diarrhea, Denies nausea and Denies vomiting Genitourinary: Genitourinary: Denies urinary incontinence Musculoskeletal: Musculoskeletal: Reports no additional musculoskeletal complaints, Denies back pain, Denies arthralgias, Denies joint swelling, Denies neck pain, Denies numbness, Reports radiating pain into limb and Denies tingling Integumentary/Breasts: Skin/Breast: Reports system reviewed and no additional complaints, except as docu and Denies rash Neurologic: Reports system reviewed and no additional complaints, except as documented, Denies Abnormal speech present, Denies dizziness, Denies headache(s), Denies numbness, Denies tingling and Denies weakness PMFSH Past Medical History Attestation statement: The following information was validated with the patient. Source: old records reviewed and nursing notes reviewed Medical History Myocardial infarction Back pain Arthritis Thyroid disease Depression Numbness Habitual snoring Wheezing History of Helicobacter pylori infection Hypothyroid Forgetfulness Major depression, recurrent, chronic Dizziness Hypertension Hyperlipidemia Previous myocardial infarction older than 8 weeks Chest pain Microalbuminuria Chronic kidney disease Diabetic nephropathy Uncontrolled type 2 diabetes mellitus with hyperglycemia, with long-term current use of insulin Surgical History History of esophagogastroduodenoscopy (EGD) H/O colonoscopy Hx of appendectomy Hx of knee surgery Social History Social History Housing: House Are you a primary career placement specialist to a significant other at home: No Do you presently have visiting nurse or other home services: No Alcohol intake: current Alcohol intake frequency: does not drink Patient Tobacco Use Status: Never used Tobacco Smoked in Last 30 Days: No e-Cigarette/Vaping Use: Never Used Second Hand Smoke Exposure: No Advance Directives: No Advance Directives Information Provided: Yes service: No Current occupational status: unemployed Cognitive needs: No Hearing needs: No Vision needs: No Physical Exam 2 Vital Signs: Vital Signs: Last Vital Signs Temp 98.2 F 05/27/24 15:15 Pulse 73 05/27/24 15:15 Resp 16 05/27/24 15:15 BP 114/64 05/27/24 15:15 Pulse Ox 97 05/27/24 15:15 O2 Del Method Room Air 05/27/24 15:15 BMI result Body Mass Index 29.3 Const: General: cooperative, healthy appearing, comfortable and no acute distress Orientation/consciousness: patient oriented x3 Limitations: no limitations HEENT: Head: Yes normal to inspection Ears: hearing grossly normal bilaterally General nose exam: Normal external nose present Face and sinus: Yes normal facial exam Mouth: Normal oral and palatal mucosa present Throat: Yes posterior oropharynx normal Eyes: General: appearance normal, both eyes and all related structures P upils: Equal, round and reactive pupils present Neck: Neck: Yes normal visual inspection Chest: Chest palpation & inspection: normal inspection of the chest Resp: Effort & Inspection: normal respiratory effort Auscultation: clear to auscultation bilaterally Cardio: Rate: regular rate Rhythm: regular rhythm Peripheral pulses: P eripheral pulses 2+ throughout GI: Inspection: Yes normal to inspection Palpation (GI): Soft to palpation and nontender Auscultation: normal bowel sounds Rectal Exam - Male: Yes visual inspection normal and Yes normal sphincter tone Back/Spine/Pelvis: Other: Surgical incision noted-no signs of erythema/swelling Thoracic/Lumbar Spine: thoracic and lumbar spine normal to inspection Skin: General skin exam: no rashes or lesions noted Neuro: Other: Unable to lift right leg off the bed (muscle contraction noted with attempt 1/5) unable to participate in dorsiflexion/plantarflexion of the RLE. Sensation intact. 2+ DP/PT pulses. LLE 2/5, able to participate in dorsiflexion/plantarflexion with pain. Sensation intact. 2+ DP/PT pulses. Absent babinski reflex General: patient oriented x3, no focal motor deficits, normal sensation to monofilament and Unable to assess gait Cranial nerves: Yes CN's II-XII intact bilaterally, Yes Equal, round and reactive pupils present, Yes Bilaterally intact EOM present, Yes Nystagmus not present, Yes Normal facial strength present and Yes Midline tongue present Cognition (Neuro): normal cognition Speech: No Abnormal speech present Gait exam (Neuro): Unable to assess gait Extrem: General: Yes normal to inspection Medications Administered Discontinued Medications Generic Name Dose Route Start Last Admin Trade Name Freq PRN Reason Stop Dose Admin Dexamethasone Sodium Phosphate 10 mg 05/27/24 12:47 05/27/24 12:55 Dexamethasone Sod Phosphate 10 Mg/Ml Vial IVPUSH 05/27/24 12:48 10 mg ONCE ONE Administration Gabapentin 300 mg 05/27/24 13:30 05/27/24 13:49 Gabapentin 300 Mg Capsule PO 05/27/24 13:31 300 mg ONCE ONE Administration Morphine Sulfate 4 mg 05/27/24 11:54 05/27/24 12:04 Morphine Sulfate 4 Mg/Ml Cartridge IVPUSH 05/27/24 11:55 4 mg ONCE ONE Administration Protocol Ondansetron HCl 4 mg 05/27/24 11:54 05/27/24 12:04 Ondansetron Hcl 4 Mg/2 Ml Vial IVPUSH 05/27/24 11:55 4 mg ONCE ONE Administration Oxycodone HCl 10 mg 05/27/24 14:45 05/27/24 15:20 Oxycodone Hcl Immed Release 5 Mg Tablet PO 05/27/24 14:46 10 mg ONCE ONE Administration Medical Decision Making Medical Decision Making [facility] Narrative: 63 yo male with PMH of AV block, HTN, HLD, CKD, s/p Right L4-5 Laminotomy, partial facetectomy and foraminotomy on 05/[address] Bloom presents to the ER with complaints of progressive bilateral lower extremity weakness and pain post- operatively. He reports initially he was able to ambulate several steps post surgery and had no pain. Did not need to take any post-operative oxycodone or OTC medications. Yesterday morning with waking he was unable to ambulate and had significant pain radiating down both legs. He did take one dose of oxycodone in the last 24 hrs but it made him feel dizzy and did not improve his pain. He denies associated numbness/tingling in the legs, numbness in the groin, fevers, chills, bowel or bladder incontinence. Weakness/pain noted in LE. Sensation normal. CMS intact distally. Normal rectal exam. Will obtain labs, provide analgesia, d/w with spinal surgeon Differential Diagnosis Differential Diagnoses: The differential diagnosis associated with the presentation includes See course, MDM and d/w with specialists Post-operative seroma/hematoma, doubt compression/caude equina No other neurological deficits to suggest more central cause Admission/Observation Consideration of admission/observation: Escalation of care including admission/observation considered Consult Healthcare Provider Management of the patient was discussed with: Hospitalist and Electrode Cleaner [phone]-Reached out to Dr Bloom via [employer] [phone]-No response, reached out to office 1305-Spoke to John Hancock PA-C sound like it?s post op irritation of the nerve Recommended pain control. Will evaluate the patient tomorrow in the ER. Does not recommend imaging. 1450-Spoke to medicine d/t intractable pain, recommended 10mg oxycodone and re- assessment. 1530-Wolf reached out to me via [employer] text and we spoke on the phone about the patient. we discuss the patient's intractable pain. We discussed they will be admitting the patient to the medicine service. He recommended the patient have an MRI tomorrow. They will see the patient in the morning and if deemed unnecessary they will cancel the order. 1600-Patient still in pain. Updated medicine and they will admit patient Lab Data [facility] Lab Attestation statement: I reviewed the patient's lab results. 05/27/24 12:00 05/27/24 12:00 Labs: Lab Results 05/27/24 05/27/24 Range/Units 12:00 15:21 WBC 16.5 H (4.8-10.8) X10*3/uL RBC 4.11 L (4.60-5.80) X10*6/uL Hgb 11.9 L (14.0-18.0) g/dl Hct 35.4 L (42.0-52.0) % MCV 86.1 (80.0-98.0) fL MCH 29.0 (27.0-33.0) pg MCHC 33.6 (31.0-36.0) g/dl RDW 14.2 (11.0-16.0) % Plt Count 214 (160-400) X10*3/uL MPV 10.5 (9.4-12.4) fL Immature Gran % (Auto) 0.6 H (0.0-0.4) % Neut % (Auto) 76.3 H (45-73) % Lymph % (Auto) 9.0 L (20-40) % [place] % (Auto) 12.4 H (2-11) % Eos % (Auto) 1.3 (0-4) % Baso % (Auto) 0.4 (0-2) % Lymph # (Auto) 1.5 (1.2-4.9) X10*3/uL [place] # (Auto) 2.1 H (0.1-1.2) X10*3/uL Eos # (Auto) 0.2 (0.0-0.4) X10*3/uL Baso # (Auto) 0.1 (0.0-0.2) X10*3/uL Abs Immat Gran (auto) 0.10 H (0.00-0.03) X10*3/uL Absolute Neuts (auto) 12.6 H (2.0-8.3) x10*3/uL Absolute Nucleated RBC 0.000 (0.0-0.012) X10*3/uL Nucleated RBC % (auto) 0.0 (0.0-0.2) /100WBC Smear Tech's Comments VERIFIED Sodium 138 (135-145) mmol/L Potassium 4.6 (3.3-5.1) mmol/L Chloride 101 (96-108) mmol/L Carbon Dioxide 28 (22-29) mmol/L Anion Gap 14 (12-20) BUN 25 H (9-16) mg/dL Creatinine 1.63 H (0.5-1.4) mg/dL Estim Creat Clear Calc 44.2 Estimated GFR 43 Random Glucose 100 (60-115) mg/dL Calcium 9.4 D (8.4-10.2) mg/dL Total Bilirubin 0.6 (0.0-1.0) mg/dL Direct Bilirubin 0.2 (0.0-0.5) mg/dL AST 17 (5-37) U/L ALT 8 (0-40) U/L Alkaline Phosphatase 55 (39-117) U/L Total Protein 6.7 (6.5-8.0) g/dL Albumin 3.7 (3.5-5.0) g/dL Urine Color Yellow Urine Appearance Clear Urine pH 6.0 (5.0-9.0) Ur Specific [place] 1.015 (1.005-1.025) Urine Protein >=1000 (4+) H (Neg-Trace) mg/dL Urine Glucose (UA) Negative (Negative) mg/dL Urine Ketones Negative (Negative) mg/dL Urine Blood Negative (Negative) Urine Nitrite Negative (Negative) Ur Leukocyte Esterase Negative (Negative) Urine RBC 0-2 (0-2) /HPF Urine WBC 0-5 (0-5) /HPF Ur Squamous Epith Cells 0-2 (0-2) /HPF Urine Bacteria None Seen (None Seen) Hyaline Casts 3-5 (0-2) /LPF Independent Historian Clinical information obtained from an independent historian. History obtained from or confirmed by: EMS and Other (Son) External Record Review External record reviewed: Inpatient record and Outpatient record Critical Care Time Critical Care Time Critical Care Time: Yes Total Critical Care Time: 90 Attestation: multiple re-evaluations of the patient and their pain. Discussion with business objects consultant, discussion with hospitalist for admission Discharge Plan Discharge Clinical Impression: Intractable back pain Patient Disposition: Admitted As Inpatient Prescriptions: No Action carvedilol 25 mg tablet 25 mg PO BID 90 Days Qty: 180 3RF Rx Instructions: must administer with a meal/food losartan 100 mg tablet 100 mg PO DAILY Qty: 90 3RF levothyroxine 125 mcg tablet 125 mcg PO DAILY Qty: 90 3RF simvastatin 10 mg tablet 10 mg PO DAILY Qty: 90 3RF spironolactone 25 mg tablet 25 mg PO DAILY Qty: 90 3RF metformin 1,000 mg tablet 1,000 mg PO BID 90 Days Qty: 180 3RF (DME) lancets [FreeStyle Lancets] 28 gauge misc See Rx Instructions .Route Qty: 100 3RF Rx Instructions: Use daily As directed to check blood sugar (DME) 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 meter [FreeStyle Lite Meter] Kit See Rx Instructions .ROUTE .MEDSUPPLY Qty: 1 0RF Rx Instructions: Use daily As directed to check blood glucose meclizine 25 mg tablet 25 mg PO TID PRN (Reason: for dizziness) Qty: 30 0RF ferrous fumarate 325 mg (106 mg iron) tablet 325 mg PO DAILY Qty: 90 0RF bismuth subcit [id number]-[id number]-[id number] [Pylera] 140-125-125 mg capsule 3 cap PO QID 14 Days Qty: 168 0RF lorazepam 0.5 mg tablet 0.5 mg PO Q8H PRN (Reason: anxiety) Qty: 5 0RF Rx Instructions: Take 30 minutes prior to procedure. May repeat dose. cholecalciferol (vitamin D3) [Vitamin D3] 25 mcg (1,000 unit) capsule 25 mcg PO DAILY Qty: 90 0RF (DME) FreeStyle Matt 3 [place] Misc See Rx Instructions .ROUTE .MEDSUPPLY Qty: 1 0RF Rx Instructions: As directed for use with freestyle matt Mounjaro 2.5 mg/0.5 mL pen injector 2.5 mg subcut QWEEK 28 Days Qty: 2 2RF Rx Instructions: do not take mounjaro for one week before surgery date start back at least one day after surgery once you are able to tolerate food post operatively. diclofenac sodium [Voltaren Arthritis Pain] 1 % gel 4 g topical QID PRN (Reason: pain) Qty: 100 0RF Rx Instructions: apply to single knee, ankle, foot; for foot includes sole/toes/top of foot acetaminophen [Tylenol Extra Strength] 500 mg tablet 1,000 mg PO Q6H PRN (Reason: pain) Qty: 30 0RF Trulicity 0.75 mg/0.5 mL pen injector 0.75 mg subcut QWEEK Patient Comments: takes every pantoprazole 40 mg tablet,delayed release (DR/EC) 40 mg PO QAM PRN (Reason: Acid Reflux) oxycodone 5 mg tablet 5 mg PO Q4H PRN (Reason: pain) Qty: 20 0RF Rx Instructions: Partial Fill upon patient request. docusate sodium [Colace] 100 mg capsule 100 mg PO BID Qty: 20 0RF (DME) FreeStyle Lite Strips Strip See Rx Instructions .ROUTE .MEDSUPPLY Qty: 100 3RF Rx Instructions: use daily As directed to check blood sugars for diabetes insulin glargine [Lantus Solostar U-100 Insulin] 100 unit/mL (3 mL) insulin pen 30 unit subcut QPM Qty: 15 3RF gabapentin 300 mg capsule 900 mg PO Q8H 30 Days Qty: 270 3RF hydralazine 25 mg tablet 50 mg PO TID 30 Days Qty: 180 6RF amlodipine 10 mg tablet 5 mg PO DAILY Qty: 90 3RF (DME) FreeStyle Matt 3 Sensor Device See Rx Instructions .ROUTE .MEDSUPPLY Qty: 2 11RF Rx Instructions: For continuous use apply new sensor every 14 days (DME) pen needle, diabetic [BD Ultra-Fine Micro Pen Needle] 32 gauge x 1/4 needle See Rx Instructions .ROUTE .MEDSUPPLY Qty: 100 Rx Instructions: As directed hydrochlorothiazide 25 mg tablet 25 mg PO DAILY cyclobenzaprine 10 mg tablet 10 mg PO TID PRN (Reason: muscle spasm) 10 Days Qty: 30 2RF Print Language: [place]
[2024-05-27] MEDS: ondansetron HCL 4 MG/2 ML VIAL IVPUSH (12:04)
[2024-05-27] MEDS: Morphine Sulfate 4 MG/ML CARTRIDGE IVPUSH (12:04)
[2024-05-27 12:07] LABS: Basophils Absolute Auto 0.1 X10*3/uL (0.0-0.2); Basophils Percent Auto 0.4 % (0-2); Eosinophils Absolute Auto 0.2 X10*3/uL (0.0-0.4); Eosinophils Percent Auto 1.3 % (0-4); Hematocrit 35.4 % (42.0-52.0); Hemoglobin 11.9 g/dl (14.0-18.0); Imm Gran Pct Auto 0.6 % (0.0-0.4); Lymphocytes Absolute Auto 1.5 X10*3/uL (1.2-4.9); MANUAL DIFF FLAG SCAN; Mean Corpuscular HGB Conc 33.6 g/dl (31.0-36.0); Mean Corpuscular Volume 86.1 fL (80.0-98.0); Mean Platelet Volume 10.5 fL (9.4-12.4); Monocytes Absolute Auto 2.1 X10*3/uL (0.1-1.2); Monocytes Percent Auto 12.4 % (2-11); Neutrophils Absolute Auto 12.6 x10*3/uL (2.0-8.3); Neutrophils Percent Auto 76.3 % (45-73); Platelet Count 214 X10*3/uL (160-400); Red Blood Count 4.11 X10*6/uL (4.60-5.80); Red Cell Distribution Width 14.2 % (11.0-16.0); SCAN SMEAR FLAG 1; White Blood Count 16.5 X10*3/uL (4.8-10.8)
[2024-05-27 12:20] LABS: Alanine Aminotransferase 8 U/L (0-40); Albumin Level 3.7 g/dL (3.5-5.0); Alkaline Phosphatase 55 U/L (39-117); Anion Gap 14 (12-20); Aspartate Amino Transferase 17 U/L (5-37); Bilirubin Direct 0.2 mg/dL (0.0-0.5); Bilirubin Total 0.6 mg/dL (0.0-1.0); Blood Urea Nitrogen 25 mg/dL (9-16); Calcium 9.4 mg/dL (8.4-10.2); Carbon Dioxide 28 mmol/L (22-29); Chloride 101 mmol/L (96-108); Creatinine Clr Calc Pharmacy 44.2; Estimated Glomerular Filt Rate 43; Glucose Random 100 mg/dL (60-115); Potassium 4.6 mmol/L (3.3-5.1); Sodium 138 mmol/L (135-145); Total Protein 6.7 g/dL (6.5-8.0)
[2024-05-27 12:29] LABS: SLIDE REVIEW VERIFIED
[2024-05-27] MEDS: dexAMETHasone sod phosphate 10 MG/ML VIAL IVPUSH (12:55)
[2024-05-27] MEDS: Gabapentin 300 MG CAPSULE PO (13:49)
[2024-05-27] MEDS: oxyCODONE HCl Immed Release 5 MG TABLET 10 MG PO (15:20)
[2024-05-27 15:27] LABS: Appearance Urine Clear; Color Urine Yellow; Glucose Urine UA Negative (Negative); Leukocyte Esterase Urine Negative (Negative); Nitrite Urine Negative (Negative); Specific Gravity - Urine 1.015 (1.005-1.025); UMIC TRIGGER UACC YES; Urine Blood Negative (Negative); Urine Ketones Negative (Negative); Urine Protein >=1000 (4+) mg/dL (Neg-Trace)
[2024-05-27 15:31] LABS: Bacteria Urine None Seen (None Seen); RBC Urine 0-2 /HPF (0-2); Squamous Epithelial Cell Urine 0-2 /HPF (0-2); WBC Urine 0-5 /HPF (0-5)
--- NOTE | 2024-05-27 18:13 | PM.IMHP ---
History of Present Illness Date of Service: 05/27/24 Attending physician on admission: Katherine Stuart Chief Complaint: intractable back pain, weakness 63-year-old male with history of hypertension, hyperlipidemia, CKD stage 3, insulin-dependent type 2 diabetes who is s/p right L4-5 laminectomy, partial facetectomy and foreminotomy 05/[address] Bloom presented to the ED earlier today for evaluation of severe bilateral lower extremity pain right greater than left with associated weakness ongoing since yesterday morning. He states that following the procedure he had minimal pain and has only required 1 dose of oxycodone. He was able to ambulate with some assistance from family. Upon waking yesterday, he was unable to move in his bed and unable to ambulate. He reports his pain is currently 10/10 on did not respond to oxycodone, Decadron, and morphine. Denies any paresthesias, saddle anesthesia, bladder/ bowel dysfunction. In the ED, vitals stable. He has a leukocytosis of 16.5, down from 24 on 05/25. Renal function baseline, electrolyte levels normal. Hepatic function within normal limits. Urinalysis not indicative of infection but shows significant proteinuria. Discussed with neurosurgery. He will be admitted for pain management. Seen with the assistance of family and language interpreter at bedside Review of Systems Review of Systems: Yes all other systems are reviewed and are negative [facility] Medical History Myocardial infarction Back pain Arthritis Thyroid disease Depression Numbness Habitual snoring Wheezing History of Helicobacter pylori infection Hypothyroid Forgetfulness Major depression, recurrent, chronic Dizziness Hypertension Hyperlipidemia Previous myocardial infarction older than 8 weeks Chest pain Microalbuminuria Chronic kidney disease Diabetic nephropathy Uncontrolled type 2 diabetes mellitus with hyperglycemia, with long-term current use of insulin Surgical History History of esophagogastroduodenoscopy (EGD) H/O colonoscopy Hx of appendectomy Hx of knee surgery Social History Housing: House Are you a primary care program director to a significant other at home: No Do you presently have visiting nurse or other home services: No Alcohol intake: current Alcohol intake frequency: does not drink Patient Tobacco Use Status: Never used Tobacco Smoked in Last 30 Days: No e-Cigarette/Vaping Use: Never Used Second Hand Smoke Exposure: No Advance Directives: No Advance Directives Information Provided: Yes service: No Current occupational status: unemployed Cognitive needs: No Hearing needs: No Vision needs: No Meds Allergies Allergy/AdvReac Type Severity Reaction Status Date / Time clindamycin [CLINDAMYCIN] Allergy Unknown SWELLING, Verified 05/27/24 11:19 RASH pravastatin Allergy Unknown increase Verified 05/27/24 11:19 liver enzymes Active Medications: Current Medications Acetaminophen (Acetaminophen 325 Mg Tablet) 650 mg PO Q6H PRN PRN Reason: Pain, Mild 1-3,fever,headache Heparin Sodium (Porcine) (Heparin Sodium,Porcine 5,000 Unit/Ml Vial) 5,000 unit SUBCUT Q12H JENNIFER Hydromorphone HCl (Hydromorphone Hcl 1 Mg/Ml Syringe) 0.5 mg IVPUSH Q4H PRN; Protocol PRN Reason: Pain, Severe (Pain Scale 7-10) Ondansetron HCl (Ondansetron Hcl 4 Mg/2 Ml Vial) 4 mg IVPUSH Q8H PRN PRN Reason: Nausea and Vomiting Oxycodone HCl (Oxycodone Hcl Immed Release 5 Mg Tablet) 5 mg PO Q6H PRN PRN Reason: Pain, Moderate(Pain Scale 4-6) Home Medications ?Medication ?Instructions ?Recorded ?Confirmed ?Last Taken ?Type pen needle, diabetic 32 gauge x #100 ea 11/25/23 03/21/24 Unknown History 1/4 (BD Ultra-Fine Micro Pen Needle) dulaglutide 0.75 mg/0.5 mL 0.75 mg subcut QWEEK 05/22/24 05/24/24 05/12/24 History subcutaneous pen injector (Trulicity) pantoprazole 40 mg tablet,delayed 40 mg PO QAM PRN Acid Reflux 05/22/24 05/24/24 05/24/24 History release amlodipine 10 mg tablet 10 mg PO DAILY 05/27/24 05/27/24 Unknown History latanoprost 0.005 % eye drops 1 drp ophthalmic-Right BEDTIME 05/27/24 05/27/24 Unknown History sennosides 8.6 mg tablet (senna) 17.2 mg PO BEDTIME PRN constipation 05/27/24 05/27/24 Unknown History Physical Exam Vital Signs and Narrative: Vital Signs: Last Vital Signs Temp 98.2 F 05/27/24 15:15 Pulse 73 05/27/24 15:15 Resp 16 05/27/24 15:15 BP 114/64 05/27/24 15:15 Pulse Ox 97 05/27/24 15:15 O2 Del Method Room Air 05/27/24 15:15 BMI result Body Mass Index 29.3 Constitutional - Awake and Alert, No apparent distress Eyes - PERRLA, EOMI Cardiovascular - S1S2, RRR, No edema Respiratory - Normal lung expansion, Normal respiratory effort, No respiratory distress, CTA bilaterally Gastrointestinal - NT / ND; +BS; No rebound or guarding Extremities - no calf tenderness bilaterally, no swelling Musculoskeletal - RLE externally rotated Skin - Warm/Dry Neurological - Alert & oriented x3, sensation in tact, absent patellar reflex on R, 1+ L. negative babinski reflex. 0/5 strength RLE, 1/5 strength LLE, able to wiggle toes Results Labs 05/27/24 12:00 05/27/24 12:00 Labs: Laboratory Results - last 24 hr 05/27/24 05/27/24 12:00 15:21 MCV 86.1 MCH 29.0 MCHC 33.6 RDW 14.2 Plt Count 214 MPV 10.5 Immature Gran % (Auto) 0.6 H Neut % (Auto) 76.3 H Lymph % (Auto) 9.0 L [place] % (Auto) 12.4 H Eos % (Auto) 1.3 Baso % (Auto) 0.4 Lymph # (Auto) 1.5 [place] # (Auto) 2.1 H Eos # (Auto) 0.2 Baso # (Auto) 0.1 Abs Immat Gran (auto) 0.10 H Absolute Neuts (auto) 12.6 H Absolute Nucleated RBC 0.000 Nucleated RBC % (auto) 0.0 Smear Tech's Comments VERIFIED Anion Gap 14 Estim Creat Clear Calc 44.2 Estimated GFR 43 Random Glucose 100 Calcium 9.4 D Total Bilirubin 0.6 Direct Bilirubin 0.2 AST 17 ALT 8 Alkaline Phosphatase 55 Total Protein 6.7 Albumin 3.7 Urine Color Yellow Urine Appearance Clear Urine pH 6.0 Ur Specific [place] 1.015 Urine Protein >=1000 (4+) H Urine Glucose (UA) Negative Urine Ketones Negative Urine Blood Negative Urine Nitrite Negative Ur Leukocyte Esterase Negative Urine RBC 0-2 Urine WBC 0-5 Ur Squamous Epith Cells 0-2 Urine Bacteria None Seen Hyaline Casts 3-5 Assessment and Plan (1) Intractable back pain: Status: Acute Plan 63-year-old male with history of hypertension, hyperlipidemia, CKD stage 3, insulin-dependent type 2 diabetes who is s/p right L4-5 laminectomy, partial facetectomy and foreminotomy 05/[address] Bloom admitted for further management of intractable right-sided low back and bilateral lower extremity pain and weakness Intractable R low back and b/l LE weakness (R>L) with associated weakness and inability to ambulate s/p right L4-5 laminectomy, partial facetectomy and foreminotomy 05/[address] Bloom. no bowel/ bladder dysfunction, saddle anesthesia, paresthesias MR w/wo lumbar spine am Hold on further steroids. given decadron in the ED IV hydromorphone and oxycodone using pain scale continue gabapentin neurosurgery consult PT evaluation insulin-dependent type 2 diabetes dose adjusted basal insulin POC glucose, diabetic diet sliding scale insulin hold metformin, trace appetite hypertension blood pressure is soft. Hold antihypertensives. Resume as blood pressure allows hypothyroidism continue levothyroxine CKD stage 3 with proteinuria renal function baseline outpatient follow-up with Nephrology HLD statin GERD PPI DVT prophylaxis-heparin full code patient requires inpatient stay at least 2 midnights due to intractable low back and bilateral lower extremity pain resulting in inability to walk requiring advanced imaging given recent surgical history as well as IV analgesia and expert consultation Quality Stroke Does the patient have a stroke diagnosis?: No VTE Prior VTE?: No VTE Risk Level:: Medical - moderate - high VTE Device Contraindication: Treatment Not Indicated VTE Drug Contraindication: N/A - Med Ordered
[2024-05-27] MEDS: Heparin Sodium,Porcine 5,000 UNIT/ML VIAL 5000 UNIT SUBCUT (18:30)
[2024-05-27] MEDS: HYDROmorphone HCl 1 MG/ML SYRINGE 0.5 MG IVPUSH (18:31)
--- NOTE | 2024-05-27 19:01 | PHA.MEDREC ---
Addendum entered by Marlon Elliott [facility] 05/27/24 19:39: Med rec was reviewed by [facility]. Addendum entered by Marlon Elliott [facility] 05/27/24 19:34: In regards to hydrochlorothiazide, it was last filled in october 2023 for 90 day supply but it was still on the recent discharged paper (from surgery). Provider Melissa Trevino was notified of the discrepancy and she wants it to be left off. Med was taken off of home med list. Original Note: Pharmacy Consult ? Medication Reconciliation Pharmacy has completed the medication reconciliation. Spoke with family at bedside, patient was asleep. They had a list on their phone but unsure how uptodate is. Used claims to confirm medications as well. Family reports 30 units of insulin, Office note from 2024 reports 30 units as well. Glipized per same note was DC'ed by neurologist. Family says patient did not start Mounjaro yet and is still on Trulicity, he takes on Tuesdays. He did not have it last week d/t surgery but had the week before. Family says patient had his medications this morning.
[2024-05-27] MEDS: Insulin Lispro 100 UNIT/ML 3 ML VIAL SUBCUT (20:20)
--- NOTE | 2024-05-27 20:22 | PC.NURSE ---
pt to mri via transport personnel
[2024-05-27 21:05] LABS: Glucose, Whole Blood 300 mg/dL (60-115)
[2024-05-27] MEDS: gadobutroL 10 ML VIAL IVPUSH (21:14)
[2024-05-27] MEDS: Docusate Sodium 100 MG CAPSULE PO (21:56)
[2024-05-27] MEDS: Gabapentin 300 MG CAPSULE 900 MG PO (21:56)
[2024-05-27] MEDS: Insulin Glargine,Hum.rec.anlog 100 UNIT/ML 10 ML VIAL 23 UNIT SUBCUT (22:02)
[2024-05-27] MEDS: Latanoprost 0.005 % Ophth Sol 2.5 ML DROPS 1 DROP EYE-RIGHT (22:45)
[2024-05-28 01:01] LABS: Glucose, Whole Blood 316 mg/dL (60-115)
[2024-05-28 01:01] LABS: Glucose, Whole Blood 284 mg/dL (60-115)
[2024-05-28 05:20] VITALS: BP 156/72; PULSE 52; RESP 18; TEMP 36.4; O2SAT 95
[2024-05-28] MEDS: Gabapentin 300 MG CAPSULE 900 MG PO ×2 (05:23→13:46)
[2024-05-28] MEDS: Heparin Sodium,Porcine 5,000 UNIT/ML VIAL 5000 UNIT SUBCUT (05:23)
[2024-05-28 05:28] LABS: MANUAL DIFF FLAG NO
[2024-05-28 05:29] LABS: Basophils Percent Auto 0.1 % (0-2); Eosinophils Percent Auto 0.1 % (0-4); Hematocrit 31.1 % (42.0-52.0); Hemoglobin 10.3 g/dl (14.0-18.0); Imm Gran Abs Auto 0.14 X10*3/uL (0.00-0.03); Imm Gran Pct Auto 0.8 % (0.0-0.4); Lymphocytes Absolute Auto 0.7 X10*3/uL (1.2-4.9); Mean Corpuscular HGB Conc 33.1 g/dl (31.0-36.0); Mean Corpuscular Hemoglobin 28.6 pg (27.0-33.0); Mean Corpuscular Volume 86.4 fL (80.0-98.0); Mean Platelet Volume 11.2 fL (9.4-12.4); Monocytes Absolute Auto 1.2 X10*3/uL (0.1-1.2); Monocytes Percent Auto 6.9 % (2-11); Neutrophils Percent Auto 88.1 % (45-73); Platelet Count 194 X10*3/uL (160-400); Red Cell Distribution Width 14.1 % (11.0-16.0)
[2024-05-28 05:46] LABS: Anion Gap 14 (12-20); Blood Urea Nitrogen 48 mg/dL (9-16); Calcium 8.5 mg/dL (8.4-10.2); Carbon Dioxide 22 mmol/L (22-29); Chloride 100 mmol/L (96-108); Creatinine Clr Calc Pharmacy 23.6; Estimated Glomerular Filt Rate 21; Glucose Random 341 mg/dL (60-115); Potassium 5.3 mmol/L (3.3-5.1); Sodium 131 mmol/L (135-145)
[2024-05-28 06:15] VITALS: BP 126/64; PULSE 84; RESP 16; TEMP 36.4; O2SAT 95
[2024-05-28] MEDS: Insulin Lispro 100 UNIT/ML 3 ML VIAL SUBCUT ×2 (06:52→13:47)
[2024-05-28] MEDS: Levothyroxine Sodium 125 MCG TABLET PO (07:07)
--- NOTE | 2024-05-28 07:08 | PC.NURSE ---
patient a&ox3, vss,pt on 1LNC not home o2 dependent, pt currently at rest has 3/10 RLE pain which increases with movement. rr equal/non labored, lungs clear, family at bedside, call parish within reach, plan of care ongoing
[2024-05-28 08:12] LABS: Glucose, Whole Blood 303 mg/dL (60-115)
--- NOTE | 2024-05-28 09:10 | HO.NEUROPN_ITS ---
Neurosurgery Operative Note Date of Service: 05/28/24 Narrative: Postop day 4. Right L4-5 hemilaminotomy Patient went to the emergency room yesterday with significant increase in pain, primarily in the right leg. He had a lot of trouble standing and walking, and lifting his legs off the bed. He was having some incisional pain as well. He has been managed on morphine. He was not taking the oxycodone at home, just 1 time. He feels much better today. He underwent an MRI last night which showed no evidence of any nerve compression. He is lying comfortably in bed today, I examined him and he has full strength of bilateral lower extremities, his wound looks great, no signs of hematoma. Outer dressing is still intact with Steri- Strips underneath. Case reviewed with Dr. Bloom, the patient had a more slightly postoperative nerve irritation which resolved with some gentle conservative treatment. He feels better today. His MRIs exclude any postoperative complications. Would discharge him home with muscle relaxer, and I instructed the patient to take Tylenol and oxycodone at home. Please call if we can be of any further assistance. I did tell the emergency room nursing that he would not need to go upstairs and be admitted, he could just be discharged from the ED.
[2024-05-28 09:51] VITALS: BP 121/65; PULSE 94; RESP 16; TEMP 36.6; O2SAT 95
[2024-05-28] MEDS: Docusate Sodium 100 MG CAPSULE PO (10:04)
[2024-05-28] MEDS: Atorvastatin Calcium 10 MG TABLET PO (10:05)
[2024-05-28] MEDS: Cholecalciferol (Vitamin D3) 25 MCG TABLET PO (10:05)
--- NOTE | 2024-05-28 11:12 | PC.NURSE ---
Report received at this time. Taken over care at this time.
--- NOTE | 2024-05-28 11:21 | P.DS_ITS ---
DS: Providers Provider Date of Service: 05/28/24 Date of admission: 05/27/24 17:54 Date of discharge: 05/28/24 Primary care physician: Catalina Hamilton PA-C Consults: 05/27/24 17:53 Consult to Neurosurgery Routine Consulting Provider: Nikolai Bloom Reason for consultation: intractable low back pain, weakness DS: Diagnosis Discharge Diagnosis (1) Intractable back pain: Status: Acute DS: Summary Hospital Course Hospital Course: 63-year-old male with history of hypertension, hyperlipidemia, CKD stage 3, insulin-dependent type 2 diabetes who is s/p right L4-5 laminectomy, partial facetectomy and foreminotomy 05/[address] Bloom presented to the ED earlier today for evaluation of severe bilateral lower extremity pain right greater than left with associated weakness ongoing since yesterday morning. He states that following the procedure he had minimal pain and has only required 1 dose of oxycodone. He was able to ambulate with some assistance from family. Upon waking yesterday, he was unable to move in his bed and unable to ambulate. He reports his pain is currently 10/10 on did not respond to oxycodone, Decadron, and morphine. Denies any paresthesias, saddle anesthesia, bladder/ bowel dysfunction. In the ED, vitals stable. He has a leukocytosis of 16.5, down from 24 on 05/25. Renal function baseline, electrolyte levels normal. Hepatic function within normal limits. Urinalysis not indicative of infection but shows significant proteinuria. Discussed with neurosurgery. He will be admitted for pain management. Seen with the assistance of family and car ferrier at bedside [facility] Admitted to general medical floor. Seen in consultation by Dr. Bloom and imaging reviewed. Patient's pain resolved in with Pending his blessing patient will be sent home to resume outpatient meds and follow up in office Time Attestation Discharge Coordination Time (in mins): 35 Quality: Safe Use of Opioids Does Pt have an Active Cancer Diagnosis on the Problem List?: No Quality: Stroke Does the patient have a stroke diagnosis?: No Physical Exam Vital Signs: Vital Signs: Last Vital Signs Temp 97.9 F 05/28/24 09:51 Pulse 94 05/28/24 09:51 Resp 16 05/28/24 09:51 BP 121/65 05/28/24 09:51 Pulse Ox 95 05/28/24 09:51 O2 Del Method Room Air 05/28/24 09:51 O2 Flow Rate 1 05/28/24 06:15 BMI result Body Mass Index 29.3 Const: Other: Awake alert no acute distress Resp: Other: Clear to auscultation bilaterally no rales rhonchi or wheezes Cardio: Other: No S4; positive S1-S2; no S3 murmurs rubs or gallops GI: Other: Soft nontender nondistended normoactive bowel sounds Extrem: Other: No edema bilaterally DS: Data Data Completed and Pending Labs on day of discharge: Laboratory Results - last 24 hr 05/27/24 05/27/24 05/27/24 12:00 15:21 20:17 WBC 16.5 H RBC 4.11 L Hgb 11.9 L Hct 35.4 L MCV 86.1 MCH 29.0 MCHC 33.6 RDW 14.2 Plt Count 214 MPV 10.5 Immature Gran % (Auto) 0.6 H Neut % (Auto) 76.3 H Lymph % (Auto) 9.0 L [place] % (Auto) 12.4 H Eos % (Auto) 1.3 Baso % (Auto) 0.4 Lymph # (Auto) 1.5 [place] # (Auto) 2.1 H Eos # (Auto) 0.2 Baso # (Auto) 0.1 Abs Immat Gran (auto) 0.10 H Absolute Neuts (auto) 12.6 H Absolute Nucleated RBC 0.000 Nucleated RBC % (auto) 0.0 Smear Tech's Comments VERIFIED Sodium 138 Potassium 4.6 Chloride 101 Carbon Dioxide 28 Anion Gap 14 BUN 25 H Creatinine 1.63 H Estim Creat Clear Calc 44.2 Estimated GFR 43 POC Glucose 300 H Random Glucose 100 Calcium 9.4 D Total Bilirubin 0.6 Direct Bilirubin 0.2 AST 17 ALT 8 Alkaline Phosphatase 55 Total Protein 6.7 Albumin 3.7 Urine Color Yellow Urine Appearance Clear Urine pH 6.0 Ur Specific [place] 1.015 Urine Protein >=1000 (4+) H Urine Glucose (UA) Negative Urine Ketones Negative Urine Blood Negative Urine Nitrite Negative Ur Leukocyte Esterase Negative Urine RBC 0-2 Urine WBC 0-5 Ur Squamous Epith Cells 0-2 Urine Bacteria None Seen Hyaline Casts 3-5 05/27/24 05/27/24 05/28/24 21:50 23:33 05:14 WBC 17.0 H RBC 3.60 L Hgb 10.3 L Hct 31.1 L MCV 86.4 MCH 28.6 MCHC 33.1 RDW 14.1 Plt Count 194 MPV 11.2 Immature Gran % (Auto) 0.8 H Neut % (Auto) 88.1 H Lymph % (Auto) 4.0 L [place] % (Auto) 6.9 Eos % (Auto) 0.1 Baso % (Auto) 0.1 Lymph # (Auto) 0.7 L [place] # (Auto) 1.2 Eos # (Auto) 0.0 Baso # (Auto) 0.0 Abs Immat Gran (auto) 0.14 H Absolute Neuts (auto) 15.0 H Absolute Nucleated RBC 0.000 Nucleated RBC % (auto) 0.0 Smear Tech's Comments Sodium 131 L Potassium 5.3 H Chloride 100 Carbon Dioxide 22 Anion Gap 14 BUN 48 H Creatinine 3.05 H Estim Creat Clear Calc 23.6 Estimated GFR 21 POC Glucose 284 H 316 H Random Glucose 341 H Calcium 8.5 D Total Bilirubin Direct Bilirubin AST ALT Alkaline Phosphatase Total Protein Albumin Urine Color Urine Appearance Urine pH Ur Specific [place] Urine Protein Urine Glucose (UA) Urine Ketones Urine Blood Urine Nitrite Ur Leukocyte Esterase Urine RBC Urine WBC Ur Squamous Epith Cells Urine Bacteria Hyaline Casts 05/28/24 06:45 WBC RBC Hgb Hct MCV MCH MCHC RDW Plt Count MPV Immature Gran % (Auto) Neut % (Auto) Lymph % (Auto) [place] % (Auto) Eos % (Auto) Baso % (Auto) Lymph # (Auto) [place] # (Auto) Eos # (Auto) Baso # (Auto) Abs Immat Gran (auto) Absolute Neuts (auto) Absolute Nucleated RBC Nucleated RBC % (auto) Smear Tech's Comments Sodium Potassium Chloride Carbon Dioxide Anion Gap BUN Creatinine Estim Creat Clear Calc Estimated GFR POC Glucose 303 H Random Glucose Calcium Total Bilirubin Direct Bilirubin AST ALT Alkaline Phosphatase Total Protein Albumin Urine Color Urine Appearance Urine pH Ur Specific [place] Urine Protein Urine Glucose (UA) Urine Ketones Urine Blood Urine Nitrite Ur Leukocyte Esterase Urine RBC Urine WBC Ur Squamous Epith Cells Urine Bacteria Hyaline Casts Discharge Plan Discharge Anticipated Discharge Date/Time: 05/28/24 11:16 Patient Disposition: Home, Self-Care Discharge Diagnosis: Intractable back pain Referrals: Catalina Hamilton PA-C [Primary Care Provider] - 1 Week Discharge Medications: Continued carvedilol 25 mg tablet 25 mg PO BID 90 Days Qty: 180 3RF Rx Instructions: must administer with a meal/food losartan 100 mg tablet 100 mg PO DAILY Qty: 90 3RF levothyroxine 125 mcg tablet 125 mcg PO DAILY Qty: 90 3RF simvastatin 10 mg tablet 10 mg PO DAILY Qty: 90 3RF spironolactone 25 mg tablet 25 mg PO DAILY Qty: 90 3RF metformin 1,000 mg tablet 1,000 mg PO BID 90 Days Qty: 180 3RF (DME) lancets [FreeStyle Lancets] 28 gauge misc See Rx Instructions .Route Qty: 100 3RF Rx Instructions: Use daily As directed to check blood sugar (DME) 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 meter [FreeStyle Lite Meter] Kit See Rx Instructions .ROUTE .MEDSUPPLY Qty: 1 0RF Rx Instructions: Use daily As directed to check blood glucose meclizine 25 mg tablet 25 mg PO TID PRN (Reason: for dizziness) Qty: 30 0RF cholecalciferol (vitamin D3) [Vitamin D3] 25 mcg (1,000 unit) capsule 25 mcg PO DAILY Qty: 90 0RF (DME) FreeStyle Matt 3 [place] Misc See Rx Instructions .ROUTE .MEDSUPPLY Qty: 1 0RF Rx Instructions: As directed for use with freestyle matt latanoprost 0.005 % drops 1 drp ophthalmic-Right BEDTIME sennosides [senna] 8.6 mg tablet 17.2 mg PO BEDTIME PRN (Reason: constipation) amlodipine 10 mg tablet 10 mg PO DAILY insulin glargine [Lantus Solostar U-100 Insulin] 100 unit/mL (3 mL) insulin pen 30 unit subcut QPM Ferretts 325 mg (106 mg iron) tablet 325 mg PO DAILY diclofenac sodium [Voltaren Arthritis Pain] 1 % gel 4 g topical QID PRN (Reason: pain) Qty: 100 0RF Rx Instructions: apply to single knee, ankle, foot; for foot includes sole/toes/top of foot acetaminophen [Tylenol Extra Strength] 500 mg tablet 1,000 mg PO Q6H PRN (Reason: pain) Qty: 30 0RF Trulicity 0.75 mg/0.5 mL pen injector 0.75 mg subcut Patient Comments: takes every pantoprazole 40 mg tablet,delayed release (DR/EC) 40 mg PO QAM PRN (Reason: Acid Reflux) oxycodone 5 mg tablet 5 mg PO Q4H PRN (Reason: pain) Qty: 20 0RF Rx Instructions: Partial Fill upon patient request. docusate sodium [Colace] 100 mg capsule 100 mg PO BID Qty: 20 0RF (DME) FreeStyle Lite Strips Strip See Rx Instructions .ROUTE .MEDSUPPLY Qty: 100 3RF Rx Instructions: use daily As directed to check blood sugars for diabetes gabapentin 300 mg capsule 900 mg PO Q8H 30 Days Qty: 270 3RF hydralazine 25 mg tablet 50 mg PO TID 30 Days Qty: 180 6RF (DME) FreeStyle Matt 3 Sensor Device See Rx Instructions .ROUTE .MEDSUPPLY Qty: 2 11RF Rx Instructions: For continuous use apply new sensor every 14 days (DME) pen needle, diabetic [BD Ultra-Fine Micro Pen Needle] 32 gauge x 1/4 needle See Rx Instructions .ROUTE .MEDSUPPLY Qty: 100 Rx Instructions: As directed cyclobenzaprine 10 mg tablet 10 mg PO TID PRN (Reason: muscle spasm) 10 Days Qty: 30 2RF Discharge Orders: Discharge Order (Routine); Ordered 05/28/24 Ordered By: Leobardo Quiñones Diet: Advance to usual diet Activity on Discharge: As tolerated Stand Alone Forms: Patient Portal Discharge page Print Language: Welsh Care Plan Goals: Resume all medicines as taken prior to hospitalization Health Concerns: Follow up with surgeon Plan of Treatment: Follow up with her PCP next available Assessment: See discharge summary
--- NOTE | 2024-05-28 11:47 | PC.NURSE ---
PT in room prior to dc. Pt. okay with PT prior to dc.
[2024-05-28 12:00] VITALS: BP 139/67; PULSE 53; RESP 18; O2SAT 94
[2024-05-28 12:19] VITALS: BP 139/67; PULSE 53; O2SAT 94
--- NOTE | 2024-05-28 12:32 | PC.NURSE ---
MD lima, informed RN that pt is not being dc d/t PT eval, and pt. not feeling comfortable going home d/t walking. Informed MARIZOL Gardner whom is charge of this information.
[2024-05-28 13:08] LABS: Glucose, Whole Blood 315 mg/dL (60-115)
--- NOTE | 2024-05-28 13:18 | MHC.CM.PN ---
pt dcd home self care priro to being seen by cm
[2024-05-28 16:37] VITALS: BP 161/78; PULSE 61; RESP 16; O2SAT 95
--- NOTE | 2024-05-28 16:50 | PC.NURSE ---
Pt. requesting to see MD Quiñones, and informed staff that he ready to go home, and was under the infuence of the pain medication given to him prior to PT arrival and MD arrival. Awaiting MD orders.
[2024-05-28 18:02] LABS: Glucose, Whole Blood 292 mg/dL (60-115)
== END 2024-05-28 17:20 | disposition home or self-care (01) | DRG 861 ==
LOC: HO.ED 19:03 → HO.EDOVER 19:13 → HO.S3 05-28 08:00 → HO.EDOVER 05-28 09:49
PROVIDERS: Family Medicine; Nurse Practitioner Family; Admitting Provider Physician Assistant; Emergency Provider Internal Medicine; PCP Physician Assistant; Visit Provider Hospitalist
DX: G89.18 Other acute postprocedural pain (principal); E11.22 Type 2 diabetes mellitus with diabetic chronic kidney disease; E03.9 Hypothyroidism, unspecified; I12.9 Hypertensive chronic kidney disease with stage 1 through stage 4 chronic kidney disease, or unspecified chronic kidney disease; K21.9 Gastro-esophageal reflux disease without esophagitis; N18.30 Chronic kidney disease, stage 3 unspecified; E78.5 Hyperlipidemia, unspecified; Z79.4 Long term (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 of insulin; Z79.84 Long term (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 of oral hypoglycemic drugs; Z79.85 Long-term (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 of injectable non-insulin antidiabetic drugs; Z79.890 Hormone replacement therapy; Z79.899 Other long term (current) drug therapy
CPT/HCPCS: 36415; 72158; 80048; 80076; 81001; 82947; 85025; 97162; 99285; A9585; J1100; J1171; J1644; J2270; J2405

== ENCOUNTER 2024-05-27 17:54 | Outpatient (BNV) | payer OTHER, SELFPAY | END 2024-05-27 20:55 | PROVIDERS: Admitting Provider Physician Assistant; Emergency Provider Internal Medicine; PCP Physician Assistant; Visit Provider Student in an Organized Health Care Education/Training Program | DX: M54.50 Low back pain, unspecified (principal); R53.1 Weakness; M47.896 Other spondylosis, lumbar region | CPT/HCPCS: 72158 ==

== ENCOUNTER → 2024-05-27 17:54 | Outpatient (BNV) | payer OTHER, SELFPAY | PROVIDERS: Admitting Provider Physician Assistant; Emergency Provider Internal Medicine; PCP Physician Assistant; Visit Provider Physician Assistant | DX: M54.9 Dorsalgia, unspecified (principal) | CPT/HCPCS: 99223; 99239 ==

== ENCOUNTER → 2024-05-27 17:54 | Outpatient (BNV) | payer OTHER, SELFPAY | PROVIDERS: Admitting Provider Physician Assistant; Emergency Provider Internal Medicine; PCP Physician Assistant; Visit Provider Physician Assistant | DX: Z48.89 Encounter for other specified surgical aftercare (principal) | CPT/HCPCS: 99024 ==

== ENCOUNTER → 2024-06-04 08:10 | Outpatient (REF) | payer OTHER, SELFPAY ==
--- NOTE | 2024-06-04 08:13 | CA_ITS ---
Transthoracic Echocardiogram Patient (Last, First, Middle): Manolo Mercer, Gender: Male Date of : 1960 Age: 63 Procedure Date: 06/04/2024 Procedure Type: Transthoracic Echocardiogram Location: OP Height: 162.56 cm Weight: 77.11 kg BSA: 1.83 m2 Heart Rate: bpm BP: 130 / 72 mmHg Pipe Changer: DENYS Referring MD: Catalina Hamilton PA-C Symptoms: I10 - Essential (primary) hypertension Study Quality: Fair ECG Rhythm: Sinus Conclusions: - The left ventricular systolic function is normal. The calculated ejection fraction is 61% by biplane method. - There is moderately increased left ventricular wall thickness. - There is moderate posterior mitral annular calcification. - There is mild calcification of the aortic valve. - There is mild dilatation of the sinuses of Valsalva measuring 4.13 cm and mild dilatation of the ascending aorta measuring 3.90 cm. Findings Left Ventricle Normal left ventricular cavity size. There is moderately increased left ventricular wall thickness. The left ventricular systolic function is normal. The calculated ejection fraction is 61% by biplane method. There is no evidence of regional wall motion abnormalities. Evidence suggests grade I (mild) diastolic dysfunction. LV peak GLS -13.9%. Right Ventricle Mildly increased right ventricular cavity size. There is normal right ventricular systolic function. Evidence of right ventricular hypertrophy. Atria The left atrium is moderately dilated. The right atrium is mildly dilated. Aortic Valve There is a normal trileaflet aortic valve. There is mild calcification of the aortic valve. There is no aortic valve stenosis. There is no aortic valve regurgitation. Mitral Valve There is moderate posterior mitral annular calcification. There is no mitral valve regurgitation. There is no mitral valve stenosis. Pulmonic Valve The pulmonic valve is likely normal. Tricuspid Valve There is trace tricuspid valve regurgitation. There is no evidence of pulmonary hypertension. Great Vessels There is mild dilatation of the sinuses of Valsalva measuring 4.13 cm and mild dilatation of the ascending aorta measuring 3.90 cm. Venous The inferior vena cava is normal in size and collapses greater than 50% with inspiration. Pericardium/Pleural There is no evidence of pericardial effusion. Prior Study Comparison No prior study available for comparison. Measurements 2D Linear Measurements IVSd: 1.39 0.6-0.9/0.6-1.0 cm LVIDd: 4.26 3.9-5.3/4.2-5.9 cm LVIDd Index: 2.33 2.4-3.2/2.2-3.1 cm/m2 LVIDs: 2.65 2.0-3.6 cm LVPWd: 1.35 0.7-1.1 cm LA Diam: 3.50 2.7-3.8/3.0-4.0 cm LAIDs Index: 1.91 1.5-2.3 cm/m2 LV Mass: 276.32 67-162/88-224 g LV Mass Index: 150.99 43-95/49-115 g/m2 LVOT Diam: 2.30 3.0+(-)1.3 cm 2D Systolic Function EF 4C: 63.60 >55% EF 2C: 60.60 >55% EF BiP: 61.10 >55% Mitral Valve MV VTI: 0.46 MV Pk Ramy: 1.29 MV Mn Ramy: 0.75 MV Pk Grad: 7.00 MV Mn Grad: 3.00 MV Pk E: 0.95 MV PK A: 1.24 MV Decel Time: 272.00 E/A: 0.80 E'Lateral: 6.74 E'Medial: 4.46 E/E' Med: 21.20 E/E' Lat: 14.00 PHT: 80.00 MVA PHT: 2.75 MVA Continuity: 2.02 Decel [place]: 3.49 Aortic Valve AoV Pk Ramy: 1.25 AoV Mn Ramy: 0.82 AoV VTI: 0.26 AoV Pk Grad: 6.00 Aov Mn Grad: 3.00 ALBINA Cont.VTI: 3.47 LVOT LVOT Pk Ramy: 1.06 LVOT Mn Ramy: 0.68 LVOT VTI: 0.22 LVOT Pk Grad: 4.00 LVOT Mn Grad: 2.00 LVOT Diam: 2.30 LVOT Area: 4.15 Diastolic Function MV Pk E: 0.95 MV Pk A: 1.24 E/A: 0.80 E'Medial: 4.46 E/E' Med: 21.20 E' Laterial: 6.74 E/E' Lat: 14.00 Right Ventricle TAPSE (mm): 18.00 TVS' Ramy: 11.70 Tricuspid Valve TR Pk Ramy: 1.81 TR Pk Grad: 13.00 RA Press: 3.00 RVSP: 16.00 Great Vessels Aorta Sinus of Valsalva: 4.13 2.0-3.[address] [place]: 2.77 1.7-3.4 cm Ao Asc: 3.90 2.1-3.4 cm Ao Arch: 3.40 Updated in Other Vendor System with Status of Final Matt Nava MD electronically signed on 06/04/2024 11:34:52 AM with status of Final
== END ==
LOC: HO.CARD 08:10
PROVIDERS: PCP Physician Assistant; Visit Provider Physician Assistant
DX: R07.9 Chest pain, unspecified (principal); I10 Essential (primary) hypertension
CPT/HCPCS: 93306

== ENCOUNTER → 2024-06-04 08:13 | Outpatient (BNV) | payer OTHER, SELFPAY | PROVIDERS: PCP Physician Assistant; Visit Provider Internal Medicine | DX: I42.2 Other hypertrophic cardiomyopathy (principal); I51.7 Cardiomegaly; I35.8 Other nonrheumatic aortic valve disorders; I34.81 Nonrheumatic mitral (valve) annulus calcification | CPT/HCPCS: 93306; 93356 ==

== ENCOUNTER 2024-06-06 08:01 | Outpatient (AMB) | payer OTHER, SELFPAY ==
--- NOTE | 2024-06-06 08:36 | A.OFFVIS_ITS ---
Intake Intake Visit Reasons: 60 min Lcac Radar Operator/Navigator Required: Yes Lcac Radar Operator/Navigator Language: Flat Cutter Name: Pt'chad Eid Information Interpreted: non-clinical & clinical Accompanied by: Grand Child Allergies clindamycin [CLINDAMYCIN] Allergy (Unknown, Verified 05/27/24 11:19) SWELLING, RASH pravastatin Allergy (Unknown, Verified 05/27/24 11:19) increase liver enzymes HPI Comprehensive Diabetes Asmnt Most Recent Diabetes Results: 2 Microalb/Creat Ratio 1570.4 ug/mg cr (<30) H 11/23/23 Cholesterol 85 mg/dL (<200) 08/18/23 HDL Cholesterol 23 mg/dL (>40) L 08/18/23 Triglycerides 167 mg/dL (<150) H 08/18/23 Creatinine 3.05 mg/dL (0.5-1.4) H 05/28/24 Blood Urea Nitrogen 48 mg/dL (9-16) H 05/28/24 Sodium 131 mmol/L (135-145) L 05/28/24 Potassium 5.3 mmol/L (3.3-5.1) H 05/28/24 Chloride 100 mmol/L (96-108) 05/28/24 Carbon Dioxide 22 mmol/L (22-29) 05/28/24 Calcium 8.5 mg/dL (8.4-10.2) 05/28/24 AST 17 U/L (5-37) 05/27/24 ALT 8 U/L (0-40) 05/27/24 Total Protein 6.7 g/dL (6.5-8.0) 05/27/24 Albumin 3.7 g/dL (3.5-5.0) 05/27/24 [facility] Medical History Myocardial infarction Back pain Arthritis Thyroid disease Depression Numbness Habitual snoring Wheezing History of Helicobacter pylori infection Hypothyroid Forgetfulness Major depression, recurrent, chronic Dizziness Hypertension Hyperlipidemia Previous myocardial infarction older than 8 weeks Chest pain Microalbuminuria Chronic kidney disease Diabetic nephropathy Uncontrolled type 2 diabetes mellitus with hyperglycemia, with long-term current use of insulin Surgical History History of esophagogastroduodenoscopy (EGD) H/O colonoscopy Hx of appendectomy Hx of knee surgery Social History Household Members: Family Housing: House Are you a primary home day care provider to a significant other at home: No Do you presently have visiting nurse or other home services: No Alcohol intake: current Alcohol intake frequency: does not drink Patient Tobacco Use Status: Never used Tobacco e-Cigarette/Vaping Use: Never Used Second Hand Smoke Exposure: No service: No Current occupational status: unemployed Cognitive needs: No Hearing needs: No Vision needs: No Assessment & Plan Assessment & Plan (1) Uncontrolled type 2 diabetes mellitus with hyperglycemia, with long-term current use of insulin: Code(s): E11.65 - Type 2 diabetes mellitus with hyperglycemia; Z79.4 - USP (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 of insulin Plan: Personal Continuous Glucose Monitor: Patients CGM information reviewed, Pt uses [employer] with [place] Pt data only for 4 days, sensor was removed for MRI Pt will be starting Mounjaro 2.5 mg weekly Reviewed with patient how to treat hypoglycemia with rule of 15s Instructed patient if he begins to experience hypoglycemia after starting Mounjaro to contact clinic for reduction in Lantus Reviewed how to interpret trend arrows Reminded patient that to check finger sticks if symptoms do not match sensor reading. Discussed lag time between finger stick and sensor data.? Patient able to insert sensor independently at visit without issue.? Instructed patient to follow-up with life skills educator in 2 months Portions of this note were created using voice recognition software, please excuse any words or phrases that may have been misinterpreted. Patient Instructions: Instrucciones para el paciente: CGM proporciona informaci?n sobre el control de la glucosa en jag a lo sidney del d?a, incluidas la hiperglucemia y la hipoglucemia. Contin?e controlando la glucosa en jag seg?n las instrucciones. Siga las pautas de nutrici?n proporcionadas. Informe cualquier molestia de inmediato al proveedor de atenci?n m?dica. Mantente benjy hidratado. Puede ba?arse, ducharse, nadar y hacer ejercicio mientras usa el sensor de glucosa. No sumerja el sensor de glucosa en agua ghanshyam m?s de 30 minutos. Retire el sensor para theo resonancia magn?meg o theo tomograf?a computarizada. Evite la m?quina de ami X en los aeropuertos: retire el sensor o solicite la varita Coding Level of Care Code Est Pt Level 1 (81440) Diagnoses Uncontrolled type 2 diabetes mellitus with hyperglycemia, with long-term current use of insulin E11.65; Z79.4
== END 2024-06-06 08:39 | disposition home or self-care (01) ==
LOC: HO.ENCR 08:02
PROVIDERS: PCP Physician Assistant; Visit Provider Registered Nurse Diabetes Educator
DX: E11.65 Type 2 diabetes mellitus with hyperglycemia (principal); Z79.4 Long term (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 of insulin

== ENCOUNTER → 2024-06-06 08:01 | Outpatient (BNVA) | payer OTHER, SELFPAY | PROVIDERS: PCP Physician Assistant; Visit Provider Registered Nurse Diabetes Educator | DX: E11.65 Type 2 diabetes mellitus with hyperglycemia (principal); Z79.4 Long term (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 of insulin | CPT/HCPCS: 99211 ==

== ENCOUNTER 2024-06-13 13:08 | Outpatient (AMB) | payer OTHER, SELFPAY ==
--- NOTE | 2024-06-13 13:10 | A.SPINEOV_ITS ---
Intake Visit Reasons: 1st post op Intake Note: Mr. Mercer is here today for his 1st post op. Brand Marketing Coordinator Required: Yes Brand Marketing Coordinator Name: Tahira (Daughter) Allergies clindamycin [CLINDAMYCIN] Allergy (Unknown, Verified 08/06/24 09:11) SWELLING, RASH pravastatin Allergy (Unknown, Verified 08/06/24 09:11) increase liver enzymes Assessment & Plan Assessment & Plan (1) S/P laminectomy: Code(s): Z98.890 - Other specified postprocedural states Category: Medical Plan Operation: Right L4-5 Laminotomy, Partial facetectomy and foraminotomy Manolo is a pleasant 63-year-old male who comes in today for his 1st postoperative visit after having a right-sided lumbar decompression completed by Dr. Bloom a few weeks ago. To recap he was suffering from a right lumbar radiculopathy prior to surgery. He reports that he is very satisfied with the surgery and has been doing very well since his surgery. His right-sided severe shooting radiculopathy has resolved. He is ambulating well around his home, completing regular ADLs without much issue, and completing stairs. He does report that he still occasionally takes his narcotic pain medication primarily for flare-ups of pain and asked for a partial refill of this medication. No new neurological deficits. The patient ambulates well and does not use any assistive devices. His posterior incision site is closed and well healing with no signs of drainage or swelling. I would like to follow up with Manolo in 6 weeks for his 2nd postoperative visit. I will partially refill his pain medication. Luis Daniel Bloom MD,PhD [facility] Medications: Changed From oxycodone Partial Fill upon patient request. 5 mg PO Q4H PRN 20 tabs 0RF pain To oxycodone Partial Fill upon patient request. 5 mg PO Q8H PRN 21 tabs 0RF pain Coding Level of Care Code Global (84521) Diagnoses S/P laminectomy Z98.890
== END 2024-06-13 13:32 | disposition home or self-care (01) ==
LOC: HO.HNS 13:08
PROVIDERS: PCP Physician Assistant; Visit Provider Physician Assistant
DX: Z98.890 Other specified postprocedural states (principal)
CPT/HCPCS: 99024

== ENCOUNTER → 2024-06-13 13:08 | Outpatient (BNVA) | payer OTHER, SELFPAY | PROVIDERS: PCP Physician Assistant; Visit Provider Physician Assistant | DX: Z98.890 Other specified postprocedural states (principal) | CPT/HCPCS: 99212 ==

== ENCOUNTER 2024-06-20 12:26 | Outpatient (REF) | payer OTHER, SELFPAY ==
[2024-06-20 13:52] LABS: Anion Gap 12 (12-20); Blood Urea Nitrogen 21 mg/dL (9-16); Calcium 9.6 mg/dL (8.4-10.2); Carbon Dioxide 26 mmol/L (22-29); Chloride 105 mmol/L (96-108); Estimated Glomerular Filt Rate 42; Glucose Random 163 mg/dL (60-115); Potassium 5.1 mmol/L (3.3-5.1); Sodium 138 mmol/L (135-145)
== END 2024-06-20 12:27 | disposition home or self-care (01) ==
LOC: HO.LAB 12:26
PROVIDERS: PCP Physician Assistant; Visit Provider Nurse Practitioner Adult Health
DX: E11.65 Type 2 diabetes mellitus with hyperglycemia (principal); Z79.4 Long term (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 of insulin
CPT/HCPCS: 36415; 80048; 82947; 83036; 99212

== ENCOUNTER 2024-06-20 12:26 | Outpatient (AMB) | payer OTHER, SELFPAY ==
--- NOTE | 2024-06-20 10:52 | A.OFFVIS_ITS ---
Vital Signs 06/20/24 12:29 Height 5 ft 4 in Weight 163 lb 2.273 oz BMI 28.0 BP 140/72 H Blood Pressure Location Rt brachial Position Sitting Pulse 62 Pulse Source Pulse Oximeter Pulse Oximetry (%) 98 Oxygen Delivery Method Room Air Intake Visit Reasons: Type 2 DM Intake Note: Patient presents today for a follow-up on Type 2 Diabetes Mellitus: Last Diabetic eye exam was on: DUE Last Podiatry exam was on: Patient does not see a Registered Private Duty Nurse Most recent HbA1c: 7.7%, 06/20/2024 Random Glucose- 206 mg/dL, Today Hydro Operator Required: Yes Hydro Operator Language: Leaf Coverer Services: Hydro Operator Offered & Declined Hydro Operator Name: Ragini Information Interpreted: non-clinical & clinical Accompanied by: Grand Child Allergies clindamycin [CLINDAMYCIN] Allergy (Unknown, Verified 06/20/24 12:30) SWELLING, RASH pravastatin Allergy (Unknown, Verified 06/20/24 12:30) increase liver enzymes HPI Comments Details: [age] YO male who is seen in f/u for T2DM. Most recent A1c 06/20/24 7.7%, was 9.3% 11/23/2023 up from 8.4% 08/17/2023. He was recently started on a freestyle Matt. Initially diagnosed with T2DM approximately 1993 Was initially started on treatment with metformin, glipizide 5mg ER was discontinued 2023 [facility]. Reports he has a prescription for Mounjaro 2.5 mg weekly sent from another provider. Current regimen: Lantus 30 units Mounjaro 2.5mg weekly He will be starting today metformin 1000mg bid He had back surgery and was seen in the emergency room several x1 month ago and had an increase in creatinine. Freestyle matt sensor 3 average glucose: 172 14 day continuous glucose sensor report reviewed Glucose Management indicator 7.4 % Patient self inserted sensor today. And I reviewed how to get average glucose. He had previously been trained. TIme in ranges: Ten % very high (above 250) 33 % high (181-250) 57 % in range (70-180] 0 % low (69-55) 0 % very low (below 54) Interpretation of CGMS: Patient completed last dose of Trulicity 1 week ago and we will be starting Mounjaro today. Clear pattern of a postprandial elevation after supper and continued with progressively declining numbers by 08:00 to 70- 80, progressive increases after lunch and supper No recent lows, has sugar source with him Family history of T2DM Has eyes checked yearly, last exam 03/2024 has been getting injections Has neuropathy, on gabpentin last foot exam today in office, does not see p odiatry. Has nephropathy, on ARB. Micro albumin 1077 followed by nephrology at [facility] and recent decrease in eGFR to 21 ONE MONTH AGO FROM BASELINE 37 stat results today back to baseline eGFR 42 Has HLD, on statin. Last LDL 29 as measured on 07/2023. Prior h/o DE RECENTLY SEEN BY CARDIOLOGY FOR AV BLOCK Diet: Balanced Weight: Stable PFSH Medical History Myocardial infarction Back pain Arthritis Thyroid disease Depression Numbness Habitual snoring Wheezing History of Helicobacter pylori infection Hypothyroid Forgetfulness Major depression, recurrent, chronic Dizziness Hypertension Hyperlipidemia Previous myocardial infarction older than 8 weeks Chest pain Microalbuminuria Chronic kidney disease Diabetic nephropathy Uncontrolled type 2 diabetes mellitus with hyperglycemia, with long-term current use of insulin Surgical History (Updated 06/20/24 @ 12:51 by SILVA Nix) History of hemilaminectomy History of esophagogastroduodenoscopy (EGD) H/O colonoscopy Hx of appendectomy Hx of knee surgery Family History (Updated 06/20/24 @ 12:46 by SILVA Nix) Father No problems noted. Mother No problems noted. Social History Household Members: Family Housing: House Are you a primary home care specialist to a significant other at home: No Do you presently have visiting nurse or other home services: No Alcohol intake: current Alcohol intake frequency: does not drink Patient Tobacco Use Status: Never used Tobacco e-Cigarette/Vaping Use: Never Used Second Hand Smoke Exposure: No service: No Current occupational status: unemployed Cognitive needs: No Hearing needs: No Vision needs: No Physical Exam Vital Signs: Last Vital Signs Pulse 62 06/20/24 12:29 BP 140/72 H 06/20/24 12:29 Pulse Ox 98 06/20/24 12:29 Oxygen Delivery Method Room Air 06/20/24 12:29 BMI result Body Mass Index 28.0 Const Other: Absence of Cushingoid features. Absence of acromegalic features. Neck exam reveals nl size thyroid about 15 gms. No thyroid nodules palpable. Heart S1 S2, Reg R/R. No M/R G. Skin exam reveals absence of vitiligo or acanthosis n igricans. Visual exam of foot performed. No ulcerations or open lesions. No inter digit maceration or fissuring. + onychomycosis, no callouses. Sensation diminished to monofilament exam right side only Vibratory sensation is normal with 128 Hz tuning fork. pulse positive Results AMB Hemoglobin A1c AMB Hemoglobin A1c 7.7 % Last Edit by SILVA Nix on 06/20/24 12:46 Results Reviewed Results Reviewed: Laboratory Last Values Glucose (Clinic) 206 mg/dL (60-115) H 06/20/24 12:37 Hgb A1c (Clinic) 7.7 % (4.0-6.0) H 06/20/24 12:42 Assessment & Plan Assessment & Plan (1) Uncontrolled type 2 diabetes mellitus with hyperglycemia, with long-term current use of insulin: Code(s): E11.65 - Type 2 diabetes mellitus with hyperglycemia; Z79.4 - half-way (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 of insulin Category: Medical Plan: 63-year-old type 2 diabetic with neuropathy, nephropathy with recent bump up in creatinine now back to baseline and known coronary artery disease with improving glycemic control. Glucose pattern shows consistent pattern of numbers steadily dropping throughout the night, going down to 70-80 in the morning with progressive rise throughout the day. Will change basal insulin to Tresiba. He will start Mounjaro today. Both he in his granddaughter were advised that he should immediately go to the lab today so that we can recheck his kidney function. If this has not been improved we will need to discontinue metformin and start on bolus insulin. Could consider addition of Jardiance at next visit if needed. Patient was recently seen by cytotechnologist who is now indicated SGLT2 inhibitor would be appropriate for this patient. Given that he is already starting Mounjaro we will hold off on this. Could consider reduction of insulin dose at next visit repeat labs back to baseline [facility] called with results reviewed prevention of ELEN which she will discuss with the grandfather. Orders: Orders Basic Metabolic Panel Today E11.65 - Type 2 diabetes mellitus with hyperglycemia, Z79.4 - half-way (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 of insulin AMB Hemoglobin A1c Today E11.65 - Type 2 diabetes mellitus with hyperglycemia, Z79.4 - half-way (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 of insulin Medications: New insulin degludec (Tresiba FlexTouch U-200 insulin) 30 units (0.15 mL) subcut BEDTIME 30 days 6 mL 6RF tirzepatide (Mounjaro) 2.5 mg (0.5 mL) subcut QWEEK 4 weeks 2 mL 3RF Changed From blood sugar diagnostic (FreeStyle Lite Strips) use daily As directed to check blood sugars for diabetes 100 ea 3RF E11.65 - Type 2 diabetes mellitus with hyperglycemia To blood sugar diagnostic (FreeStyle Lite Strips) use daily As directed to check blood sugars for tid to confirm glucose or for sensor faiure 100 ea 3RF E11.65 - Type 2 diabetes mellitus with hyperglycemia From lancets (FreeStyle Lancets) Use daily As directed to check blood sugar 100 ea 3RF E11.65 - Type 2 diabetes mellitus with hyperglycemia, Z79.4 - terminal worker (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 of insulin To lancets (FreeStyle Lancets) Use tid As directed to check blood sugar prn 100 ea 3RF E11.65 - Type 2 diabetes mellitus with hyperglycemia, Z79.4 - half-way (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 of insulin Refilled 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 sensor (FreeStyle Matt 3 Sensor device) For continuous use apply new sensor every 14 days 2 ea 11RF blood sugar diagnostic (FreeStyle Lite Strips) use daily As directed to check blood sugars for tid to confirm glucose or for sensor faiure 100 ea 3RF E11.65 - Type 2 diabetes mellitus with hyperglycemia 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 meter (FreeStyle Lite Meter kit) Use daily As directed to check blood glucose 1 ea 0RF E11.65 - Type 2 diabetes mellitus with hyperglycemia lancets (FreeStyle Lancets) Use tid As directed to check blood sugar prn 100 ea 3RF E11.65 - Type 2 diabetes mellitus with hyperglycemia, Z79.4 - half-way (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 of insulin 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 meter (FreeStyle Lite Meter kit) Use daily As directed to check blood glucose 1 ea 0RF E11.65 - Type 2 diabetes mellitus with hyperglycemia Coding Level of Care Code Est Pt Level 5 (90452) Complex EM visit Add On G2211 Diagnoses Uncontrolled type 2 diabetes mellitus with hyperglycemia, with long-term current use of insulin E11.65; Z79.4 Time Spent (min) 45 Comment Time spent reviewing labs/provider notes, face to face, chart doc
[2024-06-20 12:29] VITALS: BP 140/72; PULSE 62; O2SAT 98; BMI 28.0
[2024-06-20 12:41] LABS: Glucose, Whole Blood 206 mg/dL (60-115)
== END 2024-06-20 13:07 | disposition home or self-care (01) ==
LOC: HO.ENCR 12:27
PROVIDERS: PCP Physician Assistant; Visit Provider Nurse Practitioner Adult Health
DX: E11.65 Type 2 diabetes mellitus with hyperglycemia (principal); Z79.4 Long term (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 of insulin
CPT/HCPCS: 99215; G2211

== ENCOUNTER → 2024-06-25 08:14 | Outpatient (REF) | payer OTHER, SELFPAY ==
--- NOTE | 2024-06-25 08:20 | CA_ITS ---
Acquisition Time: 2024-06-25 08:44:16 Total Exercise Time: 00:02:26 Test Indications: CHRONOTROPIC COMPETENCY AVB MOBITZ TYPE 1 Medications: SEE EMAR Protocol: NICOLE Max HR: 89 BPM 56% of Pred: 158 BPM Max BP: 140/70 mmHG Max Work Load: 4.6 METS Exercise stress test with exercise 2 mins 26 secs of Nicole Protocol, requesting to stop due to leg discomfort, achieving 55% MPHR, without any anginal symptoms, with isolated PVCs, with normotensive response to exercise. Without EKG changes at achieved workload. In recovery, pt feeling back to baseline. Test reviewed with Dr. Estrada. Referred By: Thaddeus Leach Electronically Signed By: Charlie Sorensen
== END ==
LOC: HO.CARD 08:14
PROVIDERS: PCP Physician Assistant; Visit Provider Internal Medicine Cardiovascular Disease
DX: I44.30 Unspecified atrioventricular block (principal); M54.6 Pain in thoracic spine
CPT/HCPCS: 93017; 93246

== ENCOUNTER → 2024-06-25 08:20 | Outpatient (BNV) | payer OTHER, SELFPAY | PROVIDERS: PCP Physician Assistant | DX: I49.3 Ventricular premature depolarization (principal) | CPT/HCPCS: 93016; 93018 ==

== ENCOUNTER 2024-06-28 10:55 | Outpatient (AMB) | payer OTHER, SELFPAY ==
[2024-06-28 10:52] VITALS: BP 140/74; BMI 28.7
--- NOTE | 2024-06-28 10:52 | HO.NEPHOV ---
Vital Signs 06/28/24 10:52 Height 5 ft 4 in Weight 167 lb BMI 28.7 BP 140/74 H Blood Pressure Location Rt brachial Position Sitting Intake Visit Reasons: Anemia/ Conf Intake Note: Patient presents for follow up Allergies clindamycin [CLINDAMYCIN] Allergy (Unknown, Verified 06/28/24 10:53) SWELLING, RASH pravastatin Allergy (Unknown, Verified 06/28/24 10:53) increase liver enzymes Medication List - Last Reconciled 06/28/24 by Jaime Gomez MD acetaminophen (Tylenol Extra Strength) 1,000 mg (2 x 500 mg) PO Q6H PRN amlodipine 10 mg PO DAILY 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 meter As directed dispense glucometer compatible with one touch test strips for use when sensor fails or to confirm low glucose reading 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 sensor (FreeStyle Matt 3 Sensor device) For continuous use apply new sensor every 14 days carvedilol 25 mg PO BID 90 days cholecalciferol (vitamin D3) (Vitamin D3) 25 mcg PO DAILY cyclobenzaprine 10 mg PO TID PRN 10 days diclofenac sodium 1% (Voltaren Arthritis Pain) 4 grams topical QID PRN docusate sodium (Colace) 100 mg PO BID ferrous fumarate (Ferretts) 325 mg PO DAILY FreeStyle Matt 3 [place] (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,rn radiation oncology,cont) As directed for use with freestyle matt NS gabapentin 900 mg (3 x 300 mg) PO Q8H 30 days hydralazine 50 mg (2 x 25 mg) PO TID 30 days insulin degludec (Tresiba FlexTouch U-200 insulin) 30 units (0.15 mL) subcut BEDTIME 30 days lancets As directed tid for use wi glucometer when sensor fails latanoprost 0.005% 1 drp ophthalmic-Right BEDTIME levothyroxine 125 mcg PO DAILY losartan 100 mg PO DAILY meclizine 25 mg PO TID PRN metformin 1,000 mg PO BID 90 days OneTouch Ultra Test (blood sugar diagnostic) As directed tid prn sensor failure NS oxycodone 5 mg PO Q8H PRN pantoprazole 40 mg PO QAM pen needle, diabetic (BD Ultra-Fine Micro Pen Needle) As directed sennosides (senna) 17.2 mg PO BEDTIME PRN simvastatin 10 mg PO DAILY spironolactone 25 mg PO DAILY tirzepatide (Mounjaro) 2.5 mg (0.5 mL) subcut QWEEK 4 weeks HPI Comments Details: . Cirilo is a pleasant 63-year-old man with history of longstanding diabetes mellitus and hypertension who has recently moved from [place]. He has been referred for evaluation of renal insufficiency. Apparently he saw a back end architect in [place]. He was told that he has CKD and he has proteinuria. Baseline creatinine is unknown at this time. However on August 07 2023, creatinine was 1.5 and on August 17 creatinine was 1.63 No urine studies are available. History of significant hypertension requiring multiple medications. Upon talking to him it appears that he is compliant with his medications. He admits to eating high salt in his diet. History of coronary artery disease. He had CA about 8 years ago. He is not aware of the details. He complains of pain in his lower back. He has not take any NSAIDs. No urinary symptoms like dysuria urgency or increased frequency no hematuria. No history of kidney stones. He has had leg edema. No shortness of breath. No chest pain. No nausea or vomiting. No diarrhea constipation. No rash no swelling or pain of small joints. No significant weight loss. 09/22/23 Events noted;No new issues since last visit;Complaint with meds 12/23/23 Recently has leg swelling;Waiting to see Podiatry 03/19/24;Leg swelling improved. No new issues 06/28/24 Underwent back surgery in April Sustained ELEN Cr peaked at 3.4 Accompanied by daughter PFSH Medical History Myocardial infarction Back pain Arthritis Thyroid disease Depression Numbness Habitual snoring Wheezing History of Helicobacter pylori infection Hypothyroid Forgetfulness Major depression, recurrent, chronic Dizziness Hypertension Hyperlipidemia Previous myocardial infarction older than 8 weeks Chest pain Microalbuminuria Chronic kidney disease Diabetic nephropathy Uncontrolled type 2 diabetes mellitus with hyperglycemia, with long-term current use of insulin Surgical History History of hemilaminectomy History of esophagogastroduodenoscopy (EGD) H/O colonoscopy Hx of appendectomy Hx of knee surgery Family History Father No problems noted. Mother No problems noted. Social History Household Members: Family Housing: House Are you a primary customer care agent to a significant other at home: No Do you presently have visiting nurse or other home services: No Alcohol intake: current Alcohol intake frequency: does not drink Patient Tobacco Use Status: Never used Tobacco e-Cigarette/Vaping Use: Never Used Second Hand Smoke Exposure: No service: No Current occupational status: unemployed Cognitive needs: No Hearing needs: No Vision needs: No Physical Exam Vital Signs: Last Vital Signs BP 140/74 H 06/28/24 10:52 BMI result Body Mass Index 28.7 Comfortable Neck supple no JVD. Lungs entry equal no rales. Heart S1-S2 heard no gallop or rub. Abdomen soft nontender. Neuro alert awake oriented. No asterixis. Extremities no edema. Results Reviewed Nephrology Results: Sodium 138 mmol/L (135-145) 06/20/24 Potassium 5.1 mmol/L (3.3-5.1) 06/20/24 Chloride 105 mmol/L (96-108) 06/20/24 Carbon Dioxide 26 mmol/L (22-29) 06/20/24 BUN 21 mg/dL (9-16) H 06/20/24 Creatinine 1.65 mg/dL (0.5-1.4) H 06/20/24 Calcium 9.6 mg/dL (8.4-10.2) 06/20/24 Assessment & Plan Assessment & Plan (1) Chronic kidney disease: Code(s): N18.9 - Chronic kidney disease, unspecified Category: Medical Qualifiers: Chronic kidney disease stage: stage 3 (moderate) Chronic kidney disease stage 3 subtype: stage 3b (GFR 30-44) Qualified Code(s): N18.32 - Chronic kidney disease, stage 3b Plan: . CKD 3 B. EGFR is about 43 mL/minute based on serum creatinine of 1.6. s/p Post OP ELEN Cr peaked at 3.4 adn now back to baseline of 1.6 Most likely has hypertensive diabetic kidney disease. Other nondiabetic causes seem less likely No Obstructive uropathy based on Ultrasound urine protein creatinine ratio elevated. About 4 gm proteinuria Renal ultrasonogram.- Unremarkable Creatinine decreased, after stopping HCTZ Edema may be due to Amlodipine_ improved after decreasing to 5 mg QD Keep Hydralazine 50 mg TID to optimze BP Concur with current medications and KOLTON inhibition. Maintain blood pressure less than 130/80. Maintain A1c less than 7%. He would benefit from SGLT2 inhibitors.. (2) Hypertension: Code(s): I10 - Essential (primary) hypertension Category: Medical Qualifiers: Hypertension type: primary hypertension Qualified Code(s): I10 - Essential (primary) hypertension Plan: . Resistant hypertension in the setting of longstanding diabetes mellitus CKD and elevated BMI. BP is better controlled today We discussed importance of low-sodium diet. Weight loss we will also help with controlling the blood pressure. He needs to increase physical activities. (3) Uncontrolled type 2 diabetes mellitus with hyperglycemia, with long-term current use of insulin: Code(s): E11.65 - Type 2 diabetes mellitus with hyperglycemia; Z79.4 - industry analyst (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 of insulin Category: Medical Plan: Defer to primary care. Goal is to maintain A1c less than 7% (4) Anemia: Code(s): D64.9 - Anemia, unspecified Category: Medical Plan: . Anemia is multifactorial. He has mild iron deficiency. He might have erythropoietin deficiency due to underlying CKD. Iron supplementation No absolute indication for erythropoietin replacement therapy at this time. . Orders: Orders Basic Metabolic Panel 3 Months N18.32 - Chronic kidney disease, stage 3b Total Protein Urine Random 3 Months N18.32 - Chronic kidney disease, stage 3b Complete Blood Count no Diff 3 Months N18.32 - Chronic kidney disease, stage 3b UA and rflx microscopic 3 Months N18.32 - Chronic kidney disease, stage 3b Creatinine Urine 3 Months N18.32 - Chronic kidney disease, stage 3b Coding Level of Care Code Est Pt Level 4 (51188) Diagnoses Stage 3b chronic kidney disease N18.32 Chronic kidney disease stage: stage 3 (moderate) Chronic kidney disease stage 3 subtype: stage 3b (GFR 30-44) Primary hypertension I10 Hypertension type: primary hypertension Uncontrolled type 2 diabetes mellitus with hyperglycemia, with long-term current use of insulin E11.65; Z79.4 Anemia D64.9
== END 2024-06-28 11:04 | disposition home or self-care (01) ==
LOC: HO.HKA 10:56
PROVIDERS: PCP Physician Assistant; Visit Provider Internal Medicine Hypertension Specialist
DX: N18.32 Chronic kidney disease, stage 3b (principal); I10 Essential (primary) hypertension; E11.65 Type 2 diabetes mellitus with hyperglycemia; Z79.4 Long term (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 of insulin; D64.9 Anemia, unspecified
CPT/HCPCS: 99214

== ENCOUNTER → 2024-06-28 10:55 | Outpatient (BNVA) | payer OTHER, SELFPAY | PROVIDERS: PCP Physician Assistant; Visit Provider Internal Medicine Hypertension Specialist | DX: I12.9 Hypertensive chronic kidney disease with stage 1 through stage 4 chronic kidney disease, or unspecified chronic kidney disease (principal); R80.9 Proteinuria, unspecified; E11.65 Type 2 diabetes mellitus with hyperglycemia; D63.1 Anemia in chronic kidney disease; N18.32 Chronic kidney disease, stage 3b; Z79.4 Long term (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 of insulin | CPT/HCPCS: 99212 ==

== ENCOUNTER 2024-07-30 14:54 | Outpatient (REF) | payer OTHER, SELFPAY ==
--- NOTE | ~2024-07-30 | US_ITS ---
CLINICAL HISTORY: I73.9 - Peripheral vascular disease, unspecified ULTRASOUND LEFT LOWER EXTREMITY ARTERIES Comparison: None Findings: Peak systolic velocities (PSV) are reported in cm/s. Left lower extremity: Common femoral artery: Multiphasic waveforms. PSV = 95. Deep femoral artery: Multiphasic waveforms. PSV = 78. Proximal, mid and distal superficial femoral artery: Multiphasic waveforms. PSV = 135, 144 and 132, respectively. Popliteal artery: Multiphasic waveforms. PSV = 113-114. Anterior tibial artery: Monophasic waveforms. PSV = 36-74. Posterior tibial artery: Mixed monophasic and multiphasic waveforms. PSV = 46-83. Peroneal artery: Multiphasic waveforms. PSV = 135-155. Dorsalis pedis artery: Monophasic waveforms. PSV = 83-99. There is a nonenlarged left groin lymph node with benign morphology. There is a irregular thick-walled cystic lesion in the popliteal fossa which measures 5.2 x 1.2 x 3.6 cm (Length x Height x Width). There are moderate grade internal echoes. No posterior acoustic shadowing. Impression: 1. No occlusion or flow-limiting stenosis in the femoral or popliteal arteries. 2. Patent calf runoffs with no occlusion or high-grade stenosis. 3. Complex popliteal/Coburn's cyst measures 5.2 cm in greatest diameter. This document has been electronically signed by: Ellen Lamas DO on 08/03/2024 15:17:20
== END 2024-07-30 14:55 | disposition home or self-care (01) ==
LOC: HO.US 14:54
PROVIDERS: PCP Physician Assistant
DX: I73.9 Peripheral vascular disease, unspecified (principal)
CPT/HCPCS: 93925

== ENCOUNTER → 2024-07-30 14:58 | Outpatient (BNV) | payer OTHER, SELFPAY | PROVIDERS: PCP Physician Assistant; Visit Provider Radiology Diagnostic Radiology | DX: M71.22 Synovial cyst of popliteal space [Baker], left knee (principal) | CPT/HCPCS: 93925 ==

== ENCOUNTER 2024-08-02 09:01 | Outpatient (AMB) | payer OTHER, SELFPAY ==
--- NOTE | 2024-08-02 07:42 | A.OFFVIS_ITS ---
Vital Signs 08/02/24 09:03 Height 5 ft 4 in Weight 173 lb 4.533 oz BMI 29.7 BP 130/68 Blood Pressure Location Rt brachial Position Sitting Pulse 78 Pulse Source Pulse Oximeter Pulse Oximetry (%) 98 Oxygen Delivery Method Room Air Intake Visit Reasons: Type 2 DM Intake Note: Patient presents today for a follow-up on Type 2 Diabetes Mellitus: Last Diabetic eye exam was on: 06/2024 Last Podiatry exam was on: Patient does not see a Medical Imaging Technician Most recent HbA1c: 7.7%, 06/20/2024 Random Glucose- 179 mg/dL, Today Forest And Conservation Worker Required: Yes Forest And Conservation Worker Services: Forest And Conservation Worker Present Forest And Conservation Worker Name: traci [id number] Information Interpreted: non-clinical & clinical Accompanied by: maurisio Allergies clindamycin [CLINDAMYCIN] Allergy (Unknown, Verified 08/02/24 09:08) SWELLING, RASH pravastatin Allergy (Unknown, Verified 08/02/24 09:08) increase liver enzymes HPI Comments Details: [age] YO male who is seen in f/u for T2DM. Most recent A1c 06/20/24 7.7%, was 9.3% 11/23/2023. He has been started on a freestyle Matt and Mounjaro. Initially diagnosed with T2DM approximately 1993 Was initially started on treatment with metformin, glipizide 5mg ER was discontinued 2023 Had diarrhea from trulicity. Mounjaro he has extremely diminished appetite in his not interested in an increase in this. Current regimen: Lantus 15 units dropped one week ago Mounjaro 2.5mg weekly metformin 1000mg bid He had back surgery and was seen in the emergency room several x1 month ago and had an increase in creatinine. Freestyle matt sensor 3 average glucose: 133 14 day continuous glucose sensor report reviewed Glucose Management indicator 6.5 % TIme in ranges: 4 % very high (above 250) 13 % high (181-250) 74 % in range (70-180] 7 % low (69-55) 2 % very low (below 54) 41 Glucose variability [ ] (target <36%) Interpretation of CGMS; in excellent control but having some hypos in the morning in the afternoon. 3-4 days ago he reduce his insulin to 15 units in the hypos have resolved but has some postprandial increases. No recent lows, has sugar source with him Family history of T2DM Has eyes checked yearly, last exam 06/2024, has been getting injections has f/u first week of July Has neuropathy, on gabpentin 300mg bid, 900 mg at night, last foot exam today in office, does not see podiatry. Has nephropathy, on ARB. Micro albumin 1077 followed by nephrology at [facility] and recent decrease in eGFR to 21 ONE MONTH AGO FROM BASELINE 37 stat results today back to baseline eGFR 42 Has HLD, on statin. Last LDL 29 as measured on 07/2023. Prior h/o DC RECENTLY SEEN BY CARDIOLOGY FOR AV BLOCK He had an JOE to go results are not in the chart. He in his daughter were counseled that if he does not receive the results in 1 week he can call the provider who ordered the test. Diet: Balanced Occasionally eats a larger amount of rice Weight: Stable [facility] Medical History Myocardial infarction Back pain Arthritis Thyroid disease Depression Numbness Habitual snoring Wheezing History of Helicobacter pylori infection Hypothyroid Forgetfulness Major depression, recurrent, chronic Dizziness Hypertension Hyperlipidemia Previous myocardial infarction older than 8 weeks Chest pain Microalbuminuria Chronic kidney disease Diabetic nephropathy Uncontrolled type 2 diabetes mellitus with hyperglycemia, with long-term current use of insulin Surgical History History of hemilaminectomy History of esophagogastroduodenoscopy (EGD) H/O colonoscopy Hx of appendectomy Hx of knee surgery Family History Father No problems noted. Mother No problems noted. Social History Household Members: Family Housing: House Are you a primary care services manager to a significant other at home: No Do you presently have visiting nurse or other home services: No Alcohol intake: current Alcohol intake frequency: does not drink Patient Tobacco Use Status: Never used Tobacco e-Cigarette/Vaping Use: Never Used Second Hand Smoke Exposure: No service: No Current occupational status: unemployed Cognitive needs: No Hearing needs: No Vision needs: No Physical Exam Vital Signs: Last Vital Signs Pulse 78 08/02/24 09:03 BP 130/68 08/02/24 09:03 Pulse Ox 98 08/02/24 09:03 Oxygen Delivery Method Room Air 08/02/24 09:03 BMI result Body Mass Index 29.7 Const Other: Absence of Cushingoid features. Absence of acromegalic features. Neck exam reveals nl size thyroid about 15 gms. No thyroid nodules palpable. Heart S1 S2, Reg R/R. No M/R G. Skin exam reveals absence of vitiligo or acanthosis nigricans. . Visual exam of foot performed. No ulcerations or open lesions. No inter digit maceration or fissuring. No onychomycosis, no callouses. Sensation intact to monofilament exam. Vibratory sensation is normal left foot, diminished right foot with 128 Hz tuning fork. Pulses positive Office Procedures Glucose Monitoring Details Details: see [facility] [id number] - Glucose monitoring, continuous-physician I&R Procedure code (CPT) selection complete Results Reviewed Results Reviewed: Laboratory Last Values Glucose (Clinic) 179 mg/dL (60-115) H 08/02/24 09:12 Assessment & Plan Assessment & Plan (1) Uncontrolled type 2 diabetes mellitus with hyperglycemia, with long-term current use of insulin: Code(s): E11.65 - Type 2 diabetes mellitus with hyperglycemia; Z79.4 - ferry terminal agent (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 of insulin Category: Medical Plan: The patient is a 63-year-old with type 2 diabetes with retinopathy requiring injections, nephropathy followed by kennel aide and neuropathy on gabapentin. Glucose numbers have greatly improved since adding low-dose Mounjaro, switching to Tresiba and getting him started on a freestyle Matt. Tresiba 16 units, if he eats a large carb supper he can increase to 24 if his glucose is elevated Continue low-dose Mounjaro as he feels he has absolutely no appetite and needs to push himself to eat. Continue metformin. A1c in the lab in 2 weeks Continue to see Cardiology, Nephrology and Ophthalmology on a regular basis. The patient had an opportunity to ask questions regarding treatment plan. The patient expressed understanding and agreement with the above treatment plan. The patient is aware they should contact our office by phone for worsening glucose readings or for any low blood sugars which may warrant a change in diabetes medication. Compliance is encouraged with medications and any followup testing/consults which may have been ordered. Follow up in 3-1/2 months Orders: Orders AMB Glucose Monitoring Today E11.9 - Type 2 diabetes mellitus without complications Medications: Refilled 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 meter (Accu-Chek Guide Glucose Meter) As directed 1 ea 0RF E11.65 - Type 2 diabetes mellitus with hyperglycemia, Z79.4 - ferry terminal agent (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 of insulin 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 sensor (FreeStyle Matt 3 Sensor device) For continuous use apply new sensor every 14 days 2 ea 11RF Coding Level of Care Code Est Pt Level 4 (12440) Complex EM visit Add On G2211 Diagnoses Uncontrolled type 2 diabetes mellitus with hyperglycemia, with long-term current use of insulin E11.65; Z79.4 CPT Codes Details - CPT: 36130 - Glucose monitoring, continuous-physician I&R ([id number]) Time Spent (min) 30 Comment Time spent reviewing labs/provider notes, face to face, chart doc
[2024-08-02 09:03] VITALS: BP 130/68; PULSE 78; O2SAT 98; BMI 29.7
[2024-08-02 09:16] LABS: Glucose, Whole Blood 179 mg/dL (60-115)
== END 2024-08-02 09:38 | disposition home or self-care (01) ==
LOC: HO.ENCR 09:02
PROVIDERS: PCP Physician Assistant; Visit Provider Nurse Practitioner Adult Health
DX: E11.65 Type 2 diabetes mellitus with hyperglycemia (principal); Z79.4 Long term (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 of insulin
CPT/HCPCS: 82947; 95251; 99214; G2211

== ENCOUNTER → 2024-08-02 09:01 | Outpatient (BNVA) | payer OTHER, SELFPAY | PROVIDERS: PCP Physician Assistant; Visit Provider Nurse Practitioner Adult Health | DX: E11.65 Type 2 diabetes mellitus with hyperglycemia (principal); Z79.4 Long term (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 of insulin | CPT/HCPCS: 99212 ==

== ENCOUNTER 2024-08-06 09:03 | Outpatient (AMB) | payer OTHER, SELFPAY ==
--- NOTE | 2024-08-06 09:07 | A.SPINEOV_ITS ---
Intake Visit Reasons: 2nd post op Intake Note: Mr. Mercer is here today for his 2nd post op. Loading And Unloading Supervisor Required: Yes Loading And Unloading Supervisor Name: Aristides (Daughter) Allergies clindamycin [CLINDAMYCIN] Allergy (Unknown, Verified 08/06/24 09:11) SWELLING, RASH pravastatin Allergy (Unknown, Verified 08/06/24 09:11) increase liver enzymes Assessment & Plan Assessment & Plan (1) Lumbago: Code(s): M54.50 - Low back pain, unspecified Category: Medical Plan Operation: Right L4-5 Laminotomy, Partial facetectomy and foraminotomy Manolo comes in today for his 2nd postoperative visit. He reports that he has continued to do well since his surgery. He states that the severe right- sided shooting radiculopathy he had prior to surgery continues to be resolved. He has been feeling a bit tired in his quadriceps with prolonged activity, but this is likely secondary to the fact that he was less mobile prior to surgery. He states that overall he feels very well, and is very satisfied with the surgery. No new neurological deficits. Patient is able to ambulate well, rises from a seated position without difficulty. Incision sites is closed, well healed. There is no need for continued routine follow up with Manolo he may be discharged as a patient. Luis Daniel Bloom MD,PhD [facility] Coding Level of Care Code Global (22141) Diagnoses Lumbago M54.50
== END 2024-08-06 09:34 | disposition home or self-care (01) ==
LOC: HO.HNS 09:04
PROVIDERS: PCP Physician Assistant; Visit Provider Physician Assistant
DX: M54.50 Low back pain, unspecified (principal)
CPT/HCPCS: 99024

== ENCOUNTER → 2024-08-06 09:03 | Outpatient (BNVA) | payer OTHER, SELFPAY | PROVIDERS: PCP Physician Assistant; Visit Provider Physician Assistant | DX: M54.50 Low back pain, unspecified (principal) | CPT/HCPCS: 99212 ==

== ENCOUNTER → 2024-09-07 09:48 | Outpatient (REF) | payer OTHER, SELFPAY ==
--- NOTE | ~2024-09-07 | NM_ITS ---
Lexiscan Myocardial perfusion study Indication: Abnormal stress test Technique: The patient was brought in for a Lexiscan perfusion study on 09/07/2024 and was injected 0.4 mg of Lexiscan intravenously. Within a minute of this injection 30 mCi of sestamibi was given intravenously. Images were obtained using the SPECT gamma camera interlaced with the gating device. Images were obtained in supine position. Resting perfusion study was performed on 09/11/2024. Patient was administered 30 mCi of sestamibi intravenously at rest. Images were then obtained in supine position. Total DLP 133 mGy-cm. Images were processed with the software and compared side to side in short axis, horizontal long axis and vertical long axis views. Findings: Raw aquisition reviewed. Arms by the patient's side. The stress perfusion study showed no significant perfusion defects. Both uncorrected as well as CT attenuation corrected images were reviewed. The gated study shows normal LV systolic function with calculated LVEF of 56%. LV cavity is normal in size. The gated study shows normal wall thickening and contraction of segments. Resting study shows no significant perfusion defects. Gating at rest reveals normal wall motion with ejection fraction at 48%, but visually normal. The findings are consistent with no clear reversible or fixed perfusion defects. NM/NM cardiolite stress test Impression: 1. Myocardial perfusion imaging study shows normal myocardial perfusion. 2. Gated LVEF is 56% during stress and visually normal during rest. 3. Transient ischemic dilatation not present. EKG component of the test reported separately. Electronically signed by: Matt Nava MD 09/12/2024 10:38 AM EDT
--- NOTE | 2024-09-07 09:51 | CA_ITS ---
Acquisition Time: 2024-09-07 10:17:53 Total Exercise Time: 00:02:00 Test Indications: ABNORMAL STRESS Medications: Protocol: LEXISCAN Max HR: 81 BPM 51% of Pred: 158 BPM Max BP: 130/80 mmHG Max Work Load: 1.0 METS Pharmacological stress test with Lexiscan while pt swings her legs in chair, with reports of SOB, with isolated PVCs, with normotensive response to injection. Nondiagnostic EKG for ischemia. In recovery, pt's breathing returned to baseline. Nuclear images pending. Test reviewed with Dr. Estrada. Referred By: Charlie Sorensen Electronically Signed By: Charlie Sorensen
== END ==
LOC: HO.CARD 09:48
PROVIDERS: PCP Physician Assistant
DX: R94.39 Abnormal result of other cardiovascular function study (principal); I44.30 Unspecified atrioventricular block
CPT/HCPCS: 78452; 93017; A9500; J0280; J2785

== ENCOUNTER → 2024-09-07 09:51 | Outpatient (BNV) | payer OTHER, SELFPAY | PROVIDERS: PCP Physician Assistant | DX: R94.31 Abnormal electrocardiogram [ECG] [EKG] (principal) | CPT/HCPCS: 78452; 93016; 93018 ==

== ENCOUNTER 2024-09-26 09:21 | Outpatient (AMB) | payer OTHER, SELFPAY ==
--- NOTE | 2024-09-26 09:36 | A.OFFPC_ITS ---
Vital Signs 09/26/24 09:37 Height 5 ft 4 in Weight 177 lb BMI 30.4 BP 138/84 Blood Pressure Location Lt brachial Position Sitting Respiration 12 Pulse 67 Pulse Source Pulse Oximeter Temp 98.1 F Temp Source Oral Pulse Oximetry (%) 97 Oxygen Delivery Method Room Air Intake Visit Reasons: F/U from surgery / also knee problem Intake Note: Follow up post surgery, lower spine. Noticing weakness in legs since surgery, especially after sitting for long period of time. Feels worst now then before surgery. 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 Soccer Coach Language: Spaghetti Press Helper Name: [id number] Allergies clindamycin (CLINDAMYCIN) Allergy (Unknown, Verified 09/26/24 09:36) SWELLING, RASH pravastatin Allergy (Unknown, Verified 09/26/24 09:36) increase liver enzymes Medication List - Last Reconciled 09/26/24 by Catalina Hamilton PA-C acetaminophen (Tylenol Extra Strength) 1,000 mg (2 x 500 mg) PO Q6H PRN amlodipine 10 mg PO DAILY blood sugar diagnostic (Accu-Chek Guide test strips) tid for sensor failure or to confirm glucose 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 meter As directed dispense glucometer compatible with one touch test strips for use when sensor fails or to confirm low glucose reading 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 meter (Accu-Chek Guide Glucose Meter) As directed 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 sensor (FreeStyle Arlyn 3 Sensor device) For continuous use apply new sensor every 14 days carvedilol 25 mg PO BID 90 days cholecalciferol (vitamin D3) (Vitamin D3) 25 mcg PO DAILY cyclobenzaprine 10 mg PO TID PRN 10 days diclofenac sodium 1% (Voltaren Arthritis Pain) 4 grams topical QID PRN docusate sodium (Colace) 100 mg PO BID ferrous fumarate (Ferretts) 325 mg PO DAILY FreeStyle Arlyn 3 [place] (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,field insurance sales manager,cont) As directed for use with freestyle sensor NS FreeStyle Arlyn 3 [place] (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,field insurance sales manager,cont) As directed for use with freestyle arlyn NS gabapentin 900 mg (3 x 300 mg) PO Q8H 30 days hydralazine 50 mg (2 x 25 mg) PO TID insulin degludec (Tresiba FlexTouch U-200 insulin) 30 units (0.15 mL) subcut BEDTIME 30 days lancets (Accu-Chek Softclix Lancets) As tid for sensor failure or to confirm glucose reading lancets As directed tid for use wi glucometer when sensor fails latanoprost 0.005% 1 drp ophthalmic-Right BEDTIME levothyroxine 125 mcg PO DAILY losartan 100 mg PO DAILY meclizine 25 mg PO TID PRN metformin 1,000 mg PO BID 90 days pantoprazole 40 mg PO QAM pen needle, diabetic (BD Ultra-Fine Micro Pen Needle) As directed sennosides (senna) 17.2 mg PO BEDTIME PRN simvastatin 10 mg PO DAILY spironolactone 25 mg PO DAILY tirzepatide (Mounjaro) 2.5 mg (0.5 mL) subcut QWEEK 4 weeks Tobacco use date assessed: 09/26/24 Dental Screening Dental Screen Date: 09/26/24 Did you have a dental visit in the last 12 months?: Yes Did you have a dental problem in the last 6 months where you did not have access to dental care?: Yes Was dental information given to patient?: Yes HPI F/U from surgery / also knee problem HPI Details Patient is a 63-year-old male with a significant past medical history of type 2 diabetes, diabetic nephropathy, chronic kidney disease, hyperlipidemia, hypertension, depression, hypothyroidism, anemia, chronic back pain presenting today for a follow up. 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 It has also been almost 8 months since I last saw him. Since this time he has been hospitalized, had back surgery and has followed with specialists. He tells me today that for the last 2 weeks he has been just generally feeling weak. He states that he does not feel good. His appetite is about the same he does not have any chest pain or shortness on breath. No palpitations or dizziness. He states that when he goes to get up he feels weak in his legs. There was no trauma to his back. He states that he was discharged by Neurosurgery and he is worried that this could be his new baseline. He states once he starts walking he feels better in terms of leg weakness. He just feels tired during the day. He is still taking his supplements. Denies any recent medication changes. He states that with this fatigue and general weak feeling his knees and ankles are very painful. They feel tight and swollen. It feels like his knees might give out on him. He states that the knee pain and weakness he thinks actually might be more of the leg instability and weakness. He does not necessarily think that it is related to the back. There was no trauma, travel, insect bites. No joint erythema. No fevers or chills. He does not feel like he has a flu. Denies any congestion or cough. No nausea, vomiting or diarrhea. He states that he does not know why he just feels like he has been getting worse. He has also noticed tremors that seem worse with action but not all the time. He denies dropping things. Some of the history is vague despite interpretation. He states he has a hard time explaining some of this. His main concern is his joint pains in that they are so painful at times. He is requesting a prescription of oxycodone. He states that he used to take oxycodone intermittently while living in [place]. He states that he would only take it a few times a week for severe pain and he is wondering if he could have a prescription for this given all of his concerns. He also has noticed that his lower legs have been swollen for the last week or so. He did have ultrasounds of his extremities was show Coburn's cyst on left. No calf pain or tightness with walking. CV: Blood pressure today in the office is 138/84. He is currently on spironolactone 25 mg, hydralazine 50 mg 3 times a day, losartan 100 mg daily, carvedilol 25 mg twice a day, amlodipine 10 mg daily. Cholesterol is managed with simvastatin 10 mg. He recently was noted to have an AV block and has follow up with Cardiology on Tuesday. He recently had a reassuring stress test, his echo did show some chronic changes and his recent Holter monitor did show PVCs and VT without any symptoms. Patient currently denies any chest pain, shortness on breath or palpitations. He has noticed some lower leg edema and can not tell me exactly when this started. No signficant weight gain. Conclusions: - The left ventricular systolic function is normal. The calculated ejection fraction is 61% by biplane method. - There is moderately increased left helen tricular wall thickness. - There is moderate posterior mitral jonathon ular calcification. - There is mild calcification of the aor tic valve. - There is mild dilatation of the sinuse s of Valsalva measuring 4.13 cm and mild dilatation of the ascen ding aorta measuring 3.90 cm. Nephro: Follows closely with Nephrology. He was last seen in June. His kidney disease is stable and felt to be related to resistant hypertension and diabetes. Has multifactorial anemia. Currently on iron. Heme-Onc: Currently on iron supplement. He has not yet booked this. UTD on colonoscopy/endoscopy GI: Has a history of H pylori and has not followed up with GI following treatment of this. He was supposed to but had to reschedule appointments due to travel this winter. Endo: He is following with the endocrinology department and has an appointment next week. His most recent A1c was 7.7. He is currently on Mounjaro 2.5 mg weekly, metformin 1000 mg twice a day and Tresiba 30 units daily. He was able to get a CGM this year but tells me today that he has not been using it because he lost his reader. He does have backup testing supplies. He has not had any hypoglycemic events. He has been finger sticking and states his blood sugars are around 150. It is not necessarily done fasting. He does not want to adjust his dosage of Mounjaro at this time as it causes too much appetite suppression sometimes. He is on levothyroxine 125 mcg. Last TSH was WNL Has peripheral neuropathy. On gabapentin. Musculoskeletal: He recently follow up with neurosurgery for his back. He did have surgery and states that they told him that this was probably the best he was going to get. He states that he is still getting intermittent pain down the right leg and at times his legs feel weak. He does have chronic back pain and he thinks it did improve marginally from surgery. Endorses bilateral knee and ankle pain today x 2 weeks. states knees feel unstable. [facility] Medical History Myocardial infarction Back pain Arthritis Thyroid disease Depression Numbness Habitual snoring Wheezing History of Helicobacter pylori infection Hypothyroid Forgetfulness Major depression, recurrent, chronic Dizziness Hypertension Hyperlipidemia Previous myocardial infarction older than 8 weeks Chest pain Microalbuminuria Chronic kidney disease Diabetic nephropathy Uncontrolled type 2 diabetes mellitus with hyperglycemia, with long-term current use of insulin Surgical History History of hemilaminectomy History of esophagogastroduodenoscopy (EGD) H/O colonoscopy Hx of appendectomy Hx of knee surgery Family History Father No problems noted. Mother No problems noted. Social History Household Members: Family Housing: House Are you a primary healthcare consultant to a significant other at home: No Do you presently have visiting nurse or other home services: No Alcohol intake: current Alcohol intake frequency: does not drink Patient Tobacco Use Status: Never used Tobacco e-Cigarette/Vaping Use: Never Used Second Hand Smoke Exposure: No service: No Current occupational status: unemployed Cognitive needs: No Hearing needs: No Vision needs: No Questionnaire Thrive Questionnaire Date Thrive assessed: 03/21/24 AUDIT C Alcohol Use Questionnaire (AUDIT-C) 1. How often do you have a drink containing alcohol?: Never 3. How often do you have six or more drinks on one occasion?: Never Total Score: 0 JOEY-7 AMB Questionnaire JOEY-7 Date JOEY - 7 assessed: 08/17/23 Source: Developed by Drs. Dick Burgess, Anna Hoang, Tal Celis and colleagues, with an educational quin from [employer]. Physical exam (Primary Care) Vital Signs: Last Vital Signs Temp 98.1 F 09/26/24 09:37 Pulse 67 09/26/24 09:37 Resp 12 09/26/24 09:37 BP 138/84 09/26/24 09:37 Pulse Ox 97 09/26/24 09:37 Oxygen Delivery Method Room Air 09/26/24 09:37 BMI result Body Mass Index 30.4 Tobacco/Smoking Status: Tobacco use Status Tobacco use date assessed 09/26/24 09/26/24 09:39 Patient Tobacco Use Status Never used Tobacco 09/26/24 09:39 e-Cigarette/Vaping Use Never Used 09/26/24 09:39 Thrive Assessment: Date of Thrive Assessment Date Thrive assessed 03/21/24 09/26/24 09:39 Const Orientation/consciousness: patient oriented x3 HENMT Ears: hearing grossly normal bilaterally Neck Thyroid: Thyroid normal Lymphatic: no lymphadenopathy noted Resp Auscultation: clear to auscultation bilaterally Cardio Rate: regular rate Rhythm: regular rhythm Heart sounds: S1 normal heart sound present and S2 normal heart sound present GI Inspection: Yes normal to inspection Palpation (GI): Soft to palpation and Other GI palpation findings present (nontender, no cva tenderness) Auscultation: normoactive bowel sounds Rectal Exam - Male: Yes deferred Skin General skin exam: no rashes or lesions noted Neuro Other: Strength of right lower extremity is slightly weaker when compared to the left. General: patient oriented x3, moves all extremities, no focal motor deficits, decrease sensation to monofilament and deep tendon reflexes 2+ bilaterally Gait exam (Neuro): Assisted gait required (cane) and Assistive device used Extrem Other: +pitting edema noted of the bilateral lower legs/ankles. No calf pain or tenderness or erythema. Legs are symmetrical. Bilateral knees and ankles are tender to palpation. Full range of motion. Crepitus of the bilateral knees noted. No ligamentous laxity noted. General: Yes capillary refill normal Results Reviewed Results Reviewed: ULTRASOUND LEFT LOWER EXTREMITY ARTERIES Comparison: None Findings: Peak systolic velocities (PSV) are reported in cm/s. Left lower extremity: Common femoral artery: Multiphasic waveforms. PSV = 95. Deep femoral artery: Multiphasic waveforms. PSV = 78. Proximal, mid and distal superficial femoral artery: Multiphasic waveforms. PSV = 135, 144 and 132, respectively. Popliteal artery: Multiphasic waveforms. PSV = 113-114. Anterior tibial artery: Monophasic waveforms. PSV = 36-74. Posterior tibial artery: Mixed monophasic and multiphasic waveforms. PSV = 46-83. Peroneal artery: Multiphasic waveforms. PSV = 135-155. Dorsalis pedis artery: Monophasic waveforms. PSV = 83-99. There is a nonenlarged left groin lymph node with benign morphology. There is a irregular thick-walled cystic lesion in the popliteal fossa which measures 5.2 x 1.2 x 3.6 cm (Length x Height x Width). There are moderate grade internal echoes. No posterior acoustic shadowing. Impression: 1. No occlusion or flow-limiting stenosis in the femoral or popliteal arteries. 2. Patent calf runoffs with no occlusion or high-grade stenosis. 3. Complex popliteal/Coburn's cyst measures 5.2 cm in greatest diameter. This document has been electronically signed by: Ellen Lamas DO on 08/03/2024 15:17:20 Stress test: NM/NM cardiolite stress test Impression: 1. Myocardial perfusion imaging study shows normal myocardial perfusion. 2. Gated LVEF is 56% during stress and visually normal during rest. 3. Transient ischemic dilatation not present. EKG component of the test reported separately. Laboratory Tests 05/28/24 06/20/24 06/20/24 05:14 12:42 13:33 WBC 17.0 H RBC 3.60 L Hgb 10.3 L Hct 31.1 L Plt Count 194 Creatinine 1.65 H Estimated GFR 42 Glucose (Clinic) Hgb A1c (Clinic) 7.7 H 08/02/24 09:12 WBC RBC Hgb Hct Plt Count Creatinine Estimated GFR Glucose (Clinic) 179 H Hgb A1c (Clinic) Coding Level of Care Code Est Pt Level 5 (04605) Complex EM visit Add On G2211 Diagnoses Uncontrolled type 2 diabetes mellitus with hyperglycemia, with long-term current use of insulin E11.65; Z79.4 Primary hypertension I10 Hypertension type: primary hypertension Lower leg edema R60.0 Bilateral knee pain M25.561; M25.562 Bilateral ankle pain M25.571; M25.572 Occasional tremors R25.1 Generalized weakness R53.1 Lumbar pain with radiation down both legs M54.50; M79.604; M79.605 Assessment & Plan Assessment & Plan (1) Uncontrolled type 2 diabetes mellitus with hyperglycemia, with long-term current use of insulin: Code(s): E11.65 - Type 2 diabetes mellitus with hyperglycemia; Z79.4 - retirement (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 of insulin Category: Medical Plan: I did attempt to order him a new SnipSnap 3 reader. Discussed that he may have to contact the insurance company because he did just get it within this year. He does have a smart phone however and I showed him how to download the [employer] 3 isaura. he reports having sensors at home. He has an upcoming appointment with endocrinology and advised to keep this appointment. We will monitor labs. A1c ordered today. (2) Hypertension: Code(s): I10 - Essential (primary) hypertension Category: Medical Qualifiers: Hypertension type: primary hypertension Qualified Code(s): I10 - Essential (primary) hypertension Plan: Continue current regimen (3) Lower leg edema: Code(s): R60.0 - Localized edema Category: Medical Plan: Labs ordered today. I will have him return for a short term follow up. (4) Bilateral knee pain: Code(s): M25.561 - Pain in right knee; M25.562 - Pain in left knee Category: Medical Plan: Referral to ortho x-rays ordered. (5) Bilateral ankle pain: Code(s): M25.571 - Pain in right ankle and joints of right foot; M25.572 - Pain in left ankle and joints of left foot Category: Medical Plan: As above (6) Occasional tremors: Code(s): R25.1 - Tremor, unspecified Category: Medical Plan: No tremor noted today on exam. I have referred him to Neurology (7) Generalized weakness: Code(s): R53.1 - Weakness Category: Medical Plan: Labs ordered. Advised to monitor blood sugar readings closely. Advised short term follow up in 2 weeks to be reassessed. He will call me or follow up sooner if anything worsens or changes. (8) Lumbar pain with radiation down both legs: Code(s): M54.50 - Low back pain, unspecified; M79.604 - Pain in right leg; M79.605 - Pain in left leg Category: Medical Plan: I will prescribe him oxycodone to use sparingly as needed for severe pain only. Discussed that I would not do more than 20 tablets a month. We will do a short term follow up to see how he is feeling with this. We reviewed pros and cons to this, risks and benefits and adverse effects at length including risk of sedation and dependence. Plan 65 minutes was spent today in veef-dy-wikf time reviewing his concerns and formulating a plan. Orders: Orders Complete Blood Count Auto Diff Today E11.65 - Type 2 diabetes mellitus with hyperglycemia, I10 - Essential (primary) hypertension, M25.561 - Pain in right knee, M25.562 - Pain in left knee, M25.571 - Pain in right ankle and joints of right foot, M25.572 - Pain in left ankle and joints of left foot, R60.0 - Localized edema, Z79.4 - computer terminal operator (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 of insulin B Type Natriuretic Peptide Today E11.65 - Type 2 diabetes mellitus with hyperglycemia, I10 - Essential (primary) hypertension, M25.561 - Pain in right knee, M25.562 - Pain in left knee, M25.571 - Pain in right ankle and joints of right foot, M25.572 - Pain in left ankle and joints of left foot, R60.0 - Localized edema, Z79.4 - computer terminal operator (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 of insulin Comprehensive Met. Panel Today E11.65 - Type 2 diabetes mellitus with hypergl ycemia, I10 - Essential (primary) hypertension, M25.561 - Pain in right knee, M25.562 - Pain in left knee, M25.571 - Pain in right ankle and joints of right foot, M25.572 - Pain in left ankle and joints of left foot, R60.0 - Localized edema, Z79.4 - computer terminal operator (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 of insulin XR Ankle Miguel min 3V Today M25.571 - Pain in right ankle and joints of right foot, M25.572 - Pain in left ankle and joints of left foot Rheumatoid Factor Today D50.9 - Iron deficiency anemia, unspecified, E11.65 - Type 2 diabetes mellitus with hyperglycemia, E53.8 - Deficiency of other specified B group vitamins, I10 - Essential (primary) hypertension, R25.1 - Tremor, unspecified, R53.1 - Weakness, Z79.4 - computer terminal operator (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 of insulin Ferritin Today D50.9 - Iron deficiency anemia, unspecified, E11.65 - Type 2 diabetes mellitus with hyperglycemia, E53.8 - Deficiency of other specified B group vitamins, I10 - Essential (primary) hypertension, R25.1 - Tremor, unspecified, R53.1 - Weakness, Z79.4 - retirement (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 of insulin IRON PROFILE Today D50.9 - Iron deficiency anemia, unspecified, E11.65 - Type 2 diabetes mellitus with hyperglycemia, E53.8 - Deficiency of other specified B group vitamins, I10 - Essential (primary) hypertension, R25.1 - Tremor, unspecified, R53.1 - Weakness, Z79.4 - retirement (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 of insulin Vitamin B12 and Folate Today D50.9 - Iron deficiency anemia, unspecified, E11.65 - Type 2 diabetes mellitus with hyperglycemia, E53.8 - Deficiency of other specified B group vitamins, I10 - Essential (primary) hypertension, R25.1 - Tremor, unspecified, R53.1 - Weakness, Z79.4 - computer terminal operator (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 of insulin Hemoglobin A1c Today E11.65 - Type 2 diabetes mellitus with hyperglycemia, I10 - Essential (primary) hypertension, M25.561 - Pain in right knee, M25.562 - Pain in left knee, M25.571 - Pain in right ankle and joints of right foot, M25.572 - Pain in left ankle and joints of left foot, R60.0 - Localized edema, R73.01 - Impaired fasting glucose, Z79.4 - retirement (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 of insulin XR knee RT 2V Today M25.561 - Pain in right knee, M25.562 - Pain in left knee, M25.571 - Pain in right ankle and joints of right foot, M25.572 - Pain in left ankle and joints of left foot XR knee LT 2V Today M25.561 - Pain in right knee, M25.562 - Pain in left knee, M25.571 - Pain in right ankle and joints of right foot, M25.572 - Pain in left ankle and joints of left foot UA CC w/rflx Micro + Cult Today D50.9 - Iron deficiency anemia, unspecified, E11.65 - Type 2 diabetes mellitus with hyperglycemia, E53.8 - Deficiency of other specified B group vitamins, I10 - Essential (primary) hypertension, R25.1 - Tremor, unspecified, R53.1 - Weakness, Z13.220 - Encounter for screening for lipoid disorders, Z79.4 - computer terminal operator (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 of insulin JOSAFAT Reflex Titer and Pattern Today D50.9 - Iron deficiency anemia, unspecified, E11.65 - Type 2 diabetes mellitus with hyperglycemia, E53.8 - Deficiency of other specified B group vitamins, I10 - Essential (primary) hypertension, R25.1 - Tremor, unspecified, R53.1 - Weakness, Z79.4 - computer terminal operator (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 of insulin Prostate Specific Antigen Scr Today D50.9 - Iron deficiency anemia, unspecified, E11.65 - Type 2 diabetes mellitus with hyperglycemia, E53.8 - Deficiency of other specified B group vitamins, I10 - Essential (primary) hypertension, R25.1 - Tremor, unspecified, R53.1 - Weakness, Z01.89 - Encounter for other specified special examinations, Z79.4 - retirement (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 of insulin Magnesium Today D50.9 - Iron deficiency anemia, unspecified, E11.65 - Type 2 diabetes mellitus with hyperglycemia, E53.8 - Deficiency of other specified B group vitamins, I10 - Essential (primary) hypertension, R25.1 - Tremor, unspecified, R53.1 - Weakness, Z79.4 - computer terminal operator (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 of insulin Referrals Neurology Referral R25.1 - Tremor, unspecified Orthopedics Referral M25.561 - Pain in right knee, M25.562 - Pain in left knee, M25.571 - Pain in right ankle and joints of right foot, M25.572 - Pain in left ankle and joints of left foot Medications: New 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,field insurance sales manager,cont (FreeStyle Arlyn 3 [place]) Use daily As directed to monitor blood glucose 1 ea 0RF E11.65 - Type 2 diabetes mellitus with hyperglycemia, Z79.4 - retirement (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 of insulin oxycodone Partial Fill upon patient request. 5 mg PO Q12H PRN 20 tabs 0RF pain, severe 30 days M48.02 - Spinal stenosis, cervical region, M54.50 - Low back pain, unspecified, M79.604 - Pain in right leg, M79.605 - Pain in left leg
[2024-09-26 09:37] VITALS: BP 138/84; PULSE 67; RESP 12; TEMP 36.7; O2SAT 97; BMI 30.4
== END 2024-09-26 10:32 | disposition home or self-care (01) ==
LOC: HO.HMCFM 09:22
PROVIDERS: PCP Physician Assistant; Visit Provider Physician Assistant
DX: E11.65 Type 2 diabetes mellitus with hyperglycemia (principal); Z79.4 Long term (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 of insulin; I10 Essential (primary) hypertension; R60.0 Localized edema; M25.561 Pain in right knee; M25.562 Pain in left knee; M25.571 Pain in right ankle and joints of right foot; R25.1 Tremor, unspecified; R53.1 Weakness; M54.50 Low back pain, unspecified; M79.604 Pain in right leg; M79.605 Pain in left leg

== ENCOUNTER 2024-09-26 10:59 | Outpatient (REF) | payer OTHER, SELFPAY ==
[2024-09-26 14:33] LABS: Appearance Urine Clear; Glucose Urine UA Negative (Negative); PH 5.5 (5.0-9.0); Specific Gravity - Urine 1.010 (1.005-1.025); UMIC TRIGGER UA YES; UMIC TRIGGER UACC YES
[2024-09-26 14:36] LABS: MANUAL DIFF FLAG NO
[2024-09-26 14:45] LABS: Hematocrit 36.2 % (42.0-52.0); Hemoglobin 11.7 g/dl (14.0-18.0); Imm Gran Abs Auto 0.04 X10*3/uL (0.00-0.03); Imm Gran Pct Auto 0.4 % (0.0-0.4); Lymphocytes Absolute Auto 1.2 X10*3/uL (1.2-4.9); Mean Corpuscular HGB Conc 32.3 g/dl (31.0-36.0); Mean Corpuscular Hemoglobin 28.0 pg (27.0-33.0); Mean Corpuscular Volume 86.6 fL (80.0-98.0); NRBC Abs Auto 0.000 X10*3/uL (0.0-0.012); NRBC Pct Auto 0.0 /100WBC (0.0-0.2); Platelet Count 219 X10*3/uL (160-400); Red Blood Count 4.18 X10*6/uL (4.60-5.80); White Blood Count 10.2 X10*3/uL (4.8-10.8)
[2024-09-26 14:48] LABS: B Type Natriuretic Peptide 247 pg/mL (<100)
[2024-09-26 15:05] LABS: Hemoglobin A1C 178.0306 umol/L; Total Hemoglobin (HGBA1C) 3157.8724 umol/L
[2024-09-26 15:20] LABS: Alanine Aminotransferase 20 U/L (0-40); Albumin Level 4.2 g/dL (3.5-5.0); Alkaline Phosphatase 68 U/L (39-117); Anion Gap 12 (12-20); Aspartate Amino Transferase 25 U/L (5-37); Blood Urea Nitrogen 19 mg/dL (9-16); Calcium 9.3 mg/dL (8.4-10.2); Carbon Dioxide 25 mmol/L (22-29); Chloride 108 mmol/L (96-108); Estimated Glomerular Filt Rate 45; Iron 61 mcg/dL (45-160); Magnesium 1.6 mg/dL (1.6-2.6); Percent Iron Saturation 24 % (15-50); Potassium 4.8 mmol/L (3.3-5.1); Sodium 140 mmol/L (135-145); Total Iron Binding Capacity 250 mcg/dL (228-428); Total Protein 7.0 g/dL (6.5-8.0); Unsaturated Iron Binding 189 ug/dL
[2024-09-26 15:38] LABS: Total Protein Urine Random 366 mg/dL (<12)
[2024-09-26 15:42] LABS: Folate 8.6 ng/mL (> or = 4.0); Vitamin B12 205 pg/mL (200-900)
[2024-09-26 15:43] LABS: Ferritin 120 ng/mL (20-250)
[2024-10-03 07:39] LABS: Anti Nuclear Antibody Screen NEGATIVE (NEGATIVE)
== END 2024-09-26 11:00 | disposition home or self-care (01) ==
LOC: HO.WFDLDS 10:59
PROVIDERS: Referring Provider Internal Medicine Hypertension Specialist; Visit Provider Physician Assistant
DX: I12.9 Hypertensive chronic kidney disease with stage 1 through stage 4 chronic kidney disease, or unspecified chronic kidney disease (principal); E11.65 Type 2 diabetes mellitus with hyperglycemia; N18.32 Chronic kidney disease, stage 3b; R60.0 Localized edema; M25.561 Pain in right knee; M25.562 Pain in left knee; M25.571 Pain in right ankle and joints of right foot; M25.572 Pain in left ankle and joints of left foot; E53.8 Deficiency of other specified B group vitamins; R53.1 Weakness; D50.9 Iron deficiency anemia, unspecified; R25.1 Tremor, unspecified; Z79.4 Long term (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 of insulin; Z01.89 Encounter for other specified special examinations; Z01.84 Encounter for antibody response examination; Z12.5 Encounter for screening for malignant neoplasm of prostate
CPT/HCPCS: 36415; 80053; 81001; 82570; 82607; 82728; 82746; 83036; 83540; 83735; 83880; 84153; 84156; 85025; 86038; 86431; 99212

== ENCOUNTER 2024-09-28 13:36 | Outpatient (AMB) | payer OTHER, SELFPAY ==
[2024-09-28 13:41] VITALS: BP 138/68; PULSE 66; BMI 29.5
--- NOTE | 2024-09-28 13:41 | MHC.OFFVIS ---
Vital Signs 09/28/24 13:41 Height 5 ft 4 in Weight 171 lb 15.369 oz BMI 29.5 BP 138/68 Blood Pressure Location Lt brachial Position Sitting Pulse 66 Pulse Source Pulse Oximeter Intake Visit Reasons: f/up-testing Erp Technical Lead Required: Yes Erp Technical Lead Services: Erp Technical Lead Offered & Declined Accompanied by: Grand Child Allergies clindamycin (CLINDAMYCIN) Allergy (Unknown, Verified 09/26/24 09:36) SWELLING, RASH pravastatin Allergy (Unknown, Verified 09/26/24 09:36) increase liver enzymes Medication List - Last Reconciled 09/28/24 by Charlie Sorensen NP amlodipine 10 mg PO DAILY blood sugar diagnostic (Accu-Chek Guide test strips) tid for sensor failure or to confirm glucose 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 meter As directed dispense glucometer compatible with one touch test strips for use when sensor fails or to confirm low glucose reading 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 meter (Accu-Chek Guide Glucose Meter) As directed 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 sensor (FreeStyle Matt 3 Sensor device) For continuous use apply new sensor every 14 days 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,gunsmith apprentice,cont (FreeStyle Matt 3 [place]) Use daily As directed to monitor blood glucose carvedilol 25 mg PO BID 90 days cholecalciferol (vitamin D3) (Vitamin D3) 25 mcg PO DAILY cyclobenzaprine 10 mg PO TID PRN 10 days diclofenac sodium 1% (Voltaren Arthritis Pain) 4 grams topical QID PRN docusate sodium (Colace) 100 mg PO BID ferrous fumarate (Ferretts) 325 mg PO DAILY FreeStyle Matt 3 [place] (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,gunsmith apprentice,cont) As directed for use with freestyle sensor NS FreeStyle Matt 3 [place] (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,gunsmith apprentice,cont) As directed for use with freestyle matt NS gabapentin 900 mg (3 x 300 mg) PO Q8H 30 days hydralazine 50 mg (2 x 25 mg) PO TID insulin degludec (Tresiba FlexTouch U-200 insulin) 30 units (0.15 mL) subcut BEDTIME 30 days lancets (Accu-Chek Softclix Lancets) As tid for sensor failure or to confirm glucose reading lancets As directed tid for use wi glucometer when sensor fails latanoprost 0.005% 1 drp ophthalmic-Right BEDTIME levothyroxine 125 mcg PO DAILY losartan 100 mg PO DAILY meclizine 25 mg PO TID PRN metformin 1,000 mg PO BID 90 days oxycodone 5 mg PO Q12H PRN 30 days pantoprazole 40 mg PO QAM pen needle, diabetic (BD Ultra-Fine Micro Pen Needle) As directed sennosides (senna) 17.2 mg PO BEDTIME PRN simvastatin 10 mg PO DAILY spironolactone 25 mg PO DAILY tirzepatide (Mounjaro) 2.5 mg (0.5 mL) subcut QWEEK 4 weeks HPI Comments Details: This is a 63-year-old male patient coming in for a follow-up visit. 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 Patient with history of hypertension, hyperlipidemia, diabetes, and reports that he was diagnosed with congestive heart failure back in [place]. Patient was in the hospital for a spine surgery with Dr. Hodges for lower extremity discomfort and neuropathy during which time preoperatively he was noted to have Mobitz type 1 second-degree AV block. Subsequently patient underwent a Holter study and a stress test. Today, patient reports feeling well overall and denies any exertional symptoms of chest pain, shortness breath, palpitations, dizziness, orthopnea, PND, leg edema, presyncope, or syncope. Patient is reporting compliance with all his medications. [facility] Medical History Myocardial infarction Back pain Arthritis Thyroid disease Depression Numbness Habitual snoring Wheezing History of Helicobacter pylori infection Hypothyroid Forgetfulness Major depression, recurrent, chronic Dizziness Hypertension Hyperlipidemia Previous myocardial infarction older than 8 weeks Chest pain Microalbuminuria Chronic kidney disease Diabetic nephropathy Uncontrolled type 2 diabetes mellitus with hyperglycemia, with long-term current use of insulin Surgical History History of hemilaminectomy History of esophagogastroduodenoscopy (EGD) H/O colonoscopy Hx of appendectomy Hx of knee surgery Family History Father No problems noted. Mother No problems noted. Social History Household Members: Family Housing: House Are you a primary post acute care registered nurse to a significant other at home: No Do you presently have visiting nurse or other home services: No Alcohol intake: current Alcohol intake frequency: does not drink Patient Tobacco Use Status: Never used Tobacco e-Cigarette/Vaping Use: Never Used Second Hand Smoke Exposure: No service: No Current occupational status: unemployed Cognitive needs: No Hearing needs: No Vision needs: No Review of Systems Const Denies weakness ENT Denies dizziness Card Denies chest pain, Denies chest pain with activity, Denies syncope, Denies rapid heart rate, Denies pedal edema, Denies edema, Reports leg edema, Denies lightheadedness, Reports palpitations, Denies dyspnea, Denies dyspnea on exertion and Denies orthopnea Resp Denies cough, Denies dyspnea and Denies dyspnea on exertion GI Denies hematochezia and Denies change in stool character Musc Denies abnormal gait, Denies muscle cramps, Denies muscle weakness, Denies numbness, Denies radiating pain into limb and Denies tingling Neuro Denies abnormal gait, Denies dizziness, Denies syncope, Denies numbness, Denies tingling and Denies weakness Endo Reports palpitations Physical Exam Vital Signs: Last Vital Signs Pulse 66 09/28/24 13:41 BP 138/68 09/28/24 13:41 BMI result Body Mass Index 29.5 Const General: cooperative, healthy appearing, comfortable and no acute distress Orientation/consciousness: patient oriented x3 HEENT Head: Yes normal to inspection Neck Neck: Yes normal visual inspection, Yes trachea midline and Yes supple Chest Chest palpation & inspection: normal inspection of the chest Resp Effort & Inspection: normal respiratory effort Auscultation: clear to auscultation bilaterally, no crackles, no rales, no rhonchi and no wheezes Cardio Jugular venous distension: no JVD Palpation: normal PMI Rate: regular rate Rhythm: regular rhythm Heart sounds: S1 normal heart sound present, S2 normal heart sound present, no click, no gallops, no murmurs and no rubs Peripheral pulses: Peripheral pulses 2+ throughout GI Inspection: Yes normal to inspection Palpation (GI): Soft to palpation Auscultation: normal bowel sounds Skin General skin exam: no rashes or lesions noted Neuro General: patient oriented x3 Extrem General: Yes normal to inspection, No no pedal edema and No calf tenderness Psych Appearance: grossly normal Mental Status: mental status grossly normal Speech and movement: Normal speech and movement present Assessment & Plan Assessment & Plan (1) AV block: Code(s): I44.30 - Unspecified atrioventricular block Category: Medical Plan: Patient was noted to have an AV conduction delay preoperatively that was noted to be Mobitz type 1 second-degree heart block. Patient underwent a Holter study 06/25/2024 that showed baseline normal sinus rhythm with an average heart rate of 69 beats per minute, frequent isolated PVCs with burden of 2.2% with 1 episode of 4 beat VT. No significant pauses or arrhythmia noted. 06/25/2024-patient underwent a treadmill stress test that can be completed due to his leg weakness for which patient underwent a duplex study that was negative. 09/07/2024-patient underwent a vasodilating myocardial perfusion study that was normal. Clinically stable and without any anginal symptoms. (2) Congestive heart failure: Code(s): I50.9 - Heart failure, unspecified Category: Medical Plan: Patient states history of congestive heart failure diagnosed in [place]. 06/04/2024-echo study showed a normal LV systolic function with an ejection fraction at 61%, moderately increased LV wall thickness, moderate posterior mitral annular calcification, mild calcification of the aortic valve, mild dilation of the sinuses of Valsalva at 4.13 cm and mild dilation of the ascending aorta at 3.90 cm. Clinically euvolemic. Continue spironolactone. Discussed signs and symptoms of heart failure to watch for. Advised on lifestyle modifications. We will repeat echo in a year. (3) Hypertension: Code(s): I10 - Essential (primary) hypertension Category: Medical Qualifiers: Hypertension type: primary hypertension Qualified Code(s): I10 - Essential (primary) hypertension Plan: Blood pressure within normal limits. Continue current regimen with a blood pressure goal less than 130/80. Advised monitoring at home. (4) Hyperlipidemia: Code(s): E78.5 - Hyperlipidemia, unspecified Category: Medical Qualifiers: Hyperlipidemia type: mixed hyperlipidemia Qualified Code(s): E78.2 - Mixed hyperlipidemia Plan: Most recent LDL at 29. Continue simvastatin. Ideally, LDL goal should be less than 70. (5) Uncontrolled type 2 diabetes mellitus with hyperglycemia, with long-term current use of insulin: Code(s): E11.65 - Type 2 diabetes mellitus with hyperglycemia; Z79.4 - MCFP (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 of insulin Category: Medical Plan: Most recent A1c high at 7.3%. Patient states his blood sugars are improving at home. Continue aggressive diabetes management with an A1c goal less than 7%. Advised heart healthy diet, regular exercise, losing weight, med compliance, and management of vascular risk factors. Follow up in 1 year, sooner if needed. In the interim, patient will call the office with any concerns or change in symptoms. This note was generated using voice recognition software. While every effort has been made to ensure accuracy and proper wind field manager, there may be occasional errors that could affect the content or meaning of the described symptoms. Orders: Orders CA echo transthoracic complete 1 Year I10 - Essential (primary) hypertension, I77.89 - Other specified disorders of arteries and arterioles Coding Level of Care Code Est Pt Level 4 (59638) Complex EM visit Add On G2211 Diagnoses AV block I44.30 Congestive heart failure I50.9 Primary hypertension I10 Hypertension type: primary hypertension Mixed hyperlipidemia E78.2 Hyperlipidemia type: mixed hyperlipidemia Uncontrolled type 2 diabetes mellitus with hyperglycemia, with long-term current use of insulin E11.65; Z79.4 Time Spent (min) 32 Comment Time spent in reviewing the chart, test results, assessment, counseling and documentation.
== END 2024-09-28 14:26 | disposition home or self-care (01) ==
LOC: HO.HCS 13:36
PROVIDERS: PCP Physician Assistant
DX: I44.30 Unspecified atrioventricular block (principal); I50.9 Heart failure, unspecified; I10 Essential (primary) hypertension; E78.2 Mixed hyperlipidemia; E11.65 Type 2 diabetes mellitus with hyperglycemia; Z79.4 Long term (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 of insulin
CPT/HCPCS: 99214

== ENCOUNTER → 2024-09-28 13:36 | Outpatient (BNVA) | payer OTHER, SELFPAY | PROVIDERS: PCP Physician Assistant | DX: Z71.2 Person consulting for explanation of examination or test findings (principal); I10 Essential (primary) hypertension; I44.30 Unspecified atrioventricular block; I50.9 Heart failure, unspecified; E78.2 Mixed hyperlipidemia; E11.65 Type 2 diabetes mellitus with hyperglycemia; Z79.4 Long term (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 of insulin | CPT/HCPCS: 99212 ==

== ENCOUNTER 2024-10-01 07:50 | Outpatient (AMB) | payer OTHER, SELFPAY ==
[2024-10-01 08:03] VITALS: BP 180/100; PULSE 96; O2SAT 86; BMI 30.2
--- NOTE | 2024-10-01 08:03 | A.OFFVIS_ITS ---
Vital Signs 10/01/24 08:03 Height 5 ft 4 in Weight 176 lb BMI 30.2 BP 180/100 H Blood Pressure Location Rt brachial Position Sitting Pulse 96 Pulse Source Pulse Oximeter Pulse Oximetry (%) 86 L Oxygen Delivery Method Room Air Intake Visit Reasons: INP-Tremors Accompanied by: Self / Same As Patient Allergies clindamycin (CLINDAMYCIN) Allergy (Unknown, Verified 10/01/24 08:04) SWELLING, RASH pravastatin Allergy (Unknown, Verified 10/01/24 08:04) increase liver enzymes Medication List - Last Reconciled 10/01/24 by Deepa Gomez MD amlodipine 10 mg PO DAILY blood sugar diagnostic (Accu-Chek Guide test strips) tid for sensor failure or to confirm glucose 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 meter As directed dispense glucometer compatible with one touch test strips for use when sensor fails or to confirm low glucose reading 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 meter (Accu-Chek Guide Glucose Meter) As directed 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 sensor (FreeStyle Matt 3 Sensor device) For continuous use apply new sensor every 14 days 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,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,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 (FreeStyle Matt 3 [place]) Use daily As directed to monitor blood glucose carvedilol 25 mg PO BID 90 days cholecalciferol (vitamin D3) (Vitamin D3) 25 mcg PO DAILY cyclobenzaprine 10 mg PO TID PRN 10 days diclofenac sodium 1% (Voltaren Arthritis Pain) 4 grams topical QID PRN docusate sodium (Colace) 100 mg PO BID ferrous fumarate (Ferretts) 325 mg PO DAILY FreeStyle Matt 3 Pep (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,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,cont) As directed for use with freestyle sensor NS FreeStyle Matt 3 Pep (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,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,cont) As directed for use with freestyle matt NS gabapentin 900 mg (3 x 300 mg) PO Q8H 30 days hydralazine 50 mg (2 x 25 mg) PO TID insulin degludec (Tresiba FlexTouch U-200 insulin) 30 units (0.15 mL) subcut BEDTIME 30 days lancets (Accu-Chek Softclix Lancets) As tid for sensor failure or to confirm glucose reading lancets As directed tid for use wi glucometer when sensor fails latanoprost 0.005% 1 drp ophthalmic-Right BEDTIME levothyroxine 125 mcg PO DAILY losartan 100 mg PO DAILY meclizine 25 mg PO TID PRN metformin 1,000 mg PO BID 90 days oxycodone 5 mg PO Q12H PRN 30 days oxycodone 5 mg PO Q8H PRN pantoprazole 40 mg PO QAM pen needle, diabetic (BD Ultra-Fine Micro Pen Needle) As directed sennosides (senna) 17.2 mg PO BEDTIME PRN simvastatin 10 mg PO DAILY spironolactone 25 mg PO DAILY tirzepatide (Mounjaro) 2.5 mg (0.5 mL) subcut QWEEK 4 weeks HPI Comments Details: ID [id number] 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 He has h/o laminectomy. No fh/o tremors . He denies any head injury. He feels clumsy with his left hand. He has some difficulty walking -slower He feels like his legs are stiff . No change in hsi voice. He also reports feeling dizzy today morning when he stood up from his bed. [facility] Medical History Myocardial infarction Back pain Arthritis Thyroid disease Depression Numbness Habitual snoring Wheezing History of Helicobacter pylori infection Hypothyroid Forgetfulness Major depression, recurrent, chronic Dizziness Hypertension Hyperlipidemia Previous myocardial infarction older than 8 weeks Chest pain Microalbuminuria Chronic kidney disease Diabetic nephropathy Uncontrolled type 2 diabetes mellitus with hyperglycemia, with long-term current use of insulin Surgical History History of hemilaminectomy History of esophagogastroduodenoscopy (EGD) H/O colonoscopy Hx of appendectomy Hx of knee surgery Family History Father No problems noted. Mother No problems noted. Social History Household Members: Family Housing: House Are you a primary career placement services counselor to a significant other at home: No Do you presently have visiting nurse or other home services: No Alcohol intake: current Alcohol intake frequency: does not drink Patient Tobacco Use Status: Never used Tobacco e-Cigarette/Vaping Use: Never Used Second Hand Smoke Exposure: No service: No Current occupational status: unemployed Cognitive needs: No Hearing needs: No Vision needs: No Physical Exam Vital Signs: Last Vital Signs Pulse 96 10/01/24 08:03 BP 180/100 H 10/01/24 08:03 Pulse Ox 86 L 10/01/24 08:03 Oxygen Delivery Method Room Air 10/01/24 08:03 BMI result Body Mass Index 30.2 Const General: cooperative, healthy appearing, comfortable and no acute distress Nutritional Appearance: average body habitus Orientation/consciousness: patient oriented x3 Eyes Pupils: Equal, round and reactive pupils present Neuro Other: mild bradykinesia No tremors Normal blink and facial expression Gait- antalgic , slow Restricted neck movement General: patient oriented x3, tone normal and moves all extremities Cranial nerves: Yes Facial sensation intact/muscles of mastication intact, Yes Equal, round and reactive pupils present, Yes Bilaterally intact EOM present, Yes Nystagmus not present, Yes Normal facial strength present, Yes Midline tongue present and Yes Ability to bilaterally elevate shoulders present Cognition (Neuro): normal cognition Gait exam (Neuro): Antalgic gait present Motor exam (neuro): 5/5 motor strength present throughout and Normal motor muscle tone present throughout Deep tendon reflexes (DTR's): Right triceps reflex intensity grade: 1+, Left triceps reflex intensity grade: 1+, Rt Biceps (C5, C6): 1+, Left biceps reflex intensity grade: 1+, Right brachioradialis reflex intensity grade: 1+, Left brachioradialis reflex intensity grade: 1+, Right patellar reflex intensity grade: 2+ and Left patellar reflex intensity grade: 2+ Coordination: [id number] test normal Assessment & Plan Assessment & Plan (1) Coarse tremors: Code(s): G25.2 - Other specified forms of tremor Category: Medical (2) Cervical stenosis of spinal canal: Code(s): M48.02 - Spinal stenosis, cervical region Category: Medical Plan I will monitor his tremors clinically He Declines PT for gait MRI Brain to evaluate for anys tructural causes. Orders: Orders MR head/brain wo con Today G25.2 - Other specified forms of tremor Coding Level of Care Code New Pt Level 4 (01211) Diagnoses Coarse tremors G25.2 Cervical stenosis of spinal canal M48.02
== END 2024-10-01 08:32 | disposition home or self-care (01) ==
LOC: HO.HSMS 07:51
PROVIDERS: PCP Physician Assistant; Visit Provider Psychiatry & Neurology Neurology
DX: G25.2 Other specified forms of tremor (principal); M48.02 Spinal stenosis, cervical region
CPT/HCPCS: 99204

== ENCOUNTER → 2024-10-01 07:50 | Outpatient (BNVA) | payer OTHER, SELFPAY | PROVIDERS: PCP Physician Assistant; Visit Provider Psychiatry & Neurology Neurology | DX: M48.02 Spinal stenosis, cervical region (principal); G25.2 Other specified forms of tremor | CPT/HCPCS: 99202 ==

== ENCOUNTER 2024-10-04 09:49 | Outpatient (AMB) | payer OTHER, SELFPAY ==
--- NOTE | 2024-10-04 09:51 | HO.NEPHOV ---
Vital Signs 10/04/24 09:52 10/04/24 10:00 Height 5 ft 4 in Weight 173 lb BMI 29.7 BP 152/70 H 130/70 Blood Pressure Location Lt brachial Lt brachial Position Sitting Sitting Pulse 65 Pulse Source Pulse Oximeter Pulse Oximetry (%) 97 Oxygen Delivery Method Room Air Intake Visit Reasons: FU-Conf Esthetics Instructor Required: Yes Esthetics Instructor Services: Esthetics Instructor Offered & Declined (Friend will translate) Accompanied by: Nephew or Niece Allergies clindamycin (CLINDAMYCIN) Allergy (Unknown, Verified 10/04/24 09:55) SWELLING, RASH pravastatin Allergy (Unknown, Verified 10/04/24 09:55) increase liver enzymes HPI Comments Details: . Cirilo is a pleasant 63-year-old man with history of longstanding diabetes mellitus and hypertension who has recently moved from [place]. He has been referred for evaluation of renal insufficiency. Apparently he saw a oil tanker captain in [place]. He was told that he has CKD and he has proteinuria. Baseline creatinine is unknown at this time. However on August 07 2023, creatinine was 1.5 and on August 17 creatinine was 1.63 No urine studies are available. History of significant hypertension requiring multiple medications. Upon talking to him it appears that he is compliant with his medications. He admits to eating high salt in his diet. History of coronary artery disease. He had NH about 8 years ago. He is not aware of the details. He complains of pain in his lower back. He has not take any NSAIDs. No urinary symptoms like dysuria urgency or increased frequency no hematuria. No history of kidney stones. He has had leg edema. No shortness of breath. No chest pain. No nausea or vomiting. No diarrhea constipation. No rash no swelling or pain of small joints. No significant weight loss. 09/22/23 Events noted;No new issues since last visit;Complaint with meds 12/23/23 Recently has leg swelling;Waiting to see Podiatry 03/19/24;Leg swelling improved. No new issues 06/28/24 Underwent back surgery in April Sustained ELEN ;Cr peaked at 3.4 ;Accompanied by daughter 10/04/24 c/o Leg pain. Takes Percocet COUNT INCLUDES THE [facility] Medical History (Updated 10/01/24 @ 08:27 by Deepa Gomez MD) Coarse tremors Myocardial infarction Back pain Arthritis Thyroid disease Depression Numbness Habitual snoring Wheezing History of Helicobacter pylori infection Hypothyroid Forgetfulness Major depression, recurrent, chronic Dizziness Hypertension Hyperlipidemia Previous myocardial infarction older than 8 weeks Chest pain Microalbuminuria Chronic kidney disease Diabetic nephropathy Uncontrolled type 2 diabetes mellitus with hyperglycemia, with long-term current use of insulin Surgical History History of hemilaminectomy History of esophagogastroduodenoscopy (EGD) H/O colonoscopy Hx of appendectomy Hx of knee surgery Family History Father No problems noted. Mother No problems noted. Social History Household Members: Family Housing: House Are you a primary residential caregiver to a significant other at home: No Do you presently have visiting nurse or other home services: No Alcohol intake: current Alcohol intake frequency: does not drink Patient Tobacco Use Status: Never used Tobacco e-Cigarette/Vaping Use: Never Used Second Hand Smoke Exposure: No service: No Current occupational status: unemployed Cognitive needs: No Hearing needs: No Vision needs: No Physical Exam Vital Signs: Last Vital Signs Pulse 65 10/04/24 09:52 BP 152/70 H 10/04/24 09:52 Pulse Ox 97 10/04/24 09:52 Oxygen Delivery Method Room Air 10/04/24 09:52 BMI result Body Mass Index 29.7 Comfortable Neck supple no JVD. Lungs entry equal no rales. Heart S1-S2 heard no gallop or rub. Abdomen soft nontender. Neuro alert awake oriented. No asterixis. Extremities no edema. Results Reviewed Nephrology Results: Hgb, (14.0-18.0) 11.7 g/dl L 09/26/24 WBC, (4.8-10.8) 10.2 X10*3/uL 09/26/24 Plt Count, (160-400) 219 X10*3/uL 09/26/24 Sodium, (135-145) 140 mmol/L 09/26/24 Potassium, (3.3-5.1) 4.8 mmol/L 09/26/24 Chloride, (96-108) 108 mmol/L 09/26/24 Carbon Dioxide, (22-29) 25 mmol/L 09/26/24 BUN, (9-16) 19 mg/dL H 09/26/24 Creatinine, (0.5-1.4) 1.56 mg/dL H 09/26/24 Calcium, (8.4-10.2) 9.3 mg/dL 09/26/24 Urine Protein, (Neg-Trace) 300 (3+) mg/dL H 09/26/24 Urine Creatinine 57.37 mg/dL 09/26/24 Renal US 09/22/23 Assessment & Plan Assessment & Plan (1) Chronic kidney disease: Code(s): N18.9 - Chronic kidney disease, unspecified Category: Medical Qualifiers: Chronic kidney disease stage: stage 3 (moderate) Chronic kidney disease stage 3 subtype: stage 3b (GFR 30-44) Qualified Code(s): N18.32 - Chronic kidney disease, stage 3b Plan: . CKD 3 B. EGFR is about 43 mL/minute based on serum creatinine of 1.6. s/p Post OP ELEN Cr peaked at 3.4 adn now back to baseline of 1.6 Most likely has hypertensive diabetic kidney disease. Other nondiabetic causes seem less likely No Obstructive uropathy based on Ultrasound urine protein creatinine ratio elevated. About 4 gm proteinuria Renal ultrasonogram.- Unremarkable Creatinine decreased, after stopping HCTZ Edema may be due to Amlodipine_ improved after decreasing to 5 mg QD Keep Hydralazine 50 mg TID to optimze BP Concur with current medications and KOLTON inhibition. Maintain blood pressure less than 130/80. Maintain A1c less than 7%. He would benefit from SGLT2 inhibitors. (2) Hypertension: Code(s): I10 - Essential (primary) hypertension Category: Medical Qualifiers: Hypertension type: primary hypertension Qualified Code(s): I10 - Essential (primary) hypertension Plan: . Resistant hypertension in the setting of longstanding diabetes mellitus CKD and elevated BMI. BP is better controlled today We discussed importance of low-sodium diet. Weight loss we will also help with controlling the blood pressure. He needs to increase physical activities. (3) Uncontrolled type 2 diabetes mellitus with hyperglycemia, with long-term current use of insulin: Code(s): E11.65 - Type 2 diabetes mellitus with hyperglycemia; Z79.4 - USP (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 of insulin Category: Medical Plan: Defer to primary care. Goal is to maintain A1c less than 7% (4) Anemia: Code(s): D64.9 - Anemia, unspecified Category: Medical Plan: . Anemia is multifactorial. He has mild iron deficiency. He might have erythropoietin deficiency due to underlying CKD. Iron supplementation No absolute indication for erythropoietin replacement therapy at this time. . Plan 10/04/24 ELEN resolved Cr back to baseline BP well controlled No changes today Coding Level of Care Code Est Pt Level 4 (14796) Diagnoses Stage 3b chronic kidney disease N18.32 Chronic kidney disease stage: stage 3 (moderate) Chronic kidney disease stage 3 subtype: stage 3b (GFR 30-44) Primary hypertension I10 Hypertension type: primary hypertension Uncontrolled type 2 diabetes mellitus with hyperglycemia, with long-term current use of insulin E11.65; Z79.4 Anemia D64.9
[2024-10-04 09:52] VITALS: BP 152/70; PULSE 65; O2SAT 97; BMI 29.7
[2024-10-04 10:00] VITALS: BP 130/70
== END 2024-10-04 10:04 | disposition home or self-care (01) ==
LOC: HO.HKA 09:49
PROVIDERS: PCP Physician Assistant; Visit Provider Internal Medicine Hypertension Specialist
DX: N18.32 Chronic kidney disease, stage 3b (principal); I10 Essential (primary) hypertension; E11.65 Type 2 diabetes mellitus with hyperglycemia; Z79.4 Long term (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 of insulin; D64.9 Anemia, unspecified
CPT/HCPCS: 99214

== ENCOUNTER → 2024-10-04 09:49 | Outpatient (BNVA) | payer OTHER, SELFPAY | PROVIDERS: PCP Physician Assistant; Visit Provider Internal Medicine Hypertension Specialist | DX: I10 Essential (primary) hypertension (principal); E66.9 Obesity, unspecified; E11.65 Type 2 diabetes mellitus with hyperglycemia; Z79.4 Long term (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 of insulin; D64.9 Anemia, unspecified | CPT/HCPCS: 99212 ==

== ENCOUNTER 2024-10-11 07:56 | Outpatient (REF) | payer OTHER, SELFPAY ==
--- NOTE | ~2024-10-11 | MR_ITS ---
CLINICAL HISTORY: G25.2 - Other specified forms of tremor MR Brain without gadolinium Comparison: MR/SR - MR BRAIN WITHOUT IV CONTRAST - 12/24/23 08:47 EDT Findings: No restricted diffusion. No intra-axial mass or hemorrhage. Similar appearance of mild white matter disease. No midline shift. No hydrocephalus. Vascular flow voids are intact. Orbital contents are unremarkable. The sinuses and mastoid air cells are clear. No focal bone lesion. IMPRESSION: No acute intracranial findings. This document has been electronically signed by: Bobby Ramirez DO on 10/11/2024 11:26:29
== END 2024-10-11 07:57 | disposition home or self-care (01) ==
LOC: HO.MRI 07:56
PROVIDERS: PCP Physician Assistant; Visit Provider Psychiatry & Neurology Neurology
DX: G25.2 Other specified forms of tremor (principal)
CPT/HCPCS: 70551

== ENCOUNTER → 2024-10-11 07:56 | Outpatient (BNV) | payer OTHER, SELFPAY | PROVIDERS: PCP Physician Assistant; Visit Provider Family Medicine | DX: G25.2 Other specified forms of tremor (principal) | CPT/HCPCS: 70551 ==

== ENCOUNTER 2024-10-18 10:02 | Outpatient (AMB) | payer OTHER, SELFPAY ==
--- NOTE | 2024-10-18 10:06 | A.OFFPC_ITS ---
Vital Signs 10/18/24 10:07 Height 5 ft 4 in Weight 170 lb 8 oz BMI 29.3 BP 134/74 Blood Pressure Location Lt brachial Position Sitting Respiration 14 Pulse 59 Pulse Source Pulse Oximeter Temp 98.3 F Temp Source Oral Pulse Oximetry (%) 95 Oxygen Delivery Method Room Air Intake Visit Reasons: recheck, meds labs illness 30 min Intake Note: Follow up. Was diagnosed with helicopter pylori while in [place]. They gave him antibiotics and it work. got retested here and never received the an tibiotics. Having stomach pain, diarrhea, fever and cold at night. Flight Dynamicist Required: No Flight Dynamicist Name: logistics team lead declined Accompanied by: Grand Child Allergies clindamycin (CLINDAMYCIN) Allergy (Unknown, Verified 10/18/24 10:08) SWELLING, RASH pravastatin Allergy (Unknown, Verified 10/18/24 10:08) increase liver enzymes Medication List - Last Reconciled 10/18/24 by Catalina Hamilton PA-C amlodipine 10 mg PO DAILY blood sugar diagnostic (Accu-Chek Guide test strips) tid for sensor failure or to confirm glucose 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 meter As directed dispense glucometer compatible with one touch test strips for use when sensor fails or to confirm low glucose reading 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 meter (Accu-Chek Guide Glucose Meter) As directed 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 sensor (FreeStyle Matt 3 Sensor device) For continuous use apply new sensor every 14 days 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,plasterer maintenance,cont (FreeStyle Matt 3 [place]) Use daily As directed to monitor blood glucose carvedilol 25 mg PO BID 90 days cholecalciferol (vitamin D3) (Vitamin D3) 25 mcg PO DAILY cyclobenzaprine 10 mg PO TID PRN 10 days diclofenac sodium 1% (Voltaren Arthritis Pain) 4 grams topical QID PRN docusate sodium (Colace) 100 mg PO BID ferrous fumarate (Ferretts) 325 mg PO DAILY FreeStyle Matt 3 [place] (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,plasterer maintenance,cont) As directed for use with freestyle sensor NS gabapentin 900 mg (3 x 300 mg) PO Q8H 30 days hydralazine 50 mg (2 x 25 mg) PO TID insulin degludec (Tresiba FlexTouch U-200 insulin) 30 units (0.15 mL) subcut BEDTIME 30 days lancets (Accu-Chek Softclix Lancets) As tid for sensor failure or to confirm glucose reading latanoprost 0.005% 1 drp ophthalmic-Right BEDTIME levothyroxine 125 mcg PO DAILY losartan 100 mg PO DAILY meclizine 25 mg PO TID PRN metformin 1,000 mg PO BID 90 days oxycodone 5 mg PO Q8H PRN pantoprazole 40 mg PO QAM pen needle, diabetic (BD Ultra-Fine Micro Pen Needle) As directed sennosides (senna) 17.2 mg PO BEDTIME PRN simvastatin 10 mg PO DAILY spironolactone 25 mg PO DAILY tirzepatide (Mounjaro) 2.5 mg (0.5 mL) subcut QWEEK 4 weeks Tobacco use date assessed: 09/26/24 Dental Screening Dental Screen Date: 09/26/24 HPI recheck, meds labs illness 30 min HPI Details Patient is a 64-year-old male with a significant past medical history of type 2 diabetes, diabetic nephropathy, chronic kidney disease, h yperlipidemia, hypertension, depression, hypothyroidism, anemia, chronic back pain presenting today for a follow up. Flight Dynamicist: Granddaughter At our last visit he had complained of feeling generally weak and just not that well. He states since we last visited he has been feeling much better. He has started taking oxycodone to 2 3 times a day for severe back pain/leg pain. He states that that has helped with the pain. He is still noticing that his legs just generally feel weak. At times they feel numb and the muscles feel achy like he ran a marathon. He states that it is his thighs and his calves. He has had like ultrasounds which were negative. He does have a history of lumbar surgery and states that this feels somewhat different. The pain is worse with exertion and gets better with rest/lying flat. He states he does not trust his legs as he feels like they at times just our weekend are going to give out on him. His leg swelling is better this week. CV: Blood pressure today in the office is 134/74. He is currently on spironolactone 25 mg, hydralazine 50 mg 3 times a day, losartan 100 mg daily, carvedilol 25 mg twice a day, amlodipine 10 mg daily. Cholesterol is managed with simvastatin 10 mg. He recently was noted to have an AV block and has follow up with Cardiology on Tuesday. He recently had a reassuring stress test, his echo did show some chronic changes and his recent Holter monitor did show PVCs and VT without any symptoms. Nephro: Follows closely with Nephrology. He was last seen a couple of weeks ago. Is kidney function did improve somewhat coming off of the hydrochlorothiazide. His kidney disease is stable and felt to be related to resistant hypertension and diabetes. Has multifactorial anemia. Currently on iron. Heme-Onc: Currently on iron supplement. He has not yet booked this. UTD on colonoscopy/endoscopy GI: Has a history of H pylori and has not followed up with GI following treatment of this. He was supposed to but had to reschedule appointments. He takes pantoprazole in it does work but he is not sure if it is masking any symptoms of H pylori. Endo: His most recent A1c is 7.3.. He is currently on Mounjaro 2.5 mg weekly, metformin 1000 mg twice a day and Tresiba 30 units daily. He was able to get a CGM this year but tells me today that he has not been using it because he lost his reader. I did order this for him at our last visit. He does have backup testing supplies. He has not had any hypoglycemic events. He has been finger sticking and states his blood sugars are around 150. It is not necessarily done fasting. He does not want to adjust his dosage of Mounjaro at this time as it causes too much appetite suppression sometimes. He is on levothyroxine 125 mcg. Last TSH was WNL Has peripheral neuropathy. On gabapentin. [facility] Medical History (Updated 10/18/24 @ 10:37 by Catalina Hamilton PA-C) Coarse tremors Myocardial infarction Back pain Arthritis Thyroid disease Depression Numbness Habitual snoring Wheezing History of Helicobacter pylori infection Hypothyroid Forgetfulness Major depression, recurrent, chronic Dizziness Hypertension Hyperlipidemia Previous myocardial infarction older than 8 weeks Chest pain Microalbuminuria Chronic kidney disease Diabetic nephropathy Uncontrolled type 2 diabetes mellitus with hyperglycemia, with long-term current use of insulin Surgical History History of hemilaminectomy History of esophagogastroduodenoscopy (EGD) H/O colonoscopy Hx of appendectomy Hx of knee surgery Family History Father No problems noted. Mother No problems noted. Social History Household Members: Family Housing: House Are you a primary associate director career services to a significant other at home: No Do you presently have visiting nurse or other home services: No Alcohol intake: current Alcohol intake frequency: does not drink Patient Tobacco Use Status: Never used Tobacco e-Cigarette/Vaping Use: Never Used Second Hand Smoke Exposure: No service: No Current occupational status: unemployed Cognitive needs: No Hearing needs: No Vision needs: No Questionnaire PHQ-9 Over the last 2 weeks, how often have you been bothered by any of the following problems? 1. Little interest or pleasure in doing things: nearly every day 2. Feeling down, depressed, or hopeless: nearly every day 3. Trouble falling or staying asleep, or sleeping too much: several days 4. Feeling tired or having little energy: several days 5. Poor appetite or overeating: more than half the days 6. Feeling bad about yourself - or that you are a failure or have let yourself or your family down: several days 7. Trouble concentrating on things, such as reading the newspaper or watching television: not at all 8. Moving or speaking so slowly that other people could have noticed. Or the opposite - being so fidgety or restless that you have been moving around a lot more than usual: several days 9. Thoughts that you would be better off or of hurting yourself in some way: not at all Total score: 12 Depression Screening Interpretation: Positive Depression Screening Follow-up: Existing condition and Follow-up Visit Requested Depression Screening Done: Yes 93207 - PHQ-9 Billing: Yes Source: Developed by Drs. Dick Burgess, Anna Hoang, Tal Celis and colleagues, with an educational quin from [employer]. Thrive Questionnaire Date Thrive assessed: 03/21/24 I am a: Patient What is your living situation today?: I do not have a steady places to live I am temporarily staying with others Within the past 12 months, did the food you bought not last and you didn't have the money to get more?: Often true Within the past 12 months, did you worry whether your food would run out before you got money to buy more?: Sometimes True Do you have trouble paying for medicines?: Yes Do you have trouble getting transportation to medical appointments?: Yes Do you have trouble paying your heating and electricity bill?: No Do you have trouble taking care of your child, family member or friend?: No Do you have trouble with day-to-day activities such as bathing, preparing meals, shopping, managing finances, etc.?: Yes Are you currently unemployed and looking for a job?: No Are you interested in more education?: No Please select the resources that you would like help with: Housing/[facility], Food, Paying for medicine and Transportation Currently or been in a relationship where the following occur: No concerns reported THRIVE Score: 4 AUDIT C Alcohol Use Questionnaire (AUDIT-C) 1. How often do you have a drink containing alcohol?: Never Total Score: 0 Score Reviewed/Action Taken: Yes JOEY-7 AMB Questionnaire JOEY-7 Date JOEY - 7 assessed: 08/17/23 Feeling nervous, anxious, or on edge: 2 = More than half the days Not being able to stop or control worryin = More than half the days Worrying too much about different things: 2 = More than half the days Trouble relaxin = Several days Being so restless that it is hard to sit still: 1 = Several days Becoming easily annoyed or irritable: 3 = Nearly every day Feeling afraid as if something awful might happen: 3 = Nearly every day Total JOEY-7 score (0-4 normal; 5-9 mild; 10-14 moderate; 15-21 severe): 14 Source: Developed by Drs. Dick Burgess, Anna Hoang, Tal Celis and colleagues, with an educational quin from [employer]. JOEY-7 Assessment Billing JOEY-7 Assessment Tool: JOEY-7 Assessment 37706 Physical exam (Primary Care) Vital Signs: Last Vital Signs Temp 98.3 F 10/18/24 10:07 Pulse 59 10/18/24 10:07 Resp 14 10/18/24 10:07 BP 134/74 10/18/24 10:07 Pulse Ox 95 10/18/24 10:07 Oxygen Delivery Method Room Air 10/18/24 10:07 BMI result Body Mass Index 29.3 Tobacco/Smoking Status: Tobacco use Status Tobacco use date assessed 09/26/24 09/26/24 09:39 Patient Tobacco Use Status Never used Tobacco 09/26/24 09:39 e-Cigarette/Vaping Use Never Used 09/26/24 09:39 Depression Screening Interpretation: Positive Depression Screening Follow-up: Existing condition and Follow-up Visit Requested Thrive Assessment: Date of Thrive Assessment Date Thrive assessed 03/21/24 09/26/24 09:39 Currently or been in a relationship where the following occur: No concerns reported Const Orientation/consciousness: patient oriented x3 HENMT Ears: hearing grossly normal bilaterally Neck Thyroid: Thyroid normal Lymphatic: no lymphadenopathy noted Resp Auscultation: clear to auscultation bilaterally Cardio Rate: regular rate Rhythm: regular rhythm Heart sounds: S1 normal heart sound present and S2 normal heart sound present GI Inspection: Yes normal to inspection Palpation (GI): Soft to palpation and Other GI palpation findings present (nontender, no cva tenderness) Auscultation: normoactive bowel sounds Rectal Exam - Male: Yes deferred Skin General skin exam: no rashes or lesions noted Neuro Other: Strength is symmetrical to the bilateral lower extremities. General: patient oriented x3, moves all extremities, no focal motor deficits, decrease sensation to monofilament (On the bilateral feet) and deep tendon reflexes 2+ bilaterally Gait exam (Neuro): Assisted gait required and Assistive device used (Cane) Results Reviewed Results Reviewed: Laboratory Tests 06/20/24 06/20/24 09/26/24 12:42 13:33 11:04 WBC 10.2 RBC 4.18 L Hgb 11.7 L Hct 36.2 L Plt Count 219 Creatinine 1.65 H 1.56 H Estimated GFR 42 45 Hgb A1c (Clinic) 7.7 H Hemoglobin A1c % 7.3 H Calcium 9.3 Magnesium 1.6 Iron 61 TIBC 250 % Saturation 24 Unsat Iron Binding 189 Ferritin 120 Total Bilirubin 0.3 AST 25 ALT 20 Alkaline Phosphatase 68 B-Natriuretic Peptide 247 H Total Protein 7.0 Albumin 4.2 PSA Screen 0.59 Vitamin B12 205 Folate 8.6 Rheumatoid Factor < 13.0 JOSAFAT Screen NEGATIVE Findings: No restricted diffusion. No intra-axial mass or hemorrhage. Similar appearance of mild white matter disease. No midline shift. No hydrocephalus. Vascular flow voids are intact. Orbital contents are unremarkable. The sinuses and mastoid air cells are clear. No focal bone lesion. IMPRESSION: No acute intracranial findings. This document has been electronically signed by: Bobby Ramirez DO on IMPRESSION: Motion degraded images. Postsurgical changes related to L4-L5 partial laminectomy with soft tissue edema and small subcutaneous fluid collection, most likely represent postsurgical seroma. Moderate multilevel spondylosis with mild spinal canal and multilevel moderate to severe neural foraminal narrowings as detailed in the findings. No evidence of conus or cauda equina compression. No epidural fluid collection. Coding Level of Care Code Est Pt Level 4 (93719) Complex EM visit Add On G2211 Diagnoses Subjective muscle weakness M62.81 Bilateral leg paresthesia R20.2 History of Helicobacter pylori infection Z86.19 Uncontrolled type 2 diabetes mellitus with hyperglycemia, with long-term current use of insulin E11.65; Z79.4 Primary hypertension I10 Hypertension type: primary hypertension Additional Codes PHQ-9 - 60756 - PHQ-9 Billing: Yes ([id number]) JOEY-7 Assessment Billing - JOEY-7 Assessment Tool: JOEY-7 Assessment 75050 ([id number]) Assessment & Plan Assessment & Plan (1) Subjective muscle weakness: Code(s): M62.81 - Muscle weakness (generalized) Category: Medical Plan: EMG is ordered Reviewed MRIs with patient Given the pain with ambulation I will have him just follow with vascular surgery for a consult (2) Bilateral leg paresthesia: Code(s): R20.2 - Paresthesia of skin Category: Medical Plan: As above (3) History of Helicobacter pylori infection: Code(s): Z86.19 - Personal history of other infectious and parasitic diseases Category: Medical Plan: check h pylori (4) Uncontrolled type 2 diabetes mellitus with hyperglycemia, with long-term current use of insulin: Code(s): E11.65 - Type 2 diabetes mellitus with hyperglycemia; Z79.4 - technician terminal and repeater (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 of insulin Category: Medical Plan: continue current plan following with endo (5) Hypertension: Code(s): I10 - Essential (primary) hypertension Category: Medical Qualifiers: Hypertension type: primary hypertension Qualified Code(s): I10 - Essential (primary) hypertension Plan: wnl continue current plan Orders: Orders NE electromyogram (EMG) Today M62.81 - Muscle weakness (generalized), R20.2 - Paresthesia of skin NE nerve conduction velocity Today M62.81 - Muscle weakness (generalized), R20.2 - Paresthesia of skin H pylori Ag Stool Today Z86.19 - Personal history of other infectious and parasitic diseases Referrals Vascular Surgery Referral M62.81 - Muscle weakness (generalized), M79.604 - Pain in right leg, M79.605 - Pain in left leg Patient Instructions: hold simvastatin for 2-4 weeks to assess muscle pains submit stool study (you must avoid PPIs like omeprazole/pantoprazole for 2 weeks prior to testing) return in 4 week for f/u
[2024-10-18 10:07] VITALS: BP 134/74; PULSE 59; RESP 14; TEMP 36.8; O2SAT 95; BMI 29.3
== END 2024-10-18 10:51 | disposition home or self-care (01) ==
LOC: HO.HMCFM 10:03
PROVIDERS: PCP Physician Assistant; Visit Provider Physician Assistant
DX: E11.65 Type 2 diabetes mellitus with hyperglycemia (principal); Z79.4 Long term (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 of insulin; M62.81 Muscle weakness (generalized); R20.2 Paresthesia of skin; Z86.19 Personal history of other infectious and parasitic diseases; I10 Essential (primary) hypertension

== ENCOUNTER → 2024-10-18 10:02 | Outpatient (BNVA) | payer OTHER, SELFPAY | PROVIDERS: PCP Physician Assistant; Visit Provider Physician Assistant | DX: E11.21 Type 2 diabetes mellitus with diabetic nephropathy (principal); E11.22 Type 2 diabetes mellitus with diabetic chronic kidney disease; E11.65 Type 2 diabetes mellitus with hyperglycemia; I12.9 Hypertensive chronic kidney disease with stage 1 through stage 4 chronic kidney disease, or unspecified chronic kidney disease; N18.9 Chronic kidney disease, unspecified; E78.5 Hyperlipidemia, unspecified; M54.9 Dorsalgia, unspecified; G89.29 Other chronic pain; M62.81 Muscle weakness (generalized); R20.2 Paresthesia of skin; M79.605 Pain in left leg; M79.604 Pain in right leg; Z79.891 Long term (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 of opiate analgesic; Z79.4 Long term (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 of insulin; Z86.19 Personal history of other infectious and parasitic diseases | CPT/HCPCS: 96127; 99212 ==

== ENCOUNTER 2024-10-31 14:59 | Outpatient (REF) | payer OTHER, SELFPAY | END 2024-10-31 15:00 | disposition home or self-care (01) | LOC: HO.HOSX 14:59 | PROVIDERS: Visit Provider Physician Assistant | DX: Z13.89 Encounter for screening for other disorder (principal) ==

== ENCOUNTER 2024-11-14 12:34 | Outpatient (AMB) | payer OTHER, SELFPAY ==
[2024-11-14 12:43] VITALS: BMI 30.9
--- NOTE | 2024-11-14 12:43 | A.OFFVIS_ITS ---
Vital Signs 11/14/24 12:43 Height 5 ft 4 in Weight 180 lb BMI 30.9 Intake Visit Reasons: Bilateral ankle pain Intake Note: Manolo is a 64 year old male who presents to the office today as a new patient visit referred by his PCP Catalina Hamilton for Bilateral ankle pain. Pt states at times he cant stay standing for long or walk to much due to bilateral pain in the plantar aspect of the foot. patient states the pain has been going on for about 4 years. He is prescribed gabapentin and he states this medication has been helping him with the pain. Shafting Cleaner Required: Yes Shafting Cleaner Services: Shafting Cleaner Present Shafting Cleaner Name: [id number] Allergies clindamycin (CLINDAMYCIN) Allergy (Unknown, Verified 11/14/24 12:43) SWELLING, RASH pravastatin Allergy (Unknown, Verified 11/14/24 12:43) increase liver enzymes HPI Comments Details: The patient is a 64-year-old male past medical history of diabetes mellitus type 2, CHF, CKD, hypertension, hyperlipidemia, lumbar radiculopathy, presenting with bilateral ankle pain left worse than right and tingling nerve pain in the feet. The ankle pain has been persistent, with episodes of severe pain that prevent the patient from placing his feet on the ground. The pain is localized primarily to the back of his ankles, with the left side being more affected, and is exacerbated by prolonged standing. The patient has attempted to alleviate the pain using alternating hot and cold water soaks, which have provided temporary relief. Patient endorses tingling sensation to his feet, denies burning or numbness. Denies history of ulcerations. The patient reports pain in the right big toe, which is exacerbated by pressure from footwear. He states he is unable to trim his toenails due to the pain. [facility] Medical History (Updated 11/14/24 @ 14:03 by Galdino Diego DPM) Coarse tremors Myocardial infarction Back pain Arthritis Thyroid disease Depression Numbness Habitual snoring Wheezing History of Helicobacter pylori infection Hypothyroid Forgetfulness Major depression, recurrent, chronic Dizziness Hypertension Hyperlipidemia Previous myocardial infarction older than 8 weeks Chest pain Microalbuminuria Chronic kidney disease Diabetic nephropathy Uncontrolled type 2 diabetes mellitus with hyperglycemia, with long-term current use of insulin Surgical History History of hemilaminectomy History of esophagogastroduodenoscopy (EGD) H/O colonoscopy Hx of appendectomy Hx of knee surgery Family History Father No problems noted. Mother No problems noted. Social History Household Members: Family Housing: House Are you a primary personal care attendant to a significant other at home: No Do you presently have visiting nurse or other home services: No Alcohol intake: current Alcohol intake frequency: does not drink Patient Tobacco Use Status: Never used Tobacco e-Cigarette/Vaping Use: Never Used Second Hand Smoke Exposure: No service: No Current occupational status: unemployed Cognitive needs: No Hearing needs: No Vision needs: No Review of Systems Const All systems reviewed & are unremarkable except as noted in HPI and below Physical Exam Vital Signs: BMI result Body Mass Index 30.9 Extrem Other: *Bilateral Lower Extremity Focused Diabetic Foot Exam Vascular: DP/PT audibly biphasic on Doppler bilaterally, CFT<3s to digits, TG warm to cool, no pedal edema, pedal hair present along the DP and AT artery distributions. Derm: Skin: No open lesions, ulcerations, or calluses. Interdigital spaces: Clear, no maceration or fungal infection. Nails: Dystrophic thickened elongated discolored toenails x 10. Right hallux medial and lateral nail borders are ingrown. No clinical signs of infection. Neuro: [place]-geo monofilament (10g) test 9/10 intact to right foot, 8/10 intact to left foot. Msk: Large palpable nodular mass, intra tendinous, within the Achilles approximately 3 cm to the level of the insertion. No pain on palpation to the mass. Second palpable thickening/mass approximately 6 cm from the Achilles tendon insertion. No pain on palpation along the Achilles tendon bilaterally. No pain on maximum dorsiflexion bilateral ankles. Left Ankle dorsiflexion 0 degrees on knee extension, 3 degrees on knee flexion to the left lower extremity. 4-5 degrees of dorsiflexion on knee flexion to the right lower extremity. Deformities: Right medial malleolus approximately 1.5cm proximal to the left medial malleolus, possible leg length discrepancy, which is not apparent on weight- bearing. Equino-varus deformity right foot with hallux varus/abductor forefoot. On weight-bearing examination, patient weight-bearing stance of his right ankle is in varus. Muscle strength: 5/5 in all muscle groups. Footwear Assessment: Shoes inspected; appropriate fit, no excessive wear, or foreign objects noted. Office Procedures AMB Debridement/Avulsion Podia Details: All elongated, thickened, discolored toenails x 10 using a sterile nail nipper. The patient tolerated the procedure well with no complications. Class B findings as per physical exam findings above. The patient has a diagnosis of diabetes mellitus and presents with elongated, thickened toenails. Due to underlying diabetic neuropathy and mild vascular disease findings, the patient is at increased risk for complications such as ulceration, infection, and difficulty with self-care. Debridement of elongated toenails is medically necessary to prevent development of pressure-related lesions, reduce risk of secondary infection, and maintain foot health in her high-risk comorbidities. [id number] of Nail 6+ Procedure code (CPT) selection complete Results Reviewed Results Reviewed: Laboratory Tests 06/20/24 09/26/24 12:42 11:04 Hgb A1c (Clinic) 7.7 H Hemoglobin A1c % 7.3 H Podiatry X-ray Read: 12/12/2023 X-ray left ankle 3 views (AP, Mortise, Lateral) reviewed which shows large calcific body at the level of the Achilles tendon insertion measuring 2.4 cm by 1.5 cm, not attached to the calcaneus. Second calcific body measuring 1.2 cm x 0.9 cm, 6 cm from the Achilles tendon insertion. Calcified posterior tibial artery and anterior tibial artery. Large plantar calcaneal spur, mild posterior insertional Achilles tendon spur. no other fractures, dislocations, osteochondral defects, or gross abnormalities. Anatomic alignment of the tibiotalar joint. Bone density is within normal limits. No evidence of swelling, foreign body, or calcifications. I personally reviewed the imaging and my findings are listed above. ARTERIAL DUPLEX Date of Service: 07/30/24 Procedure(s): US arterial duplex LE Impression: 1. No occlusion or flow-limiting stenosis in the femoral or popliteal arteries. 2. Patent calf runoffs with no occlusion or high-grade stenosis. 3. Complex popliteal/Coburn's cyst measures 5.2 cm in greatest diameter. Assessment & Plan Assessment & Plan (1) Uncontrolled type 2 diabetes mellitus with hyperglycemia, with long-term c urrent use of insulin: Code(s): E11.65 - Type 2 diabetes mellitus with hyperglycemia; Z79.4 - middle or intermediate school principal (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 of insulin Category: Medical Plan: Risk Stratification: No current ulceration, infection, or pre-ulcerative lesion. Patient has early signs of peripheral artery disease with calcifications on x- ray. However he has biphasic Dopplers signals as well as no significant stenosis noted on the arterial duplex study performed this year. No plans for further testing/referrals for non-invasive vascular studies. Patient is at moderate risk for diabetic foot complications at this time. Recommendations: Continue routine foot care and daily self-inspection. Recommend moisturizing daily. Recommend supportive proper fitting shoe-wear. The patient may require diabetic shoes in the future. Reinforced diabetic foot education and risks from peripheral neuropathy. (2) Achilles tendinitis of left lower extremity: Code(s): M76.62 - Achilles tendinitis, left leg Category: Medical Plan: * Reviewed left ankle x-ray with the patient. * Discussed that he has chronic calcific Achilles tendinosis with a subacute flare at this time. * He was referred to physical therapy. Instructed to perform range of motion and stretching exercises at home. * Explained that he is not a surgical candidate due to his comorbidities. He is not recommended surgical excision of the calcified bodies at this time. He would also lead to severe weakening of his Achilles tendon which could lead to a rupture and worse morbidity. * Instructed to purchase a heel cup for his left lower extremity. (3) Achilles tendinitis of right lower extremity: Code(s): M76.61 - Achilles tendinitis, right leg Category: Medical Plan: * Referred to physical therapy * Ordered right ankle and foot x-rays (4) Lower limb length difference: Code(s): M21.70 - Unequal limb length (acquired), unspecified site Category: Medical Plan: * Possible right limb length discrepancy. Unable to perform measurement in clinic today. He was sent for limb length discrepancy bone study. (5) Onychogryphosis: Code(s): L60.2 - Onychogryphosis Category: Medical Plan: * Debrided elongated thickened toenails x 10. Resected medial and lateral ingrown nail borders right hallux. * Patient was recommended follow up in 2 months however he states he will be in [place] until February. (6) Bilateral leg paresthesia: Code(s): R20.2 - Paresthesia of skin Category: Medical Plan: * Discussed possible etiology of his peripheral neuropathy including diabetes versus radiculopathy. * Discussed treatment options which include topical versus oral medication. * Patient is scheduled to see neurology later this month. Orders: Orders XR foot RT min 3V Today M76.61 - Achilles tendinitis, right leg, M77.32 - Calcaneal spur, left foot, M79.671 - Pain in right foot PT Evaluation and Treatment Today M76.61 - Achilles tendinitis, right leg XR ankle RT min 3V Today M76.61 - Achilles tendinitis, right leg, M79.671 - Pain in right foot XR bone length study Today M21.70 - Unequal limb length (acquired), unspecified site AMB Debridement/Avulsion Podiatry Today L60.2 - Onychogryphosis Coding Level of Care Code New Pt Level 5 (12552) Diagnoses Uncontrolled type 2 diabetes mellitus with hyperglycemia, with long-term current use of insulin E11.65; Z79.4 Achilles tendinitis of left lower extremity M76.62 Achilles tendinitis of right lower extremity M76.61 Lower limb length difference M21.70 Onychogryphosis L60.2 Bilateral leg paresthesia R20.2 CPT Codes Skin Debridement - CPT: 71418-[place]qzxe of Nail 6+ ([id number]) Time Spent (min) 75 Comment Time spent tolerating, reviewing results, over 40 minutes with the patient.
== END 2024-11-14 13:31 | disposition home or self-care (01) ==
LOC: HO.HPODS 12:35
PROVIDERS: Visit Provider Student in an Organized Health Care Education/Training Program
DX: E11.65 Type 2 diabetes mellitus with hyperglycemia (principal); Z79.4 Long term (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 of insulin; M76.62 Achilles tendinitis, left leg; M76.61 Achilles tendinitis, right leg; M21.70 Unequal limb length (acquired), unspecified site; L60.2 Onychogryphosis; R20.2 Paresthesia of skin
CPT/HCPCS: 11721; 99204

== ENCOUNTER → 2024-11-14 12:34 | Outpatient (BNVA) | payer OTHER, SELFPAY | PROVIDERS: Visit Provider Student in an Organized Health Care Education/Training Program | DX: E11.40 Type 2 diabetes mellitus with diabetic neuropathy, unspecified (principal); L60.8 Other nail disorders; L60.2 Onychogryphosis; E11.65 Type 2 diabetes mellitus with hyperglycemia; M76.61 Achilles tendinitis, right leg; M76.62 Achilles tendinitis, left leg; R20.2 Paresthesia of skin; Z79.4 Long term (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 of insulin | CPT/HCPCS: 11721; 99202 ==

== ENCOUNTER 2024-11-19 18:00 | Outpatient (REF) | payer OTHER, SELFPAY | END 2024-11-19 18:01 | disposition home or self-care (01) | LOC: HO.LNP 18:00 | PROVIDERS: Visit Provider Physician Assistant | DX: Z86.19 Personal history of other infectious and parasitic diseases (principal) | CPT/HCPCS: 87338 ==

== ENCOUNTER 2024-11-22 14:41 | Outpatient (AMB) | payer OTHER, SELFPAY ==
--- NOTE | 2024-11-22 15:01 | MHC.PC.OV ---
Vital Signs 11/22/24 15:03 Height 5 ft 4 in Weight 168 lb BMI 28.8 BP 124/76 Blood Pressure Location Rt brachial Position Sitting Respiration 14 Pulse 65 Pulse Source Pulse Oximeter Temp 98.1 F Temp Source Oral Pulse Oximetry (%) 98 Oxygen Delivery Method Room Air Intake Visit Reasons: med check, 30 min ov Intake Note: Follow up. Need paperwork signed for molar extraction at the dentist. refill on diabetic sensors. Corporate Travel Consultant Required: Yes Corporate Travel Consultant Language: Hotel Security Officer Name: [id number] Allergies clindamycin (CLINDAMYCIN) Allergy (Unknown, Verified 11/22/24 15:02) SWELLING, RASH pravastatin Allergy (Unknown, Verified 11/22/24 15:02) increase liver enzymes Medication List - Last Reconciled 11/22/24 by Catalina Hamilton PA-C amlodipine 10 mg PO DAILY blood sugar diagnostic (Accu-Chek Guide test strips) tid for sensor failure or to confirm glucose 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 meter As directed dispense glucometer compatible with one touch test strips for use when sensor fails or to confirm low glucose reading 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 meter (Accu-Chek Guide Glucose Meter) As directed 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,pattern cleaner,cont (FreeStyle Matt 3 Chester) Use daily As directed to monitor blood glucose carvedilol 25 mg PO BID 90 days cholecalciferol (vitamin D3) (Vitamin D3) 25 mcg PO DAILY cyanocobalamin (vitamin B-12) 1,000 mcg PO DAILY cyclobenzaprine 10 mg PO TID PRN 10 days diclofenac sodium 1% (Voltaren Arthritis Pain) 4 grams topical QID PRN docusate sodium (Colace) 100 mg PO BID ferrous fumarate (Ferretts) 325 mg PO DAILY FreeStyle Matt 3 Chester (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,pattern cleaner,cont) As directed for use with freestyle sensor NS gabapentin 900 mg (3 x 300 mg) PO Q8H 30 days hydralazine 50 mg (2 x 25 mg) PO TID insulin degludec (Tresiba FlexTouch U-200 insulin) 30 units (0.15 mL) subcut BEDTIME 30 days lancets (Accu-Chek Softclix Lancets) As tid for sensor failure or to confirm glucose reading latanoprost 0.005% 1 drp ophthalmic-Right BEDTIME levothyroxine 125 mcg PO DAILY losartan 100 mg PO DAILY meclizine 25 mg PO TID PRN metformin 1,000 mg PO BID 90 days pantoprazole 40 mg PO QAM pen needle, diabetic (BD Ultra-Fine Micro Pen Needle) As directed sennosides (senna) 17.2 mg PO BEDTIME PRN simvastatin 10 mg PO DAILY spironolactone 25 mg PO DAILY tirzepatide (Mounjaro) 2.5 mg (0.5 mL) subcut QWEEK 4 weeks Tobacco use date assessed: 09/26/24 Dental Screening Dental Screen Date: 09/26/24 HPI med check, 30 min ov HPI Details Patient is a 64-year-old male with a significant past medical history of type 2 diabetes, diabetic nephropathy, chronic kidney disease, hyperlipidemia, hypertension, depression, hypothyroidism, anemia, chronic back pain presenting today for a follow up. Corporate Travel Consultant: Antony- phone auriculotherapist Msk: He has started taking oxycodone to 2 3 times a day for severe back pain/leg pain. He states that that has helped with the pain. He still has paresthesias and had an EMG ordered. The weakness has significantly improved. CV: Blood pressure today in the office is 124/76. He is currently on spironolactone 25 mg, (states he d/cd hydralazine 50 mg 3 times a day), losartan 100 mg daily, carvedilol 25 mg twice a day, amlodipine 10 mg daily. Cholesterol is managed with simvastatin 10 mg. He recently was noted to have an AV block and has follow up with Cardiology. He recently had a reassuring stress test, his echo did show some chronic changes and his recent Holter monitor did show PVCs and VT without any symptoms. Nephro: Follows closely with Nephrology. Is kidney function did improve somewhat coming off of the hydrochlorothiazide. His kidney disease is stable and felt to be related to resistant hypertension and diabetes. Has multifactorial anemia. Currently on iron. Heme-Onc: Currently on iron supplement. He has not yet booked this. UTD on colonoscopy/endoscopy GI: Recent stool test negative for H pylori. He is still experiencing GERD. Endo: His most recent A1c is 7.3.. He is currently on Mounjaro 2.5 mg weekly, metformin 1000 mg twice a day and Tresiba 30 units daily. He states that he has been wearing the sensor but needs a new 1 because they are no longer making the 3. He does have backup testing supplies. He has not had any hypoglycemic events. He has been finger sticking and states his blood sugars are around 150. He is on levothyroxine 125 mcg. Last TSH was WNL Has peripheral neuropathy. On gabapentin. [facility] Medical History (Updated 11/14/24 @ 14:03 by Galdino Diego DPM) Coarse tremors Myocardial infarction Back pain Arthritis Thyroid disease Depression Numbness Habitual snoring Wheezing History of Helicobacter pylori infection Hypothyroid Forgetfulness Major depression, recurrent, chronic Dizziness Hypertension Hyperlipidemia Previous myocardial infarction older than 8 weeks Chest pain Microalbuminuria Chronic kidney disease Diabetic nephropathy Uncontrolled type 2 diabetes mellitus with hyperglycemia, with long-term current use of insulin Surgical History History of hemilaminectomy History of esophagogastroduodenoscopy (EGD) H/O colonoscopy Hx of appendectomy Hx of knee surgery Family History Father No problems noted. Mother No problems noted. Social History Household Members: Family Housing: House Are you a primary clinical manager home care to a significant other at home: No Do you presently have visiting nurse or other home services: No Alcohol intake: current Alcohol intake frequency: does not drink Patient Tobacco Use Status: Never used Tobacco e-Cigarette/Vaping Use: Never Used Second Hand Smoke Exposure: No service: No Current occupational status: unemployed Cognitive needs: No Hearing needs: No Vision needs: No Questionnaire Thrive Questionnaire Date Thrive assessed: 10/18/24 I am a: Patient What is your living situation today?: I do not have a steady places to live I am temporarily staying with others Within the past 12 months, did the food you bought not last and you didn't have the money to get more?: Often true Within the past 12 months, did you worry whether your food would run out before you got money to buy more?: Sometimes True Do you have trouble paying for medicines?: Yes Do you have trouble getting transportation to medical appointments?: Yes Do you have trouble paying your heating and electricity bill?: No Do you have trouble taking care of your child, family member or friend?: No Do you have trouble with day-to-day activities such as bathing, preparing meals, shopping, managing finances, etc.?: Yes Are you currently unemployed and looking for a job?: No Are you interested in more education?: No Currently or been in a relationship where the following occur: No concerns reported THRIVE Score: 4 JOEY-7 AMB Questionnaire JOEY-7 Date JOEY - 7 assessed: 08/17/23 Source: Developed by Drs. Dick Burgess, Anna Hoang, Tal Celis and colleagues, with an educational quin from [employer]. Physical exam (Primary Care) Vital Signs: Last Vital Signs Temp 98.1 F 11/22/24 15:03 Pulse 65 11/22/24 15:03 Resp 14 11/22/24 15:03 BP 124/76 11/22/24 15:03 Pulse Ox 98 11/22/24 15:03 Oxygen Delivery Method Room Air 11/22/24 15:03 BMI result Body Mass Index 28.8 Tobacco/Smoking Status: Tobacco use Status Tobacco use date assessed 09/26/24 11/22/24 15:06 Patient Tobacco Use Status Never used Tobacco 11/22/24 15:06 e-Cigarette/Vaping Use Never Used 11/22/24 15:06 Thrive Assessment: Date of Thrive Assessment Date Thrive assessed 10/18/24 11/22/24 15:06 Currently or been in a relationship where the following occur: No concerns reported Const Orientation/consciousness: patient oriented x3 HENMT Ears: hearing grossly normal bilaterally Neck Thyroid: Thyroid normal Lymphatic: no lymphadenopathy noted Resp Auscultation: clear to auscultation bilaterally Cardio Rate: regular rate Rhythm: regular rhythm Heart sounds: S1 normal heart sound present and S2 normal heart sound present GI Inspection: Yes normal to inspection Palpation (GI): Soft to palpation and Other GI palpation findings present (nontender, no cva tenderness) Auscultation: normoactive bowel sounds Rectal Exam - Male: Yes deferred Skin General skin exam: no rashes or lesions noted Neuro General: patient oriented x3, gait normal and no focal motor deficits Coding Level of Care Code Est Pt Level 4 (21232) Complex EM visit Add On G2211 Diagnoses Bilateral leg paresthesia R20.2 History of Helicobacter pylori infection Z86.19 Uncontrolled type 2 diabetes mellitus with hyperglycemia, with long-term current use of insulin E11.65; Z79.4 Primary hypertension I10 Hypertension type: primary hypertension Anemia D64.9 Lumbago M54.50 Assessment & Plan Assessment & Plan (1) Bilateral leg paresthesia: Code(s): R20.2 - Paresthesia of skin Category: Medical Plan: As above Reviewed MRI with patient EMGs were ordered (2) History of Helicobacter pylori infection: Code(s): Z86.19 - Personal history of other infectious and parasitic diseases Category: Medical Plan: H pylori test was negative. He still has GERD symptoms so I did refer him to GI. Advised to restart the pantoprazole. (3) Uncontrolled type 2 diabetes mellitus with hyperglycemia, with long-term current use of insulin: Code(s): E11.65 - Type 2 diabetes mellitus with hyperglycemia; Z79.4 - jail (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 of insulin Category: Medical Plan: He is following with endo but tells me today that he is going to be going to [place] for a few months. He does not want to book his follow up yet. We have reduced the Tresiba to 10 units Continue metformin 1000 mg twice a day Increase Mounjaro 5 mg weekly. He will let me know if he has any hypoglycemic events Matt 3+ sensors ordered as they are discontinuing the 3 Advised when he returns from [place] he is to follow with endocrinology (4) Hypertension: Code(s): I10 - Essential (primary) hypertension Category: Medical Qualifiers: Hypertension type: primary hypertension Qualified Code(s): I10 - Essential (primary) hypertension Plan: wnl continue current plan (5) Anemia: Code(s): D64.9 - Anemia, unspecified Category: Medical Plan: Advised patient again that he needs to follow with GI and have a screening endoscopy Discussed the concern of colon CA with anemia. We will monitor labs. (6) Lumbago: Code(s): M54.50 - Low back pain, unspecified Category: Medical Plan: Doing very well with oxycodone regimen. We will continue current treatment plan Orders: Referrals Gastroenterology Referral D64.9 - Anemia, unspecified, Z12.11 - Encounter for screening for malignant neoplasm of colon, Z86.19 - Personal history of other infectious and parasitic diseases Medications: New tirzepatide (Mounjaro) 5 mg (0.5 mL) subcut QWEEK 2 mL 4RF amlodipine 10 mg PO DAILY 90 tabs 3RF 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 sensor (FreeStyle Matt 3 Plus Sensor device) Use daily As directed to monitor glucose 2 ea 5RF E08.29 - Diabetes mellitus due to underlying condition with other diabetic kidney complication, R80.9 - Proteinuria, unspecified, Z79.4 - jail (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 of insulin Changed From insulin degludec (Tresiba FlexTouch U-200 insulin) 30 units (0.15 mL) subcut BEDTIME 30 days 6 mL 6RF To insulin degludec (Tresiba FlexTouch U-200 insulin) 10 units (0.05 mL) subcut BEDTIME 9 mL 6RF 30 days Refilled carvedilol must administer with a meal/food 25 mg PO BID 180 tabs 3RF 90 days gabapentin 900 mg (3 x 300 mg) PO Q8H 270 caps 3RF 30 days simvastatin 10 mg PO DAILY 90 tabs 3RF oxycodone Partial Fill upon patient request. 5 mg PO Q8H PRN 84 tabs 0RF pain 28 days levothyroxine 125 mcg PO DAILY 90 tabs 3RF losartan 100 mg PO DAILY 90 tabs 3RF metformin 1,000 mg PO BID 180 tabs 3RF 90 days pantoprazole 40 mg PO QAM 90 tabs 3RF spironolactone 25 mg PO DAILY 90 tabs 3RF Discontinued tirzepatide (Mounjaro) Discontinued Reason: Doctor's Order 2.5 mg (0.5 mL) subcut QWEEK 4 weeks 2 mL 3RF hydralazine Discontinued Reason: Patient no longer taking 50 mg (2 x 25 mg) PO TID 540 tabs 2RF
[2024-11-22 15:03] VITALS: BP 124/76; PULSE 65; RESP 14; TEMP 36.7; O2SAT 98; BMI 28.8
== END 2024-11-22 15:47 | disposition home or self-care (01) ==
LOC: HO.HMCFM 14:42
PROVIDERS: PCP Physician Assistant; Visit Provider Physician Assistant
DX: R20.2 Paresthesia of skin (principal); Z86.19 Personal history of other infectious and parasitic diseases; E11.65 Type 2 diabetes mellitus with hyperglycemia; Z79.4 Long term (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 of insulin; I10 Essential (primary) hypertension; D64.9 Anemia, unspecified; M54.50 Low back pain, unspecified

== ENCOUNTER → 2024-11-22 14:41 | Outpatient (BNVA) | payer OTHER, SELFPAY | PROVIDERS: PCP Physician Assistant; Visit Provider Physician Assistant | DX: E11.65 Type 2 diabetes mellitus with hyperglycemia (principal); E11.42 Type 2 diabetes mellitus with diabetic polyneuropathy; I12.9 Hypertensive chronic kidney disease with stage 1 through stage 4 chronic kidney disease, or unspecified chronic kidney disease; E11.22 Type 2 diabetes mellitus with diabetic chronic kidney disease; N18.9 Chronic kidney disease, unspecified; R20.2 Paresthesia of skin; D64.9 Anemia, unspecified; M54.50 Low back pain, unspecified; Z86.19 Personal history of other infectious and parasitic diseases; Z79.84 Long term (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 of oral hypoglycemic drugs; Z79.891 Long term (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 of opiate analgesic; Z79.899 Other long term (current) drug therapy | CPT/HCPCS: 99212 ==

== ENCOUNTER 2024-11-27 09:09 | Outpatient (REF) | payer OTHER, SELFPAY ==
--- NOTE | 2024-11-27 09:13 | EMG_ITS ---
Chief complaint: Bilateral leg paresthesia Reason for referral: Evaluate for peripheral neuropathy, radiculopathy Referred by: DARNELL Cedeno Procedure done: Bilateral lower extremity NCS / EMG Description bilateral tibial and peroneal motor studies were performed. Bilateral superficial peroneal and sural sensory studies were performed. Tibial H reflexes were obtained and EMG needle examination was performed. Superficial peroneal sensory responses were absent. Sural amplitude was were significantly diminished with slightly slow conduction velocities. Tibial and peroneal distal latencies were prolonged with minimal amplitudes and slow conduction velocity. F responses were slightly delayed. H reflexes were absent. 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
== END 2024-11-27 09:10 | disposition home or self-care (01) ==
LOC: HO.NEURO 09:09
PROVIDERS: Visit Provider Physician Assistant
DX: M62.81 Muscle weakness (generalized) (principal); R20.2 Paresthesia of skin; G62.9 Polyneuropathy, unspecified
CPT/HCPCS: 95886; 95911

== ENCOUNTER → 2024-11-27 09:13 | Outpatient (BNV) | payer OTHER, SELFPAY | PROVIDERS: Visit Provider Psychiatry & Neurology Neurology | DX: G62.89 Other specified polyneuropathies (principal) | CPT/HCPCS: 95886; 95911 ==

== ENCOUNTER 2024-11-28 11:52 | Outpatient (REF) | payer OTHER, SELFPAY ==
--- NOTE | ~2024-11-28 | XR_ITS ---
EXAMINATION: XR KNEE AP STANDING CLINICAL INFORMATION: bilateral knee pain COMPARISON: September 08, 2016. TECHNIQUE: AP bilateral standing view of the knees was obtained Lateral and sunrise views both knees. FINDINGS: There is joint space narrowing involving mostly the medial compartments with the sclerosis along the articular surface of the medial tibial. There is chondrocalcinosis in the menisci. Small to moderate volume suprapatellar bursa joint effusion, bilaterally. Vascular calcifications. No subcutaneous emphysema. No lytic or blastic lesions. 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 Probable CPPD. Mild to moderate suprapatellar bursa joint effusion, bilaterally. Atherosclerosis disease, peripheral.. Electronically signed by: Vishal Britt MD 11/28/2024 03:50 PM EDT
== END 2024-11-28 11:53 | disposition home or self-care (01) ==
LOC: HO.HOSX 11:52
PROVIDERS: Visit Provider Orthopaedic Surgery
DX: S83.242A Other tear of medial meniscus, current injury, left knee, initial encounter (principal); X58.XXXA Exposure to other specified factors, initial encounter
CPT/HCPCS: 73562; 99202

== ENCOUNTER 2024-11-28 14:36 | Outpatient (AMB) | payer OTHER, SELFPAY ==
--- NOTE | 2024-11-28 14:56 | A.OFFVIS_ITS ---
Intake Visit Reasons: Left knee pain and giving way, Right knee pain Intake Note: Manolo is a 64 year old male who presents with complaints of progressively worsening left knee pain and giving way. The patient also had his intermittent discomfort in his right knee. He states that his right knee discomfort is tolerable to him at this time. The patient states that he injured his left knee approximately 10 years ago. He underwent left knee arthroscopic surgery while living in [place] at that time. Patient states that he got only temporary relief from the surgery. His symptoms have gotten worse over the last 2 years in spite of continued non operative treatments. He has failed the last 6 weeks of conservative treatment which has included Tylenol, anti-inflammatory medicines and a home exercise program. He states that his left knee will give out several times per day. At this point his left knee pain and mechanical symptoms are interfering with his activities of daily living and his ability to sleep well through the night. Radiology Therapist Required: Yes Radiology Therapist Services: Radiology Therapist Present Radiology Therapist Name: [id number]. Allergies clindamycin (CLINDAMYCIN) Allergy (Unknown, Verified 11/28/24 15:06) SWELLING, RASH pravastatin Allergy (Unknown, Verified 11/28/24 15:06) increase liver enzymes Medication List - Last Reconciled 11/28/24 by Nik Weaver MD amlodipine 10 mg PO DAILY blood sugar diagnostic (Accu-Chek Guide test strips) tid for sensor failure or to confirm glucose 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 meter As directed dispense glucometer compatible with one touch test strips for use when sensor fails or to confirm low glucose reading 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 meter (Accu-Chek Guide Glucose Meter) As directed 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 sensor (FreeStyle Matt 3 Plus Sensor device) Use daily As directed to monitor glucose 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,customer care assistant,cont (FreeStyle Matt 3 Balko) Use daily As directed to monitor blood glucose carvedilol 25 mg PO BID 90 days cholecalciferol (vitamin D3) (Vitamin D3) 25 mcg PO DAILY cyanocobalamin (vitamin B-12) 1,000 mcg PO DAILY cyclobenzaprine 10 mg PO TID PRN 10 days diclofenac sodium 1% (Voltaren Arthritis Pain) 4 grams topical QID PRN docusate sodium (Colace) 100 mg PO BID ferrous fumarate (Ferretts) 325 mg PO DAILY FreeStyle Matt 3 Balko (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,customer care assistant,cont) As directed for use with freestyle sensor NS gabapentin 900 mg (3 x 300 mg) PO Q8H 30 days insulin degludec (Tresiba FlexTouch U-200 insulin) 10 units (0.05 mL) subcut BEDTIME 30 days lancets (Accu-Chek Softclix Lancets) As tid for sensor failure or to confirm glucose reading latanoprost 0.005% 1 drp ophthalmic-Right BEDTIME levothyroxine 125 mcg PO DAILY losartan 100 mg PO DAILY meclizine 25 mg PO TID PRN metformin 1,000 mg PO BID 90 days oxycodone 5 mg PO Q8H PRN 28 days pantoprazole 40 mg PO QAM pen needle, diabetic (BD Ultra-Fine Micro Pen Needle) As directed sennosides (senna) 17.2 mg PO BEDTIME PRN simvastatin 10 mg PO DAILY spironolactone 25 mg PO DAILY tirzepatide (Mounjaro) 5 mg (0.5 mL) subcut QWEEK PFSH Medical History (Updated 11/28/24 @ 15:33 by Nik Weaver MD) Coarse tremors Myocardial infarction Back pain Arthritis Thyroid disease Depression Numbness Habitual snoring Wheezing History of Helicobacter pylori infection Hypothyroid Forgetfulness Major depression, recurrent, chronic Dizziness Hypertension Hyperlipidemia Previous myocardial infarction older than 8 weeks Chest pain Microalbuminuria Chronic kidney disease Diabetic nephropathy Uncontrolled type 2 diabetes mellitus with hyperglycemia, with long-term current use of insulin Surgical History History of hemilaminectomy History of esophagogastroduodenoscopy (EGD) H/O colonoscopy Hx of appendectomy Hx of knee surgery Family History Father No problems noted. Mother No problems noted. Social History Household Members: Family Housing: House Are you a primary assisted living care manager to a significant other at home: No Do you presently have visiting nurse or other home services: No Alcohol intake: current Alcohol intake frequency: does not drink Patient Tobacco Use Status: Never used Tobacco e-Cigarette/Vaping Use: Never Used Second Hand Smoke Exposure: No service: No Current occupational status: unemployed Cognitive needs: No Hearing needs: No Vision needs: No Physical Exam Const Other: Well-nourished well-developed very friendly male awake alert and oriented x3 in no acute distress Extrem Other: Left knee examination shows a minimal effusion, mild crepitus with range of motion, tenderness along his medial joint line, positive Ulises's test, no instability Right knee examination shows a minimal effusion, mild crepitus with range of motion, negative Ulises's test Results Reviewed Results Reviewed: Standing full weight-bearing x-rays of the patient's bilateral knee show mild diffuse joint space narrowing, no acute bony abnormalities Assessment & Plan Assessment & Plan (1) Tear of medial meniscus of left knee: Code(s): S83.242A - Other tear of medial meniscus, current injury, left knee, initial encounter Category: Medical (2) Right knee pain: Code(s): M25.561 - Pain in right knee Plan Mr. Mercer presents with progressively worsening left knee pain and mechanical symptoms most likely to a medial meniscus tear. Thus, I will send the patient for an MRI of his left knee for further evaluation. I will see him back once the MRI is completed to discuss the findings and treatment options. Feel free to call me at any time should questions regarding his orthopedic management arise. Thank you very much for asking me to see this very friendly gentleman. I spent 22 minutes in reviewing the patient's records and imaging studies, seeing the patient and documenting in the medical record. Orders: Orders XR Knee Miguel 3V Today M25.561 - Pain in right knee, M25.562 - Pain in left knee MR knee LT wo con 11/29/24 S83.242A - Other tear of medial meniscus, current injury, left knee, initial encounter Coding Level of Care Code New Pt Level 3 (18245) Complex EM visit Add On G2211 Diagnoses Tear of medial meniscus of left knee S83.242A Right knee pain M25.561
== END 2024-11-28 15:26 | disposition home or self-care (01) ==
LOC: HO.HOS 14:36
PROVIDERS: Visit Provider Orthopaedic Surgery
DX: S83.242A Other tear of medial meniscus, current injury, left knee, initial encounter (principal); M25.561 Pain in right knee
CPT/HCPCS: 99203

== ENCOUNTER → 2024-11-28 14:37 | Outpatient (BNV) | payer OTHER, SELFPAY | PROVIDERS: Visit Provider Radiology Diagnostic Radiology | DX: M17.0 Bilateral primary osteoarthritis of knee (principal) | CPT/HCPCS: 73562 ==

== ENCOUNTER 2024-12-15 13:02 | Emergency (ER) | payer OTHER, SELFPAY ==
--- NOTE | ~2024-12-15 | CT_ITS ---
CLINICAL HISTORY: diverticulitis CT abdomen and pelvis without contrast Comparison: None provided Findings: The lung bases are clear. There is cardiomegaly with coarse calcification of the mitral valve and severe coronary artery calcification. The gallbladder and the rest of the solid organs are unremarkable. There is colonic diverticulosis with sigmoid muscular hypertrophy. There are subtle inflammatory changes adjacent to the sigmoid colon and mild diverticulitis is not excluded. There is a large stool burden suggesting constipation. The appendix is not definitely identified. There is no evidence of appendicitis. No acute fracture. Diabetic type vascular calcifications are noted. The vas deferens are also calcified. The rest of the GI tract is unremarkable. IMPRESSION: 1. There are subtle inflammatory changes adjacent to the sigmoid colon and mild diverticulitis is not excluded. 2. There is a large stool burden suggesting constipation. 3. Cardiomegaly with coarse calcification of the mitral valve and severe coronary artery calcification. 4.. Diabetic type calcifications as described. This document has been electronically signed by: Edmar Betancourt MD on 12/15/2024 21:52:11
[2024-12-15 13:09] VITALS: BP 220/106; PULSE 52; RESP 18; TEMP 36.4; O2SAT 98; BMI 25.8
--- NOTE | 2024-12-15 13:15 | ED.GENADULT ---
HPI - General Adult General Chief complaint: General Medical Stated complaint: Lump on left side abd, vomiting, diarrhea Time Seen by Provider: 12/15/24 17:31 Source: patient Mode of arrival: ambulatory Limitations: no limitations History of Present Illness ED Provider: Dr. Rojas HPI narrative: 64-year-old male history of diverticulitis recently seen at [place] presented to the hospital for evaluation of worsening abdominal pain. Patient has also had colitis stair 2. Patient stated that he has been feeling weak. Poor p.o. intake for weeks. He came to the [facility] from [place] yesterday. He is still having some abdominal pain. On the left side of his abdomen. Denies any fever Related Data Home Medications ?Medication ?Instructions ?Recorded ?Confirmed pen needle, diabetic 32 gauge x #100 ea 11/25/23 11/28/2403/03 (BD Ultra-Fine Micro Pen Needle) ferrous fumarate 325 mg (106 mg 325 mg PO DAILY 05/27/24 11/28/24 iron) tablet (Ferretts) latanoprost 0.005 % eye drops 1 drp ophthalmic-Right BEDTIME 05/27/24 11/28/24 sennosides 8.6 mg tablet (senna) 17.2 mg PO BEDTIME PRN constipation 05/27/24 11/28/24 Previous Rx's ?Medication ?Instructions ?Recorded meclizine 25 mg tablet 25 mg PO TID PRN for dizziness #30 11/23/23 tabs diclofenac sodium 1 % topical gel 4 g topical QID PRN pain #100 grams 12/12/23 (Voltaren Arthritis Pain) docusate sodium 100 mg capsule 100 mg PO BID #20 caps 05/24/24 (Colace) cholecalciferol (vitamin D3) 25 25 mcg PO DAILY #90 tabs 06/19/24 mcg (1,000 unit) tablet (Vitamin D3) 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 meter #1 ea 06/22/24 blood sugar diagnostic (Accu-Chek #50 ea 06/29/24 Guide test strips) lancets (Accu-Chek Softclix #50 ea 06/29/24 Lancets) 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 meter (Accu-Chek #1 ea 08/02/24 Guide Glucose Meter) [employer] Matt 3 Avery #1 ea 08/09/24 (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,director of search engine marketing,cont) cyclobenzaprine 10 mg tablet 10 mg PO TID PRN muscle spasm 10 08/09/24 days #30 tabs 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,director of search engine marketing,cont #1 ea 09/26/24 (FreeStyle Matt 3 Avery) cyanocobalamin (vitamin B-12) 1,000 mcg PO DAILY #90 caps 10/18/24 1,000 mcg capsule amlodipine 10 mg tablet 10 mg PO DAILY #90 tabs 11/22/24 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 sensor (FreeStyle #2 ea 11/22/24 Matt 3 Plus Sensor device) carvedilol 25 mg tablet 25 mg PO BID 90 days #180 tabs 11/22/24 gabapentin 300 mg capsule 900 mg (3 x 300 mg) PO Q8H 30 days 11/22/24 #270 caps insulin degludec 200 unit/mL (3 10 unit (0.05 mL) subcut BEDTIME 11/22/24 mL) subcutaneous pen (Tresiba 30 days #9 mL FlexTouch U-200 insulin) levothyroxine 125 mcg tablet 125 mcg PO DAILY #90 tabs 11/22/24 losartan 100 mg tablet 100 mg PO DAILY #90 tabs 11/22/24 metformin 1,000 mg tablet 1,000 mg PO BID 90 days #180 tabs 11/22/24 oxycodone 5 mg tablet 5 mg PO Q8H PRN pain 28 days #84 11/22/24 tabs pantoprazole 40 mg tablet,delayed 40 mg PO QAM #90 tabs 11/22/24 release simvastatin 10 mg tablet 10 mg PO DAILY #90 tabs 11/22/24 spironolactone 25 mg tablet 25 mg PO DAILY #90 tabs 11/22/24 tirzepatide 5 mg/0.5 mL 5 mg (0.5 mL) subcut QWEEK #2 mL 11/22/24 subcutaneous pen injector (Lauren) ondansetron 4 mg disintegrating 4 mg PO Q8H PRN nausea and 12/16/24 tablet vomiting #14 tabs peg 3350-electrolytes 236 240 ml PO Q10M #4,000 mL 12/16/24 gram-22.74 gram-6.74 gram-5.86 gram solution (Golytely) sennosides 8.6 mg capsule (senna) 8.6 mg PO DAILY 14 days #14 caps 12/16/24 Allergies Allergy/AdvReac Type Severity Reaction Status Date / Time clindamycin (CLINDAMYCIN) Allergy Unknown SWELLING, Verified 12/15/24 13:11 RASH pravastatin Allergy Unknown increase Verified 12/15/24 13:11 liver enzymes Review of Systems Review of Systems: Pertinent review of systems as mentioned in HPI. All other system otherwise negative. [facility] Past Medical History [facility] Narrative: Medical history as mentioned in HPI Medical History (Updated 12/16/24 @ 00:07 by Kassy Rojas DO) Coarse tremors Myocardial infarction Back pain Arthritis Thyroid disease Depression Numbness Habitual snoring Wheezing History of Helicobacter pylori infection Hypothyroid Forgetfulness Major depression, recurrent, chronic Dizziness Hypertension Hyperlipidemia Previous myocardial infarction older than 8 weeks Chest pain Microalbuminuria Chronic kidney disease Diabetic nephropathy Uncontrolled type 2 diabetes mellitus with hyperglycemia, with long-term current use of insulin Surgical History History of hemilaminectomy History of esophagogastroduodenoscopy (EGD) H/O colonoscopy Hx of appendectomy Hx of knee surgery Family History Family History Father No problems noted. Mother No problems noted. Social History Social History Household Members: Family Housing: House Are you a primary acute care surgeon to a significant other at home: No Do you presently have visiting nurse or other home services: No Alcohol intake: current Alcohol intake frequency: does not drink Patient Tobacco Use Status: Never used Tobacco Smoked in Last 30 Days: No e-Cigarette/Vaping Use: Never Used Second Hand Smoke Exposure: No Use of substances other than those prescribed or required for medical reasons: No Advance Directives: No Advance Directives Information Provided: No service: No Current occupational status: unemployed Cognitive needs: No Hearing needs: No Vision needs: No Physical Exam ED Exam Exam: General: Pleasant, no distress, interacting appropriately Head: Normacephalic, atraumatic ENT: oral mucosa moist, neck supple, no tracheal deviation Cardiovascular: regular rate, regular rhythm, no murmurs, rubbing, gallops Respiratory: CTAB, no wheeze, rales, rhonchi Gastrointestinal: Soft, non distended, the side abdominal tenderness on palpation no guarding Neurological: Awake and alert, no facial droop noted Skin: Warm and dry Psychiatric: Appropriate mood and thoughts Vital Signs: Vital Signs - 24 hr 12/15/24 13:09 12/15/24 17:50 12/15/24 18:08 Temperature 97.6 F 98.3 F 98.4 F Pulse Rate 52 55 55 Respiratory Rate 18 16 20 Blood Pressure 220/106 H 228/100 H 235/99 H Pulse Oximetry 98 96 96 Oxygen Delivery Method Room Air Room Air Room Air 12/15/24 19:05 12/15/24 20:00 12/15/24 23:07 Temperature 98.1 F 97.5 F Pulse Rate 56 66 57 Respiratory Rate 18 12 13 Blood Pressure 218/88 H 221/100 H 195/93 H Pulse Oximetry 95 93 Oxygen Delivery Method Room Air Room Air BMI result Body Mass Index 25.8 Course Course Course Narrative: This is a rapid medical exam performed by Prerna Minaya NP: Additional HPI, ROS, PE not included below will be deferred to primary provider. Patient is a 64y/o Filipino speaking male presenting to the ED stating that he was recently diagnosed with colitis in [place]. Since that time he reports nausea, vomiting, diarrhea, and hematochezia. Feels a mass inside LLQ. Also reporting while stools. Plan; lab, UA Medications Administered Discontinued Medications Generic Name Dose Route Start Last Admin Trade Name Freq PRN Reason Stop Dose Admin Sodium Chloride 1,000 mls @ 999 mls/hr 12/15/24 18:15 12/15/24 20:03 Ns IV 12/15/24 19:15 Infused .Q1H1M JENNIFER Infusion Magnesium Citrate 300 ml 12/15/24 22:11 12/15/24 23:10 Magnesium Citrate 300 Ml Solution PO 12/15/24 22:12 300 ml ONCE ONE Administration Metoprolol Tartrate 5 mg 12/15/24 19:06 12/15/24 20:03 Metoprolol Tartrate 5 Mg/5 Ml Vial IVPUSH 12/15/24 19:07 5 mg ONCE ONE Administration Protocol Morphine Sulfate 4 mg 12/15/24 18:05 12/15/24 18:17 Morphine Sulfate 4 Mg/Ml Cartridge IVPUSH 12/15/24 18:06 4 mg ONCE ONE Administration Protocol Ondansetron HCl 4 mg 12/15/24 18:05 12/15/24 18:17 Ondansetron Hcl 4 Mg/2 Ml Vial IVPUSH 12/15/24 18:06 4 mg ONCE ONE Administration Medical Decision Making Medical Decision Making [facility] Narrative: 64-year-old male recently diagnosed with diverticulitis colitis, history of hypertension presented hospital today for evaluation of abdominal pain. He also has history of CHF, hypothyroidism hypertension hyperlipidemia, CKD, diabetes. Plan to repeat CT imaging. I did review patient's paperwork from [place]. The patient had a white count of 24. Patient stated that he was admitted for a couple of days started on IV antibiotics. He is unsure we will antibiotic he had taken. Patient's stated the abdominal pain remained. Therefore he presents to the ER for evaluation. CT imaging will be obtain abdominal lab work will be obtained as well. We will also plan to give patient some IV fluid, IV morphine and IV Zofran for nausea. We will plan to give patient a push dose of metoprolol patient states he is unable to tolerate his p.o. blood pressure medicine due to his abdominal pain. Patient's lab work did show leukocytosis 13.9, patient chemistries did show signs of CKD creatinine 1.84. This is around his baseline. UA is negative. CT imaging shows mild diverticulitis and large constipation in the bowel. Patient will be given magnesium citrate. I reassess patient. He states he is feeling better he has some bowel movement. Discussed with the patient that I think he is constipated. And his distention is likely secondary to the constipation. We will plan to discharge patient home with danielle Howard. Signed out will be prescribed to the patient as well encouraged him to follow up with his primary care doctor to ensure that he is feeling better. Patient agrees and understands this plan. All questions were addressed. certified court interpreter was used for this encounter. Differential Diagnosis Differential Diagnoses: The differential diagnosis associated with the presentation includes Colitis, diverticulitis, gastritis Lab Data [facility] Lab Attestation statement: I reviewed the patient's lab results. 12/15/24 13:41 12/15/24 13:41 Labs: Lab Results 12/15/24 12/15/24 Range/Units 13:41 20:08 WBC 13.9 H (4.8-10.8) X10*3/uL RBC 4.24 L (4.60-5.80) X10*6/uL Hgb 11.8 L (14.0-18.0) g/dl Hct 35.5 L (42.0-52.0) % MCV 83.7 (80.0-98.0) fL MCH 27.8 (27.0-33.0) pg MCHC 33.2 (31.0-36.0) g/dl RDW 14.1 (11.0-16.0) % Plt Count 292 D (160-400) X10*3/uL MPV 10.6 (9.4-12.4) fL Immature Gran % (Auto) 1.1 H (0.0-0.4) % Neut % (Auto) 74.8 H (45-73) % Lymph % (Auto) 12.4 L (20-40) % [place] % (Auto) 7.3 (2-11) % Eos % (Auto) 3.7 (0-4) % Baso % (Auto) 0.7 (0-2) % Lymph # (Auto) 1.7 (1.2-4.9) X10*3/uL [place] # (Auto) 1.0 (0.1-1.2) X10*3/uL Eos # (Auto) 0.5 H (0.0-0.4) X10*3/uL Baso # (Auto) 0.1 (0.0-0.2) X10*3/uL Abs Immat Gran (auto) 0.16 H (0.00-0.03) X10*3/uL Absolute Neuts (auto) 10.4 H (2.0-8.3) x10*3/uL Absolute Nucleated RBC 0.000 (0.0-0.012) X10*3/uL Nucleated RBC % (auto) 0.0 (0.0-0.2) /100WBC PT 13.6 H (10.9-12.4) SEC INR 1.2 H (0.9-1.1) Sodium 137 (135-145) mmol/L Potassium 3.9 (3.3-5.1) mmol/L Chloride 109 H (96-108) mmol/L Carbon Dioxide 20 L (22-29) mmol/L Anion Gap 12 (12-20) BUN 16 (9-16) mg/dL Creatinine 1.84 H (0.5-1.4) mg/dL Estim Creat Clear Calc 37.0 Estimated GFR 37 Random Glucose 144 H (60-115) mg/dL Calcium 8.8 (8.4-10.2) mg/dL Magnesium 1.6 (1.6-2.6) mg/dL Total Bilirubin 0.2 (0.0-1.0) mg/dL AST 26 (5-37) U/L ALT 22 (0-40) U/L Alkaline Phosphatase 67 (39-117) U/L Troponin I High Sens 7.6 (<3.5-35.0) ng/L Total Protein 6.6 (6.5-8.0) g/dL Albumin 3.8 (3.5-5.0) g/dL Lipase 93 H (8-78) U/L Urine Color Yellow Urine Appearance Clear Urine pH 6.5 (5.0-9.0) Ur Specific [place] 1.010 (1.005-1.025) Urine Protein 300 (3+) H (Neg-Trace) mg/dL Urine Glucose (UA) Negative (Negative) mg/dL Urine Ketones Negative (Negative) mg/dL Urine Blood Trace H (Negative) Urine Nitrite Negative (Negative) Ur Leukocyte Esterase Negative (Negative) Urine RBC 0-2 (0-2) /HPF Urine WBC 0-5 (0-5) /HPF Ur Squamous Epith Cells 0-2 (0-2) /HPF Urine Bacteria None Seen (None Seen) Hyaline Casts 0-2 (0-2) /LPF Independent Interpretation I performed an independent interpretation of an: CT Scan Radiology Impression Discussion of test interpretation with radiology: I have reviewed the radiologist's reading. Discharge Plan Discharge Clinical Impression: Constipation Qualifiers: Constipation type: unspecified constipation type Qualified Code(s): K59.00 - Constipation, unspecified Patient Disposition: Home, Self-Care Instructions: Constipation (ED) Prescriptions: New peg 3350-electrolytes [Golytely] 236-22.74-6.74 -5.86 gram recon soln 240 ml PO Q10M Qty: 4000 0RF Rx Instructions: until fecal effluent is clear ondansetron 4 mg tablet,disintegrating 4 mg PO Q8H PRN (Reason: nausea and vomiting) Qty: 14 0RF senna 8.6 mg capsule 8.6 mg PO DAILY 14 Days Qty: 14 0RF No Action meclizine 25 mg tablet 25 mg PO TID PRN (Reason: for dizziness) Qty: 30 0RF cholecalciferol (vitamin D3) [Vitamin D3] 25 mcg (1,000 unit) tablet 25 mcg PO DAILY Qty: 90 1RF (DME) 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 meter Kit See Rx Instructions .Route Qty: 1 0RF Rx Instructions: As directed dispense glucometer compatible with one touch test strips for use when sensor fails or to confirm low glucose reading (DME) Accu-Chek Guide test strips Strip See Rx Instructions .Route Qty: 50 1RF Rx Instructions: tid for sensor failure or to confirm glucose (DME) lancets [Accu-Chek Softclix Lancets] Misc See Rx Instructions .Route Qty: 50 1RF Rx Instructions: As tid for sensor failure or to confirm glucose reading (DME) FreeStyle Matt 3 Avery Misc See Rx Instructions .ROUTE .MEDSUPPLY Qty: 1 0RF Rx Instructions: As directed for use with freestyle sensor cyclobenzaprine 10 mg tablet 10 mg PO TID PRN (Reason: muscle spasm) 10 Days Qty: 30 2RF latanoprost 0.005 % drops 1 drp ophthalmic-Right BEDTIME sennosides [senna] 8.6 mg tablet 17.2 mg PO BEDTIME PRN (Reason: constipation) Ferretts 325 mg (106 mg iron) tablet 325 mg PO DAILY diclofenac sodium [Voltaren Arthritis Pain] 1 % gel 4 g topical QID PRN (Reason: pain) Qty: 100 0RF Rx Instructions: apply to single knee, ankle, foot; for foot includes sole/toes/top of foot docusate sodium [Colace] 100 mg capsule 100 mg PO BID Qty: 20 0RF cyanocobalamin (vitamin B-12) 1,000 mcg capsule 1,000 mcg PO DAILY Qty: 90 0RF (DME) pen needle, diabetic [BD Ultra-Fine Micro Pen Needle] 32 gauge x 1/4 needle See Rx Instructions .ROUTE .MEDSUPPLY Qty: 100 Rx Instructions: As directed (DME) 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 meter [Accu-Chek Guide Glucose Meter] Misc See Rx Instructions .Route Qty: 1 0RF Rx Instructions: As directed (DME) FreeStyle Matt 3 Avery Misc See Rx Instructions .MEDSUPPLY Qty: 1 0RF Rx Instructions: Use daily As directed to monitor blood glucose (DME) FreeStyle Matt 3 Plus Sensor Device See Rx Instructions .ROUTE .MEDSUPPLY Qty: 2 5RF Rx Instructions: Use daily As directed to monitor glucose insulin degludec [Tresiba FlexTouch U-200] 200 unit/mL (3 mL) insulin pen 10 unit subcut BEDTIME 30 Days Qty: 9 6RF Mounjaro 5 mg/0.5 mL pen injector 5 mg subcut QWEEK Qty: 2 4RF carvedilol 25 mg tablet 25 mg PO BID 90 Days Qty: 180 3RF Rx Instructions: must administer with a meal/food amlodipine 10 mg tablet 10 mg PO DAILY Qty: 90 3RF gabapentin 300 mg capsule 900 mg PO Q8H 30 Days Qty: 270 3RF levothyroxine 125 mcg tablet 125 mcg PO DAILY Qty: 90 3RF losartan 100 mg tablet 100 mg PO DAILY Qty: 90 3RF metformin 1,000 mg tablet 1,000 mg PO BID 90 Days Qty: 180 3RF pantoprazole 40 mg tablet,delayed release (DR/EC) 40 mg PO QAM Qty: 90 3RF simvastatin 10 mg tablet 10 mg PO DAILY Qty: 90 3RF spironolactone 25 mg tablet 25 mg PO DAILY Qty: 90 3RF oxycodone 5 mg tablet 5 mg PO Q8H PRN (Reason: pain) 28 Days Qty: 84 0RF Rx Instructions: Partial Fill upon patient request. Print Language: Filipino
--- NOTE | 2024-12-15 13:18 | ECG_ITS ---
Test Reason : HTN Blood Pressure : */* mmHG Vent. Rate : 58 BPM Atrial Rate : 58 BPM P-R Int : 304 ms QRS Dur : 94 ms QT Int : 446 ms P-R-T Axes : 42 11 36 degrees QTcB Int : 437 ms Sinus bradycardia with 1st degree A-V block Minimal voltage criteria for LVH, may be normal variant ( Shawn product ) Borderline ECG When compared with ECG of 25-May-2024 12:36, No significant change was found Referred By: Carol Minaya Electronically Signed By: Oj Estrada
[2024-12-15 13:45] LABS: MANUAL DIFF FLAG NO
[2024-12-15 13:48] LABS: Hematocrit 35.5 % (42.0-52.0); Hemoglobin 11.8 g/dl (14.0-18.0); Imm Gran Abs Auto 0.16 X10*3/uL (0.00-0.03); Imm Gran Pct Auto 1.1 % (0.0-0.4); Lymphocytes Absolute Auto 1.7 X10*3/uL (1.2-4.9); Mean Corpuscular HGB Conc 33.2 g/dl (31.0-36.0); Mean Corpuscular Hemoglobin 27.8 pg (27.0-33.0); Mean Corpuscular Volume 83.7 fL (80.0-98.0); NRBC Abs Auto 0.000 X10*3/uL (0.0-0.012); NRBC Pct Auto 0.0 /100WBC (0.0-0.2); Platelet Count 292 X10*3/uL (160-400); Red Blood Count 4.24 X10*6/uL (4.60-5.80); White Blood Count 13.9 X10*3/uL (4.8-10.8)
[2024-12-15 13:56] LABS: INTERNATIONAL NORM RATIO 1.2 (0.9-1.1); Prothrombin Time 13.6 SEC (10.9-12.4)
[2024-12-15 14:05] LABS: Alanine Aminotransferase 22 U/L (0-40); Albumin Level 3.8 g/dL (3.5-5.0); Alkaline Phosphatase 67 U/L (39-117); Anion Gap 12 (12-20); Aspartate Amino Transferase 26 U/L (5-37); Blood Urea Nitrogen 16 mg/dL (9-16); Calcium 8.8 mg/dL (8.4-10.2); Carbon Dioxide 20 mmol/L (22-29); Chloride 109 mmol/L (96-108); Creatinine Clr Calc Pharmacy 37.0; Estimated Glomerular Filt Rate 37; Lipase 93 U/L (8-78); Magnesium 1.6 mg/dL (1.6-2.6); Potassium 3.9 mmol/L (3.3-5.1); Sodium 137 mmol/L (135-145); Total Protein 6.6 g/dL (6.5-8.0)
[2024-12-15 14:13] LABS: Troponin-I High Sensitivity 7.6 ng/L (<3.5-35.0)
[2024-12-15 17:50] VITALS: BP 228/100; PULSE 55; RESP 16; TEMP 36.8; O2SAT 96
--- NOTE | 2024-12-15 17:52 | PC.NURSE ---
Pt reporting no BP meds in 2 days due to stomach upset. 12 pound weight loss this week, poor PO intake. Lower ABD and rectal pain (describes as pulsating). Blood in stool. Pt just got back from [place] last night, was seen at the hospital there
[2024-12-15 18:08] VITALS: BP 235/99; PULSE 55; RESP 20; TEMP 36.9; O2SAT 96
[2024-12-15 19:05] VITALS: BP 218/88; PULSE 56; RESP 18
[2024-12-15 20:00] VITALS: BP 221/100; PULSE 66; RESP 12; TEMP 36.7; O2SAT 95
[2024-12-15 20:16] LABS: Appearance Urine Clear; Glucose Urine UA Negative (Negative); PH 6.5 (5.0-9.0); Specific Gravity - Urine 1.010 (1.005-1.025); UMIC TRIGGER UACC YES
[2024-12-15 23:07] VITALS: BP 195/93; PULSE 57; RESP 13; TEMP 36.4; O2SAT 93
[2024-12-16 00:26] VITALS: BP 195/93; PULSE 57; RESP 13; TEMP 36.4; O2SAT 93
== END 2024-12-16 00:27 | disposition home or self-care (01) ==
PROVIDERS: Registered Nurse Emergency; Emergency Provider Student in an Organized Health Care Education/Training Program; PCP Physician Assistant
DX: K59.00 Constipation, unspecified (principal); R10.9 Unspecified abdominal pain; R11.10 Vomiting, unspecified; I10 Essential (primary) hypertension; R00.1 Bradycardia, unspecified; I44.0 Atrioventricular block, first degree; K57.92 Diverticulitis of intestine, part unspecified, without perforation or abscess without bleeding
CPT/HCPCS: 36415; 74176; 80053; 81001; 83690; 83735; 84484; 85025; 85610; 87040; 93005; 96361; 96374; 96375; 99284; 99285; J0616; J2270; J2405

== ENCOUNTER → 2024-12-15 13:18 | Outpatient (BNV) | payer OTHER, SELFPAY | PROVIDERS: Emergency Provider Student in an Organized Health Care Education/Training Program; PCP Physician Assistant; Visit Provider Internal Medicine Cardiovascular Disease | DX: R00.1 Bradycardia, unspecified (principal); I44.0 Atrioventricular block, first degree | CPT/HCPCS: 93010 ==

== ENCOUNTER → 2024-12-15 20:06 | Outpatient (BNV) | payer OTHER, SELFPAY | PROVIDERS: Emergency Provider Student in an Organized Health Care Education/Training Program; PCP Physician Assistant; Visit Provider Radiology Diagnostic Radiology | DX: I51.7 Cardiomegaly (principal); I25.10 Atherosclerotic heart disease of native coronary artery without angina pectoris | CPT/HCPCS: 74176 ==

== ENCOUNTER 2024-12-17 10:27 | Emergency (ER) | payer OTHER, SELFPAY ==
--- NOTE | ~2024-12-17 | XR_ITS ---
EXAMINATION: XR LUMBAR SPINE 2-3 VIEWS HISTORY: pain COMPARISON: Comparison is made with the prior examination dated 02/16/2016. FINDINGS: AP, lateral, and coned down views of the lumbar spine are submitted. Osseous mineralization is normal. Five nonrib-bearing lumbar vertebral bodies are identified, maintaining normal height without evidence of fracture or spondylolisthesis. There is mild levoscoliosis. There is moderate degenerative disc disease with disc space narrowing and osteophyte formation. There is osteoarthritis of the lower lumbar facet joints. The visualized paraspinal soft tissues are unremarkable. XR/XR lumbar spine 2-3V IMPRESSION: Mild levoscoliosis. Degenerative changes as described. Electronically signed by: Dick Mitchell MD 12/17/2024 11:47 AM EDT
--- NOTE | 2024-12-17 10:49 | ED.GENADULT ---
HPI - General Adult General Chief complaint: Back Pain/Injury Stated complaint: unable to walk, unable to move legs Time Seen by Provider: 12/17/24 12:05 Source: patient and assistant credit manager Mode of arrival: ambulatory Limitations: language barrier History of Present Illness ED Provider: HPI narrative: 64-year-old male, recent travel from [place], had an ER visit 2 days ago for constipation, abdominal pain head CT, has had prior history of L4-L5 laminectomy by in April of this year, states otherwise he has had no issues and he had a flight from [place] [facility], thereafter was traveling by car and he feels that right after that his pain started getting worse. He is not describing back pain has had no abdominal pain, no numbness in the groin or lower extremities, he has pain on the lateral aspect of his right hip going down to his right knee. He states he has had hard time walking because of that. Related Data Home Medications ?Medication ?Instructions ?Recorded ?Confirmed pen needle, diabetic 32 gauge x #100 ea 11/25/23 11/28/2403/03 (BD Ultra-Fine Micro Pen Needle) ferrous fumarate 325 mg (106 mg 325 mg PO DAILY 05/27/24 11/28/24 iron) tablet (Ferretts) latanoprost 0.005 % eye drops 1 drp ophthalmic-Right BEDTIME 05/27/24 11/28/24 sennosides 8.6 mg tablet (senna) 17.2 mg PO BEDTIME PRN constipation 05/27/24 11/28/24 Previous Rx's ?Medication ?Instructions ?Recorded meclizine 25 mg tablet 25 mg PO TID PRN for dizziness #30 11/23/23 tabs diclofenac sodium 1 % topical gel 4 g topical QID PRN pain #100 grams 12/12/23 (Voltaren Arthritis Pain) docusate sodium 100 mg capsule 100 mg PO BID #20 caps 05/24/24 (Colace) cholecalciferol (vitamin D3) 25 25 mcg PO DAILY #90 tabs 06/19/24 mcg (1,000 unit) tablet (Vitamin D3) 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 meter #1 ea 06/22/24 blood sugar diagnostic (Accu-Chek #50 ea 06/29/24 Guide test strips) lancets (Accu-Chek Softclix #50 ea 06/29/24 Lancets) 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 meter (Accu-Chek #1 ea 08/02/24 Guide Glucose Meter) FreeStyle Matt 3 Shushan #1 ea 08/09/24 (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,woodworking machine feeder,cont) cyclobenzaprine 10 mg tablet 10 mg PO TID PRN muscle spasm 10 08/09/24 days #30 tabs 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,woodworking machine feeder,cont #1 ea 09/26/24 (FreeStyle Matt 3 Shushan) cyanocobalamin (vitamin B-12) 1,000 mcg PO DAILY #90 caps 10/18/24 1,000 mcg capsule amlodipine 10 mg tablet 10 mg PO DAILY #90 tabs 11/22/24 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 sensor (FreeStyle #2 ea 11/22/24 Matt 3 Plus Sensor device) carvedilol 25 mg tablet 25 mg PO BID 90 days #180 tabs 11/22/24 gabapentin 300 mg capsule 900 mg (3 x 300 mg) PO Q8H 30 days 11/22/24 #270 caps insulin degludec 200 unit/mL (3 10 unit (0.05 mL) subcut BEDTIME 11/22/24 mL) subcutaneous pen (Tresiba 30 days #9 mL FlexTouch U-200 insulin) levothyroxine 125 mcg tablet 125 mcg PO DAILY #90 tabs 11/22/24 losartan 100 mg tablet 100 mg PO DAILY #90 tabs 11/22/24 metformin 1,000 mg tablet 1,000 mg PO BID 90 days #180 tabs 11/22/24 oxycodone 5 mg tablet 5 mg PO Q8H PRN pain 28 days #84 11/22/24 tabs pantoprazole 40 mg tablet,delayed 40 mg PO QAM #90 tabs 11/22/24 release simvastatin 10 mg tablet 10 mg PO DAILY #90 tabs 11/22/24 spironolactone 25 mg tablet 25 mg PO DAILY #90 tabs 11/22/24 tirzepatide 5 mg/0.5 mL 5 mg (0.5 mL) subcut QWEEK #2 mL 11/22/24 subcutaneous pen injector (Lauren) ondansetron 4 mg disintegrating 4 mg PO Q8H PRN nausea and 12/16/24 tablet vomiting #14 tabs peg 3350-electrolytes 236 240 ml PO Q10M #4,000 mL 12/16/24 gram-22.74 gram-6.74 gram-5.86 gram solution (Golytely) sennosides 8.6 mg capsule (senna) 8.6 mg PO DAILY 14 days #14 caps 12/16/24 acetaminophen 500 mg capsule 1,000 mg (2 x 500 mg) PO Q6H PRN 12/17/24 pain 5 days #20 caps dexamethasone 4 mg tablet 4 mg PO DAILY #6 tabs 12/17/24 lidocaine 4 % topical patch 1 patch topical DAILY PRN pain 5 12/17/24 (Aspercreme (lidocaine)) days #10 ea Allergies Allergy/AdvReac Type Severity Reaction Status Date / Time clindamycin (CLINDAMYCIN) Allergy Unknown SWELLING, Verified 12/17/24 10:57 RASH pravastatin Allergy Unknown increase Verified 12/17/24 10:57 liver enzymes Review of Systems Constitutional: Constitutional: Reports as per [facility] Past Medical History Medical History Coarse tremors Myocardial infarction Back pain Arthritis Thyroid disease Depression Numbness Habitual snoring Wheezing History of Helicobacter pylori infection Hypothyroid Forgetfulness Major depression, recurrent, chronic Dizziness Hypertension Hyperlipidemia Previous myocardial infarction older than 8 weeks Chest pain Microalbuminuria Chronic kidney disease Diabetic nephropathy Uncontrolled type 2 diabetes mellitus with hyperglycemia, with long-term current use of insulin Surgical History History of hemilaminectomy History of esophagogastroduodenoscopy (EGD) H/O colonoscopy Hx of appendectomy Hx of knee surgery Family History Family History Father No problems noted. Mother No problems noted. Social History Social History Household Members: Family Housing: House Are you a primary direct care specialist to a significant other at home: No Do you presently have visiting nurse or other home services: No Alcohol intake: current Alcohol intake frequency: does not drink Patient Tobacco Use Status: Never used Tobacco e-Cigarette/Vaping Use: Never Used Second Hand Smoke Exposure: No Advance Directives: No Advance Directives Information Provided: Yes service: No Current occupational status: unemployed Cognitive needs: No Hearing needs: No Vision needs: No Physical Exam ED Exam Exam: General: ?Appears of stated age ? Abd: ?Bowel sounds are present, no tenderness no rebound no rigidity ? ?MSK: Good strength on hip flexion bilaterally, is able to flex his knee extend his knee bilaterally and his ankles as well, he has significant tenderness along ITB right over the greater trochanter all along down to the insertion of ITB distally, he has no sensory deficits S1-L2 examined while he is sitting down ? Skin: Warm, dry, intact, no rashes ? ?Neuro: ?Alert and oriented x3, moving upper and lower extremities symmetrically, no obvious facial asymmetry noted, cranial nerves 2-12 intact Vital Signs: Vital Signs - 24 hr 12/17/24 10:52 Temperature 98.6 F Pulse Rate 78 Respiratory Rate 16 Blood Pressure 158/88 H Oxygen Delivery Method Room Air BMI result Body Mass Index 28.0 Course Course Course Narrative: RME, this is a rapid medical exam performed by Sonu Vazquez please refer to primary provider for complete H&P- 64-year-old male presents for evaluation of lower back pain. He reports that he was treated for diverticulitis and [place] in the assisted here 2 days ago. He had a repeat CAT scan that showed mild inflammatory changes but significant constipation. He was ultimately discharged with the Sof[facility] Howard and sign off. He now reports that he has back pain radiating to his legs which is making it impossible for him to walk due to the pain. He had a similar presentation in April of this year. Plan for repeat labs and a lumbar spine x-ray Medications Administered Discontinued Medications Generic Name Dose Route Start Last Admin Trade Name Amari PRN Reason Stop Dose Admin Dexamethasone 10 mg 12/17/24 12:23 12/17/24 13:33 Dexamethasone 2 Mg Tablet PO 12/17/24 12:24 10 mg ONCE ONE Administration Diazepam 2.5 mg 12/17/24 12:23 12/17/24 13:33 Diazepam 10 Mg/2 Ml Cartridge IM 12/17/24 12:24 2.5 mg STAT STA Administration Ketorolac Tromethamine 15 mg 12/17/24 12:25 12/17/24 13:33 Ketorolac Tromethamine 15 Mg/Ml Vial IM 12/17/24 12:26 15 mg ONCE ONE Administration Oxycodone HCl 5 mg 12/17/24 12:23 12/17/24 13:34 Oxycodone Hcl Immed Release 5 Mg Tablet PO 12/17/24 12:24 5 mg ONCE ONE Administration Medical Decision Making Medical Decision Making [facility] Narrative: 12:30 PM 12/17/2024 (Dr. Ayaz Rivas): Physical examination is consistent with ITB syndrome, he has tenderness right over his ITB on the right side, without neurovascular compromise, has had no back pain, history of laminectomy no fevers or chills, recent ER visit had a CT abdomen and pelvis with constipation without any intra-abdominal pathology or AAA on exam just few days ago, did not feel further blood work is indicated I canceled that, x-ray with the arthritic changes, no destructive lesions, no obvious fractures, he has had no injuries he has had no fevers, plan to medicate, did note that he is diabetic and has CKD but I will use anti-inflammatories and steroids and I did discuss with him with a turbine room attendant that his diabetes may be harder to control however I think it is warranted because he is in significant amount of pain. I will after I medicate him I will re-evaluate him and make sure he is able to ambulate. 1:55 PM 12/17/2024 (Dr. Ayaz Rivas): Patient ambulated without any issues after being medicated we will discharge Differential Diagnosis Differential Diagnoses: The differential diagnosis associated with the presentation includes (Diskitis, osteomyelitis, spinal epidural abscess, cauda equina, iliotibial band syndrome,) Admission/Observation Consideration of admission/observation: Escalation of care including admission/observation considered Independent Interpretation I performed an independent interpretation of an: Plain X-Ray (Degenerative changes throughout the spine) Radiology Impression Discussion of test interpretation with radiology: I have reviewed the radiologist's reading. External Record Review External record reviewed: Inpatient record Discharge Plan Discharge Clinical Impression: Iliotibial band syndrome affecting right lower leg Patient Disposition: Home, Self-Care Additional Instructions: Take acetaminophen 1000 mg every 6 hours around the clock, and continue Decadron starting tomorrow, you have oxycodone at home use that as needed for pain I also recommend lidocaine patches apply it right over the outer part of your upper hip with a hurts the most Continue steroids starting tomorrow, for additional pain control get in touch with the primary care provider Your x-rays showed arthritic changes You had seen physicians a few days ago in the ER for constipation and abdominal pain you had CAT scan and blood work Prescriptions: New acetaminophen 500 mg capsule 1,000 mg PO Q6H PRN (Reason: pain) 5 Days Qty: 20 0RF dexamethasone 4 mg tablet 4 mg PO DAILY Qty: 6 0RF Rx Instructions: Day 1: 3 pills Day 2 : 2 pills day 3: 1 pill lidocaine [Aspercreme (lidocaine)] 4 % adhesive patch,medicated 1 patch topical DAILY PRN (Reason: pain) 5 Days Qty: 10 0RF No Action meclizine 25 mg tablet 25 mg PO TID PRN (Reason: for dizziness) Qty: 30 0RF cholecalciferol (vitamin D3) [Vitamin D3] 25 mcg (1,000 unit) tablet 25 mcg PO DAILY Qty: 90 1RF (DME) 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 meter Kit See Rx Instructions .Route Qty: 1 0RF Rx Instructions: As directed dispense glucometer compatible with one touch test strips for use when sensor fails or to confirm low glucose reading (DME) Accu-Chek Guide test strips Strip See Rx Instructions .Route Qty: 50 1RF Rx Instructions: tid for sensor failure or to confirm glucose (DME) lancets [Accu-Chek Softclix Lancets] Misc See Rx Instructions .Route Qty: 50 1RF Rx Instructions: As tid for sensor failure or to confirm glucose reading (DME) FreeStyle Matt 3 Shushan Misc See Rx Instructions .ROUTE .MEDSUPPLY Qty: 1 0RF Rx Instructions: As directed for use with freestyle sensor cyclobenzaprine 10 mg tablet 10 mg PO TID PRN (Reason: muscle spasm) 10 Days Qty: 30 2RF latanoprost 0.005 % drops 1 drp ophthalmic-Right BEDTIME sennosides [senna] 8.6 mg tablet 17.2 mg PO BEDTIME PRN (Reason: constipation) Ferretts 325 mg (106 mg iron) tablet 325 mg PO DAILY peg 3350-electrolytes [Golytely] 236-22.74-6.74 -5.86 gram recon soln 240 ml PO Q10M Qty: 4000 0RF Rx Instructions: until fecal effluent is clear ondansetron 4 mg tablet,disintegrating 4 mg PO Q8H PRN (Reason: nausea and vomiting) Qty: 14 0RF senna 8.6 mg capsule 8.6 mg PO DAILY 14 Days Qty: 14 0RF diclofenac sodium [Voltaren Arthritis Pain] 1 % gel 4 g topical QID PRN (Reason: pain) Qty: 100 0RF Rx Instructions: apply to single knee, ankle, foot; for foot includes sole/toes/top of foot docusate sodium [Colace] 100 mg capsule 100 mg PO BID Qty: 20 0RF cyanocobalamin (vitamin B-12) 1,000 mcg capsule 1,000 mcg PO DAILY Qty: 90 0RF (DME) pen needle, diabetic [BD Ultra-Fine Micro Pen Needle] 32 gauge x 1/4 needle See Rx Instructions .ROUTE .MEDSUPPLY Qty: 100 Rx Instructions: As directed (DME) 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 meter [Accu-Chek Guide Glucose Meter] Misc See Rx Instructions .Route Qty: 1 0RF Rx Instructions: As directed (DME) FreeStyle Matt 3 Shushan Misc See Rx Instructions .MEDSUPPLY Qty: 1 0RF Rx Instructions: Use daily As directed to monitor blood glucose (DME) FreeStyle Matt 3 Plus Sensor Device See Rx Instructions .ROUTE .MEDSUPPLY Qty: 2 5RF Rx Instructions: Use daily As directed to monitor glucose insulin degludec [Tresiba FlexTouch U-200] 200 unit/mL (3 mL) insulin pen 10 unit subcut BEDTIME 30 Days Qty: 9 6RF Mounjaro 5 mg/0.5 mL pen injector 5 mg subcut QWEEK Qty: 2 4RF carvedilol 25 mg tablet 25 mg PO BID 90 Days Qty: 180 3RF Rx Instructions: must administer with a meal/food amlodipine 10 mg tablet 10 mg PO DAILY Qty: 90 3RF gabapentin 300 mg capsule 900 mg PO Q8H 30 Days Qty: 270 3RF levothyroxine 125 mcg tablet 125 mcg PO DAILY Qty: 90 3RF losartan 100 mg tablet 100 mg PO DAILY Qty: 90 3RF metformin 1,000 mg tablet 1,000 mg PO BID 90 Days Qty: 180 3RF pantoprazole 40 mg tablet,delayed release (DR/EC) 40 mg PO QAM Qty: 90 3RF simvastatin 10 mg tablet 10 mg PO DAILY Qty: 90 3RF spironolactone 25 mg tablet 25 mg PO DAILY Qty: 90 3RF oxycodone 5 mg tablet 5 mg PO Q8H PRN (Reason: pain) 28 Days Qty: 84 0RF Rx Instructions: Partial Fill upon patient request. Print Language: Qatari
[2024-12-17 10:52] VITALS: BP 158/88; PULSE 78; RESP 16; TEMP 37; BMI 28.0
[2024-12-17] MEDS: diazePAM 10 MG/2 ML CARTRIDGE 2.5 MG IM (13:33)
[2024-12-17] MEDS: oxyCODONE HCl Immed Release 5 MG TABLET PO (13:34)
[2024-12-17 14:11] VITALS: BP 158/88; PULSE 78; RESP 16; TEMP 37
== END 2024-12-17 14:11 | disposition home or self-care (01) ==
PROVIDERS: Emergency Provider Emergency Medicine; PCP Physician Assistant
DX: M76.31 Iliotibial band syndrome, right leg (principal); M25.551 Pain in right hip
CPT/HCPCS: 72100; 96372; 99283; 99284; J1885; J3360; J8540

== ENCOUNTER → 2024-12-17 10:54 | Outpatient (BNV) | payer OTHER, SELFPAY | PROVIDERS: PCP Physician Assistant; Visit Provider Radiology Diagnostic Radiology | DX: M51.360 Other intervertebral disc degeneration, lumbar region with discogenic back pain only (principal); M41.86 Other forms of scoliosis, lumbar region | CPT/HCPCS: 72100 ==

== ENCOUNTER 2024-12-31 18:22 | Outpatient (REF) | payer OTHER, SELFPAY ==
--- NOTE | ~2024-12-31 | MR_ITS ---
EXAMINATION: MR KNEE WITHOUT CONTRAST, LEFT CLINICAL INFORMATION: Medial meniscal tear COMPARISON: None available. TECHNIQUE: MRI of the knee without contrast was performed using routine sequences on a high-field scanner. FINDINGS: MENISCI: Medial Meniscus: Horizontal and tibial articular surface tear in the body and posterior horn/body junction.. Lateral Meniscus: Degenerative fraying/ill-defined tear of the central aspect of the posterior horn. LIGAMENTS: Cruciate: Diffuse ACL thickening and increased signal, consistent with mucoid degeneration. Thickening and increased T2 signal in the PCL, could reflect mucoid degeneration plus/minus partial tear. Collateral: Mild MCL sprain. Intact LCL complex. EXTENSOR MECHANISM: Intact ARTICULAR CARTILAGE/BONE: Patellofemoral Compartment: Mild arthritis. Medial Compartment: Moderate arthritis. Nonuniform chondral loss. Subchondral tibial cyst/edema. Prominent degenerative cyst underlying the tibial spines. Lateral Compartment: No significant chondral loss. JOINT FLUID AND BURSAE: Large effusion. Low signal foci in the effusion from synovitis/debris/loose bodies. Moderate Coburn's cyst with synovitis/debris/loose bodies. Mild popliteus muscle strain. Popliteus tendon is intact. Subcutaneous edema. MR/MR knee LT wo con IMPRESSION: 1. Tear of the medial meniscal body and posterior horn/body junction. 2. Degenerative fraying/ill-defined tear of the central aspect of the posterior horn lateral meniscus. 3. Mucoid degeneration ACL. Mucoid degeneration plus/minus partial tear PCL. 4. Mild MCL sprain. 5. Mild patellofemoral and moderate medial compartment arthritis. 6. Large effusion with synovitis/debris/loose bodies. Moderate Coburn's cyst with synovitis/debris/loose bodies. 7. Mild popliteus muscle strain. Electronically signed by: Ian Dutton MD 01/01/2025 04:18 PM [facility]
== END 2024-12-31 18:23 | disposition home or self-care (01) ==
LOC: HO.MRI 18:22
PROVIDERS: PCP Physician Assistant; Visit Provider Orthopaedic Surgery
DX: S83.242D Other tear of medial meniscus, current injury, left knee, subsequent encounter (principal)
CPT/HCPCS: 73721